=== PATIENT | female | born 1945 | race Caucasian/White ===

== ENCOUNTER 2016-06-11 08:52 | Emergency (ER) | payer OTHER ==
[~2016-06-11] VITALS: Ht 167.6 cm; Wt 79.8 kg
[~2016-06-11 08:52] MED LIST: ASPI-482 PO; ASPI81TA50 PO; ATEN25TA PO; CITA20TA5 PO; CLON0.5T3 PO; CLON2TAB16 PO; CLOP75TA PO; CLOP75TA27 PO; CYCL10TA2 PO; ESTR0.3T PO; EZET1TAB4 PO; FENO135C PO; FENO45CA PO; HYDR-2762 PO; HYDR12.53 PO; IMIP75CA PO; INSU100I17 SQ; INSU100I18 SQ; INSU100I27 SQ; LEVO112T4 PO; LEVO125T5 PO; LINA5TAB PO; LISI-338 PO; METF500T4 PO; MIRT30TA PO; MIRT30TA6 PO; MV,1TABL3 PO; OMEP20TA PO; POTA2.5T PO; POTA500T5 PO; TRAZ100T12 PO; UBID100C26 PO; UBID60CA2 PO; VITA400C36 PO; traz; trazadone
--- NOTE | 2016-06-11 09:13 | PHYS DOC ---
Past Medical History Past Medical History: Diabetes-Type II, Hypertension Past Surgical History: Cholecystectomy, Hysterectomy Additional Past Surgical Histo: NECK SURGERY Alcohol Use: None Drug Use: None Adult General Chief Complaint Chief Complaint: MECHANICAL FALL HPI HPI Patient is a 71 year old female who presents with complaint of head injury after suffering a fall at home. Patient currently lives in assisted living. Patient states that she awoke to use the restroom. Patient stated that she had significant urgency which resulted in incontinence. Patient states that she was trying to hurry to her bathroom rug to try to decrease the mass. Patient states that the rug slipped, causing her to fall backward. Patient states she hit the back of her head. Patient denied any loss of consciousness. Patient admits that the day before she also had a fall, hitting the left side of her face. The patient suffered bruising but denied any loss of consciousness. Patient denies any associated lightheadedness or chest pain with her falls. Patient states that she is supposed to ambulate with use of her roller walker, however she states that at the time of both falls she was not using her walker. Patient also Dr. Kelsey for primary care. Patient states that she feels safe in her current living situation and came to the emergency department to ensure no presence of significant injuries. Review of Systems Review of Systems Constitutional: Denies fever or chills [] Eyes: Denies change in visual acuity, redness, or eye pain [] HENT: Head injury, left eyebrow bruising [] Respiratory: Denies cough or shortness of breath [] Cardiovascular: Denies chest pain or edema [] GI: Denies abdominal pain, nausea, vomiting, bloody stools or diarrhea [] : Denies dysuria or hematuria [] Musculoskeletal: Chronic low back pain [] Integument: Denies rash or skin lesions [] Neurologic: Denies headache, focal weakness or sensory changes [] Endocrine: Denies polyuria or polydipsia [] Allergies Allergies Allergies Coded Allergies Type Severity Reaction Last Updated Verified Lakrdvi-Qsv-Nmn Reductase Inhibitor Allergy Intermediate 06/25/14 Yes Sulfa (Sulfonamide Antibiotics) Allergy Intermediate Rash 06/25/14 Yes erythromycin base Allergy Intermediate 06/25/14 Yes warfarin Allergy Intermediate Hives 06/25/14 Yes niacin Adverse Reaction Intermediate Hives 06/25/14 Yes Physical Exam Physical Exam Constitutional: Alert, afebrile, no acute distress. [] HENT: Normocephalic, minimal tenderness to palpation over right occipital scalp with minimal appreciable hematoma, bilateral external ears normal, oropharynx moist, no oral exudates, nose normal. [] Eyes: PERRLA, EOMI, left periorbital ecchymosis present, conjunctiva normal, no discharge. [] Neck: Normal range of motion, no tenderness, supple, no stridor. [] Cardiovascular:Heart rate regular rhythm, no murmur [] Lungs & Thorax: Bilateral breath sounds clear to auscultation [] Abdomen: Bowel sounds normal, soft, no tenderness, no masses, no pulsatile masses. [] Skin: Warm, dry, no erythema, no rash. [] Back: No tenderness, no CVA tenderness. [] Extremities: No tenderness, no cyanosis, no clubbing, ROM intact, trace pedal edema bilaterally. [] Neurologic: Alert and oriented X 3, normal motor function, normal sensory function, no focal deficits noted. [] Current Patient Data Vital Signs Vital Signs Date Time Temp Pulse Resp B/P Pulse Ox O2 Delivery O2 Flow Rate FiO2 06/11/16 09:00 98.1 66 18 128/60 97 Room Air 98.1 Lab Values Laboratory Tests Test 06/11/16 09:38 White Blood Count 5.6x10^3/uL (4.0-11.0) Red Blood Count 4.33x10^6/uL (3.50-5.40) Hemoglobin 12.0g/dL (12.0-15.5) Hematocrit 36.5% (36.0-47.0) Mean Corpuscular Volume 84fL (79-100) Mean Corpuscular Hemoglobin 28pg (25-35) Mean Corpuscular Hemoglobin Concent 33g/dL (31-37) Red Cell Distribution Width 14.9% (11.5-14.5) H Platelet Count 147x10^3/uL (140-400) Neutrophils (%) (Auto) 65% (31-73) Lymphocytes (%) (Auto) 25% (24-48) Monocytes (%) (Auto) 8% (0-9) Eosinophils (%) (Auto) 1% (0-3) Basophils (%) (Auto) 1% (0-3) Neutrophils # (Auto) 3.7x10^3uL (1.8-7.7) Lymphocytes # (Auto) 1.4x10^3/uL (1.0-4.8) Monocytes # (Auto) 0.5x10^3/uL (0.0-1.1) Eosinophils # (Auto) 0.1x10^3/uL (0.0-0.7) Basophils # (Auto) 0.0x10^3/uL (0.0-0.2) Sodium Level 140mmol/L (136-145) Potassium Level 3.7mmol/L (3.5-5.1) Chloride Level 101mmol/L (98-107) Carbon Dioxide Level 27mmol/L (21-32) Anion Gap 12 (6-14) Blood Urea Nitrogen 14mg/dL (7-20) Creatinine 1.0mg/dL (0.6-1.0) Estimated GFR (Cockcroft-Gault) 54.7 Glucose Level 320mg/dL (70-99) H Calcium Level 9.4mg/dL (8.5-10.1) Magnesium Level 1.3mg/dL (1.8-2.4) L Laboratory Tests 06/11/16 09:38 Laboratory Tests 06/11/16 09:38 EKG EKG Not performed Radiology/Procedures Radiology/Procedures [facility] [address] [place] [address] IMAGING REPORT Signed PATIENT: FRANCISCA CASTRO ACCOUNT: [id number] : 1945 LOCATION: ER AGE: 71 SEX: F EXAM STATUS: REG ER ORD. PHYSICIAN: ESTUARDO WATTS MD REASON: fall, head injury PROCEDURE: HEAD WO CONTRAST CT of the head without contrast, 06/11/2016: History: Fall, head injury Comparison is made to a study from 10/15/2014. The ventricles are within normal limits in size. There is no shift of the midline structures. There is no evidence of acute intracranial hemorrhage or mass effect. Minimal bilateral deep white matter lucencies are present compatible with chronic ischemic change. There is mild cerebral atrophy compatible with the patient's age. IMPRESSION: No acute intracranial abnormality is detected. PQRS Compliance Statement: One or more of the following individualized dose reduction techniques were utilized for this examination: 1. Automated exposure control 2. Adjustment of the mA and/or kV according to patient size 3. Use of iterative reconstruction technique DICTATED and SIGNED BY: KIRA MARX MD DATE: 06/11/16 1006 CC: JHOANA KELSEY; ESTUARDO WATTS MD ~ [] Course & Med Decision Making Course & Med Decision Making Pertinent Labs and Imaging studies reviewed. (See chart for details) Patient's head CT was negative for severe injury and patient is currently in no acute distress. I sat and spoke with the patient regarding safety at home. Patient states that she would like to go home and states that she will use her walker to assist with ambulation to prevent any continued falls. I did recommend that the patient follow-up in the next [address] Kelsey and return to emergency department for any worsening symptoms. Patient voiced understanding and in agreement with treatment plan. Dragon Disclaimer Dragon Disclaimer This electronic medical record was generated, in whole or in part, using a voice recognition dictation system. Departure Departure Impression: Primary Impression: Fall from standing Additional Impressions: Closed head injury Periorbital ecchymosis Disposition: HOME, SELF-CARE Condition: IMPROVED Referrals: JHOANA KELSEY (PCP) Patient Instructions: Fall Prevention and Home Safety, Head Injury, Adult Additional Instructions: Follow-up with your primary doctor in 5 days. Be sure to use your walker to assist with ambulation to prevent any further falls. Return to the emergency department for any worsening symptoms. Problem Qualifiers Primary Impression: Fall from standing Encounter type: initial encounter Qualified Code: W19.XXXA - Unspecified fall, initial encounter Additional Impressions: Closed head injury Encounter type: initial encounter Qualified Code: S09.90XA - Unspecified injury of head, initial encounter Periorbital ecchymosis Encounter type: initial encounter Laterality: left Qualified Code: S00.12XA - Contusion of left eyelid and periocular area, initial encounter ESTUARDO WATTS MD Jun 11, 2016 09:13
[2016-06-11 09:52] LABS: BASO % 1 % (0-3); EOS % 1 % (0-3); HEMATOCRIT 36.5 % (36.0-47.0); LYMPH # 1.4 x10^3/uL (1.0-4.8); LYMPH % 25 % (24-48); MEAN CORPUSCULAR HEMOGLOBIN 28 pg (25-35); MEAN CORPUSCULAR HGB CONC 33 g/dL (31-37); MEAN CORPUSCULAR VOLUME 84 fL (79-100); MONO % 8 % (0-9); NEUT % 65 % (31-73); PLATELET COUNT 147 x10^3/uL (140-400); RED BLOOD COUNT 4.33 x10^6/uL (3.50-5.40); RED CELL DISTRIBUTION WIDTH 14.9 % (11.5-14.5); WHITE BLOOD COUNT 5.6 x10^3/uL (4.0-11.0)
[2016-06-11 09:55] LABS: CALCIUM 9.4 mg/dL (8.5-10.1); GFR 54.7; MAGNESIUM 1.3 mg/dL (1.8-2.4); POTASSIUM 3.7 mmol/L (3.5-5.1)
--- NOTE | 2016-06-11 10:11 | RAD ---
CT of the head without contrast, 06/11/2016: History: Fall, head injury Comparison is made to a study from 10/15/2014. The ventricles are within normal limits in size. There is no shift of the midline structures. There is no evidence of acute intracranial hemorrhage or mass effect. Minimal bilateral deep white matter lucencies are present compatible with chronic ischemic change. There is mild cerebral atrophy compatible with the patient's age. IMPRESSION: No acute intracranial abnormality is detected. PQRS Compliance Statement: One or more of the following individualized dose reduction techniques were utilized for this examination: 1. Automated exposure control 2. Adjustment of the mA and/or kV according to patient size 3. Use of iterative reconstruction technique
[2016-06-11 11:00] VITALS: BP 125/58
== END 2016-06-11 13:12 | disposition home or self-care (01) ==
LOC: ER 08:52
DX: S00.12XA Contusion of left eyelid and periocular area, initial encounter (principal); S09.90XA Unspecified injury of head, initial encounter; E11.9 Type 2 diabetes mellitus without complications; I10 Essential (primary) hypertension; Z90.49 Acquired absence of other specified parts of digestive tract; Z90.710 Acquired absence of both cervix and uterus; Z88.2 Allergy status to sulfonamides; Z88.1 Allergy status to other antibiotic agents; Z88.8 Allergy status to other drugs, medicaments and biological substances; W01.0XXA Fall on same level from slipping, tripping and stumbling without subsequent striking against object, initial encounter; Y93.89 Activity, other specified; Y92.098 Other place in other non-institutional residence as the place of occurrence of the external cause; Y99.8 Other external cause status
CPT/HCPCS: 36415; 70450; 80048; 83735; 85027; 99285-25

== ENCOUNTER 2016-06-27 23:36 | Emergency (ER) | payer OTHER ==
[~2016-06-27] VITALS: Ht 152.4 cm; Wt 79.8 kg
[2016-06-27 23:45] VITALS: BP 135/63
--- NOTE | 2016-06-28 00:33 | RAD ---
PROCEDURE CT head without contrast HISTORY Hit posterior head TECHNIQUE Noncontrast axial cross sectional CT scanning of the head was performed. COMPARISON October 15, 2014 FINDINGS No acute intracranial hemorrhage or midline shift or mass-effect or hydrocephalus or extra-axial fluid collection is seen. No focal hypodense area is seen to indicate an acute infarct or edema radiographically. No skull fracture or pneumocephalus is seen. No opacification of the mastoid sinuses or the paranasal sinuses is seen. The maxillary sinuses are not completely seen in this study. IMPRESSION No acute intracranial abnormality is seen. PQRS Statement: One or more of the following individualized dose reduction techniques were utilized for this study: 1. Automated exposure control. 2. Adjustment of the mA and/or kV according to patient size. 3. Use of iterative reconstruction technique. Electronically signed by: Luis M Berry MD (Jun 28, 2016 00:32:32)
--- NOTE | 2016-06-28 00:47 | PHYS DOC ---
Past Medical History Past Medical History: Diabetes-Type II, Hypertension Past Surgical History: Cholecystectomy, Hysterectomy Additional Past Surgical Histo: NECK SURGERY Alcohol Use: Rarely Drug Use: None Adult General Chief Complaint Chief Complaint: MECHANICAL FALL HPI HPI This pleasant 71-year-old female who states she had a fall after trying to sit on the edge of the bed and fell backwards hitting the back of her head and has a 1 cm laceration. He is controlled. Patient is on blood thinners. Patient is alert and oriented at this time and can answer all my questions. She denies any neck pain. She denies any other injury. Review of Systems Review of Systems Constitutional: Denies fever or chills [] Eyes: Denies change in visual acuity, redness, or eye pain [] HENT: Denies nasal congestion or sore throat [] Respiratory: Denies cough or shortness of breath [] Cardiovascular: No additional information not addressed in HPI [] GI: Denies abdominal pain, nausea, vomiting, bloody stools or diarrhea [] : Denies dysuria or hematuria [] Musculoskeletal: Denies back pain or joint pain [] Integument: Denies rash or skin lesions [] Neurologic: Denies headache, focal weakness or sensory changes [] Endocrine: Denies polyuria or polydipsia [] Current Medications Current Medications Current Medications Medications (Trade) Dose Ordered Sig/Kike Start Time Stop Time Status Last Admin Dose Admin Acetaminophen/ Hydrocodone Bitart (Lortab 5/325) 1 tab 1X ONCE 06/28/16 02:00 06/28/16 02:01 DC 06/28/16 01:42 1 TAB Allergies Allergies Allergies Coded Allergies Type Severity Reaction Last Updated Verified Sxwoypv-Vhs-Rei Reductase Inhibitor Allergy Intermediate 06/25/14 Yes Sulfa (Sulfonamide Antibiotics) Allergy Intermediate Rash 06/25/14 Yes erythromycin base Allergy Intermediate 06/25/14 Yes warfarin Allergy Intermediate Hives 06/25/14 Yes bupropion Allergy Mild Rash 06/11/16 Yes nitroglycerin Allergy Mild 06/11/16 Yes tetracycline Allergy Mild Swelling 06/11/16 Yes niacin Adverse Reaction Intermediate Hives 06/25/14 Yes Physical Exam Physical Exam Constitutional: Well developed, well nourished, no acute distress, non-toxic appearance. [] HENT: Normocephalic, 1 cm vertical laceration to the occipital area, bilateral external ears normal, oropharynx moist, no oral exudates, nose normal. [] Eyes: PERRLA, EOMI, conjunctiva normal, no discharge. [] Neck: Normal range of motion, no tenderness, supple, no stridor. [] Cardiovascular:Heart rate regular rhythm, no murmur [] Lungs & Thorax: Bilateral breath sounds clear to auscultation [] Abdomen: Bowel sounds normal, soft, no tenderness, no masses, no pulsatile masses. [] Skin: Warm, dry, no erythema, no rash. [] Back: No tenderness, no CVA tenderness. [] Extremities: No tenderness, no cyanosis, no clubbing, ROM intact, no edema. [] Neurologic: Alert and oriented X 3, normal motor function, normal sensory function, no focal deficits noted. [] Psychologic: Affect normal, judgement normal, mood normal. [] Current Patient Data Vital Signs Vital Signs Date Time Temp Pulse Resp B/P Pulse Ox O2 Delivery O2 Flow Rate FiO2 06/27/16 23:45 98.3 64 16 135/63 98 Room Air 98.3 Current Patient Data Vital Signs Date Time Temp Pulse Resp B/P Pulse Ox O2 Delivery O2 Flow Rate FiO2 06/27/16 23:45 98.3 64 16 135/63 98 Room Air 98.3 Vital Signs Date Time Temp Pulse Resp B/P Pulse Ox O2 Delivery O2 Flow Rate FiO2 06/27/16 23:45 98.3 64 16 135/63 98 Room Air 98.3 EKG EKG EKG as interpreted by me shows sinus rhythm with rate of 58 bpm. There is no ectopy. There are no obvious ischemic findings. This EKG does not meet STEMI criteria. Radiology/Procedures Radiology/Procedures PROCEDURE CT head without contrast HISTORY Hit posterior head TECHNIQUE Noncontrast axial cross sectional CT scanning of the head was performed. COMPARISON October 15, 2014 FINDINGS No acute intracranial hemorrhage or midline shift or mass-effect or hydrocephalus or extra-axial fluid collection is seen. No focal hypodense area is seen to indicate an acute infarct or edema radiographically. No skull fracture or pneumocephalus is seen. No opacification of the mastoid sinuses or the paranasal sinuses is seen. The maxillary sinuses are not completely seen in this study. IMPRESSION No acute intracranial abnormality is seen. Course & Med Decision Making Course & Med Decision Making Pertinent Labs and Imaging studies reviewed. (See chart for details) This 71-year-old female had a posterior scalp laceration was repaired with [address] of her head was unremarkable. She is fully alert and oriented at her stated mental baseline. There is no indication perform any laboratory workup at this time. She was discharged and told to follow closely with her primary care doctor to have her sterling removed to return to the ER if she develops any worsening headache or if develops any changes in her mental status. Dragon Disclaimer Dragon Disclaimer This electronic medical record was generated, in whole or in part, using a voice recognition dictation system. Suture Removal Procedure 3 sterling were placed into the posterior scalp laceration without incident with excellent approximation. Patient tolerated the procedure well without need for anesthesia. Course & Medical Decisions Pertinent Labs and Imaging studies reviewed. (See chart for details) [] Final Impression [] Departure Departure Impression: Primary Impression: Closed head injury Additional Impression: Scalp laceration Disposition: 01 HOME, SELF-CARE Admitting Physician: Other Condition: STABLE Referrals: JHOANA KELSEY (PCP) Patient Instructions: Head Injury, Adult, [id number], Laceration Care, Adult , [id number], Staple Wound Closure, [id number] Additional Instructions: Please follow up with your primary doctor for your laceration and have your staple removed in in 7-10 days. Return to the ER if you develop any worsening of your symptoms such as worsening headache, nausea, or vomiting. Problem Qualifiers FRANCES BLOOD DO Jun 28, 2016 00:47
[2016-06-28] MEDS ORDERED: HYDROCODONE/APAP 5/325MG TABLET. PO ONE (02:00)
--- NOTE | 2016-06-28 07:11 | EKG ---
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
== END 2016-06-28 02:00 | disposition home or self-care (01) ==
LOC: ER 23:36
DX: S01.01XA Laceration without foreign body of scalp, initial encounter (principal); E11.9 Type 2 diabetes mellitus without complications; I10 Essential (primary) hypertension; Z88.1 Allergy status to other antibiotic agents; Z88.2 Allergy status to sulfonamides; Z88.8 Allergy status to other drugs, medicaments and biological substances; W06.XXXA Fall from bed, initial encounter; Y93.89 Activity, other specified; Y92.89 Other specified places as the place of occurrence of the external cause; Y99.8 Other external cause status
CPT/HCPCS: 12001; 70450; 93005; 99284-25

== ENCOUNTER 2016-10-17 04:08 | Inpatient (IN) | payer OTHER ==
[2016-10-17] VITALS (16 sets, daily range): BP systolic 100–160; BP diastolic 53–90
[~2016-10-17] VITALS: Ht 165.1 cm; Wt 78.9 kg
[~2016-10-17 04:08] MED LIST changes: -CLOP75TA27 PO; +CLOP75TA57 PO; +EZET1TAB30 PO; -EZET1TAB4 PO; -LINA5TAB PO; +LINA5TAB4 PO; -OMEP20TA PO; +OMEP20TA8 PO
[2016-10-17] MEDS ORDERED: LIDOCAINE 1% / SOD BICARB 8.4% 20 ML VIAL. IJ ONE (04:36)
--- NOTE | 2016-10-17 04:47 | RAD ---
RS Compliance Statement: One or more of the following individualized dose reduction techniques were utilized for this examination: 1. Automated exposure control 2. Adjustment of the mA and/or kV according to patient size 3. Use of iterative reconstruction technique CT HEAD WITHOUT CONTRAST History: code stroke; left sided facial drooping, slurred speech, numbness Comparison: None. Technique: Axial images are obtained of the head from the skull base through the vertex without IV contrast. Findings: No mass-effect, midline shift, extra-axial fluid collection, hemorrhage, or obvious acute infarction is identified. Basilar cisterns are patent. The ventricles and sulci are prominent, consistent with age-related cerebral atrophy. There is periventricular white matter hypoattenuation. This is a nonspecific finding but is commonly due to chronic small vessel ischemic disease. Bone windows demonstrate no acute calvarial abnormality. The visualized paranasal sinuses are clear. Mastoid air cells are well aerated. IMPRESSION: 1. No acute intracranial abnormality. 2. Age-related cerebral atrophy and periventricular white matter changes of chronic small vessel ischemic disease. FOR INTERNAL CODING PURPOSES Critical result: Findings discussed with Jose in the ED at 10/17/2016 4:41 AM. RESULT CODE: (C) Electronically signed by: Shahbaz Potter MD (10/17/2016 4:44 AM) [facility]
[2016-10-17 05:23] LABS: BASO # 0.1 x10^3/uL (0.0-0.2); BASO % 1 % (0-3); EOS % 1 % (0-3); HEMATOCRIT 37.1 % (36.0-47.0); LYMPH # 1.9 x10^3/uL (1.0-4.8); LYMPH % 29 % (24-48); MEAN CORPUSCULAR HEMOGLOBIN 29 pg (25-35); MEAN CORPUSCULAR HGB CONC 32 g/dL (31-37); MEAN CORPUSCULAR VOLUME 91 fL (79-100); MONO % 10 % (0-9); NEUT % 60 % (31-73); PLATELET COUNT 147 x10^3/uL (140-400); RED BLOOD COUNT 4.09 x10^6/uL (3.50-5.40); RED CELL DISTRIBUTION WIDTH 13.9 % (11.5-14.5); WHITE BLOOD COUNT 6.7 x10^3/uL (4.0-11.0)
[2016-10-17 05:33] LABS: BILIRUBIN,URINE NEGATIVE (NEG); GLUCOSE,URINE >=1000 mg/dL (NEG); NITRITE,URINE NEGATIVE (NEG); PH,URINE 5.5; PROTEIN,URINE NEGATIVE (NEG-TRACE); UROBILINOGEN,URINE 0.2 mg/dL (0.2 mg/dL)
[2016-10-17 05:35] LABS: CALCIUM 10.3 mg/dL (8.5-10.1); CREATININE 1.2 mg/dL (0.6-1.0); GFR 44.3
[2016-10-17 05:38] LABS: ALBUMIN 3.6 g/dL (3.4-5.0); ALBUMIN/GLOBULIN RATIO 0.8 (1.0-1.7); TOTAL BILIRUBIN 0.6 mg/dL (0.2-1.0); TOTAL PROTEIN 8.1 g/dL (6.4-8.2)
[2016-10-17 05:44] LABS: BACTERIA,URINE 0 /HPF (0-FEW); RBC,URINE 0 /HPF (0-2); SQUAMOUS EPITHELIAL CELL,UR OCC /LPF; WBC,URINE 0 /HPF (0-4)
[2016-10-17] MEDS ORDERED: IV NORMAL SALINE 1000ML BAG 1,000 ML IV ONE ×2 (05:45)
[2016-10-17 05:47] LABS: INR 1.1 (0.8-1.1); PROTHROMBIN TIME PATIENT 13.6 SEC (11.7-14.0)
[2016-10-17] MEDS ORDERED: ONDANSETRON PF 4 MG/2 ML VIAL. IV PRN (06:00)
[2016-10-17] MEDS ORDERED: INSULIN REGULAR 100 UNIT/ML 10ML VIAL. IV ONE (06:15)
--- NOTE | 2016-10-17 06:18 | PHYS DOC ---
Past Medical History Past Medical History: Diabetes-Type II, Hypertension, Hypothyroid Past Surgical History: Cholecystectomy, Hysterectomy Additional Past Surgical Histo: NECK SURGERY Alcohol Use: Rarely Drug Use: None Adult General Chief Complaint Chief Complaint: HYPERGLYCEMIA HPI HPI Patient is a 71 year old female who presents here today secondary to left- sided weakness and slurred speech. Patient's other history of diabetes and strokes in the past. Last as well as unclear however appears to be greater than 6 hours. Patient has a nausea vomiting or diarrhea. No fevers shakes chills. No cough cold runny nose. Constitutional: Denies fever or chills [] Eyes: Denies change in visual acuity, redness, or eye pain [] HENT: Denies nasal congestion or sore throat [] All other review systems are negative except as documented in the history of present illness portion. Constitutional: Well developed, well nourished, no acute distress, non-toxic appearance. [] HENT: Normocephalic, atraumatic, bilateral external ears normal, oropharynx moist, no oral exudates, nose normal. [] Eyes: no discharge. [] Neck: Normal range of motion, no tenderness, supple, no stridor. [] Cardiovascular:Heart rate regular rhythm, Lungs & Thorax: Bilateral breath sounds clear to auscultation [] Abdomen: Bowel sounds normal, soft, no tenderness, no masses, no pulsatile masses. [] Skin: Warm, dry, no erythema, no rash. [] Back: No tenderness, no CVA tenderness. [] Extremities: No tenderness, no cyanosis, no clubbing, ROM intact, no edema. [] Neurologic: Alert and oriented X 3 patient with left facial droop. Patient with weakness to her left upper extremity. This appears to be a chronic condition for the patient however does appear to be worse than usual. While in the ER patient had a tonic-clonic seizure of her lip of her despite the nurse. Psychologic: Affect normal, judgement normal, mood normal. [] Assessment and plan is a 71-year-old female who presents here today with strokelike symptoms. Patient is extremely hyperglycemic with a blood sugar of greater than 600. Patient was started on insulin and IV fluids in the ED. I have discussed the case with for assistance with managing tPA. Given that the patient extremely hyperglycemic is felt that her symptoms but improved with improvement of her hyperosmotic status. Doctor Johana our neurologist on-call has recommended holding off on initiating TPA and aggressive management of her electrolytes and blood sugar. Critical care time of 35 minutes reutilized and treatment and management of this patient's strokelike symptoms, hyperglycemia, hyperosmotic state. Patient will be admitted to the hospital for further evaluation and management by endocrinology and neurology. Laboratory Tests Test 10/17/16 04:23 10/17/16 04:47 White Blood Count 6.7 x10^3/uL Red Blood Count 4.09 x10^6/uL Hemoglobin 12.0 g/dL Hematocrit 37.1 % Mean Corpuscular Volume 91 fL Mean Corpuscular Hemoglobin 29 pg Mean Corpuscular Hemoglobin Concent 32 g/dL Red Cell Distribution Width 13.9 % Platelet Count 147 x10^3/uL Neutrophils (%) (Auto) 60 % Lymphocytes (%) (Auto) 29 % Monocytes (%) (Auto) 10 % Eosinophils (%) (Auto) 1 % Basophils (%) (Auto) 1 % Neutrophils # (Auto) 4.0 x10^3uL Lymphocytes # (Auto) 1.9 x10^3/uL Monocytes # (Auto) 0.6 x10^3/uL Eosinophils # (Auto) 0.1 x10^3/uL Basophils # (Auto) 0.1 x10^3/uL Prothrombin Time 13.6 SEC Prothromb Time International Ratio 1.1 Sodium Level 124 mmol/L Potassium Level 5.0 mmol/L Chloride Level 86 mmol/L Carbon Dioxide Level 29 mmol/L Anion Gap 9 Blood Urea Nitrogen 28 mg/dL Creatinine 1.2 mg/dL Estimated GFR (Cockcroft-Gault) 44.3 BUN/Creatinine Ratio 23 Glucose Level 802 mg/dL Calcium Level 10.3 mg/dL Total Bilirubin 0.6 mg/dL Aspartate Amino Transf (AST/SGOT) 47 U/L Alanine Aminotransferase (ALT/SGPT) 52 U/L Alkaline Phosphatase 138 U/L Troponin I Quantitative < 0.017 ng/mL Total Protein 8.1 g/dL Albumin 3.6 g/dL Albumin/Globulin Ratio 0.8 Urine Collection Type U cath Urine Color Yellow Urine Clarity Clear Urine pH 5.5 Urine Specific [place] 1.025 Urine Protein Negative mg/dL Urine Glucose (UA) >=1000 mg/dL Urine Ketones (Stick) Negative mg/dL Urine Blood Negative Urine Nitrite Negative Urine Bilirubin Negative Urine Urobilinogen Dipstick 0.2 mg/dL Urine Leukocyte Esterase Negative Urine RBC 0 /HPF Urine WBC 0 /HPF Urine Squamous Epithelial Cells Occ /LPF Urine Bacteria 0 /HPF Current Medications Medications (Trade) Dose Ordered Sig/Kike Route PRN Reason Start Time Stop Time Status Last Admin Dose Admin Lidocaine/Sodium Bicarbonate (Buffered Lidocaine 1%) 20 ml STK-MED ONCE IJ 10/17/16 04:36 10/17/16 04:37 Cancel Sodium Chloride 1,000 ml @ 1,000 mls/hr 1X ONCE IV 10/17/16 05:45 10/17/16 06:44 DC 10/17/16 05:45 1,000 MLS/HR Sodium Chloride 1,000 ml @ 1,000 mls/hr 1X ONCE IV 10/17/16 05:45 10/17/16 06:44 DC 10/17/16 05:45 1,000 MLS/HR Current Medications Current Medications Current Medications Medications (Trade) Dose Ordered Sig/Kike Start Time Stop Time Status Last Admin Dose Admin Lidocaine/Sodium Bicarbonate (Buffered Lidocaine 1%) 20 ml STK-MED ONCE 10/17/16 04:36 10/17/16 04:37 Cancel Sodium Chloride 1,000 ml @ 1,000 mls/hr 1X ONCE 10/17/16 05:45 10/17/16 06:44 DC 10/17/16 05:45 1,000 MLS/HR Allergies Allergies Allergies Coded Allergies Type Severity Reaction Last Updated Verified Etngnhp-Enb-Ltc Reductase Inhibitor Allergy Intermediate 06/25/14 Yes Sulfa (Sulfonamide Antibiotics) Allergy Intermediate Rash 06/25/14 Yes erythromycin base Allergy Intermediate 06/25/14 Yes warfarin Allergy Intermediate Hives 06/25/14 Yes bupropion Allergy Mild Rash 06/11/16 Yes nitroglycerin Allergy Mild 06/11/16 Yes tetracycline Allergy Mild Swelling 06/11/16 Yes niacin Adverse Reaction Intermediate Hives 06/25/14 Yes Current Patient Data Vital Signs Vital Signs Date Time Temp Pulse Resp B/P (MAP) Pulse Ox O2 Delivery O2 Flow Rate FiO2 10/17/16 05:53 79 119/67 (84) 95 Nasal Cannula 2.0 10/17/16 04:27 98.4 20 98.4 Lab Values Laboratory Tests Test 10/17/16 04:23 10/17/16 04:47 White Blood Count 6.7 x10^3/uL (4.0-11.0) Red Blood Count 4.09 x10^6/uL (3.50-5.40) Hemoglobin 12.0 g/dL (12.0-15.5) Hematocrit 37.1 % (36.0-47.0) Mean Corpuscular Volume 91 fL (79-100) Mean Corpuscular Hemoglobin 29 pg (25-35) Mean Corpuscular Hemoglobin Concent 32 g/dL (31-37) Red Cell Distribution Width 13.9 % (11.5-14.5) Platelet Count 147 x10^3/uL (140-400) Neutrophils (%) (Auto) 60 % (31-73) Lymphocytes (%) (Auto) 29 % (24-48) Monocytes (%) (Auto) 10 % (0-9) H Eosinophils (%) (Auto) 1 % (0-3) Basophils (%) (Auto) 1 % (0-3) Neutrophils # (Auto) 4.0 x10^3uL (1.8-7.7) Lymphocytes # (Auto) 1.9 x10^3/uL (1.0-4.8) Monocytes # (Auto) 0.6 x10^3/uL (0.0-1.1) Eosinophils # (Auto) 0.1 x10^3/uL (0.0-0.7) Basophils # (Auto) 0.1 x10^3/uL (0.0-0.2) Prothrombin Time 13.6 SEC (11.7-14.0) Prothrombin Time INR 1.1 (0.8-1.1) Sodium Level 124 mmol/L (136-145) L Potassium Level 5.0 mmol/L (3.5-5.1) Chloride Level 86 mmol/L (98-107) L Carbon Dioxide Level 29 mmol/L (21-32) Anion Gap 9 (6-14) Blood Urea Nitrogen 28 mg/dL (7-20) H Creatinine 1.2 mg/dL (0.6-1.0) H Estimated GFR (Cockcroft-Gault) 44.3 BUN/Creatinine Ratio 23 (6-20) H Glucose Level 802 mg/dL (70-99) *H Calcium Level 10.3 mg/dL (8.5-10.1) H Total Bilirubin 0.6 mg/dL (0.2-1.0) Aspartate Amino Transferase (AST) 47 U/L (15-37) H Alanine Aminotransferase (ALT) 52 U/L (14-59) Alkaline Phosphatase 138 U/L (46-116) H Troponin I Quantitative < 0.017 ng/mL (0.000-0.055) Total Protein 8.1 g/dL (6.4-8.2) Albumin 3.6 g/dL (3.4-5.0) Albumin/Globulin Ratio 0.8 (1.0-1.7) L Urine Collection Type U cath Urine Color Yellow Urine Clarity Clear Urine pH 5.5 Urine Specific [place] 1.025 Urine Protein Negative mg/dL (NEG-TRACE) Urine Glucose (UA) >=1000 mg/dL (NEG) Urine Ketones (Stick) Negative mg/dL (NEG) Urine Blood Negative (NEG) Urine Nitrite Negative (NEG) Urine Bilirubin Negative (NEG) Urine Urobilinogen Dipstick 0.2 mg/dL (0.2 mg/dL) Urine Leukocyte Esterase Negative (NEG) Urine RBC 0 /HPF (0-2) Urine WBC 0 /HPF (0-4) Urine Squamous Epithelial Cells Occ /LPF Urine Bacteria 0 /HPF (0-FEW) Laboratory Tests 10/17/16 04:23 Laboratory Tests 10/17/16 04:23 EKG EKG [] Radiology/Procedures Radiology/Procedures [] Course & Med Decision Making Course & Med Decision Making Pertinent Labs and Imaging studies reviewed. (See chart for details) [] Dragon Disclaimer Dragon Disclaimer This electronic medical record was generated, in whole or in part, using a voice recognition dictation system. Departure Departure Impression: Primary Impression: Stroke Additional Impressions: Hyperglycemia Seizure Disposition: ADMITTED INPATIENT Admitting Physician: Maggie Escobar Condition: GUARDED Referrals: JHOANA KELSEY (PCP) Scripts Insulin Aspart (NOVOLOG FLEXPEN) 100 Unit/1 Ml Insuln.pen 25 UNITS SQ TIDAC for 30 Days, EACH Prov: MAGGIE ESCOBAR MD 10/20/16 Problem Qualifiers RADHA VALDOVINSO MD Oct 17, 2016 06:18
[2016-10-17] MEDS ORDERED: INSULIN,REGULAR 150 UNIT DRIP 150 ML IV ONE (06:30)
[2016-10-17] MEDS ORDERED: ASPIRIN CHEWABLE 81 MG TABLET. PO ONE (07:00)
--- NOTE | 2016-10-17 07:39 | EKG ---
[facility] [address] [place] [address] Test Date: 2016-10-17 Test Time: 04:40:53 Pat Name: FRANCISCA CASTRO Department: Room: 109 Gender: F Route Process Administrator: : [id number] Requested By: RADHA VALDOVINOS Order Number: [id number] Reading MD: Luther Chadwick Measurements Intervals [place] Rate: 77 P: 54 ID: [id number] QRS: 54 QRSD: 90 T: 71 QT: 380 QTc: 432 Interpretive Statements SINUS RHYTHM Electronically Signed On 10-22-2016 14:36:03 CDT by Luther Chadwick
--- NOTE | 2016-10-17 08:02 | RAD ---
Indication left facial droop. Suspect CVA. A single view of the chest was obtained. No prior imaging of the head is available. The heart and pulmonary vessels appear normal. The lungs are clear. There is no pleural fluid or pneumothorax. Visualized bony structures appear grossly intact. IMPRESSION: No acute or focal process is seen in the chest
[2016-10-17] MEDS ORDERED: LEVO100T5 PO (08:10)
[2016-10-17] MEDS ORDERED: INSU100I17 SQ (08:10)
[2016-10-17] MEDS ORDERED: SAXA5TAB PO (08:10)
[2016-10-17] MEDS ORDERED: UBID200C PO (08:10)
[2016-10-17] MEDS ORDERED: TORS20TA2 PO (08:10)
[2016-10-17] MEDS ORDERED: GEMF600T3 PO (08:10)
[2016-10-17] MEDS ORDERED: ATEN25TA PO (08:10)
[2016-10-17] MEDS ORDERED: COLE625T12 PO (08:10)
[2016-10-17] MEDS ORDERED: FLUT16SP NS (08:10)
[2016-10-17] MEDS ORDERED: TRAZ150T49 PO (08:10)
[2016-10-17] MEDS ORDERED: BREX4TAB PO (08:10)
[2016-10-17] MEDS ORDERED: VORT20TA PO (08:10)
[2016-10-17] MEDS ORDERED: HYDR-2762 PO (08:10)
[2016-10-17] MEDS ORDERED: INSU100V13 SQ (08:10)
[2016-10-17 12:29] LABS: CALCIUM 8.6 mg/dL (8.5-10.1); CREATININE 0.8 mg/dL (0.6-1.0); GFR 70.7; POTASSIUM 4.1 mmol/L (3.5-5.1)
--- NOTE | 2016-10-17 12:36 | PDOC ---
Provider Note Provider Note Pt seen in ICU, H&P dictated #[id number] VLAD SHAHID MD Oct 17, 2016 12:36
[2016-10-17] MEDS: CYCLOBENZAPRINE 10 MG TABLET. PO SCH ×2 (12:47→20:11)
[2016-10-17] MEDS: EZETIMIBE 10 MG TABLET. PO SCH (12:47)
[2016-10-17] MEDS: CLOPIDOGREL BISULFATE 75 MG TABLET PO SCH (12:48)
[2016-10-17] MEDS: SIMVASTATIN 20 MG TABLET PO SCH (12:48)
[2016-10-17] MEDS: LISINOPRIL 5 MG TABLET. PO SCH (12:48)
[2016-10-17] MEDS: clonazePAM 0.5 MG TABLET PO SCH ×2 (12:48→20:11)
[2016-10-17] MEDS: LEVOTHYROXINE 100 MCG TABLET PO SCH (12:48)
[2016-10-17] MEDS: LINAGLIPTIN 5 MG TABLET PO SCH (12:48)
[2016-10-17] MEDS: COLESEVELAM HCL 625 MG TABLET PO SCH ×2 (12:49→20:11)
[2016-10-17] MEDS ORDERED: MAGNESIUM SULFATE 2GM 50 ML IV ONE (13:00)
[2016-10-17] MEDS ORDERED: DEXTROSE 50% 25 GM / 50ML DISP.SYRIN. IV PRN (13:45)
--- NOTE | 2016-10-17 15:07 | PDOC2 ---
NEUROLOGY CONSULT Date of Admission Date of Admission DATE: 10/17/16 TIME: 14:55 Reason for Consult Reason for Consult: IMPRESSION: Metabolic encephalopathy. New onset seizure. Hyperglycemia, glucose 802. Left facial weakness. DM, poorly controlled. HTN Hypothyroidism Obesity. RECOMMENDATIONS/PLAN: Seizure control. Control hyperglycemia. Brain MRI w/wo contrast plus seizure protocol. EEG ASA daily. Lab: see orders. HISTORY OF THE PRESENT ILLNESS: 71-y-old female patient with above medical diseases has mental status changes, decreased response and seizure to be brought to the ER of [facility]. She had left side facial twitching movements and left side extremities jerking like movements several times and her left side was reportedly weak. Her glucose was 802. PAST MEDICAL HISTORY: Please see above. PAST SURGERY HISTORY: Cholecystectomy Hysterectomy Neck surgery ALLERGY: Reviewed. MEDICATIONS: Refer to [facility] FAMILY HISTORY: Non contributory. SOCIAL HISTORY: Denies current smoking, drinking, and illicit drug use. REVIEW OF SYSTEMS: Constitutional: No malnutrition, weight loss, cachexia. Head: No traumatic brain or head injury. Skin: No edema, or rash. Ear: No infection. Eyes: No vision loss or color blindness. Nose: No bleeding or purulent discharges. Hearing: Hearing decrease. Neck: No injury. Breast: No history of cancer, masses,or discharges. Cardiac: HTN. Pulmonary: No COPD. GI: No GI ulcer, GI bleeding. Urinary/genital: UTI. Endocrinologic: Diabetes Mellitus, hypothyroidism, obesity. Skeletomuscular: No muscular atrophy, deformity . Neurological: see HP. Psychiatric: Denies drug use/abuse. Otherwise, not [id number] review of systems. PHYSICAL EXAMINATION: General appearance is in acute distress. HEENT: Normocephalic and nontraumatic. Eyes, nose, ears, and throat are unremarkable. Neck is supple. No lymphadenopathy. No bruits are heard over the carotid artery. No crepitus. Cardiovascular: S1, S2, regular rate and rhythm. Pulmonary: Clear to auscultation bilaterally. Abdomen: Bowel sounds are positive. Extremities: No rash, lesions, or edema. No restriction of range of motion NEUROLOGICAL EXAMINATION: Drowsiness. Not oriented to time, place but knows person. PERRL. EOMI. CN: no focal findings. Muscle tone: within normal. Muscle strength: 4 DTR: 2- Plantar reflex: Neutral response bilaterally Gait: not examined in bed. Sensory exam: no abnormal findings. No acute cerebellar signs elicited. F-T-N test fine. Current Medications Current Medications Current Medications Lidocaine/Sodium Bicarbonate (Buffered Lidocaine 1%) 20 ml STK-MED ONCE IJ ; Start 10/17/16 at 04:36; Stop 10/17/16 at 04:37; Status Cancel Sodium Chloride 1,000 ml @ 1,000 mls/hr 1X ONCE IV Last administered on 05:45; Start 10/17/16 at 05:45; Stop 10/17/16 at 06:44; Status DC Sodium Chloride 1,000 ml @ 1,000 mls/hr 1X ONCE IV Last administered on 05:45; Start 10/17/16 at 05:45; Stop 10/17/16 at 06:44; Status DC Insulin Human Regular (NovoLIN R VIAL) 10 unit 1X ONCE IV Last administered on 10/17/16 06:14; Start 10/17/16 at 06:15; Stop 10/17/16 at 06:16; Status DC Insulin Human Regular 150 ml @ 0 mls/hr 1X ONCE IV Last administered on 06:24; Start 10/17/16 at 06:30; Stop 10/17/16 at 06:31; Status DC Ondansetron HCl (Zofran) 4 mg PRN Q8HRS PRN IV NAUSEA/VOMITING; Start 10/17/16 at 06:00; Stop 10/18/16 at 05:59 Aspirin (Children'S Aspirin) 324 mg 1X ONCE PO Last administered on 10/17/16 06:31; Start 10/17/16 at 07:00; Stop 10/17/16 at 07:01; Status DC Aspirin (Ecotrin) 81 mg DAILY PO ; Start 10/18/16 at 09:00 Atenolol (Tenormin) 25 mg BID PO ; Start 10/17/16 at 21:00 Clonazepam (KlonoPIN) 0.5 mg TID PO Last administered on 10/17/16 12:48; Start 10/17/16 at 14:00 Clopidogrel Bisulfate (Plavix) 75 mg DAILY PO Last administered on 10/17/16 12 :48; Start 10/17/16 at 13:00 Colesevelam HCl (Welchol) 625 mg TID PO ; Start 10/17/16 at 14:00 Cyclobenzaprine HCl (Flexeril) 10 mg TID PO Last administered on 10/17/16 12: 47; Start 10/17/16 at 14:00 Fluticasone Propionate (Flonase) 1 spray DAILY NS ; Start 10/18/16 at 09:00 Gemfibrozil (Lopid) 600 mg BIDBFRMEAL PO ; Start 10/17/16 at 16:30 Acetaminophen/ Hydrocodone Bitart (Lortab 7.5/325) 1 tab PRN Q6HRS PRN PO PAIN ; Start 10/17/16 at 12:30 Levothyroxine Sodium (Synthroid) 100 mcg DAILY07 PO Last administered on 12:48; Start 10/17/16 at 13:00 Lisinopril (Prinivil) 5 mg DAILY PO Last administered on 10/17/16 12:48; Start 10/17/16 at 13:00 Torsemide (Demadex) 10 mg QODAY PO ; Start 10/19/16 at 09:00 Non-Formulary Medication 4 mg DAILY PO ; Start 10/18/16 at 09:00; Status UNV EZETIMIBE (Zetia) 10 mg DAILY PO Last administered on 10/17/16 12:47; Start at 13:00 Linagliptin (Tradjenta) 5 mg DAILY PO Last administered on 10/17/16 12:48; Start 10/17/16 at 13:00 Trazodone HCl (Desyrel) 150 mg HS PO ; Start 10/17/16 at 21:00 Non-Formulary Medication 200 mg DAILY PO ; Start 10/18/16 at 09:00; Status UNV Non-Formulary Medication 40 mg QODAY PO ; Start 10/19/16 at 09:00; Status UNV Potassium Chloride/Sodium Chloride 1,000 ml @ 100 mls/hr Q10H IV Last administered on 10/17/16 12:49; Start 10/17/16 at 12:22 Simvastatin (Zocor) 20 mg DAILY PO Last administered on 10/17/16 12:48; Start 10/17/16 at 13:00 Magnesium Sulfate/ Dextrose 50 ml @ 25 mls/hr 1X ONCE IV Last administered on 10/17/16t 12:56; Start 10/17/16 at 13:00; Stop 10/17/16 at 14:59 Insulin Aspart (NovoLOG) 0-7 UNITS TIDWMEALS SQ ; Start 10/17/16 at 17:00 Dextrose (Dextrose 50%-Water Syringe) 12.5 gm PRN Q15MIN PRN IV SEE COMMENTS; Start 10/17/16 at 13:45 Insulin Aspart (NovoLOG) 10 units TIDAC SQ ; Start 10/17/16 at 16:30 Insulin Detemir (Levemir) 50 units QHS SQ ; Start 10/17/16 at 21:00 Active Scripts Active Reported Novolog Flexpen (Insulin Aspart) 100 Unit/1 Ml Insuln.pen 8 Unit SQ TID Levemir (Insulin Detemir) 100 Unit/1 Ml Vial 51 Unit SQ HS Hydrocodone-Apap 7.5-325 (Hydrocodone Bit/Acetaminophen) 1 Each Tablet 1 Tab PO PRN Q6HRS PRN Trazodone Hcl 150 Mg Tablet 1 Tab PO QHS Welchol (Colesevelam Hcl) 625 Mg Tablet 625 Mg PO TID Gemfibrozil 600 Mg Tablet 1 Tab PO BID Atenolol 25 Mg Tablet 1 Tab PO BID Trintellix (Vortioxetine) 20 Mg Tablet 40 Mg PO QODAY Torsemide 20 Mg Tablet 10 Mg PO QODAY Rexulti (Brexpiprazole) 4 Mg Tablet 4 Mg PO DAILY Onglyza (Saxagliptin Hcl) 5 Mg Tablet 1 Tab PO DAILY Levothyroxine Sodium 100 Mcg Tablet 1 Tab PO DAILY Fluticasone Propionate Nasal Astor (Fluticasone Propionate) 16 Gm Astor.susp 1 Astor NS DAILY Coenzyme Q10 (Ubidecarenone) 200 Mg Capsule 200 Mg PO DAILY Clonazepam 0.5 Mg Tablet 1 Tab PO TID Lisinopril 5 Mg Tablet 5 Mg PO DAILY Cyclobenzaprine Hcl 10 Mg Tablet 10 Mg PO TID Plavix (Clopidogrel Bisulfate) 75 Mg Tablet 75 Mg PO DAILY Vytorin 10-20 Mg Tablet (Ezetimibe/Simvastatin) 1 Each Tablet 1 Each PO DAILY Clonazepam Odt (Clonazepam) 2 Mg Tab.rapdis 2 Mg PO PRN Aspir 81 (Aspirin) 81 Mg Tablet.dr 81 Mg PO DAILY Allergies Allergies: Coded Allergies: Mxmfdof-Aiy-Lgh Reductase Inhibitor (Verified Allergy, Intermediate, ) weakness Sulfa (Sulfonamide Antibiotics) (Verified Allergy, Intermediate, Rash, ) numbness erythromycin base (Verified Allergy, Intermediate, 06/25/14) numbness warfarin (Verified Allergy, Intermediate, Hives, 06/25/14) bupropion (Verified Allergy, Mild, Rash, 06/11/16) nitroglycerin (Verified Allergy, Mild, 06/11/16) HEADACHES tetracycline (Verified Allergy, Mild, Swelling, 06/11/16) niacin (Verified Adverse Reaction, Intermediate, Hives, 06/25/14) Vitals VITALS Vital Signs Date Time Temp Pulse Resp B/P (MAP) Pulse Ox O2 Delivery O2 Flow Rate FiO2 10/17/16 14:00 77 19 130/60 (83) 97 Room Air 10/17/16 11:39 98.1 98.1 10/17/16 07:31 2.0 Labs Labs Laboratory Tests Test 10/17/16 04:23 10/17/16 04:47 10/17/16 07:30 10/17/16 09:26 White Blood Count 6.7 x10^3/uL (4.0-11.0) Red Blood Count 4.09 x10^6/uL (3.50-5.40) Hemoglobin 12.0 g/dL (12.0-15.5) Hematocrit 37.1 % (36.0-47.0) Mean Corpuscular Volume 91 fL (79-100) Mean Corpuscular Hemoglobin 29 pg (25-35) Mean Corpuscular Hemoglobin Concent 32 g/dL (31-37) Red Cell Distribution Width 13.9 % (11.5-14.5) Platelet Count 147 x10^3/uL (140-400) Neutrophils (%) (Auto) 60 % (31-73) Lymphocytes (%) (Auto) 29 % (24-48) Monocytes (%) (Auto) 10 % (0-9) Eosinophils (%) (Auto) 1 % (0-3) Basophils (%) (Auto) 1 % (0-3) Neutrophils # (Auto) 4.0 x10^3uL (1.8-7.7) Lymphocytes # (Auto) 1.9 x10^3/uL (1.0-4.8) Monocytes # (Auto) 0.6 x10^3/uL (0.0-1.1) Eosinophils # (Auto) 0.1 x10^3/uL (0.0-0.7) Basophils # (Auto) 0.1 x10^3/uL (0.0-0.2) Prothrombin Time 13.6 SEC (11.7-14.0) Prothromb Time International Ratio 1.1 (0.8-1.1) Sodium Level 124 mmol/L (136-145) Potassium Level 5.0 mmol/L (3.5-5.1) Chloride Level 86 mmol/L (98-107) Carbon Dioxide Level 29 mmol/L (21-32) Anion Gap 9 (6-14) Blood Urea Nitrogen 28 mg/dL (7-20) Creatinine 1.2 mg/dL (0.6-1.0) Estimated GFR (Cockcroft-Gault) 44.3 BUN/Creatinine Ratio 23 (6-20) Glucose Level 802 mg/dL (70-99) 584 mg/dL (70-99) Calcium Level 10.3 mg/dL (8.5-10.1) Total Bilirubin 0.6 mg/dL (0.2-1.0) Aspartate Amino Transf (AST/SGOT) 47 U/L (15-37) Alanine Aminotransferase (ALT/SGPT) 52 U/L (14-59) Alkaline Phosphatase 138 U/L (46-116) Troponin I Quantitative < 0.017 ng/mL (0.000-0.055) Total Protein 8.1 g/dL (6.4-8.2) Albumin 3.6 g/dL (3.4-5.0) Albumin/Globulin Ratio 0.8 (1.0-1.7) Urine Collection Type U cath Urine Color Yellow Urine Clarity Clear Urine pH 5.5 Urine Specific [place] 1.025 Urine Protein Negative mg/dL (NEG-TRACE) Urine Glucose (UA) >=1000 mg/dL (NEG) Urine Ketones (Stick) Negative mg/dL (NEG) Urine Blood Negative (NEG) Urine Nitrite Negative (NEG) Urine Bilirubin Negative (NEG) Urine Urobilinogen Dipstick 0.2 mg/dL (0.2 mg/dL) Urine Leukocyte Esterase Negative (NEG) Urine RBC 0 /HPF (0-2) Urine WBC 0 /HPF (0-4) Urine Squamous Epithelial Cells Occ /LPF Urine Bacteria 0 /HPF (0-FEW) Glucose (Fingerstick) 419 mg/dL (70-99) Test 10/17/16 10:17 10/17/16 11:18 10/17/16 12:00 10/17/16 12:22 Glucose (Fingerstick) 418 mg/dL (70-99) 403 mg/dL (70-99) 338 mg/dL (70-99) Sodium Level 137 mmol/L (136-145) Potassium Level 4.1 mmol/L (3.5-5.1) Chloride Level 101 mmol/L (98-107) Carbon Dioxide Level 27 mmol/L (21-32) Anion Gap 9 (6-14) Blood Urea Nitrogen 24 mg/dL (7-20) Creatinine 0.8 mg/dL (0.6-1.0) Estimated GFR (Cockcroft-Gault) 70.7 Glucose Level 391 mg/dL (70-99) Calcium Level 8.6 mg/dL (8.5-10.1) Magnesium Level 1.6 mg/dL (1.8-2.4) Test 10/17/16 13:27 Glucose (Fingerstick) 380 mg/dL (70-99) Laboratory Tests Test 10/17/16 04:23 10/17/16 04:47 10/17/16 07:30 10/17/16 09:26 White Blood Count 6.7 x10^3/uL (4.0-11.0) Red Blood Count 4.09 x10^6/uL (3.50-5.40) Hemoglobin 12.0 g/dL (12.0-15.5) Hematocrit 37.1 % (36.0-47.0) Mean Corpuscular Volume 91 fL (79-100) Mean Corpuscular Hemoglobin 29 pg (25-35) Mean Corpuscular Hemoglobin Concent 32 g/dL (31-37) Red Cell Distribution Width 13.9 % (11.5-14.5) Platelet Count 147 x10^3/uL (140-400) Neutrophils (%) (Auto) 60 % (31-73) Lymphocytes (%) (Auto) 29 % (24-48) Monocytes (%) (Auto) 10 % (0-9) Eosinophils (%) (Auto) 1 % (0-3) Basophils (%) (Auto) 1 % (0-3) Neutrophils # (Auto) 4.0 x10^3uL (1.8-7.7) Lymphocytes # (Auto) 1.9 x10^3/uL (1.0-4.8) Monocytes # (Auto) 0.6 x10^3/uL (0.0-1.1) Eosinophils # (Auto) 0.1 x10^3/uL (0.0-0.7) Basophils # (Auto) 0.1 x10^3/uL (0.0-0.2) Prothrombin Time 13.6 SEC (11.7-14.0) Prothromb Time International Ratio 1.1 (0.8-1.1) Sodium Level 124 mmol/L (136-145) Potassium Level 5.0 mmol/L (3.5-5.1) Chloride Level 86 mmol/L (98-107) Carbon Dioxide Level 29 mmol/L (21-32) Anion Gap 9 (6-14) Blood Urea Nitrogen 28 mg/dL (7-20) Creatinine 1.2 mg/dL (0.6-1.0) Estimated GFR (Cockcroft-Gault) 44.3 BUN/Creatinine Ratio 23 (6-20) Glucose Level 802 mg/dL (70-99) 584 mg/dL (70-99) Calcium Level 10.3 mg/dL (8.5-10.1) Total Bilirubin 0.6 mg/dL (0.2-1.0) Aspartate Amino Transf (AST/SGOT) 47 U/L (15-37) Alanine Aminotransferase (ALT/SGPT) 52 U/L (14-59) Alkaline Phosphatase 138 U/L (46-116) Troponin I Quantitative < 0.017 ng/mL (0.000-0.055) Total Protein 8.1 g/dL (6.4-8.2) Albumin 3.6 g/dL (3.4-5.0) Albumin/Globulin Ratio 0.8 (1.0-1.7) Urine Collection Type U cath Urine Color Yellow Urine Clarity Clear Urine pH 5.5 Urine Specific [place] 1.025 Urine Protein Negative mg/dL (NEG-TRACE) Urine Glucose (UA) >=1000 mg/dL (NEG) Urine Ketones (Stick) Negative mg/dL (NEG) Urine Blood Negative (NEG) Urine Nitrite Negative (NEG) Urine Bilirubin Negative (NEG) Urine Urobilinogen Dipstick 0.2 mg/dL (0.2 mg/dL) Urine Leukocyte Esterase Negative (NEG) Urine RBC 0 /HPF (0-2) Urine WBC 0 /HPF (0-4) Urine Squamous Epithelial Cells Occ /LPF Urine Bacteria 0 /HPF (0-FEW) Glucose (Fingerstick) 419 mg/dL (70-99) Test 10/17/16 10:17 10/17/16 11:18 10/17/16 12:00 10/17/16 12:22 Glucose (Fingerstick) 418 mg/dL (70-99) 403 mg/dL (70-99) 338 mg/dL (70-99) Sodium Level 137 mmol/L (136-145) Potassium Level 4.1 mmol/L (3.5-5.1) Chloride Level 101 mmol/L (98-107) Carbon Dioxide Level 27 mmol/L (21-32) Anion Gap 9 (6-14) Blood Urea Nitrogen 24 mg/dL (7-20) Creatinine 0.8 mg/dL (0.6-1.0) Estimated GFR (Cockcroft-Gault) 70.7 Glucose Level 391 mg/dL (70-99) Calcium Level 8.6 mg/dL (8.5-10.1) Magnesium Level 1.6 mg/dL (1.8-2.4) Test 10/17/16 13:27 Glucose (Fingerstick) 380 mg/dL (70-99) DAVID BLOUNT MD Oct 17, 2016 15:07
[2016-10-17] MEDS: GEMFIBROZIL 600 MG TABLET. PO SCH (16:29)
[2016-10-17] MEDS: INSULIN ASPART 300 UNITS/3 ML INSULN.PEN SQ SCH ×2 (16:30)
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
--- NOTE | 2016-10-17 18:19 | RAD ---
Bilateral Duplex Carotid Ultrasound Indication: CVA. IMPRESSION: INCREASED VELOCITIES ECA'S B/L. Procedure: Two dimensional, duplex and color-flow images and spectral analysis are obtained of the carotid arteries bilaterally. Vertebral arteries are also imaged. Findings: Right Carotid: The 2 D images demonstrate mild plaquing with no evidence of significant narrowing. The color images are normal without turbulence or jet effect. On the right ICA peak systolic velocity is 65 cm/sec. I The ICA/CCA ratio is 0.7 . Left Carotid: The 2 D images demonstrate mild plaquing with no evidence of significant narrowing. The color images are normal without turbulence or jet effect. On the left ICA peak systolic velocity is 117 cm/sec. The ICA/CCA ratio is 1.1 . There is elevated velocities in the external carotid artery on the left with a peak systolic velocity of 250 cm/s. Vertebral Arteries: The right vertebral artery is normal with normal direction of flow. The left vertebral artery is normal with normal direction of flow. Impression: Evidence of atherosclerotic disease but no evidence of hemodynamically significant stenosis. PQRS Compliance Statement - Stenosis calculations for CT, MR and conventional angiography are based upon measurement of the distal ICA diameter in accordance with the NASCET methodology. Stenosis calculations for carotid ultrasound studies are derived from validated velocity criteria which are known to correlate with the NASCET methodology. Electronically signed by: Luis M Berry III, MD (10/17/2016 6:17 PM) [facility]
[2016-10-17] MEDS ORDERED: GADOBUTROL 10 MMOL/10 ML VIAL IV ONE (18:30)
[2016-10-17] MEDS: ATENOLOL 25 MG TABLET. PO SCH (20:10)
[2016-10-17] MEDS: traZODone 50 MG TABLET. PO SCH (20:11)
[2016-10-17] MEDS: INSULIN DETEMIR 300 UNITS/3 ML INSULN.PEN. SQ SCH (20:14)
[2016-10-18] VITALS (15 sets, daily range): BP systolic 117–175; BP diastolic 37–83
--- NOTE | 2016-10-18 03:22 | ACF ---
Admit Criteria Forms Admit Criteria Forms Admit Criteria Forms MENTAL STATUS CHANGE Clinical Indications for Inpatient Care (Place 'X' for any and all applicable criteria): Ongoing inpatient care may be needed for 1 or more of the following(1)(2)(3)(5)( 6): [ X]I. 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 Danger to self or others not manageable at lower level of care [ ]III. Grave disability (eg, inability to perform self care necessary at lower level of care) [ ]IV. Agitation or inappropriate behavior interfering with care for primary condition (eg, attempting to discontinue lines or drains prematurely, unable to cooperate with respiratory care) [ ]V. Delirium [A] [D][E] as described by 1 or more of the following(26): [ ]a) Delirium due to alcohol or sedative [F] withdrawal [ ]b) Delirium of uncertain etiology that has not responded to appropriate empiric treatment [ ]c) Delirium that prevents performance of a life-sustaining function (eg, feeding or hydrating oneself) [ ]. General contraindications and/or Inappropriate clinical situations for Observational Care in patients with Mental Status Change, when ANY ONE of the following is required: [ ]a) Prediction of prolongation of LOS based on ANY ONE of the following may be considered as a contraindication for observational care 2, 3, 4, 5, 6, 7, 8, 9, 10, 11 [ ]i) Age > 65 yrs. [ ]ii) Patient arriving by ambulance [ ]iii) Patient with high acuity [ ]iv) Patient requiring vital sign monitoring [ ]v) Patient on IV medication [ ]b) Systolic blood pressures greater than or equal to 180mmHg 3, 12 [ ]c) Patient with altered mental status including delirium and other alteration of consciousness, (3) [ ]d) Patient whose discharge disposition will be to a halfway home or rehabilitation home should not be managed in Emergency Department Observation Unit. CMS rule requires 3 days hospital stay before such placement.3,13 [ ]e) Patient with failure to thrive due to broad array of etiologies 3,16,17 [ ]f) Inability to ambulate 3,14 Extended stay beyond goal length of stay for the primary condition may be needed until ALL of the following are present(3)(5): [ ]a) Underlying medical etiology of mental status change is absent, or has been established and adequately treated [ ]b) Danger to self or others is absent or manageable at lower level of care. [ ]c) Behavior crisis management, including physical or chemical restraints, is not required or available at lower level of car [ ]d) Substance or alcohol withdrawal is absent or manageable at lower level of care. [ ]e) Behavioral symptoms (eg, agitation, somnolence, inappropriate behavior) are absent, or are manageable at lower level of care. The original [facility] [employer] content created by [employer] has been revised. The portions of the content which have been revised are identified through the use of italic text or in bold, and [employer] has neither reviewed nor approved the modified material. All other unmodified content is copyright [employer]. Please see references footnoted in the original [facility] [employer] edition 2016 STACIE PORRAS Oct 18, 2016 03:22
[2016-10-18 05:10] LABS: BASO % 1 % (0-3); EOS % 1 % (0-3); HEMATOCRIT 32.5 % (36.0-47.0); HEMOGLOBIN 11.1 g/dL (12.0-15.5); LYMPH % 31 % (24-48); MEAN CORPUSCULAR HEMOGLOBIN 30 pg (25-35); MEAN CORPUSCULAR HGB CONC 34 g/dL (31-37); MEAN CORPUSCULAR VOLUME 87 fL (79-100); MONO % 7 % (0-9); NEUT % 60 % (31-73); PLATELET COUNT 122 x10^3/uL (140-400); RED BLOOD COUNT 3.74 x10^6/uL (3.50-5.40); RED CELL DISTRIBUTION WIDTH 13.7 % (11.5-14.5); WHITE BLOOD COUNT 6.3 x10^3/uL (4.0-11.0)
[2016-10-18 05:34] LABS: CALCIUM 9.1 mg/dL (8.5-10.1); CREATININE 0.8 mg/dL (0.6-1.0); GFR 70.7; POTASSIUM 4.7 mmol/L (3.5-5.1)
[2016-10-18] MEDS: COLESEVELAM HCL 625 MG TABLET PO SCH ×3 (07:37→22:32)
[2016-10-18] MEDS: CYCLOBENZAPRINE 10 MG TABLET. PO SCH ×3 (07:37→20:27)
[2016-10-18] MEDS: CLOPIDOGREL BISULFATE 75 MG TABLET PO SCH (07:38)
[2016-10-18] MEDS: SIMVASTATIN 20 MG TABLET PO SCH (07:38)
[2016-10-18] MEDS: clonazePAM 0.5 MG TABLET PO SCH ×3 (07:38→20:28)
[2016-10-18] MEDS: ATENOLOL 25 MG TABLET. PO SCH ×2 (07:38→20:28)
[2016-10-18] MEDS: GEMFIBROZIL 600 MG TABLET. PO SCH ×2 (07:38→16:16)
[2016-10-18] MEDS: LISINOPRIL 5 MG TABLET. PO SCH (07:38)
[2016-10-18] MEDS: FLUTICASONE 50MCG/NASAL SPRAY 16GM BOTTLE. NS SCH (07:39)
[2016-10-18] MEDS: LEVOTHYROXINE 100 MCG TABLET PO SCH (07:39)
[2016-10-18] MEDS: LINAGLIPTIN 5 MG TABLET PO SCH (07:39)
[2016-10-18] MEDS: INSULIN ASPART 300 UNITS/3 ML INSULN.PEN SQ SCH ×6 (07:50→16:17)
--- NOTE | 2016-10-18 08:49 | RAD ---
EXAM: Brain MRI with and without contrast. HISTORY: Seizure. TECHNIQUE: Multiplanar, multisequence magnetic resonance imaging of the brain was performed prior to and following the administration of 8 cc Gadavist intravenous contrast. COMPARISON: Head CT dated 10/17/2016. FINDINGS: There is no restricted diffusion to suggest acute or subacute infarction. There is no susceptibility effect to suggest hemorrhage. There is no mass effect or midline shift. There is no hydrocephalus. There are multiple scattered focal areas of signal change within the cerebral white matter, a nonspecific finding likely due to chronic small vessel disease. There is mild age-appropriate cerebral volume loss. There are findings consistent with lens surgery. The paranasal sinuses are unremarkable. There is a tiny amount of fluid in the mastoid air cells. There are normal flow voids within the cerebral vessels. No suspicious enhancing lesion is seen. There is fluid within the right petrous apex. IMPRESSION: 1. No acute intracranial finding. 2. Scattered foci of signal change within the cerebral white matter, a nonspecific finding likely due to chronic small vessel disease. Electronically signed by: Mago Menjivar MD (10/18/2016 8:45 AM) [facility]
[2016-10-18] MEDS ORDERED: UBIDECARENONE 200 MG PO SCH (09:00)
[2016-10-18] MEDS: BREXPIPRAZOLE 4 MG PO SCH (09:00)
[2016-10-18] MEDS: EZETIMIBE 10 MG TABLET. PO SCH (09:00)
[2016-10-18] MEDS: ASPIRIN ENTERIC COATED 81 MG TABLET.DR. PO SCH (09:28)
--- NOTE | 2016-10-18 11:44 | PDOC ---
PROGRESS NOTES Subjective Subjective feels good, off insulin drip Objective Objective Vital Signs Date Time Temp Pulse Resp B/P (MAP) Pulse Ox O2 Delivery O2 Flow Rate FiO2 10/18/16 11:00 74 17 164/83 (110) 99 Room Air 10/18/16 08:00 98.2 98.2 10/17/16 07:31 2.0 Intake and Output 10/18/16 07:00 Intake Total 4496 ml Output Total 900 ml Balance 3596 ml Intake Oral 1340 ml IV Total 3156 ml Output Urine Total 900 ml # Voids 8 # Bowel Movements 1 Physical Exam Abdomen: Normal bowel sounds, Soft Heart: Regular rate, Normal S1, Normal S2 Extremities: No clubbing General: Alert HEENT: Atraumatic Lungs: Clear to auscultation MUSCULOSKELETAL: No deformity Neck: Supple Neuro: Normal speech Psych/Mental Status: Mental status NL Skin: No breakdown Diagnosis Problem List Problems Medical Problems: (1) Hyperglycemia Status: Acute (2) Seizure Status: Acute (3) Stroke Status: Acute Assessment Assessment Problems Medical Problems: (1) Hyperglycemia Status: Acute (2) Seizure Status: Acute (3) Stroke Status: Acute FINAL IMPRESSION: 1. Acute hyperglycemia, blood sugar 800. 2. Insulin-dependent diabetes. 3. Left-sided weakness, possible cerebrovascular accident. 4. Hypertension. 5. Hyperlipidemia. 6. History of depression. 7. Hyponatremia, probably secondary to pseudohyponatremia. PLAN: pt weaned off insulin drip. sugars in 300 range inc insulin to 20 u tid. add levemir to am dose carotid neg Mri brain neg move out of icu Na 138 corrected At this time, the patient was admitted to the hospital, was put on insulin drip, hydrated with IV fluids. Monitor sugars closely and also electrolytes very closely. The patient is already on Plavix and aspirin. Urology to consult. No TPA was given because of more than 6 hours from the timeline and we will monitor and see how she improves. Problems: Plan Plan of Care Problems Medical Problems: (1) Hyperglycemia Status: Acute (2) Seizure Status: Acute (3) Stroke Status: Acute Comment Review of Relevant I have reviewed the following items chano (where applicable) has been applied. Labs Laboratory Tests Test 10/17/16 12:00 10/17/16 12:22 10/17/16 13:27 10/17/16 16:27 Sodium Level 137 mmol/L (136-145) Potassium Level 4.1 mmol/L (3.5-5.1) Chloride Level 101 mmol/L (98-107) Carbon Dioxide Level 27 mmol/L (21-32) Anion Gap 9 (6-14) Blood Urea Nitrogen 24 mg/dL (7-20) Creatinine 0.8 mg/dL (0.6-1.0) Estimated GFR (Cockcroft-Gault) 70.7 Glucose Level 391 mg/dL (70-99) Calcium Level 8.6 mg/dL (8.5-10.1) Magnesium Level 1.6 mg/dL (1.8-2.4) Glucose (Fingerstick) 338 mg/dL (70-99) 380 mg/dL (70-99) 191 mg/dL (70-99) Test 10/17/16 20:13 10/18/16 04:00 10/18/16 05:42 10/18/16 07:47 Glucose (Fingerstick) 267 mg/dL (70-99) 300 mg/dL (70-99) 298 mg/dL (70-99) White Blood Count 6.3 x10^3/uL (4.0-11.0) Red Blood Count 3.74 x10^6/uL (3.50-5.40) Hemoglobin 11.1 g/dL (12.0-15.5) Hematocrit 32.5 % (36.0-47.0) Mean Corpuscular Volume 87 fL (79-100) Mean Corpuscular Hemoglobin 30 pg (25-35) Mean Corpuscular Hemoglobin Concent 34 g/dL (31-37) Red Cell Distribution Width 13.7 % (11.5-14.5) Platelet Count 122 x10^3/uL (140-400) Neutrophils (%) (Auto) 60 % (31-73) Lymphocytes (%) (Auto) 31 % (24-48) Monocytes (%) (Auto) 7 % (0-9) Eosinophils (%) (Auto) 1 % (0-3) Basophils (%) (Auto) 1 % (0-3) Neutrophils # (Auto) 3.8 x10^3uL (1.8-7.7) Lymphocytes # (Auto) 2.0 x10^3/uL (1.0-4.8) Monocytes # (Auto) 0.4 x10^3/uL (0.0-1.1) Eosinophils # (Auto) 0.1 x10^3/uL (0.0-0.7) Basophils # (Auto) 0.0 x10^3/uL (0.0-0.2) Sodium Level 138 mmol/L (136-145) Potassium Level 4.7 mmol/L (3.5-5.1) Chloride Level 103 mmol/L (98-107) Carbon Dioxide Level 29 mmol/L (21-32) Anion Gap 6 (6-14) Blood Urea Nitrogen 18 mg/dL (7-20) Creatinine 0.8 mg/dL (0.6-1.0) Estimated GFR (Cockcroft-Gault) 70.7 Glucose Level 360 mg/dL (70-99) Calcium Level 9.1 mg/dL (8.5-10.1) Triglycerides Level 225 mg/dL (0-150) Cholesterol Level 136 mg/dL (0-200) LDL Cholesterol, Calculated 64 mg/dL (0-100) VLDL Cholesterol, Calculated 45 mg/dL (0-40) Non-HDL Cholesterol Calculated 109 mg/dL (0-129) HDL Cholesterol 27 mg/dL (40-60) Cholesterol/HDL Ratio 5.0 Thyroid Stimulating Hormone (TSH) 1.584 uIU/mL (0.358-3.74) Test 10/18/16 11:05 Glucose (Fingerstick) 328 mg/dL (70-99) Medications Current Medications Acetaminophen/ Hydrocodone Bitart (Lortab 7.5/325) 1 tab PRN Q6HRS PRN PO PAIN ; Start 10/17/16 at 12:30 Aspirin (Ecotrin) 81 mg DAILY PO Last administered on 10/18/16 09:28; Start at 09:00 Atenolol (Tenormin) 25 mg BID PO Last administered on 10/18/16 07:38; Start at 21:00 Clonazepam (KlonoPIN) 0.5 mg TID PO Last administered on 10/18/16 07:38; Start 10/17/16 at 14:00 Clopidogrel Bisulfate (Plavix) 75 mg DAILY PO Last administered on 10/18/16 07 :38; Start 10/17/16 at 13:00 Colesevelam HCl (Welchol) 625 mg TID PO Last administered on 10/18/16 07:37; Start 10/17/16 at 14:00 Cyclobenzaprine HCl (Flexeril) 10 mg TID PO Last administered on 10/18/16 07: 37; Start 10/17/16 at 14:00 Dextrose (Dextrose 50%-Water Syringe) 12.5 gm PRN Q15MIN PRN IV SEE COMMENTS; Start 10/17/16 at 13:45 EZETIMIBE (Zetia) 10 mg DAILY PO Last administered on 10/18/16 09:00; Start at 13:00 Fluticasone Propionate (Flonase) 1 spray DAILY NS Last administered on 07:39; Start 10/18/16 at 09:00 Gadobutrol (Gadavist) 8 mmol 1X ONCE IV Last administered on 10/17/16 18:52; Start 10/17/16 at 18:30; Stop 10/17/16 at 18:51; Status DC Gemfibrozil (Lopid) 600 mg BIDBFRMEAL PO Last administered on 10/18/16 07:38; Start 10/17/16 at 16:30 Insulin Aspart (NovoLOG) 0-7 UNITS TIDWMEALS SQ Last administered on 10/18/16 11:07; Start 10/17/16 at 17:00 Insulin Aspart (NovoLOG) 10 units TIDAC SQ Last administered on 10/18/16 11:07 ; Start 10/17/16 at 16:30 Insulin Detemir (Levemir) 50 units QHS SQ Last administered on 10/17/16 20:14 ; Start 10/17/16 at 21:00 Levothyroxine Sodium (Synthroid) 100 mcg DAILY07 PO Last administered on 07:39; Start 10/17/16 at 13:00 Linagliptin (Tradjenta) 5 mg DAILY PO Last administered on 10/18/16 07:39; Start 10/17/16 at 13:00 Lisinopril (Prinivil) 5 mg DAILY PO Last administered on 10/18/16 07:38; Start 10/17/16 at 13:00 Magnesium Sulfate/ Dextrose 50 ml @ 25 mls/hr 1X ONCE IV Last administered on 10/17/16 12:56; Start 10/17/16 at 13:00; Stop 10/17/16 at 14:59; Status DC Non-Formulary Medication 4 mg DAILY PO ; Start 10/18/16 at 09:00; Status UNV Non-Formulary Medication 40 mg QODAY PO ; Start 10/19/16 at 09:00; Status UNV Non-Formulary Medication 200 mg DAILY PO ; Start 10/18/16 at 09:00; Stop at 09:00; Status DC Potassium Chloride/Sodium Chloride 1,000 ml @ 100 mls/hr Q10H IV Last administered on 10/18/16 01:13; Start 10/17/16 at 12:22 Simvastatin (Zocor) 20 mg DAILY PO Last administered on 10/18/16 07:38; Start 10/17/16 at 13:00 Torsemide (Demadex) 10 mg QODAY PO ; Start 10/19/16 at 09:00 Trazodone HCl (Desyrel) 150 mg HS PO Last administered on 10/17/16 20:11; Start 10/17/16 at 21:00 Vitals/I & O Vital Sign - Last 24 Hours 10/17/16 10/17/16 10/17/16 10/17/16 12:00 12:48 13:00 14:00 Pulse 75 75 77 Resp 18 19 B/P (MAP) 150/62 137/58 (84) 130/60 (83) Pulse Ox 99 97 O2 Delivery Room Air Room Air Room Air 10/17/16 10/17/16 10/17/16 10/17/16 15:00 16:00 16:00 17:00 Temp 98.2 98.2 Pulse 70 72 72 Resp 19 17 18 B/P (MAP) 125/65 (85) 125/62 (83) 138/59 (85) Pulse Ox 95 98 96 O2 Delivery Room Air Room Air Room Air Room Air 10/17/16 10/17/16 10/17/16 10/17/16 18:00 19:00 20:00 20:00 Temp 98.3 98.3 Pulse 74 72 74 Resp 16 24 23 B/P (MAP) 160/76 (104) 134/72 (92) 140/72 (94) Pulse Ox 96 96 97 O2 Delivery Room Air Room Air Room Air Room Air 10/17/16 10/17/16 10/17/16 10/17/16 20:10 21:00 22:00 23:00 Pulse 73 80 71 69 Resp 24 17 29 B/P (MAP) 140/72 157/81 (106) 100/53 (69) 138/90 (106) Pulse Ox 95 94 94 O2 Delivery Room Air Room Air Room Air 10/17/16 10/18/16 10/18/16 10/18/16 23:59 00:00 01:00 02:00 Temp 97.8 97.8 Pulse 70 76 72 Resp 22 16 26 B/P (MAP) 123/51 (75) 150/53 (85) 148/64 (92) Pulse Ox 95 96 97 O2 Delivery Room Air Room Air Room Air Room Air 10/18/16 10/18/16 10/18/16 10/18/16 03:00 04:00 04:00 05:00 Temp 98.3 98.3 Pulse 71 73 73 Resp 19 16 20 B/P (MAP) 117/52 (73) 141/52 (81) 175/83 (113) Pulse Ox 95 98 96 O2 Delivery Room Air Room Air Room Air Room Air 10/18/16 10/18/16 10/18/16 10/18/16 06:00 07:00 07:38 07:38 Pulse 71 71 75 75 Resp 18 19 B/P (MAP) 172/80 (110) 160/77 (104) 160/77 160/77 Pulse Ox 93 96 O2 Delivery Room Air Room Air 10/18/16 10/18/16 10/18/16 10/18/16 08:00 08:00 09:00 10:00 Temp 98.2 98.2 Pulse 71 71 67 Resp 18 17 16 B/P (MAP) 144/73 (96) 164/75 (104) 137/72 (93) Pulse Ox 93 95 96 O2 Delivery Room Air Room Air Room Air Room Air 10/18/16 11:00 Pulse 74 Resp 17 B/P (MAP) 164/83 (110) Pulse Ox 99 O2 Delivery Room Air Intake and Output 10/17/16 10/17/16 10/18/16 15:00 23:00 07:00 Intake Total 1682 ml 1220 ml 1594 ml Output Total 900 ml Balance 782 ml 1220 ml 1594 ml VLAD SHAHID MD Oct 18, 2016 11:44
[2016-10-18] MEDS: INSULIN DETEMIR 300 UNITS/3 ML INSULN.PEN. SQ SCH ×2 (12:00→20:36)
[2016-10-18] MEDS: HYDROcodone/APAP 7.5/325MG 1 TAB TABLET PO PRN ×2 (12:13→20:30)
--- NOTE | 2016-10-18 13:54 | PDOC ---
PROGRESS NOTES Assessment Assessment Metabolic encephalopathy. Seizure or seizure like episodes, hyperglycemia related most likely. Hyperglycemia, glucose 802. DM, poorly controlled. HTN Hypothyroidism Obesity. No evidence of acute CVA this time. RECOMMENDATIONS/PLAN: Control hyperglycemia. ASA daily. Treat medical diseases. OT/PT. EEG was canceled due to no availability on weekend. HISTORY OF THE PRESENT ILLNESS: 71-y-old female patient with above medical diseases has mental status changes, decreased response and seizure to be brought to the ER of [facility]. She had left side facial twitching movements and left side extremities jerking like movements several times and her left side was reportedly weak. Her glucose was 802. She fully gained consciousness and doing fine on 10/18/16. PAST MEDICAL HISTORY: Please see above. PAST SURGERY HISTORY: Cholecystectomy Hysterectomy Neck surgery ALLERGY: Reviewed. MEDICATIONS: Refer to [facility] FAMILY HISTORY: Non contributory. SOCIAL HISTORY: Denies current smoking, drinking, and illicit drug use. REVIEW OF SYSTEMS: Constitutional: No malnutrition, weight loss, cachexia. Head: No traumatic brain or head injury. Skin: No edema, or rash. Ear: No infection. Eyes: No vision loss or color blindness. Nose: No bleeding or purulent discharges. Hearing: Hearing decrease. Neck: No injury. Breast: No history of cancer, masses,or discharges. Cardiac: HTN. Pulmonary: No COPD. GI: No GI ulcer, GI bleeding. Urinary/genital: UTI. Endocrinologic: Diabetes Mellitus, hypothyroidism, obesity. Skeletomuscular: No muscular atrophy, deformity . Neurological: see HP. Psychiatric: Denies drug use/abuse. Otherwise, not -ljaak review of systems. PHYSICAL EXAMINATION: General appearance is in subacute distress. HEENT: Normocephalic and nontraumatic. Eyes, nose, ears, and throat are unremarkable. Neck is supple. No lymphadenopathy. No bruits are heard over the carotid artery. No crepitus. Cardiovascular: S1, S2, regular rate and rhythm. Pulmonary: Clear to auscultation bilaterally. Abdomen: Bowel sounds are positive. Extremities: No rash, lesions, or edema. No restriction of range of motion NEUROLOGICAL EXAMINATION: Awake. Not fully oriented to time, but knows place and person. PERRL. EOMI. CN: no focal findings. Muscle tone: within normal. Muscle strength: 4+ DTR: 2- Plantar reflex: Neutral response bilaterally Gait: not examined in chair. Sensory exam: no abnormal findings. No acute cerebellar signs elicited. F-T-N test fine. Objective Objective Vital Signs Date Time Temp Pulse Resp B/P (MAP) Pulse Ox O2 Delivery O2 Flow Rate FiO2 10/18/16 13:13 18 99 Room Air 10/18/16 11:00 74 164/83 (110) 10/18/16 08:00 98.2 98.2 10/17/16 07:31 2.0 Intake and Output 10/18/16 07:00 Intake Total 4496 ml Output Total 900 ml Balance 3596 ml Intake Oral 1340 ml IV Total 3156 ml Output Urine Total 900 ml # Voids 8 # Bowel Movements 1 Vitals Signs Vitals VS - Last 72 Hours, by Label Date Time Temp Pulse Resp B/P (MAP) Pulse Ox O2 Delivery O2 Flow Rate FiO2 10/18/16 13:13 18 99 Room Air 10/18/16 12:13 18 99 Room Air 10/18/16 11:00 74 17 164/83 (110) 99 Room Air 10/18/16 10:00 67 16 137/72 (93) 96 Room Air 10/18/16 09:00 71 17 164/75 (104) 95 Room Air 10/18/16 08:00 98.2 71 18 144/73 (96) 93 Room Air 98.2 10/18/16 08:00 Room Air 10/18/16 07:38 75 160/77 10/18/16 07:38 75 160/77 10/18/16 07:00 71 19 160/77 (104) 96 Room Air 10/18/16 06:00 71 18 172/80 (110) 93 Room Air 10/18/16 05:00 73 20 175/83 (113) 96 Room Air 10/18/16 04:00 Room Air 10/18/16 04:00 98.3 73 16 141/52 (81) 98 Room Air 98.3 10/18/16 03:00 71 19 117/52 (73) 95 Room Air 10/18/16 02:00 72 26 148/64 (92) 97 Room Air 10/18/16 01:00 76 16 150/53 (85) 96 Room Air 10/18/16 00:00 97.8 70 22 123/51 (75) 95 Room Air 97.8 10/17/16 23:59 Room Air 10/17/16 23:00 69 29 138/90 (106) 94 Room Air 10/17/16 22:00 71 17 100/53 (69) 94 Room Air 10/17/16 21:00 80 24 157/81 (106) 95 Room Air 10/17/16 20:10 73 140/72 10/17/16 20:00 98.3 74 23 140/72 (94) 97 Room Air 98.3 10/17/16 20:00 Room Air 10/17/16 19:00 72 24 134/72 (92) 96 Room Air 10/17/16 18:00 74 16 160/76 (104) 96 Room Air 10/17/16 17:00 72 18 138/59 (85) 96 Room Air 10/17/16 16:00 98.2 72 17 125/62 (83) 98 Room Air 98.2 10/17/16 16:00 Room Air 10/17/16 15:00 70 19 125/65 (85) 95 Room Air 10/17/16 14:00 77 19 130/60 (83) 97 Room Air 10/17/16 13:00 75 18 137/58 (84) 99 Room Air 10/17/16 12:48 75 150/62 10/17/16 12:00 Room Air 10/17/16 11:39 98.1 71 18 128/63 (84) 99 Room Air 98.1 10/17/16 11:00 78 17 129/64 (85) 99 Room Air 10/17/16 10:00 71 19 128/64 (85) 96 Room Air 10/17/16 09:00 74 19 123/63 (83) 95 Room Air 10/17/16 08:00 84 17 153/78 (103) 97 Room Air 10/17/16 08:00 98.2 84 18 149/79 (102) 97 Room Air 98.2 10/17/16 08:00 Room Air 10/17/16 07:31 78 138/78 (98) 97 Nasal Cannula 2.0 Laboratory Laboratory Laboratory Tests Test 10/17/16 16:27 10/17/16 20:13 10/18/16 04:00 10/18/16 05:42 Glucose (Fingerstick) 191 mg/dL (70-99) 267 mg/dL (70-99) 300 mg/dL (70-99) White Blood Count 6.3 x10^3/uL (4.0-11.0) Red Blood Count 3.74 x10^6/uL (3.50-5.40) Hemoglobin 11.1 g/dL (12.0-15.5) Hematocrit 32.5 % (36.0-47.0) Mean Corpuscular Volume 87 fL (79-100) Mean Corpuscular Hemoglobin 30 pg (25-35) Mean Corpuscular Hemoglobin Concent 34 g/dL (31-37) Red Cell Distribution Width 13.7 % (11.5-14.5) Platelet Count 122 x10^3/uL (140-400) Neutrophils (%) (Auto) 60 % (31-73) Lymphocytes (%) (Auto) 31 % (24-48) Monocytes (%) (Auto) 7 % (0-9) Eosinophils (%) (Auto) 1 % (0-3) Basophils (%) (Auto) 1 % (0-3) Neutrophils # (Auto) 3.8 x10^3uL (1.8-7.7) Lymphocytes # (Auto) 2.0 x10^3/uL (1.0-4.8) Monocytes # (Auto) 0.4 x10^3/uL (0.0-1.1) Eosinophils # (Auto) 0.1 x10^3/uL (0.0-0.7) Basophils # (Auto) 0.0 x10^3/uL (0.0-0.2) Sodium Level 138 mmol/L (136-145) Potassium Level 4.7 mmol/L (3.5-5.1) Chloride Level 103 mmol/L (98-107) Carbon Dioxide Level 29 mmol/L (21-32) Anion Gap 6 (6-14) Blood Urea Nitrogen 18 mg/dL (7-20) Creatinine 0.8 mg/dL (0.6-1.0) Estimated GFR (Cockcroft-Gault) 70.7 Glucose Level 360 mg/dL (70-99) Calcium Level 9.1 mg/dL (8.5-10.1) Triglycerides Level 225 mg/dL (0-150) Cholesterol Level 136 mg/dL (0-200) LDL Cholesterol, Calculated 64 mg/dL (0-100) VLDL Cholesterol, Calculated 45 mg/dL (0-40) Non-HDL Cholesterol Calculated 109 mg/dL (0-129) HDL Cholesterol 27 mg/dL (40-60) Cholesterol/HDL Ratio 5.0 Thyroid Stimulating Hormone (TSH) 1.584 uIU/mL (0.358-3.74) Test 10/18/16 07:47 10/18/16 11:05 Glucose (Fingerstick) 298 mg/dL (70-99) 328 mg/dL (70-99) Medication Medications Current Medications Aspirin (Ecotrin) 81 mg DAILY PO Last administered on 10/18/16 09:28; Start at 09:00 Atenolol (Tenormin) 25 mg BID PO Last administered on 10/18/16 07:38; Start at 21:00 Clonazepam (KlonoPIN) 0.5 mg TID PO Last administered on 10/18/16 12:13; Start 10/17/16 at 14:00 Colesevelam HCl (Welchol) 625 mg TID PO Last administered on 10/18/16 12:13; Start 10/17/16 at 14:00 Cyclobenzaprine HCl (Flexeril) 10 mg TID PO Last administered on 10/18/16 12: 13; Start 10/17/16 at 14:00 Fluticasone Propionate (Flonase) 1 spray DAILY NS Last administered on 07:39; Start 10/18/16 at 09:00 Gadobutrol (Gadavist) 8 mmol 1X ONCE IV Last administered on 10/17/16 18:52; Start 10/17/16 at 18:30; Stop 10/17/16 at 18:51; Status DC Gemfibrozil (Lopid) 600 mg BIDBFRMEAL PO Last administered on 10/18/16 07:38; Start 10/17/16 at 16:30 Insulin Aspart (NovoLOG) 0-7 UNITS TIDWMEALS SQ Last administered on 10/18/16 11:07; Start 10/17/16 at 17:00 Insulin Aspart (NovoLOG) 10 units TIDAC SQ Last administered on 10/18/16 11:07 ; Start 10/17/16 at 16:30; Stop 10/18/16 at 11:41; Status DC Insulin Aspart (NovoLOG) 20 units TIDAC SQ ; Start 10/18/16 at 16:30 Insulin Detemir (Levemir) 25 units DAILY SQ Last administered on 10/18/16 12: 00; Start 10/18/16 at 11:45 Insulin Detemir (Levemir) 50 units QHS SQ Last administered on 10/17/16 20:14 ; Start 10/17/16 at 21:00 Non-Formulary Medication 4 mg DAILY PO ; Start 10/18/16 at 09:00; Status UNV Non-Formulary Medication 40 mg QODAY PO ; Start 10/19/16 at 09:00; Status UNV Non-Formulary Medication 200 mg DAILY PO ; Start 10/18/16 at 09:00; Stop at 09:00; Status DC Torsemide (Demadex) 10 mg QODAY PO ; Start 10/19/16 at 09:00 Trazodone HCl (Desyrel) 150 mg HS PO Last administered on 10/17/16 20:11; Start 10/17/16 at 21:00 Comment Review of Relevant I have reviewed the following items chano (where applicable) has been applied. DAVID BLOUNT MD Oct 18, 2016 13:54
[2016-10-18] MEDS: traZODone 50 MG TABLET. PO SCH (20:27)
[2016-10-19] VITALS (7 sets, daily range): BP systolic 113–152; BP diastolic 51–64
[2016-10-19] MEDS: LEVOTHYROXINE 100 MCG TABLET PO SCH (06:16)
[2016-10-19] MEDS: GEMFIBROZIL 600 MG TABLET. PO SCH ×2 (08:13→14:34)
[2016-10-19] MEDS: INSULIN ASPART 300 UNITS/3 ML INSULN.PEN SQ SCH ×6 (08:17→17:23)
[2016-10-19] MEDS: SIMVASTATIN 20 MG TABLET PO SCH (09:00)
[2016-10-19] MEDS ORDERED: TORSEMIDE 20 MG TABLET. PO SCH (09:00)
[2016-10-19] MEDS: clonazePAM 0.5 MG TABLET PO SCH ×3 (09:00→21:21)
[2016-10-19] MEDS: COLESEVELAM HCL 625 MG TABLET PO SCH ×3 (09:00→21:20)
[2016-10-19] MEDS: BREXPIPRAZOLE 4 MG PO SCH (09:00)
[2016-10-19] MEDS ORDERED: VORTIOXETINE HYDROBROMIDE 40 MG PO SCH (09:00)
[2016-10-19] MEDS: FLUTICASONE 50MCG/NASAL SPRAY 16GM BOTTLE. NS SCH (10:02)
[2016-10-19] MEDS: CLOPIDOGREL BISULFATE 75 MG TABLET PO SCH (10:02)
[2016-10-19] MEDS: LISINOPRIL 5 MG TABLET. PO SCH (10:03)
[2016-10-19] MEDS: ASPIRIN ENTERIC COATED 81 MG TABLET.DR. PO SCH (10:03)
[2016-10-19] MEDS: ATENOLOL 25 MG TABLET. PO SCH ×2 (10:06→21:21)
[2016-10-19] MEDS: LINAGLIPTIN 5 MG TABLET PO SCH (10:07)
[2016-10-19] MEDS: CYCLOBENZAPRINE 10 MG TABLET. PO SCH ×3 (10:07→21:21)
[2016-10-19] MEDS: EZETIMIBE 10 MG TABLET. PO SCH (10:08)
[2016-10-19] MEDS: INSULIN DETEMIR 300 UNITS/3 ML INSULN.PEN. SQ SCH ×2 (10:15→21:27)
--- NOTE | 2016-10-19 10:32 | PDOC ---
PROGRESS NOTES Subjective Subjective anxious to go back to her apartment Objective Objective Vital Signs Date Time Temp Pulse Resp B/P (MAP) Pulse Ox O2 Delivery O2 Flow Rate FiO2 10/19/16 10:06 65 115/57 10/19/16 07:35 98.3 20 94 Room Air 98.3 Intake and Output 10/19/16 07:00 Intake Total 1250 ml Output Total 1000 ml Balance 250 ml Intake Oral 1250 ml Output Urine Total 1000 ml # Voids 3 Physical Exam Abdomen: Normal bowel sounds, Soft Heart: Regular rate, Normal S1, Normal S2 Extremities: No clubbing General: Alert HEENT: Atraumatic Lungs: Clear to auscultation MUSCULOSKELETAL: No deformity Neck: Supple Neuro: Normal speech Psych/Mental Status: Mental status NL Skin: No breakdown Diagnosis Problem List Problems Medical Problems: (1) Hyperglycemia Status: Acute (2) Seizure Status: Acute (3) Stroke Status: Acute Assessment Assessment Problems Medical Problems: (1) Hyperglycemia Status: Acute (2) Seizure Status: Acute (3) Stroke Status: Acute FINAL IMPRESSION: 1. Acute hyperglycemia, blood sugar 800. 2. Insulin-dependent diabetes. 3. Left-sided weakness, possible cerebrovascular accident. 4. Hypertension. 5. Hyperlipidemia. 6. History of depression. 7. Hyponatremia, probably secondary to pseudohyponatremia. PLAN: pt weaned off insulin drip.A1C 11 high sugars in 300 range today inc novolog insulin to 25 u tid. add levemir 40 u am to am dose+50 u at hs carotid neg Mri brain neg move out of icu Na 138 corrected diabetic education and teaching . home tomorrow Problems: Plan Plan of Care Problems Medical Problems: (1) Hyperglycemia Status: Acute (2) Seizure Status: Acute (3) Stroke Status: Acute Comment Review of Relevant I have reviewed the following items chano (where applicable) has been applied. Labs Laboratory Tests Test 10/18/16 11:05 10/18/16 16:15 10/18/16 20:23 10/19/16 07:01 Glucose (Fingerstick) 328 mg/dL (70-99) 423 mg/dL (70-99) 371 mg/dL (70-99) 330 mg/dL (70-99) Medications Current Medications Insulin Aspart (NovoLOG) 20 units TIDAC SQ Last administered on 10/19/16t 08:17 ; Start 10/18/16 at 16:30 Insulin Detemir (Levemir) 25 units DAILY SQ Last administered on 10/19/16 10: 15; Start 10/18/16 at 11:45 Non-Formulary Medication 40 mg QODAY PO ; Start 10/19/16 at 09:00; Status UNV Torsemide (Demadex) 10 mg QODAY PO Last administered on 10/19/16 10:04; Start 10/19/16 at 09:00 Vitals/I & O Vital Sign - Last 24 Hours 10/18/16 10/18/16 10/18/16 10/18/16 11:00 12:13 13:13 16:00 Temp 98.3 98.3 Pulse 74 70 Resp 17 18 18 17 B/P (MAP) 164/83 (110) 117/52 (73) Pulse Ox 99 99 99 99 O2 Delivery Room Air Room Air Room Air 10/18/16 10/18/16 10/18/16 10/18/16 19:00 20:00 20:28 20:30 Temp 98.2 98.2 Pulse 77 77 Resp 20 B/P (MAP) 145/63 (90) 145/63 Pulse Ox 96 O2 Delivery Room Air Room Air Room Air 10/18/16 10/18/16 10/19/16 10/19/16 21:30 23:00 00:39 03:00 Temp 98.2 97.4 98.2 97.4 Pulse 68 69 67 Resp 18 18 B/P (MAP) 117/37 (63) 138/56 (83) 122/63 (82) Pulse Ox 96 95 O2 Delivery Room Air Room Air Room Air Room Air 10/19/16 10/19/16 10/19/16 07:35 10:03 10:06 Temp 98.3 98.3 Pulse 65 65 65 Resp 20 B/P (MAP) 115/57 (76) 115/57 115/57 Pulse Ox 94 O2 Delivery Room Air Intake and Output 10/18/16 10/18/16 10/19/16 15:00 23:00 07:00 Intake Total 950 ml 300 ml Output Total 450 ml 550 ml Balance 500 ml -250 ml VLAD SHAHID MD Oct 19, 2016 10:32
--- NOTE | 2016-10-19 10:58 | PDOC ---
PROGRESS NOTES Assessment Problems Medical Problems: (1) Hyperglycemia Status: Acute (2) Seizure Status: Acute (3) Stroke Status: Acute Metabolic encephalopathy. Seizure related to hyperglycemia. DM, Hyperglycemia, glucose 802. No evidence of acute CVA Plan Control hyperglycemia. ASA daily. Treat medical diseases. OT/PT. Subjective No complaints Objective Vital Signs Date Time Temp Pulse Resp B/P (MAP) Pulse Ox O2 Delivery O2 Flow Rate FiO2 10/19/16 10:06 65 115/57 10/19/16 08:00 Room Air 10/19/16 07:35 98.3 20 94 98.3 Intake and Output 10/19/16 07:00 Intake Total 1250 ml Output Total 1000 ml Balance 250 ml Intake Oral 1250 ml Output Urine Total 1000 ml # Voids 3 PHYSICAL EXAM Alert. Oriented to time, place and person. PERRL. EOMI. CN: no focal findings. Muscle tone: normal. Muscle strength: 5-/5 DTR: 1+ Plantar reflex: flexor Gait: not examined in bed. Sensory exam: no abnormal findings. No cerebellar signs elicited. Review of Relevant I have reviewed the following items chano (where applicable) has been applied. Labs Laboratory Tests Test 10/17/16 11:18 10/17/16 12:00 10/17/16 12:22 10/17/16 13:27 Glucose (Fingerstick) 403 mg/dL (70-99) 338 mg/dL (70-99) 380 mg/dL (70-99) Sodium Level 137 mmol/L (136-145) Potassium Level 4.1 mmol/L (3.5-5.1) Chloride Level 101 mmol/L (98-107) Carbon Dioxide Level 27 mmol/L (21-32) Anion Gap 9 (6-14) Blood Urea Nitrogen 24 mg/dL (7-20) Creatinine 0.8 mg/dL (0.6-1.0) Estimated GFR (Cockcroft-Gault) 70.7 Glucose Level 391 mg/dL (70-99) Calcium Level 8.6 mg/dL (8.5-10.1) Magnesium Level 1.6 mg/dL (1.8-2.4) Test 10/17/16 16:27 10/17/16 20:13 10/18/16 04:00 10/18/16 05:42 Glucose (Fingerstick) 191 mg/dL (70-99) 267 mg/dL (70-99) 300 mg/dL (70-99) White Blood Count 6.3 x10^3/uL (4.0-11.0) Red Blood Count 3.74 x10^6/uL (3.50-5.40) Hemoglobin 11.1 g/dL (12.0-15.5) Hematocrit 32.5 % (36.0-47.0) Mean Corpuscular Volume 87 fL (79-100) Mean Corpuscular Hemoglobin 30 pg (25-35) Mean Corpuscular Hemoglobin Concent 34 g/dL (31-37) Red Cell Distribution Width 13.7 % (11.5-14.5) Platelet Count 122 x10^3/uL (140-400) Neutrophils (%) (Auto) 60 % (31-73) Lymphocytes (%) (Auto) 31 % (24-48) Monocytes (%) (Auto) 7 % (0-9) Eosinophils (%) (Auto) 1 % (0-3) Basophils (%) (Auto) 1 % (0-3) Neutrophils # (Auto) 3.8 x10^3uL (1.8-7.7) Lymphocytes # (Auto) 2.0 x10^3/uL (1.0-4.8) Monocytes # (Auto) 0.4 x10^3/uL (0.0-1.1) Eosinophils # (Auto) 0.1 x10^3/uL (0.0-0.7) Basophils # (Auto) 0.0 x10^3/uL (0.0-0.2) Sodium Level 138 mmol/L (136-145) Potassium Level 4.7 mmol/L (3.5-5.1) Chloride Level 103 mmol/L (98-107) Carbon Dioxide Level 29 mmol/L (21-32) Anion Gap 6 (6-14) Blood Urea Nitrogen 18 mg/dL (7-20) Creatinine 0.8 mg/dL (0.6-1.0) Estimated GFR (Cockcroft-Gault) 70.7 Glucose Level 360 mg/dL (70-99) Hemoglobin A1c 11.9 % (4.8-5.6) Calcium Level 9.1 mg/dL (8.5-10.1) Triglycerides Level 225 mg/dL (0-150) Cholesterol Level 136 mg/dL (0-200) LDL Cholesterol, Calculated 64 mg/dL (0-100) VLDL Cholesterol, Calculated 45 mg/dL (0-40) Non-HDL Cholesterol Calculated 109 mg/dL (0-129) HDL Cholesterol 27 mg/dL (40-60) Cholesterol/HDL Ratio 5.0 Thyroid Stimulating Hormone (TSH) 1.584 uIU/mL (0.358-3.74) Test 10/18/16 07:47 10/18/16 11:05 10/18/16 16:15 10/18/16 20:23 Glucose (Fingerstick) 298 mg/dL (70-99) 328 mg/dL (70-99) 423 mg/dL (70-99) 371 mg/dL (70-99) Test 10/19/16 07:01 Glucose (Fingerstick) 330 mg/dL (70-99) Laboratory Tests Test 10/18/16 11:05 10/18/16 16:15 10/18/16 20:23 10/19/16 07:01 Glucose (Fingerstick) 328 mg/dL (70-99) 423 mg/dL (70-99) 371 mg/dL (70-99) 330 mg/dL (70-99) Medications Current Medications Lidocaine/Sodium Bicarbonate (Buffered Lidocaine 1%) 20 ml STK-MED ONCE IJ ; Start 10/17/16 at 04:36; Stop 10/17/16 at 04:37; Status Cancel Sodium Chloride 1,000 ml @ 1,000 mls/hr 1X ONCE IV Last administered on 05:45; Start 10/17/16 at 05:45; Stop 10/17/16 at 06:44; Status DC Sodium Chloride 1,000 ml @ 1,000 mls/hr 1X ONCE IV Last administered on 05:45; Start 10/17/16 at 05:45; Stop 10/17/16 at 06:44; Status DC Insulin Human Regular (NovoLIN R VIAL) 10 unit 1X ONCE IV Last administered on 10/17/16 06:14; Start 10/17/16 at 06:15; Stop 10/17/16 at 06:16; Status DC Insulin Human Regular 150 ml @ 0 mls/hr 1X ONCE IV Last administered on 06:24; Start 10/17/16 at 06:30; Stop 10/17/16 at 06:31; Status DC Ondansetron HCl (Zofran) 4 mg PRN Q8HRS PRN IV NAUSEA/VOMITING; Start 10/17/16 at 06:00; Stop 10/18/16 at 05:59; Status DC Aspirin (Children'S Aspirin) 324 mg 1X ONCE PO Last administered on 10/17/16 06:31; Start 10/17/16 at 07:00; Stop 10/17/16 at 07:01; Status DC Aspirin (Ecotrin) 81 mg DAILY PO Last administered on 10/19/16 10:03; Start at 09:00 Atenolol (Tenormin) 25 mg BID PO Last administered on 10/19/16 10:06; Start at 21:00 Clonazepam (KlonoPIN) 0.5 mg TID PO Last administered on 10/18/16 20:28; Start 10/17/16 at 14:00 Clopidogrel Bisulfate (Plavix) 75 mg DAILY PO Last administered on 10/19/16 10 :02; Start 10/17/16 at 13:00 Colesevelam HCl (Welchol) 625 mg TID PO Last administered on 10/18/16 22:32; Start 10/17/16 at 14:00 Cyclobenzaprine HCl (Flexeril) 10 mg TID PO Last administered on 10/19/16 10: 07; Start 10/17/16 at 14:00 Fluticasone Propionate (Flonase) 1 spray DAILY NS Last administered on 10:02; Start 10/18/16 at 09:00 Gemfibrozil (Lopid) 600 mg BIDBFRMEAL PO Last administered on 10/19/16 08:13; Start 10/17/16 at 16:30 Acetaminophen/ Hydrocodone Bitart (Lortab 7.5/325) 1 tab PRN Q6HRS PRN PO PAIN Last administered on 10/18/16 20:30; Start 10/17/16 at 12:30 Levothyroxine Sodium (Synthroid) 100 mcg DAILY07 PO Last administered on 06:16; Start 10/17/16 at 13:00 Lisinopril (Prinivil) 5 mg DAILY PO Last administered on 10/19/16 10:03; Start 10/17/16 at 13:00 Torsemide (Demadex) 10 mg QODAY PO Last administered on 10/19/16 10:04; Start 10/19/16 at 09:00 Non-Formulary Medication 4 mg DAILY PO ; Start 10/18/16 at 09:00; Status UNV EZETIMIBE (Zetia) 10 mg DAILY PO Last administered on 10/19/16 10:08; Start at 13:00 Linagliptin (Tradjenta) 5 mg DAILY PO Last administered on 10/19/16 10:07; Start 10/17/16 at 13:00 Trazodone HCl (Desyrel) 150 mg HS PO Last administered on 10/18/16 20:27; Start 10/17/16 at 21:00 Non-Formulary Medication 200 mg DAILY PO ; Start 10/18/16 at 09:00; Stop at 09:00; Status DC Non-Formulary Medication 40 mg QODAY PO ; Start 10/19/16 at 09:00; Status UNV Potassium Chloride/Sodium Chloride 1,000 ml @ 100 mls/hr Q10H IV Last administered on 10/18/16 01:13; Start 10/17/16 at 12:22; Stop 10/18/16 at 11:41 ; Status DC Simvastatin (Zocor) 20 mg DAILY PO Last administered on 10/18/16 07:38; Start 10/17/16 at 13:00 Magnesium Sulfate/ Dextrose 50 ml @ 25 mls/hr 1X ONCE IV Last administered on 10/17/16 12:56; Start 10/17/16 at 13:00; Stop 10/17/16 at 14:59; Status DC Insulin Aspart (NovoLOG) 0-7 UNITS TIDWMEALS SQ Last administered on 10/19/16 08:18; Start 10/17/16 at 17:00 Dextrose (Dextrose 50%-Water Syringe) 12.5 gm PRN Q15MIN PRN IV SEE COMMENTS; Start 10/17/16 at 13:45 Insulin Aspart (NovoLOG) 10 units TIDAC SQ Last administered on 10/18/16 11:07 ; Start 10/17/16 at 16:30; Stop 10/18/16 at 11:41; Status DC Insulin Detemir (Levemir) 50 units QHS SQ Last administered on 10/18/16 20:36 ; Start 10/17/16 at 21:00 Gadobutrol (Gadavist) 8 mmol 1X ONCE IV Last administered on 10/17/16 18:52; Start 10/17/16 at 18:30; Stop 10/17/16 at 18:51; Status DC Insulin Aspart (NovoLOG) 20 units TIDAC SQ Last administered on 10/19/16 08:17 ; Start 10/18/16 at 16:30; Stop 10/19/16 at 10:32; Status DC Insulin Detemir (Levemir) 25 units DAILY SQ Last administered on 10/19/16 10: 15; Start 10/18/16 at 11:45; Stop 10/19/16 at 10:32; Status DC Insulin Aspart (NovoLOG) 25 units TIDAC SQ ; Start 10/19/16 at 11:30 Insulin Detemir (Levemir) 40 units DAILY SQ ; Start 10/20/16 at 09:00 Active Scripts Active Reported Novolog Flexpen (Insulin Aspart) 100 Unit/1 Ml Insuln.pen 8 Unit SQ TID Levemir (Insulin Detemir) 100 Unit/1 Ml Vial 51 Unit SQ HS Hydrocodone-Apap 7.5-325 (Hydrocodone Bit/Acetaminophen) 1 Each Tablet 1 Tab PO PRN Q6HRS PRN Trazodone Hcl 150 Mg Tablet 1 Tab PO QHS Welchol (Colesevelam Hcl) 625 Mg Tablet 625 Mg PO TID Gemfibrozil 600 Mg Tablet 1 Tab PO BID Atenolol 25 Mg Tablet 1 Tab PO BID Trintellix (Vortioxetine) 20 Mg Tablet 40 Mg PO QODAY Torsemide 20 Mg Tablet 10 Mg PO QODAY Rexulti (Brexpiprazole) 4 Mg Tablet 4 Mg PO DAILY Onglyza (Saxagliptin Hcl) 5 Mg Tablet 1 Tab PO DAILY Levothyroxine Sodium 100 Mcg Tablet 1 Tab PO DAILY Fluticasone Propionate Nasal [place] (Fluticasone Propionate) 16 Gm [place].susp 1 [place] NS DAILY Coenzyme Q10 (Ubidecarenone) 200 Mg Capsule 200 Mg PO DAILY Clonazepam 0.5 Mg Tablet 1 Tab PO TID Lisinopril 5 Mg Tablet 5 Mg PO DAILY Cyclobenzaprine Hcl 10 Mg Tablet 10 Mg PO TID Plavix (Clopidogrel Bisulfate) 75 Mg Tablet 75 Mg PO DAILY Vytorin 10-20 Mg Tablet (Ezetimibe/Simvastatin) 1 Each Tablet 1 Each PO DAILY Clonazepam Odt (Clonazepam) 2 Mg Tab.rapdis 2 Mg PO PRN Aspir 81 (Aspirin) 81 Mg Tablet.dr 81 Mg PO DAILY Vitals/I & O Vital Sign - Last 24 Hours 10/18/16 10/18/16 10/18/16 10/18/16 11:00 12:13 13:13 16:00 Temp 98.3 98.3 Pulse 74 70 Resp 17 B/P (MAP) 164/83 (110) 117/52 (73) Pulse Ox 99 99 99 99 O2 Delivery Room Air Room Air Room Air 10/18/16 10/18/16 10/18/16 10/18/16 19:00 20:00 20:28 20:30 Temp 98.2 98.2 Pulse 77 77 Resp 20 B/P (MAP) 145/63 (90) 145/63 Pulse Ox 96 O2 Delivery Room Air Room Air Room Air 10/18/16 10/18/16 10/19/16 10/19/16 21:30 23:00 00:39 03:00 Temp 98.2 97.4 98.2 97.4 Pulse 68 69 67 Resp 18 B/P (MAP) 117/37 (63) 138/56 (83) 122/63 (82) Pulse Ox 96 95 O2 Delivery Room Air Room Air Room Air Room Air 10/19/16 10/19/16 10/19/16 10/19/16 07:35 08:00 10:03 10:06 Temp 98.3 98.3 Pulse 65 65 65 Resp 20 B/P (MAP) 115/57 (76) 115/57 115/57 Pulse Ox 94 O2 Delivery Room Air Room Air Intake and Output 10/18/16 10/18/16 10/19/16 15:00 23:00 07:00 Intake Total 950 ml 300 ml Output Total 450 ml 550 ml Balance 500 ml -250 ml SUSAN NICHOLAS MD Oct 19, 2016 10:58
--- NOTE | 2016-10-19 18:41 | CARD ---
APPROVED REPORT EXAM: Two-dimensional and M-mode echocardiogram with Doppler and color Doppler. Other Information Quality : Good INDICATION CVA/TIA 2D DIMENSIONS RVDd2.4 (2.9-3.5cm)Left Atrium(2D)3.7 (1.6-4.0cm) IVSd1.0 (0.7-1.1cm)Aortic Root(2D)2.2 (2.0-3.7cm) LVDd4.3 (3.9-5.9cm)LVOT Diameter2.0 (1.8-2.4cm) PWd1.0 (0.7-1.1cm)LVDs1.9 (2.5-4.0cm) FS (%) 30.0 %SV73.1 ml LVEF(%)60.0 (>50%) Aortic Valve AoV Peak Jesse.127.3cm/sAoV VTI25.0cm AO Peak GR.6.5mmHgLVOT VTI 24.24cm AO Mean GR.3mmHgAVA (VTI)3.10cm2 Mitral Valve MV E Efycxwms361.0cm/sMV DECEL CIHI235le MV A Iqwlgpuk655.8cm/sE/A Ratio0.9 TDI Lateral E' P. V7.21cm/sMedial E' P. V6.56cm/s E/Lateral E'15.5E/Medial E'17.1 Tricuspid Valve TR P. Jlqeuipc274er/sRAP APLIZYNX9tsVq TR Peak Gr.87gqQgMHTP47dtWc Pulmonary Vein S1 Xohvfpbz74.6cm/sS2 Mtcuanzz99.12cm/s D2 Erpuuseg67.1cm/s LEFT VENTRICLE The left ventricle is normal size. There is normal left ventricular wall thickness. The left ventricu lar systolic function is normal and the ejection fraction is within normal range. The Ejection Fracti on is 60%. There is normal LV segmental wall motion. Transmitral Doppler flow pattern is Grade I-abno rmal relaxation pattern. RIGHT VENTRICLE The right ventricle is normal size. The right ventricular systolic function is normal. ATRIA The left atrium size is normal. The right atrium size is normal. The interatrial septum is intact wit h no evidence for an atrial septal defect or patent foramen ovale as noted on 2-D or Doppler imaging. AORTIC VALVE The aortic valve is calcified but opens well. Doppler and Color Flow revealed no significant aortic r egurgitation. There is no significant aortic valvular stenosis. MITRAL VALVE The mitral valve is calcified but opens well. There is no evidence of mitral valve prolapse. There is no mitral valve stenosis. Doppler and Color-flow revealed trace to mild mitral regurgitation. TRICUSPID VALVE The tricuspid valve is normal in structure Doppler and Color Flow revealed physiological tricuspid re gurgitation. The PA pressure was estimated at 25 mmHg. There is no tricuspid valve stenosis. PULMONIC VALVE The pulmonary valve is normal in structure and function. Doppler and Color Flow revealed no pulmonic valvular regurgitation. There is no pulmonic valvular stenosis. GREAT VESSELS The aortic root is normal in size. The ascending aorta is not well seen. The IVC is normal in size an d collapses >50% with inspiration. PERICARDIAL EFFUSION There is a trace of pericardial effusion. Critical Notification Critical Value: No <Conclusion> The left ventricular systolic function is normal and the ejection fraction is within normal range. The Ejection Fraction is 60%. Transmitral Doppler flow pattern is Grade I-abnormal relaxation pattern. The left atrium size is normal. The right atrium size is normal. The aortic valve is calcified but opens well. Doppler and Color-flow revealed trace to mild mitral regurgitation. Doppler and Color Flow revealed physiological tricuspid regurgitation. The PA pressure was estimated at 25 mmHg. The pulmonary valve is normal in structure and function. There is a trace of pericardial effusion.
[2016-10-19] MEDS: traZODone 50 MG TABLET. PO SCH (21:20)
[2016-10-19] MEDS: HYDROcodone/APAP 7.5/325MG 1 TAB TABLET PO PRN (21:29)
[2016-10-20 03:05] VITALS: BP 123/51
[2016-10-20] MEDS: LEVOTHYROXINE 100 MCG TABLET PO SCH (06:13)
[2016-10-20] MEDS: CYCLOBENZAPRINE 10 MG TABLET. PO SCH (07:40)
[2016-10-20] MEDS: SIMVASTATIN 20 MG TABLET PO SCH (07:41)
[2016-10-20] MEDS: clonazePAM 0.5 MG TABLET PO SCH (07:41)
[2016-10-20 08:00] VITALS: BP 109/59
[2016-10-20] MEDS: GEMFIBROZIL 600 MG TABLET. PO SCH (08:15)
[2016-10-20] MEDS: COLESEVELAM HCL 625 MG TABLET PO SCH (08:15)
[2016-10-20] MEDS: LINAGLIPTIN 5 MG TABLET PO SCH (08:16)
[2016-10-20] MEDS: EZETIMIBE 10 MG TABLET. PO SCH (08:16)
[2016-10-20] MEDS: LISINOPRIL 5 MG TABLET. PO SCH (08:16)
[2016-10-20] MEDS: ATENOLOL 25 MG TABLET. PO SCH (08:16)
[2016-10-20] MEDS: CLOPIDOGREL BISULFATE 75 MG TABLET PO SCH (08:17)
[2016-10-20] MEDS: ASPIRIN ENTERIC COATED 81 MG TABLET.DR. PO SCH (08:17)
[2016-10-20] MEDS: INSULIN ASPART 300 UNITS/3 ML INSULN.PEN SQ SCH ×4 (08:22→12:26)
[2016-10-20] MEDS: FLUTICASONE 50MCG/NASAL SPRAY 16GM BOTTLE. NS SCH (08:25)
--- NOTE | 2016-10-20 08:47 | PDOC ---
PROGRESS NOTES Subjective Subjective feels better today Objective Objective Vital Signs Date Time Temp Pulse Resp B/P (MAP) Pulse Ox O2 Delivery O2 Flow Rate FiO2 10/20/16 08:16 66 123/51 10/20/16 08:00 98.3 18 96 Room Air 98.3 Intake and Output 10/20/16 07:00 Intake Total 750 ml Output Total 800 ml Balance -50 ml Intake Oral 750 ml Output Urine Total 800 ml # Voids 3 # Bowel Movements 3 Physical Exam Abdomen: Normal bowel sounds, Soft Heart: Regular rate, Normal S1, Normal S2 Extremities: No clubbing General: Alert HEENT: Atraumatic Lungs: Clear to auscultation MUSCULOSKELETAL: No deformity Neck: Supple Neuro: Normal speech Psych/Mental Status: Mental status NL Skin: No breakdown Diagnosis Problem List Problems Medical Problems: (1) Hyperglycemia Status: Acute (2) Seizure Status: Acute (3) Stroke Status: Acute Assessment Assessment Problems Medical Problems: (1) Hyperglycemia Status: Acute (2) Seizure Status: Acute (3) Stroke Status: Acute FINAL IMPRESSION: 1. Acute hyperglycemia, blood sugar 800. 2. Insulin-dependent diabetes. 3. No cerebrovascular accident. 4. Hypertension. 5. Hyperlipidemia. 6. History of depression. 7. Hyponatremia, probably secondary to pseudohyponatremia. PLAN: d/c home today with home health. no cva.sugars in 250 range pt weaned off insulin drip.A1C 11 high sugars in 300 range today inc novolog insulin to 25 u tid. add levemir 40 u am to am dose+50 u at hs carotid neg Mri brain neg diabetic education and teaching . Problems: Plan Plan of Care Problems Medical Problems: (1) Hyperglycemia Status: Acute (2) Seizure Status: Acute (3) Stroke Status: Acute Comment Review of Relevant I have reviewed the following items chano (where applicable) has been applied. Labs Laboratory Tests Test 10/19/16 11:49 10/19/16 16:52 10/19/16 21:10 10/20/16 07:32 Glucose (Fingerstick) 295 mg/dL (70-99) 264 mg/dL (70-99) 235 mg/dL (70-99) 290 mg/dL (70-99) Medications Current Medications Insulin Aspart (NovoLOG) 25 units TIDAC SQ Last administered on 10/20/16t 08:22 ; Start 10/19/16 at 11:30 Insulin Detemir (Levemir) 40 units DAILY SQ Last administered on 10/20/16 08: 22; Start 10/20/16 at 09:00 Non-Formulary Medication 40 mg QODAY PO ; Start 10/19/16 at 09:00; Stop at 13:33; Status DC Torsemide (Demadex) 10 mg QODAY PO Last administered on 10/19/16 10:04; Start 10/19/16 at 09:00 Vitals/I & O Vital Sign - Last 24 Hours 10/19/16 10/19/16 10/19/16 10/19/16 10:03 10:06 11:09 15:19 Temp 97.8 98.3 97.8 98.3 Pulse 65 65 60 82 Resp 18 18 B/P (MAP) 115/57 115/57 138/52 (80) 152/51 (84) Pulse Ox 94 95 O2 Delivery Room Air Room Air 10/19/16 10/19/16 10/19/16 10/19/16 19:05 20:00 21:21 21:29 Temp 98.4 98.4 Pulse 78 78 Resp 18 B/P (MAP) 149/64 (92) 149/64 Pulse Ox 97 O2 Delivery Room Air Room Air Room Air 10/19/16 10/19/16 10/20/16 10/20/16 22:29 23:05 03:05 08:00 Temp 98.4 98.3 98.3 98.4 98.3 98.3 Pulse 70 66 67 Resp 18 18 18 B/P (MAP) 113/51 (71) 123/51 (75) 109/59 (76) Pulse Ox 93 95 96 O2 Delivery Room Air Room Air Room Air Room Air 10/20/16 10/20/16 08:16 08:16 Pulse 66 66 B/P (MAP) 123/51 123/51 Intake and Output 10/19/16 10/19/16 10/20/16 15:00 23:00 07:00 Intake Total 300 ml 450 ml Output Total 800 ml Balance 300 ml -350 ml VLAD SHAHID MD Oct 20, 2016 08:47
[2016-10-20] MEDS ORDERED: INSU100I17 SQ (08:52)
[2016-10-20] MEDS ORDERED: INSULIN DETEMIR 300 UNITS/3 ML INSULN.PEN. SQ SCH (09:00)
[2016-10-20 11:16] VITALS: BP 125/65
--- NOTE | 2016-10-20 11:36 | PDOC ---
PROGRESS NOTES Assessment Problems Medical Problems: (1) Hyperglycemia Status: Acute (2) Seizure Status: Acute (3) Stroke Status: Acute Metabolic encephalopathy. Seizure related to hyperglycemia. DM, Hyperglycemia, glucose 802. No evidence of acute CVA Plan Control hyperglycemia. ASA daily. Treat medical diseases. OT/PT. Subjective No complaints Objective Vital Signs Date Time Temp Pulse Resp B/P (MAP) Pulse Ox O2 Delivery O2 Flow Rate FiO2 10/20/16 11:16 98.2 69 18 125/65 (85) 96 Room Air 98.2 Intake and Output 10/20/16 07:00 Intake Total 750 ml Output Total 800 ml Balance -50 ml Intake Oral 750 ml Output Urine Total 800 ml # Voids 3 # Bowel Movements 3 PHYSICAL EXAM Alert. Oriented to time, place and person. PERRL. EOMI. CN: no focal findings. Muscle tone: normal. Muscle strength: 5-/5 DTR: 1+ Plantar reflex: flexor Gait: not examined in bed. Sensory exam: no abnormal findings. No cerebellar signs elicited. Review of Relevant I have reviewed the following items chano (where applicable) has been applied. Labs Laboratory Tests Test 10/18/16 16:15 10/18/16 20:23 10/19/16 07:01 10/19/16 11:49 Glucose (Fingerstick) 423 mg/dL (70-99) 371 mg/dL (70-99) 330 mg/dL (70-99) 295 mg/dL (70-99) Test 10/19/16 16:52 10/19/16 21:10 10/20/16 07:32 10/20/16 11:30 Glucose (Fingerstick) 264 mg/dL (70-99) 235 mg/dL (70-99) 290 mg/dL (70-99) 332 mg/dL (70-99) Laboratory Tests Test 10/19/16 11:49 10/19/16 16:52 10/19/16 21:10 10/20/16 07:32 Glucose (Fingerstick) 295 mg/dL (70-99) 264 mg/dL (70-99) 235 mg/dL (70-99) 290 mg/dL (70-99) Test 10/20/16 11:30 Glucose (Fingerstick) 332 mg/dL (70-99) Medications Current Medications Lidocaine/Sodium Bicarbonate (Buffered Lidocaine 1%) 20 ml STK-MED ONCE IJ ; Start 10/17/16 at 04:36; Stop 10/17/16 at 04:37; Status Cancel Sodium Chloride 1,000 ml @ 1,000 mls/hr 1X ONCE IV Last administered on 05:45; Start 10/17/16 at 05:45; Stop 10/17/16 at 06:44; Status DC Sodium Chloride 1,000 ml @ 1,000 mls/hr 1X ONCE IV Last administered on 05:45; Start 10/17/16 at 05:45; Stop 10/17/16 at 06:44; Status DC Insulin Human Regular (NovoLIN R VIAL) 10 unit 1X ONCE IV Last administered on 10/17/16 06:14; Start 10/17/16 at 06:15; Stop 10/17/16 at 06:16; Status DC Insulin Human Regular 150 ml @ 0 mls/hr 1X ONCE IV Last administered on 06:24; Start 10/17/16 at 06:30; Stop 10/17/16 at 06:31; Status DC Ondansetron HCl (Zofran) 4 mg PRN Q8HRS PRN IV NAUSEA/VOMITING; Start 10/17/16 at 06:00; Stop 10/18/16 at 05:59; Status DC Aspirin (Children'S Aspirin) 324 mg 1X ONCE PO Last administered on 10/17/16 06:31; Start 10/17/16 at 07:00; Stop 10/17/16 at 07:01; Status DC Aspirin (Ecotrin) 81 mg DAILY PO Last administered on 10/20/16 08:17; Start at 09:00 Atenolol (Tenormin) 25 mg BID PO Last administered on 10/20/16 08:16; Start at 21:00 Clonazepam (KlonoPIN) 0.5 mg TID PO Last administered on 10/19/16 21:21; Start 10/17/16 at 14:00 Clopidogrel Bisulfate (Plavix) 75 mg DAILY PO Last administered on 10/20/16 08 :17; Start 10/17/16 at 13:00 Colesevelam HCl (Welchol) 625 mg TID PO Last administered on 10/20/16 08:15; Start 10/17/16 at 14:00 Cyclobenzaprine HCl (Flexeril) 10 mg TID PO Last administered on 10/19/16 21: 21; Start 10/17/16 at 14:00 Fluticasone Propionate (Flonase) 1 spray DAILY NS Last administered on 08:25; Start 10/18/16 at 09:00 Gemfibrozil (Lopid) 600 mg BIDBFRMEAL PO Last administered on 10/20/16 08:15; Start 10/17/16 at 16:30 Acetaminophen/ Hydrocodone Bitart (Lortab 7.5/325) 1 tab PRN Q6HRS PRN PO PAIN Last administered on 10/19/16 21:29; Start 10/17/16 at 12:30 Levothyroxine Sodium (Synthroid) 100 mcg DAILY07 PO Last administered on 06:13; Start 10/17/16 at 13:00 Lisinopril (Prinivil) 5 mg DAILY PO Last administered on 10/20/16 08:16; Start 10/17/16 at 13:00 Torsemide (Demadex) 10 mg QODAY PO Last administered on 10/19/16 10:04; Start 10/19/16 at 09:00 Non-Formulary Medication 4 mg DAILY PO ; Start 10/18/16 at 09:00; Stop 10/19/16 at 13:33; Status DC EZETIMIBE (Zetia) 10 mg DAILY PO Last administered on 10/20/16 08:16; Start at 13:00 Linagliptin (Tradjenta) 5 mg DAILY PO Last administered on 10/20/16 08:16; Start 10/17/16 at 13:00 Trazodone HCl (Desyrel) 150 mg HS PO Last administered on 10/19/16 21:20; Start 10/17/16 at 21:00 Non-Formulary Medication 200 mg DAILY PO ; Start 10/18/16 at 09:00; Stop at 09:00; Status DC Non-Formulary Medication 40 mg QODAY PO ; Start 10/19/16 at 09:00; Stop at 13:33; Status DC Potassium Chloride/Sodium Chloride 1,000 ml @ 100 mls/hr Q10H IV Last administered on 10/18/16 01:13; Start 10/17/16 at 12:22; Stop 10/18/16 at 11:41 ; Status DC Simvastatin (Zocor) 20 mg DAILY PO Last administered on 10/18/16 07:38; Start 10/17/16 at 13:00 Magnesium Sulfate/ Dextrose 50 ml @ 25 mls/hr 1X ONCE IV Last administered on 10/17/16 12:56; Start 10/17/16 at 13:00; Stop 10/17/16 at 14:59; Status DC Insulin Aspart (NovoLOG) 0-7 UNITS TIDWMEALS SQ Last administered on 10/20/16 08:23; Start 10/17/16 at 17:00 Dextrose (Dextrose 50%-Water Syringe) 12.5 gm PRN Q15MIN PRN IV SEE COMMENTS; Start 10/17/16 at 13:45 Insulin Aspart (NovoLOG) 10 units TIDAC SQ Last administered on 10/18/16 11:07 ; Start 10/17/16 at 16:30; Stop 10/18/16 at 11:41; Status DC Insulin Detemir (Levemir) 50 units QHS SQ Last administered on 10/19/16 21:27 ; Start 10/17/16 at 21:00 Gadobutrol (Gadavist) 8 mmol 1X ONCE IV Last administered on 10/17/16 18:52; Start 10/17/16 at 18:30; Stop 10/17/16 at 18:51; Status DC Insulin Aspart (NovoLOG) 20 units TIDAC SQ Last administered on 10/19/16 08:17 ; Start 10/18/16 at 16:30; Stop 10/19/16 at 10:32; Status DC Insulin Detemir (Levemir) 25 units DAILY SQ Last administered on 10/19/16 10: 15; Start 10/18/16 at 11:45; Stop 10/19/16 at 10:32; Status DC Insulin Aspart (NovoLOG) 25 units TIDAC SQ Last administered on 10/20/16 08:22 ; Start 10/19/16 at 11:30 Insulin Detemir (Levemir) 40 units DAILY SQ Last administered on 10/20/16t 08: 22; Start 10/20/16 at 09:00 Active Scripts Active Reported Novolog Flexpen (Insulin Aspart) 100 Unit/1 Ml Insuln.pen 8 Unit SQ TID Levemir (Insulin Detemir) 100 Unit/1 Ml Vial 51 Unit SQ HS Hydrocodone-Apap 7.5-325 (Hydrocodone Bit/Acetaminophen) 1 Each Tablet 1 Tab PO PRN Q6HRS PRN Trazodone Hcl 150 Mg Tablet 1 Tab PO QHS Welchol (Colesevelam Hcl) 625 Mg Tablet 625 Mg PO TID Gemfibrozil 600 Mg Tablet 1 Tab PO BID Atenolol 25 Mg Tablet 1 Tab PO BID Trintellix (Vortioxetine) 20 Mg Tablet 40 Mg PO QODAY Torsemide 20 Mg Tablet 10 Mg PO QODAY Rexulti (Brexpiprazole) 4 Mg Tablet 4 Mg PO DAILY Onglyza (Saxagliptin Hcl) 5 Mg Tablet 1 Tab PO DAILY Levothyroxine Sodium 100 Mcg Tablet 1 Tab PO DAILY Fluticasone Propionate Nasal [place] (Fluticasone Propionate) 16 Gm [place].susp 1 [place] NS DAILY Coenzyme Q10 (Ubidecarenone) 200 Mg Capsule 200 Mg PO DAILY Clonazepam 0.5 Mg Tablet 1 Tab PO TID Lisinopril 5 Mg Tablet 5 Mg PO DAILY Cyclobenzaprine Hcl 10 Mg Tablet 10 Mg PO TID Plavix (Clopidogrel Bisulfate) 75 Mg Tablet 75 Mg PO DAILY Vytorin 10-20 Mg Tablet (Ezetimibe/Simvastatin) 1 Each Tablet 1 Each PO DAILY Clonazepam Odt (Clonazepam) 2 Mg Tab.rapdis 2 Mg PO PRN Aspir 81 (Aspirin) 81 Mg Tablet.dr 81 Mg PO DAILY Vitals/I & O Vital Sign - Last 24 Hours 10/19/16 10/19/16 10/19/16 10/19/16 15:19 19:05 20:00 21:21 Temp 98.3 98.4 98.3 98.4 Pulse 82 78 78 Resp 18 18 B/P (MAP) 152/51 (84) 149/64 (92) 149/64 Pulse Ox 95 97 O2 Delivery Room Air Room Air Room Air 10/19/16 10/19/16 10/19/16 10/20/16 21:29 22:29 23:05 03:05 Temp 98.4 98.3 98.4 98.3 Pulse 70 66 Resp 18 18 B/P (MAP) 113/51 (71) 123/51 (75) Pulse Ox 93 95 O2 Delivery Room Air Room Air Room Air Room Air 10/20/16 10/20/16 10/20/16 10/20/16 08:00 08:00 08:16 08:16 Temp 98.3 98.3 Pulse 67 66 66 Resp 18 B/P (MAP) 109/59 (76) 123/51 123/51 Pulse Ox 96 O2 Delivery Room Air Room Air 10/20/16 11:16 Temp 98.2 98.2 Pulse 69 Resp 18 B/P (MAP) 125/65 (85) Pulse Ox 96 O2 Delivery Room Air Intake and Output 10/19/16 10/19/16 10/20/16 15:00 23:00 07:00 Intake Total 300 ml 450 ml Output Total 800 ml Balance 300 ml -350 ml SUSAN NICHOLAS MD Oct 20, 2016 11:36
--- NOTE | 2016-10-23 14:01 | PDOC ---
Provider Note Provider Note Discharge summary dictated. #[id number] VLAD SHAHID MD Oct 23, 2016 14:01
--- NOTE | 2016-10-23 20:41 | DS ---
DATE OF DISCHARGE: 10/20/2016 REASON FOR ADMISSION TO THE HOSPITAL: Uncontrolled blood sugars 800 with change in mental status. CONSULTATION: Dr. Fontana of Neurology. PROCEDURES DONE: CT head, MRI of the brain, carotid Doppler and echocardiogram. COMPLICATIONS NOTED: None. HOSPITAL COURSE: The patient is a 71-year-old female with history of diabetes, insulin-dependent, lives in assisted facility. She came with change in mental status and possible left sided weakness and sugar was at 800. She is not in DKA and the patient was admitted to the hospital, was given insulin drip, IV fluids. Her condition improved. Blood sugars came down. A1c was 12. The patient had CT and it was negative. MRI of the brain was negative for CVA. Carotid Doppler was negative. Echo, good left ventricular function and the patient was seen by support worker and runs around 200-250 at the time of discharge. FINAL DIAGNOSES: 1. Mental status changes secondary to hyperglycemia. 2. No evidence of acute cerebrovascular accident. 3. Uncontrolled blood sugars of 800. 4. Hyponatremia secondary to hyperglycemia. 5. Insulin-dependent diabetes. 6. Hypertension. 7. Hyperlipidemia. DISPOSITION: Back to assisted facility with home health. Monitor sugars and see MRAD for discharge medications. VLAD SHAHID MD DR: KIRIT/zenaida JOB#: [id number] / [id number] PHYLLIS
[2016-10-25] MEDS ORDERED: INSU100V13 SQ ×2 (21:52→21:53)
== END 2016-10-20 14:15 | disposition home health service (06) | DRG 100 ==
LOC: ER 04:08 → 1 WEST ICU 05:56 → 6 SOUTH 10-18 17:00
PROVIDERS: ADMIT Internal Medicine; ATTEND Internal Medicine
DX: R56.9 Unspecified convulsions (principal); G93.41 Metabolic encephalopathy; E87.1 Hypo-osmolality and hyponatremia; E11.65 Type 2 diabetes mellitus with hyperglycemia; E03.9 Hypothyroidism, unspecified; E66.9 Obesity, unspecified; E78.5 Hyperlipidemia, unspecified; I10 Essential (primary) hypertension; F32.9 Major depressive disorder, single episode, unspecified; F41.9 Anxiety disorder, unspecified; R29.810 Facial weakness; Z79.4 Long term (current) use of insulin; Z83.3 Family history of diabetes mellitus; Z90.49 Acquired absence of other specified parts of digestive tract; Z90.710 Acquired absence of both cervix and uterus; Z88.6 Allergy status to analgesic agent; Z88.2 Allergy status to sulfonamides; Z88.1 Allergy status to other antibiotic agents; Z88.8 Allergy status to other drugs, medicaments and biological substances; Z68.29 Body mass index [BMI] 29.0-29.9, adult; Z93.0 Tracheostomy status; Z79.899 Other long term (current) drug therapy
CPT/HCPCS: 36415; 70450; 70553; 71010; 80048; 80053; 80061; 81001; 82947; 82962; 83036; 83735; 84443; 84484; 85027; 85610; 87641; 93005; 93306; 93880; 96361; 96374; A9585; J1815; J7030; J7060; 92526; 92610; 97116; 97530; 99285-25

== ENCOUNTER 2016-10-22 11:59 | Emergency (ER) | payer OTHER ==
[~2016-10-22] VITALS: Ht 168.9 cm; Wt 80.3 kg
[~2016-10-22 11:59] MED LIST changes: +BREX4TAB PO; +COLE625T12 PO; +FLUT16SP NS; +GEMF600T3 PO; +INSU100V13 SQ; +LEVO100T5 PO; +SAXA5TAB PO; +TORS20TA2 PO; +TRAZ150T49 PO; +UBID200C PO; +VORT20TA PO
[2016-10-22 13:12] LABS: BASO # 0.1 x10^3/uL (0.0-0.2); BASO % 1 % (0-3); EOS % 1 % (0-3); HEMATOCRIT 35.7 % (36.0-47.0); HEMOGLOBIN 11.9 g/dL (12.0-15.5); LYMPH # 1.9 x10^3/uL (1.0-4.8); LYMPH % 27 % (24-48); MEAN CORPUSCULAR HEMOGLOBIN 30 pg (25-35); MEAN CORPUSCULAR HGB CONC 33 g/dL (31-37); MEAN CORPUSCULAR VOLUME 89 fL (79-100); MONO % 7 % (0-9); NEUT % 65 % (31-73); PLATELET COUNT 144 x10^3/uL (140-400); RED CELL DISTRIBUTION WIDTH 13.6 % (11.5-14.5); WHITE BLOOD COUNT 7.3 x10^3/uL (4.0-11.0)
[2016-10-22 13:26] LABS: ALBUMIN 3.5 g/dL (3.4-5.0); ALBUMIN/GLOBULIN RATIO 0.8 (1.0-1.7); CALCIUM 9.3 mg/dL (8.5-10.1); CREATININE 1.1 mg/dL (0.6-1.0); POTASSIUM 4.6 mmol/L (3.5-5.1); TOTAL BILIRUBIN 0.3 mg/dL (0.2-1.0); TOTAL PROTEIN 7.9 g/dL (6.4-8.2)
[2016-10-22] MEDS ORDERED: IV NORMAL SALINE 1000ML BAG 1,000 ML IV ONE (14:00)
[2016-10-22] MEDS ORDERED: INSULIN REGULAR 100 UNIT/ML 10ML VIAL. IV ONE (14:30)
[2016-10-22] MEDS ORDERED: MORPHINE SULFATE 4 MG/ML DISP.SYRIN. IV ONE (15:00)
[2016-10-22] MEDS ORDERED: MORPHINE SULFATE 4 MG/ML DISP.SYRIN. IM ONE (15:00)
--- NOTE | 2016-10-22 15:19 | EKG ---
[facility] [address] [place] [address] Test Date: 2016-10-22 Test Time: 12:06:30 Pat Name: FRANCISCA CASTRO Department: Room: Gender: F Radiographic Technologist: : 1945 Requested By: Nadine LEE Order Number: [id number] Reading MD: Patel Ogden Measurements Intervals [place] Rate: 85 P: 38 AR: 162 QRS: 42 QRSD: 86 T: 60 QT: 362 QTc: 431 Interpretive Statements SINUS RHYTHM Electronically Signed On 10-25-2016 14:58:09 CDT by Patel Ogden
[2016-10-22] MEDS ORDERED: LABETALOL 20 MG/4 ML DISP.SYRIN. IVP ONE (16:00)
[2016-10-22 16:47] VITALS: BP 136/64
--- NOTE | 2016-10-22 17:05 | PHYS DOC ---
Past Medical History Past Medical History: Diabetes-Type II, Hypertension, Hypothyroid Past Surgical History: Cholecystectomy, Hysterectomy Additional Past Surgical Histo: NECK SURGERY Alcohol Use: Occasionally Drug Use: None Adult General Chief Complaint Chief Complaint: SEIZURE HPI HPI Patient is a 71 year old female who presents with complaints of possible seizures. Patient states that she was aware she was shaking and having seizures she was a little time. The there was no incontinence no tongue biting. Patient says she's had similar episodes in the past. Review of Systems Review of Systems Constitutional: Denies fever or chills [] Eyes: Denies change in visual acuity, redness, or eye pain [] HENT: Denies nasal congestion or sore throat [] Respiratory: Denies cough or shortness of breath [] Cardiovascular: No chest pain no back pain no abdominal pain no neck pain GI: Denies abdominal pain, nausea, vomiting, bloody stools or diarrhea [] : Denies dysuria or hematuria [] Musculoskeletal: Denies back pain or joint pain [] Integument: Denies rash or skin lesions [] Neurologic: Denies headache, focal weakness or sensory changes [] Endocrine: Denies polyuria or polydipsia [] Current Medications Current Medications Current Medications Medications (Trade) Dose Ordered Sig/Kike Start Time Stop Time Status Last Admin Dose Admin Insulin Human Regular (NovoLIN R VIAL) 8 unit 1X ONCE 10/22/16 14:30 10/22/16 14:31 DC 10/22/16 14:22 8 UNIT Labetalol HCl (Normodyne) 20 mg 1X ONCE 10/22/16 16:00 10/22/16 16:01 DC 10/22/16 16:19 20 MG Morphine Sulfate 4 mg 1X ONCE 10/22/16 15:00 10/22/16 15:01 DC 10/22/16 14:55 4 MG Sodium Chloride 1,000 ml @ 1,000 mls/hr 1X ONCE 10/22/16 14:00 10/22/16 14:59 DC 10/22/16 13:30 1,000 MLS/HR Allergies Allergies Allergies Coded Allergies Type Severity Reaction Last Updated Verified Unggiqk-Zdw-Ltp Reductase Inhibitor Allergy Intermediate 10/22/16 Yes Sulfa (Sulfonamide Antibiotics) Allergy Intermediate Rash 10/22/16 Yes erythromycin base Allergy Intermediate 10/22/16 Yes warfarin Allergy Intermediate Hives 10/22/16 Yes bupropion Allergy Mild Rash 10/22/16 Yes nitroglycerin Allergy Mild 10/22/16 Yes tetracycline Allergy Mild Swelling 10/22/16 Yes niacin Adverse Reaction Intermediate Hives 10/22/16 Yes Physical Exam Physical Exam Constitutional: Well developed, well nourished, no acute distress, non-toxic appearance. No postictal state HENT: Normocephalic, atraumatic, dry mucous membranes, no lesions, no oral exudates, nose normal. No tongue trauma [] Eyes: EOMI, conjunctiva normal, no discharge. [] Neck: Normal range of motion, no tenderness, supple, no stridor. No meningeal signs no LAD Cardiovascular:Heart rate regular rhythm, no murmur. Normal perfusion, no vascular deficits Lungs & Thorax: Bilateral breath sounds clear to auscultation. No tachypnea Abdomen: Bowel sounds normal, soft, no tenderness, no masses, no pulsatile masses. [] Skin: Warm, dry, no erythema, no rash. [] Back: No tenderness, no CVA tenderness. [] Extremities: No tenderness, no cyanosis, no clubbing, ROM intact, no edema. [] Neurologic: Alert and oriented X 3, normal motor function,no focal deficits noted. [] Psychologic: Affect normal, judgement normal, mood normal. [] No evidence of incontinence Current Patient Data Vital Signs Vital Signs Date Time Temp Pulse Resp B/P (MAP) Pulse Ox O2 Delivery O2 Flow Rate FiO2 10/22/16 16:19 85 192/88 10/22/16 15:31 20 95 Room Air 10/22/16 12:00 98.3 98.3 Lab Values Laboratory Tests Test 10/22/16 12:03 10/22/16 12:07 10/22/16 15:19 Glucose (Fingerstick) 598 mg/dL (70-99) *H 311 mg/dL (70-99) H White Blood Count 7.3 x10^3/uL (4.0-11.0) Red Blood Count 4.00 x10^6/uL (3.50-5.40) Hemoglobin 11.9 g/dL (12.0-15.5) L Hematocrit 35.7 % (36.0-47.0) L Mean Corpuscular Volume 89 fL (79-100) Mean Corpuscular Hemoglobin 30 pg (25-35) Mean Corpuscular Hemoglobin Concent 33 g/dL (31-37) Red Cell Distribution Width 13.6 % (11.5-14.5) Platelet Count 144 x10^3/uL (140-400) Neutrophils (%) (Auto) 65 % (31-73) Lymphocytes (%) (Auto) 27 % (24-48) Monocytes (%) (Auto) 7 % (0-9) Eosinophils (%) (Auto) 1 % (0-3) Basophils (%) (Auto) 1 % (0-3) Neutrophils # (Auto) 4.7 x10^3uL (1.8-7.7) Lymphocytes # (Auto) 1.9 x10^3/uL (1.0-4.8) Monocytes # (Auto) 0.5 x10^3/uL (0.0-1.1) Eosinophils # (Auto) 0.0 x10^3/uL (0.0-0.7) Basophils # (Auto) 0.1 x10^3/uL (0.0-0.2) Sodium Level 133 mmol/L (136-145) L Potassium Level 4.6 mmol/L (3.5-5.1) Chloride Level 96 mmol/L (98-107) L Carbon Dioxide Level 30 mmol/L (21-32) Anion Gap 7 (6-14) Blood Urea Nitrogen 20 mg/dL (7-20) Creatinine 1.1 mg/dL (0.6-1.0) H Estimated GFR (Cockcroft-Gault) 49.0 BUN/Creatinine Ratio 18 (6-20) Glucose Level 540 mg/dL (70-99) *H Calcium Level 9.3 mg/dL (8.5-10.1) Total Bilirubin 0.3 mg/dL (0.2-1.0) Aspartate Amino Transferase (AST) 55 U/L (15-37) H Alanine Aminotransferase (ALT) 55 U/L (14-59) Alkaline Phosphatase 115 U/L (46-116) Troponin I Quantitative < 0.017 ng/mL (0.000-0.055) Total Protein 7.9 g/dL (6.4-8.2) Albumin 3.5 g/dL (3.4-5.0) Albumin/Globulin Ratio 0.8 (1.0-1.7) L Laboratory Tests 10/22/16 12:07 Laboratory Tests 10/22/16 12:07 EKG EKG Sinus rhythm, 85, no STEMI, EP interpretation at 1211 [] Radiology/Procedures Radiology/Procedures [] Course & Med Decision Making Course & Med Decision Making Pertinent Labs and Imaging studies reviewed. (See chart for details) [] Patient was OBSERVED in the ED for an extended period of time, no evidence of seizures. However the patient was found to be dehydrated and in a hyperglycemic state as well as having some hypertension. Patient was monitored and given medications as well as IV fluid hydration. Patient is markedly improved and has no complaints at the time of discharge. I have an extensive discussion with the patient regarding the need for follow-up and close monitoring of blood sugars and blood pressure. Patient understands and agrees to follow up as directed. I have very low suspicion that the patient was in fact having any seizures in the further she stated that she was very aware that were happening to her at the time. Dragon Disclaimer Dragon Disclaimer This electronic medical record was generated, in whole or in part, using a voice recognition dictation system. Departure Departure Impression: Primary Impression: Hypertension Additional Impressions: Hyperglycemia Dehydration Condition: IMPROVED Referrals: JHOANA KELSEY (PCP) please follow up with your doctor in one day for recheck and re-evaluation and possible adjustment to your medication regimen. Patient Instructions: Dehydration, Elderly, Hyperglycemia, [id number], Hypertension, [id number] Problem Qualifiers Nadine LEE MD Oct 22, 2016 17:05
[2016-10-25] MEDS ORDERED: INSU100V13 SQ ×2 (21:52→21:53)
== END 2016-10-22 17:21 | disposition home or self-care (01) ==
LOC: ER 11:59
DX: E86.0 Dehydration (principal); E11.65 Type 2 diabetes mellitus with hyperglycemia; I10 Essential (primary) hypertension; Z88.2 Allergy status to sulfonamides; E03.9 Hypothyroidism, unspecified; Z90.49 Acquired absence of other specified parts of digestive tract; Z90.710 Acquired absence of both cervix and uterus; Z88.1 Allergy status to other antibiotic agents; Z91.09 Other allergy status, other than to drugs and biological substances
CPT/HCPCS: 36415; 80053; 82962; 84484; 85027; 93005; 96361; 96374; 96375; 99285; J1815; J2270; J3490; J7030

== ENCOUNTER 2017-09-19 10:57 | Emergency (ER) | payer OTHER ==
[2017-09-19 12:35] LABS: ADD MAN DIFF? NO
[2017-09-19 12:48] LABS: BASO # 0.1 x10^3/uL (0.0-0.2); BASO % 1 % (0-3); EOS # 0.1 x10^3/uL (0.0-0.7); EOS % 1 % (0-3); HEMATOCRIT 37.2 % (36.0-47.0); HEMOGLOBIN 12.2 g/dL (12.0-15.5); LYMPH % 23 % (24-48); MEAN CORPUSCULAR HEMOGLOBIN 30 pg (25-35); MEAN CORPUSCULAR HGB CONC 33 g/dL (31-37); MEAN CORPUSCULAR VOLUME 92 fL (79-100); MONO # 0.5 x10^3/uL (0.0-1.1); MONO % 6 % (0-9); NEUT % 70 % (31-73); PLATELET COUNT 135 x10^3/uL (140-400); RED BLOOD COUNT 4.07 x10^6/uL (3.50-5.40); RED CELL DISTRIBUTION WIDTH 14.2 % (11.5-14.5); WHITE BLOOD COUNT 8.6 x10^3/uL (4.0-11.0)
[2017-09-19 12:49] LABS: ANION GAP 11 (6-14); BLOOD UREA NITROGEN 25 mg/dL (7-20); BUN/CREATININE RATIO 28 (6-20); CALCIUM 9.5 mg/dL (8.5-10.1); CARBON DIOXIDE 24 mmol/L (21-32); CHLORIDE 98 mmol/L (98-107); CREATININE 0.9 mg/dL (0.6-1.0); GFR 61.5; GLUCOSE 407 mg/dL (70-99); POTASSIUM 4.9 mmol/L (3.5-5.1); SODIUM 133 mmol/L (136-145)
[2017-09-19] MEDS ORDERED: MECLIZINE HCL 12.5 MG TABLET. (12:51)
[2017-09-19 12:55] LABS: ALBUMIN 3.3 g/dL (3.4-5.0); ALBUMIN/GLOBULIN RATIO 0.8 (1.0-1.7); ALK PHOS 165 U/L (46-116); ALT (SGPT) 52 U/L (14-59); AST (SGOT) 59 U/L (15-37); TOTAL BILIRUBIN 0.6 mg/dL (0.2-1.0); TOTAL PROTEIN 7.6 g/dL (6.4-8.2)
[2017-09-19] MEDS: LORazepam 1 MG TABLET PO (12:55)
[2017-09-19] MEDS: MECLIZINE HCL 12.5 MG TABLET. PO (12:55)
[2017-09-19 12:58] LABS: TROPONINI < 0.017 ng/mL (0.000-0.055)
[2017-09-19 13:02] LABS: BILIRUBIN,URINE NEGATIVE (NEG); CLARITY,URINE CLEAR; COLOR,URINE YELLOW; GLUCOSE,URINE 500 mg/dL (NEG); NITRITE,URINE NEGATIVE (NEG); PH,URINE 5.5; PROTEIN,URINE NEGATIVE (NEG-TRACE); UROBILINOGEN,URINE 0.2 mg/dL (0.2 mg/dL)
[2017-09-19 13:25] LABS: BACTERIA,URINE FEW /HPF (0-FEW); HYALINE CASTS, URINE OCCASIONAL /HPF; RBC,URINE RARE /HPF (0-2); WBC,URINE RARE /HPF (0-4)
[2017-09-19] MEDS ORDERED: INSULIN REGULAR 100 UNIT/ML 3ML VIAL. IV (14:15)
[2017-09-19] MEDS: INSULIN REGULAR 100 UNIT/ML 3ML VIAL. SQ (14:45)
== END 2017-09-19 14:50 | disposition home or self-care (01) ==
LOC: ER 10:57
DX: E11.65 Type 2 diabetes mellitus with hyperglycemia (principal); R42 Dizziness and giddiness; E03.9 Hypothyroidism, unspecified; I11.9 Hypertensive heart disease without heart failure; G89.29 Other chronic pain; Z90.710 Acquired absence of both cervix and uterus; Z90.49 Acquired absence of other specified parts of digestive tract; Z88.2 Allergy status to sulfonamides; Z88.8 Allergy status to other drugs, medicaments and biological substances; Z88.1 Allergy status to other antibiotic agents; Z91.041 Radiographic dye allergy status
CPT/HCPCS: 36415; 70450; 71045; 72125; 72141; 80053; 81001; 84484; 85025; 93005; 96372; 99285-25; J1815; J8597

== ENCOUNTER → 2018-02-16 | Outpatient (CLI) | payer OTHER ==
[2017-09-19 10:57] VITALS: BP 145/65
[~2018-02-16] MED LIST changes: -CITA20TA5 PO; +CITA20TA6 PO; +CLON0.5T11 PO; -CLON0.5T3 PO; -GEMF600T3 PO; +GEMF600T4 PO; +METF500T16 PO; -METF500T4 PO; +TRAZ-86 PO; -TRAZ100T12 PO
--- NOTE | 2018-02-16 15:37 | RAD ---
Left breast ultrasound, 02/16/2018: History: Remote history of left breast nodule The patient relates a vague history of a previous left breast nodule. The entire left breast was carefully scanned. The fibroglandular tissues are quite heterogeneous, particularly in the retroareolar region. No discrete left breast mass or abnormal fluid collection is seen. IMPRESSION: No sonographic evidence of a discrete breast mass. Considering the heterogeneously dense mammographic findings and a probable right breast malignancy, MR scanning may be useful for further evaluation.
== END | disposition home or self-care (01) ==
LOC: US 14:15
PROVIDERS: ATTEND Specialist
DX: R92.8 Other abnormal and inconclusive findings on diagnostic imaging of breast (principal)
CPT/HCPCS: 76641

== ENCOUNTER 2018-03-08 08:39 | Day surgery (SDC) | payer OTHER ==
[~2018-03-08] VITALS: Ht 167.6 cm; Wt 72.6 kg
[~2018-03-08 08:39] MED LIST changes: -GEMF600T4 PO; +GEMF600T8 PO; -HYDR-2762 PO; +HYDR-2765 PO; -HYDR12.53 PO; +HYDR12.575 PO; +HYDROmorphone 2 MG/ML VIAL IV PRN; +INSU100V31 SQ; +IV RINGERS,LACTATED 1000ML 1,000 ML IV SCH; +LIDOCAINE 1% PF 2 ML VIAL. ID PRN; +LINA5TAB PO; -LINA5TAB4 PO; +MELA3TAB2 PO; +METHYLENE BLUE 1% 10 ML VIAL. IJ ONE; +MORPHINE SULFATE 2 MG/ML VIAL. IV PRN; +ONDANSETRON PF 4 MG/2 ML VIAL. IV PRN; +PROCHLORPERAZINE 10 MG/2 ML VIAL. IV PRN; +SITA50TA PO; +fentaNYL PF VIAL 100 MCG/2 ML VIAL IV PRN
[2018-03-08] MEDS ORDERED: IV RINGERS,LACTATED 1000ML 1,000 ML IV SCH (09:45)
[2018-03-08 10:08] LABS: BASO # 0.1 x10^3/uL (0.0-0.2); BASO % 1 % (0-3); EOS # 0.1 x10^3/uL (0.0-0.7); EOS % 1 % (0-3); HEMOGLOBIN 13.3 g/dL (12.0-15.5); LYMPH # 2.6 x10^3/uL (1.0-4.8); LYMPH % 22 % (24-48); MEAN CORPUSCULAR HEMOGLOBIN 31 pg (25-35); MEAN CORPUSCULAR HGB CONC 34 g/dL (31-37); MEAN CORPUSCULAR VOLUME 90 fL (79-100); MONO # 0.6 x10^3/uL (0.0-1.1); MONO % 5 % (0-9); NEUT # 8.3 x10^3uL (1.8-7.7); NEUT % 71 % (31-73); PLATELET COUNT 211 x10^3/uL (140-400); RED BLOOD COUNT 4.34 x10^6/uL (3.50-5.40); RED CELL DISTRIBUTION WIDTH 13.9 % (11.5-14.5); WHITE BLOOD COUNT 11.7 x10^3/uL (4.0-11.0)
[2018-03-08 10:15] LABS: ALBUMIN 3.6 g/dL (3.4-5.0); ALBUMIN/GLOBULIN RATIO 0.7 (1.0-1.7); CALCIUM 9.8 mg/dL (8.5-10.1); CREATININE 0.9 mg/dL (0.6-1.0); GFR 61.5; POTASSIUM 4.5 mmol/L (3.5-5.1); TOTAL BILIRUBIN 0.5 mg/dL (0.2-1.0); TOTAL PROTEIN 8.7 g/dL (6.4-8.2)
[2018-03-08 10:19] LABS: PROTHROMBIN TIME PATIENT 13.6 SEC (11.7-14.0)
[2018-03-08] MEDS ORDERED: SEVOFLURANE 16 TO 30 MINUTES. IH ONE (12:23)
[2018-03-08] MEDS ORDERED: SEVOFLURANE > 120 MINUTES. IH ONE (12:23)
[2018-03-08] MEDS ORDERED: SEVOFLURANE 31 TO 60 MINUTES. IH ONE ×2 (12:23)
[2018-03-08] MEDS ORDERED: fentaNYL PF VIAL 100 MCG/2 ML VIAL ONE (12:24)
[2018-03-08] MEDS ORDERED: MIDAZOLAM HCL/PF 2 MG/2 ML VIAL. ONE (12:24)
[2018-03-08] MEDS ORDERED: DEXAMETHASONE SOD PHOS 20 MG/5 ML VIAL. ONE (12:24)
[2018-03-08] MEDS ORDERED: PROPOFOL 20 ML IV ONE (12:24)
[2018-03-08] MEDS ORDERED: ONDANSETRON PF 4 MG/2 ML VIAL. ONE (12:24)
[2018-03-08] MEDS ORDERED: LIDOCAINE 2% PF Vial for OR 5 ML VIAL. ONE (12:24)
[2018-03-08] MEDS ORDERED: METHYLENE BLUE 1% 10 ML VIAL. ONE (12:41)
[2018-03-08] MEDS ORDERED: INSULIN LISPRO 100 UNIT/ML 3ML VIAL. SQ ONE (12:45)
--- NOTE | 2018-03-08 13:02 | PDOC ---
SURGICAL PROGRESS NOTE Subjective No change in dictated H&P. Vital Signs Vital Signs Date Time Temp Pulse Resp B/P (MAP) Pulse Ox O2 Delivery O2 Flow Rate FiO2 03/08/18 09:34 97.5 69 18 172/70 93 Room Air 97.5 Labs Laboratory Tests Test 03/08/18 09:20 03/08/18 12:00 White Blood Count 11.7 x10^3/uL (4.0-11.0) Red Blood Count 4.34 x10^6/uL (3.50-5.40) Hemoglobin 13.3 g/dL (12.0-15.5) Hematocrit 39.0 % (36.0-47.0) Mean Corpuscular Volume 90 fL (79-100) Mean Corpuscular Hemoglobin 31 pg (25-35) Mean Corpuscular Hemoglobin Concent 34 g/dL (31-37) Red Cell Distribution Width 13.9 % (11.5-14.5) Platelet Count 211 x10^3/uL (140-400) Neutrophils (%) (Auto) 71 % (31-73) Lymphocytes (%) (Auto) 22 % (24-48) Monocytes (%) (Auto) 5 % (0-9) Eosinophils (%) (Auto) 1 % (0-3) Basophils (%) (Auto) 1 % (0-3) Neutrophils # (Auto) 8.3 x10^3uL (1.8-7.7) Lymphocytes # (Auto) 2.6 x10^3/uL (1.0-4.8) Monocytes # (Auto) 0.6 x10^3/uL (0.0-1.1) Eosinophils # (Auto) 0.1 x10^3/uL (0.0-0.7) Basophils # (Auto) 0.1 x10^3/uL (0.0-0.2) Prothrombin Time 13.6 SEC (11.7-14.0) Prothromb Time International Ratio 1.1 (0.8-1.1) Activated Partial Thromboplast Time 35 SEC (24-38) Sodium Level 135 mmol/L (136-145) Potassium Level 4.5 mmol/L (3.5-5.1) Chloride Level 98 mmol/L (98-107) Carbon Dioxide Level 27 mmol/L (21-32) Anion Gap 10 (6-14) Blood Urea Nitrogen 15 mg/dL (7-20) Creatinine 0.9 mg/dL (0.6-1.0) Estimated GFR (Cockcroft-Gault) 61.5 BUN/Creatinine Ratio 17 (6-20) Glucose Level 312 mg/dL (70-99) Calcium Level 9.8 mg/dL (8.5-10.1) Total Bilirubin 0.5 mg/dL (0.2-1.0) Aspartate Amino Transf (AST/SGOT) 51 U/L (15-37) Alanine Aminotransferase (ALT/SGPT) 45 U/L (14-59) Alkaline Phosphatase 171 U/L (46-116) Total Protein 8.7 g/dL (6.4-8.2) Albumin 3.6 g/dL (3.4-5.0) Albumin/Globulin Ratio 0.7 (1.0-1.7) Glucose (Fingerstick) 273 mg/dL (70-99) Laboratory Tests Test 03/08/18 09:20 03/08/18 12:00 White Blood Count 11.7 x10^3/uL (4.0-11.0) Red Blood Count 4.34 x10^6/uL (3.50-5.40) Hemoglobin 13.3 g/dL (12.0-15.5) Hematocrit 39.0 % (36.0-47.0) Mean Corpuscular Volume 90 fL (79-100) Mean Corpuscular Hemoglobin 31 pg (25-35) Mean Corpuscular Hemoglobin Concent 34 g/dL (31-37) Red Cell Distribution Width 13.9 % (11.5-14.5) Platelet Count 211 x10^3/uL (140-400) Neutrophils (%) (Auto) 71 % (31-73) Lymphocytes (%) (Auto) 22 % (24-48) Monocytes (%) (Auto) 5 % (0-9) Eosinophils (%) (Auto) 1 % (0-3) Basophils (%) (Auto) 1 % (0-3) Neutrophils # (Auto) 8.3 x10^3uL (1.8-7.7) Lymphocytes # (Auto) 2.6 x10^3/uL (1.0-4.8) Monocytes # (Auto) 0.6 x10^3/uL (0.0-1.1) Eosinophils # (Auto) 0.1 x10^3/uL (0.0-0.7) Basophils # (Auto) 0.1 x10^3/uL (0.0-0.2) Prothrombin Time 13.6 SEC (11.7-14.0) Prothromb Time International Ratio 1.1 (0.8-1.1) Activated Partial Thromboplast Time 35 SEC (24-38) Sodium Level 135 mmol/L (136-145) Potassium Level 4.5 mmol/L (3.5-5.1) Chloride Level 98 mmol/L (98-107) Carbon Dioxide Level 27 mmol/L (21-32) Anion Gap 10 (6-14) Blood Urea Nitrogen 15 mg/dL (7-20) Creatinine 0.9 mg/dL (0.6-1.0) Estimated GFR (Cockcroft-Gault) 61.5 BUN/Creatinine Ratio 17 (6-20) Glucose Level 312 mg/dL (70-99) Calcium Level 9.8 mg/dL (8.5-10.1) Total Bilirubin 0.5 mg/dL (0.2-1.0) Aspartate Amino Transf (AST/SGOT) 51 U/L (15-37) Alanine Aminotransferase (ALT/SGPT) 45 U/L (14-59) Alkaline Phosphatase 171 U/L (46-116) Total Protein 8.7 g/dL (6.4-8.2) Albumin 3.6 g/dL (3.4-5.0) Albumin/Globulin Ratio 0.7 (1.0-1.7) Glucose (Fingerstick) 273 mg/dL (70-99) GUILLERMO BARNHART MD Mar 08, 2018 13:02
--- NOTE | 2018-03-08 13:05 | PDOC ---
SURGICAL PROGRESS NOTE Subjective Op Note: Surgeon....................................Barnhart Pre op diag...............................right breast mass Post op diag.............................mass right breast Anesthesia...............................general Procedure................................excision mass right breast via needle localization Blood loss...............................3cc Fluids......................................see anesthesia sheet Drains.....................................none Condition.................................satisfactory Vital Signs Vital Signs Date Time Temp Pulse Resp B/P (MAP) Pulse Ox O2 Delivery O2 Flow Rate FiO2 03/08/18 09:34 97.5 69 18 172/70 93 Room Air 97.5 Labs Laboratory Tests Test 03/08/18 09:20 03/08/18 12:00 White Blood Count 11.7 x10^3/uL (4.0-11.0) Red Blood Count 4.34 x10^6/uL (3.50-5.40) Hemoglobin 13.3 g/dL (12.0-15.5) Hematocrit 39.0 % (36.0-47.0) Mean Corpuscular Volume 90 fL (79-100) Mean Corpuscular Hemoglobin 31 pg (25-35) Mean Corpuscular Hemoglobin Concent 34 g/dL (31-37) Red Cell Distribution Width 13.9 % (11.5-14.5) Platelet Count 211 x10^3/uL (140-400) Neutrophils (%) (Auto) 71 % (31-73) Lymphocytes (%) (Auto) 22 % (24-48) Monocytes (%) (Auto) 5 % (0-9) Eosinophils (%) (Auto) 1 % (0-3) Basophils (%) (Auto) 1 % (0-3) Neutrophils # (Auto) 8.3 x10^3uL (1.8-7.7) Lymphocytes # (Auto) 2.6 x10^3/uL (1.0-4.8) Monocytes # (Auto) 0.6 x10^3/uL (0.0-1.1) Eosinophils # (Auto) 0.1 x10^3/uL (0.0-0.7) Basophils # (Auto) 0.1 x10^3/uL (0.0-0.2) Prothrombin Time 13.6 SEC (11.7-14.0) Prothromb Time International Ratio 1.1 (0.8-1.1) Activated Partial Thromboplast Time 35 SEC (24-38) Sodium Level 135 mmol/L (136-145) Potassium Level 4.5 mmol/L (3.5-5.1) Chloride Level 98 mmol/L (98-107) Carbon Dioxide Level 27 mmol/L (21-32) Anion Gap 10 (6-14) Blood Urea Nitrogen 15 mg/dL (7-20) Creatinine 0.9 mg/dL (0.6-1.0) Estimated GFR (Cockcroft-Gault) 61.5 BUN/Creatinine Ratio 17 (6-20) Glucose Level 312 mg/dL (70-99) Calcium Level 9.8 mg/dL (8.5-10.1) Total Bilirubin 0.5 mg/dL (0.2-1.0) Aspartate Amino Transf (AST/SGOT) 51 U/L (15-37) Alanine Aminotransferase (ALT/SGPT) 45 U/L (14-59) Alkaline Phosphatase 171 U/L (46-116) Total Protein 8.7 g/dL (6.4-8.2) Albumin 3.6 g/dL (3.4-5.0) Albumin/Globulin Ratio 0.7 (1.0-1.7) Glucose (Fingerstick) 273 mg/dL (70-99) Laboratory Tests Test 03/08/18 09:20 03/08/18 12:00 White Blood Count 11.7 x10^3/uL (4.0-11.0) Red Blood Count 4.34 x10^6/uL (3.50-5.40) Hemoglobin 13.3 g/dL (12.0-15.5) Hematocrit 39.0 % (36.0-47.0) Mean Corpuscular Volume 90 fL (79-100) Mean Corpuscular Hemoglobin 31 pg (25-35) Mean Corpuscular Hemoglobin Concent 34 g/dL (31-37) Red Cell Distribution Width 13.9 % (11.5-14.5) Platelet Count 211 x10^3/uL (140-400) Neutrophils (%) (Auto) 71 % (31-73) Lymphocytes (%) (Auto) 22 % (24-48) Monocytes (%) (Auto) 5 % (0-9) Eosinophils (%) (Auto) 1 % (0-3) Basophils (%) (Auto) 1 % (0-3) Neutrophils # (Auto) 8.3 x10^3uL (1.8-7.7) Lymphocytes # (Auto) 2.6 x10^3/uL (1.0-4.8) Monocytes # (Auto) 0.6 x10^3/uL (0.0-1.1) Eosinophils # (Auto) 0.1 x10^3/uL (0.0-0.7) Basophils # (Auto) 0.1 x10^3/uL (0.0-0.2) Prothrombin Time 13.6 SEC (11.7-14.0) Prothromb Time International Ratio 1.1 (0.8-1.1) Activated Partial Thromboplast Time 35 SEC (24-38) Sodium Level 135 mmol/L (136-145) Potassium Level 4.5 mmol/L (3.5-5.1) Chloride Level 98 mmol/L (98-107) Carbon Dioxide Level 27 mmol/L (21-32) Anion Gap 10 (6-14) Blood Urea Nitrogen 15 mg/dL (7-20) Creatinine 0.9 mg/dL (0.6-1.0) Estimated GFR (Cockcroft-Gault) 61.5 BUN/Creatinine Ratio 17 (6-20) Glucose Level 312 mg/dL (70-99) Calcium Level 9.8 mg/dL (8.5-10.1) Total Bilirubin 0.5 mg/dL (0.2-1.0) Aspartate Amino Transf (AST/SGOT) 51 U/L (15-37) Alanine Aminotransferase (ALT/SGPT) 45 U/L (14-59) Alkaline Phosphatase 171 U/L (46-116) Total Protein 8.7 g/dL (6.4-8.2) Albumin 3.6 g/dL (3.4-5.0) Albumin/Globulin Ratio 0.7 (1.0-1.7) Glucose (Fingerstick) 273 mg/dL (70-99) GUILLERMO BARNHART MD Mar 08, 2018 13:05
[2018-03-08] MEDS ORDERED: ePHEDrine PF IN SALINE 50 MG/5 ML DISP.SYRIN IV ONE (13:08)
[2018-03-08] MEDS ORDERED: PHENYLEPHRINE in 0.9% NACL PF 1 MG/10 ML SYRINGE. IV ONE (13:14)
--- NOTE | 2018-03-08 14:00 | RAD ---
SPECIMEN RADIOGRAPH OF THE RIGHT BREAST Clinical indications: Lumpectomy. Spiculated lesion of the right breast. IMPRESSION: Specimen radiograph demonstrates a spiculated lesion within the specimen at the D-E/5 location. This report was given to Dr. Marvel Wisdom in the operating room at 1:55 PM on March 08, 2018.
[2018-03-08] MEDS ORDERED: HYDROcodone/APAP 7.5/325MG 1 TAB TABLET ONE (14:42)
[2018-03-08] MEDS ORDERED: HYDROcodone/APAP 7.5/325MG 1 TAB TABLET PO ONE (14:45)
[2018-03-08 15:00] VITALS: BP 133/56
--- NOTE | 2018-03-08 18:17 | OP ---
DATE OF SURGERY: SURGEON: Marvel Barnhart MD PREOPERATIVE DIAGNOSIS: Mass of the right breast, upper outer quadrant. POSTOPERATIVE DIAGNOSIS: Mass of the right breast, upper outer quadrant. ANESTHESIA: General. PROCEDURE: Excision of mass, left upper outer quadrant right breast with needle localization. TECHNIQUE: Under general anesthesia, the patient was properly prepped and draped in routine fashion. An incision following the skin lines in the upper outer quadrant about 4 cm from the nipple was made following the skin lines a little bit inferior to the guidewire that had previously been placed. We went through the skin with a 15-blade and then under the skin, identified the wire, pulled it through into the wound. We then used thin retractors and then Saravia's as we got deeper as we used cautery to go around the guidewire down to the mass. The tissue around the guidewire had been grasped and we used cautery to separate it from the surrounding tissue. We got down to the mass, which could be palpated and we went completely around and grossly. With cautery 1-2 small bleeders were cauterized and there was no further bleeding at the time of the closure of the wound. The specimen was sent to x-ray and the radiologist did confirm that the lesion in question had been removed from the patient and was no longer in the breast. The resultant defect was inspected and 3-0 and 4-0 Vicryl was used to approximate the subcutaneous and deep breast tissue. The skin was closed using subcuticular 5-0 Vicryl. A sterile dressing was applied and the procedure was terminated. ESTIMATED BLOOD LOSS: Probably 10-15 mL. Fluids given can be obtained from the anesthesia sheet. No drains were used. CONDITION OF THE PATIENT: Satisfactory as she has returned to the recovery room. MARVEL BARNHART MD DR: AMIE/zenaida JOB#: [id number] / [id number]
--- NOTE | 2018-03-09 13:03 | HP ---
ADMIT DATE: 03/08/2018 HISTORY OF PRESENT ILLNESS: The patient is sent to me because of a mass of the right breast. She states she did have a mass of the left breast, which she has been told was benign. I cannot palpate there and I do not have a history to that effect. However, she does have a mass in the right breast, which is seen on mammography and is suspicious for malignancy. She has never had a breast malignancy before or breast tumor. PAST MEDICAL HISTORY: Shows normal childhood diseases. She has hypertension. She states she is diabetic and takes insulin and pills. She states to take heart pill to regulate her heart. I do not know what it is nor what the arrhythmia might be. PAST SURGICAL HISTORY: The patient has had surgery before. She has had a hysterectomy and also had a cholecystectomy and apparently had a mass of the back that was infected that was removed. ALLERGIES: SHE STATES TO BE ALLERGIC TO ALMOST EVERYTHING, BUT PENICILLIN. WHEN SHE TAKES SULFA DRUGS AND OTHER MEDICINES, SHE HAS HAD RASHES. I AM NOT CERTAIN WHAT THESE ARE OTHER THAN SULFA DRUGS. SOCIAL HISTORY: Shows she used to smoke, but has not smoked for about 15 years now. Drinks only socially, not enough to get inebriated and does not use illicit drugs. FAMILY HISTORY: Noncontributory. I do not know if family members have had breast problems or not. REVIEW OF SYSTEMS: Basically negative except she has some trouble getting around walking and does use a walker. The patient otherwise has no problems with the breasts, eating or digestive tract. Not mentioned before, she did have kidney stones which have been treated more than once. PHYSICAL EXAMINATION: GENERAL: Shows an alert female, in no acute distress. HEAD, EYES, EARS, NOSE AND THROAT: Grossly normal. CHEST: Clear bilaterally to auscultation. HEART: Had a rate estimated to be about 70 beats per minute and it was regular. She did have what I thought was a small, probably 2/6 systolic murmur heard mostly at the aortic area. It was mid systolic. ABDOMEN: Negative. There was no organomegaly. PELVIC: Not done. EXTREMITIES: Grossly normal. IMPRESSION: 1. Diabetes. 2. Hypertension. 3. Heart disease. 4. Mass of the right breast. 5. Kidney stones. GUILLERMO BARNHART MD DR: AMIE/zenaida JOB#: [id number] / [id number]
--- NOTE | 2018-03-10 08:29 | RAD ---
ULTRASOUND-GUIDED NEEDLE LOCALIZATION OF THE RIGHT BREAST Indications: Spiculated hypoechoic solid lesion of the upper-outer quadrant of the right breast. Preoperative needle localization. Procedure: Sonography of the right breast was performed which demonstrates a 1.8 cm solid irregular lesion of the 11:00 position of the right breast 12 cm from the nipple. An appropriate skin chano was made. The procedure and possible complications including bleeding and infection were explained. The patient provided both verbal and written consent. A timeout was performed which confirmed the name of the patient and date of and the type of procedure and the side of the procedure. Allergies to medications were reviewed. The patient's questions were answered. The right breast was prepped and draped in the usual sterile fashion. A total of 3 cc of 1% lidocaine was utilized for local anesthesia. Using sterile technique and ultrasound guidance, a 20-gauge 5 cm Kopans needle cannula was directed completely through the nodule. Sonographic spot images were obtained. Following this, 0.1 cc of methylene blue was injected through the needle cannula. Following this, a wire hook was placed through the needle cannula deep to the nodule and the needle cannula was removed and the wire hook was left in place. Manual pressure was applied for 5 minutes and hemostasis was deemed adequate. The wire hook was covered with a sterile bandage. The patient tolerated the procedure well without complication. DIAGNOSTIC RIGHT-SIDED MAMMOGRAPHY: 2 view digital mammographic views of the right breast were performed. This demonstrated the wire hook extending through the spiculated lesion of the upper outer quadrant of the right breast. IMPRESSION: Ultrasound-guided needle localization of the nodule of the right breast was performed without complication. The patient was taken to the operating room waiting area. DICTATED and SIGNED BY: JANAY HERNÁNDEZ MD DATE: 03/08/18 1141 MTDMauri
--- NOTE | 2018-03-11 14:10 | PATHOLOGY ---
[facility] Accession Number: [id number] . 01 Material submitted: . RIGHT BREAST MASS . 01 Clinical history: . Right breast mass . 02 Diagnosis: Breast tissue, wire localized right breast mass excision: - INVASIVE DUCTAL AND CRIBRIFORM CARCINOMA, GRADE 1. SEE COMMENT. - LOW-GRADE DUCTAL CARCINOMA IN SITU, CRIBRIFORM TYPE. (JPM/at/jessy;03/11/2018) QTA/03/11/2018 . 02 Comment: Sections of the wire localized right breast mass excision reveal an invasive mammary carcinoma. The tumor forms tubular structures and cribriform structures which irregularly infiltrate a reactive desmoplastic stroma. The tumor shows mild to moderate nuclear pleomorphism. The tumor shows only mild mitotic activity. The invasive carcinoma measures approximately 1.6 cm in greatest dimension on the glass slide. There appears to be focal low-grade cribriform type ductal carcinoma in situ within the tumor and focally within the surrounding breast tissue. There is no lymphovascular tumor invasion. There appear to be a few microcalcifications associated with the invasive carcinoma. There are also calcifications associated with benign breast tissue, and there is medial arterial calcification. There is focal microscopic tumor involvement of an inked margin. . Immunoperoxidase stains for myoepithelial markers are obtained on blocks A4 and A5 and yield the following results: . P63 (A4): Absence of myoepithelial cells within invasive ductal and cribriform carcinoma; presence of myoepithelial cells within foci of low-grade ductal carcinoma in situ. Smooth muscle myosin heavy chain (A4): Absence of myoepithelial cells within invasive ductal and cribriform carcinoma; presence of myoepithelial cells within foci of low-grade ductal carcinoma in situ. P63 (A5): Absence of myoepithelial cells within invasive ductal and cribriform carcinoma; presence of myoepithelial cells within foci of low-grade ductal carcinoma in situ. Smooth muscle myosin heavy chain (A5): Absence of myoepithelial cells within invasive ductal and cribriform carcinoma; presence of myoepithelial cells within foci of low-grade ductal carcinoma in situ. . . The morphologic and immunophenotypic findings are supportive of the diagnosis of an invasive mixed ductal and cribriform carcinoma, grade 1, and low-grade ductal carcinoma in situ of cribriform type. . The case is also examined by Dr. Brink, who concurs with the diagnosis. Breast prognostic studies will be obtained, the results of which will be reported separately. . (JPM/at/mml/jessy;03/11/2018) . Special stains performed: Immunoperoxidase stains for p63 on A4 and A5, and for smooth myosin heavy chain on A4 and A5. . 02 Electronically signed: . Marv Starr MD, Pathologist NPI- [id number] . 01 Gross description: . The specimen is received in formalin, labeled "Kayla Molina, right breast mass". Received is a 14 g unoriented lumpectomy specimen, with a localization wire present, measuring 6.3 x 3.4 x 1.3 cm in greatest dimensions. The surgical margin is inked. Sectioning reveals a well-circumscribed white-serrano mass measuring 1.8 x 1.3 x 0.8 cm in greatest dimensions, which grossly abuts the inked margin. 2.5 cm from this mass, there is a focus of fibrous tissue measuring 1.7 x 1.0 x 0.5 cm, which grossly abuts the inked margin. The entire mass is submitted in cassettes A1 through A7. The focus of fibrous tissue is submitted in cassettes A9 through A10. The cold ischemic time is 31 minutes. The total formalin fixation time is 31 hours and 40 minutes. (CAA; 03/09/2018) QAC/QAC . 02 Pathologist provided ICD-10: C50.911, D05.11 . 02 CPT . 970361, [id number], [id number] Specimen Comment: A courtesy copy of this report has been sent to Specimen Comment: [phone], . Specimen Comment: Report sent to / DR KELSEY Specimen Comment: A duplicate report has been generated due to demographic updates. Performed at: 01 [facility] [place] [id number] [facility] [address], [place], [place] [id number] MD Kory Kevin MD Phone: [phone] Performed at: 02 [facility] [address], [place] [id number] MD Marv Starr MD Phone: [phone]
== END 2018-03-08 15:50 | disposition home or self-care (01) ==
LOC: MAMMO 08:39
PROVIDERS: ATTEND Specialist
DX: C50.411 Malignant neoplasm of upper-outer quadrant of right female breast (principal); I10 Essential (primary) hypertension; E11.9 Type 2 diabetes mellitus without complications; N20.0 Calculus of kidney; Z79.4 Long term (current) use of insulin; Z90.710 Acquired absence of both cervix and uterus; Z90.49 Acquired absence of other specified parts of digestive tract; Z88.2 Allergy status to sulfonamides; Z88.1 Allergy status to other antibiotic agents; Z88.8 Allergy status to other drugs, medicaments and biological substances
CPT/HCPCS: 19083; 36415; 77065; 80053; 82962; 85025; 85610; 85730; 88307; 88341; 88342; 88361; J1100; J1815; J2001; J2250; J2370; J2405; J2704; J3010; 76098; 76942; J7120; Q9968

== ENCOUNTER 2018-03-28 15:24 | Emergency (ER) | payer OTHER ==
[~2018-03-28] VITALS: Ht 167.6 cm; Wt 78.5 kg
[~2018-03-28 15:24] MED LIST changes: -HYDROmorphone 2 MG/ML VIAL IV PRN; -IV RINGERS,LACTATED 1000ML 1,000 ML IV SCH; -LIDOCAINE 1% PF 2 ML VIAL. ID PRN; -METHYLENE BLUE 1% 10 ML VIAL. IJ ONE; -MORPHINE SULFATE 2 MG/ML VIAL. IV PRN; -ONDANSETRON PF 4 MG/2 ML VIAL. IV PRN; -PROCHLORPERAZINE 10 MG/2 ML VIAL. IV PRN; -fentaNYL PF VIAL 100 MCG/2 ML VIAL IV PRN
--- NOTE | 2018-03-28 16:33 | PHYS DOC ---
Past Medical History Past Medical History: Anxiety, Depression, Diabetes-Type II, Hypertension, Hypothyroid Additional Past Medical Histor: HEART DISEASE, CHRONIC PAIN, pseudoseizure, possible breast cancer Past Surgical History: Cholecystectomy, Hysterectomy Additional Past Surgical Histo: NECK SURGERY Smoking: Quit Greater Than 1 Year (20+ yr ago) Alcohol Use: Occasionally Drug Use: None Adult General Chief Complaint Chief Complaint: MECHANICAL FALL HPI HPI Patient is a 73 year old female who presents with mechanical fall. Pt tripped and fell on her couch a few days ago. Her right hip landed on the armrest and caused some shooting pain down her ankles. The pain is exacerbated by putting pressure on her hip by sitting and standing. She took some Tylenol tabs which did not relieve her symptom. She denies any syncope preceding the fall. She rates her pain as 10/10 (with 10 being the worst pain). Pt also reports about recently being diagnosed with malignant neoplasm of her right breast which she is following up with her doc. Denies F/C, N/V. Review of Systems Review of Systems Constitutional: Denies fever or chills [] Eyes: Denies change in visual acuity, redness, or eye pain [] HENT: Denies nasal congestion or sore throat [] Respiratory: Denies cough or shortness of breath [] Cardiovascular:Denies Chest pain or palpitation GI: Denies abdominal pain, nausea, vomiting, bloody stools or diarrhea [] : Denies dysuria or hematuria [] Musculoskeletal: Denies back pain or joint pain [] Integument: Denies rash or skin lesions [] Neurologic: Denies headache, focal weakness or sensory changes [] Complete systems were reviewed and found to be within normal limits, except as documented in this note. Allergies Allergies Allergies Coded Allergies Type Severity Reaction Last Updated Verified Qucsbvj-Rdl-Efo Reductase Inhibitor Allergy Intermediate 03/08/18 Yes Sulfa (Sulfonamide Antibiotics) Allergy Intermediate Rash 03/08/18 Yes bupropion Allergy Intermediate Rash 03/08/18 Yes erythromycin base Allergy Intermediate 03/08/18 Yes tetracycline Allergy Intermediate Swelling 03/08/18 Yes warfarin Allergy Intermediate Hives 03/08/18 Yes niacin Adverse Reaction Intermediate Hives 03/08/18 Yes nitroglycerin Adverse Reaction Intermediate 03/08/18 Yes Physical Exam Physical Exam Constitutional: Well developed, well nourished, no acute distress, non-toxic appearance. [] HENT: Normocephalic, atraumatic, bilateral external ears normal, oropharynx moist, no oral exudates, nose normal. [] Eyes: PERRL, EOMI, conjunctiva normal, no discharge. [] Neck: Normal range of motion, no tenderness, supple, no stridor. [] Cardiovascular:Heart rate regular rhythm, no murmur [] Lungs & Thorax: Bilateral breath sounds clear to auscultation [] Abdomen: Bowel sounds normal, soft, no tenderness[] Skin: Warm, dry, no erythema, no rash. [] Back: tenderness at T1-T4 and lower lumber . no CVA tenderness. [] Extremities: tenderness at right gluteal region, no cyanosis, no clubbing, ROM intact, no edema. positive straight leg tests b/l at 60 degree [] Neurologic: Alert and oriented X 3, normal motor function, normal sensory function, no focal deficits noted. [] Psychologic: Affect normal, judgement normal, mood normal. [] Current Patient Data Vital Signs Vital Signs Date Time Temp Pulse Resp B/P (MAP) Pulse Ox O2 Delivery O2 Flow Rate FiO2 03/28/18 18:00 66 18 97 03/28/18 15:44 98.3 169/70 (103) Room Air 98.3 EKG EKG [] Radiology/Procedures Radiology/Procedures [] Course & Med Decision Making Course & Med Decision Making Pertinent Labs and Imaging studies reviewed. (See chart for details) [] Dragon Disclaimer Dragon Disclaimer This electronic medical record was generated, in whole or in part, using a voice recognition dictation system. Departure Departure Impression: Primary Impression: Back pain Additional Impression: Hip pain Disposition: 01 HOME, SELF-CARE Condition: STABLE Referrals: JHOANA KELSEY (PCP) ALEXANDRA SHERMAN MD Patient Instructions: Back Pain, Adult, Fvjn-rd-Bqqz, Fall Prevention and Home Safety, Jtig-nk-Iuhj, Hip Pain, Sciatica, Ykuc-gf-Hrqv Scripts Orphenadrine Citrate (ORPHENADRINE CITRATE) 100 Mg Tablet.er 1 TAB PO BID PRN for MUSCLE PAIN, #20 TAB 0 Refills Prov: SARA DESAI DO 03/28/18 Naproxen (NAPROXEN) 375 Mg Tablet.dr 375 MG PO TID PRN for PAIN, #20 TAB.SR Prov: SARA DESAI DO 03/28/18 Problem Qualifiers Primary Impression: Back pain Back pain location: low back pain Chronicity: acute Back pain laterality: right Sciatica presence: with sciatica Sciatica laterality: bilateral sciatica Qualified Codes: M54.42 - Lumbago with sciatica, left side; M54.41 - Lumbago with sciatica, right side Additional Impression: Hip pain Laterality: right Qualified Codes: M25.551 - Pain in right hip SARA DESAI DO Mar 28, 2018 16:33
--- NOTE | 2018-03-28 16:46 | RAD ---
EXAM: AP pelvis, AP and frog-leg lateral views of the right hip DATE: 03/28/2018 4:03 PM INDICATION: RIGHT HIP PAIN AFTER FALL X3 DAYS AGO COMPARISON: No Prior FINDINGS: No evidence for acute fracture or dislocation. Decreased bone mineral density. Lower lumbar spine degenerative changes are seen. Vascular calcifications are seen. Focal rounded ossification at the right anterior superior pubic ramus possibly from old avulsion injury. IMPRESSION: 1. No evidence of acute fracture or dislocation. 2. Atherosclerotic vascular calcifications are seen. Electronically signed by: Iker Huang MD (03/28/2018 4:41 PM) [facility]
--- NOTE | 2018-03-28 16:47 | RAD ---
EXAM: Thoracic spine, 2 views; lumbar spine, 3 views. HISTORY: Pain. Fall. COMPARISON: None. FINDINGS: Thoracic spine: Frontal and lateral views of the thoracic spine are obtained. There is no listhesis. The vertebral lyons are normal in height and the disc spaces are preserved. There is mild endplate remodeling at multiple levels. There is cervical spinal fusion instrumentation at the superior margin of the [id number]. There are incidental hypoplastic T12 ribs. Lumbar spine: Frontal, lateral and coned sacral views of the lumbar spine are obtained. There is minimal grade 1 anterolisthesis of L3 on L4, measuring 2 mm. There is degenerative endplate remodeling with disc space narrowing and osteophytosis primarily at L4-L5, and to a lesser extent, L5-S1 and L2-L3. There is facet arthropathy at multiple levels. There is aortic and aortic branch vessel atherosclerosis. IMPRESSION: 1. No acute osseous finding. 2. Multilevel degenerative change, primarily at L4-L5, L5-S1 and L2-L3. Electronically signed by: Mago Menjivar MD (03/28/2018 4:43 PM) [place] [id number]
--- NOTE | 2018-03-28 16:47 | RAD ---
EXAM: Thoracic spine, 2 views; lumbar spine, 3 views. HISTORY: Pain. Fall. COMPARISON: None. FINDINGS: Thoracic spine: Frontal and lateral views of the thoracic spine are obtained. There is no listhesis. The vertebral lyons are normal in height and the disc spaces are preserved. There is mild endplate remodeling at multiple levels. There is cervical spinal fusion instrumentation at the superior margin of the [id number]. There are incidental hypoplastic T12 ribs. Lumbar spine: Frontal, lateral and coned sacral views of the lumbar spine are obtained. There is minimal grade 1 anterolisthesis of L3 on L4, measuring 2 mm. There is degenerative endplate remodeling with disc space narrowing and osteophytosis primarily at L4-L5, and to a lesser extent, L5-S1 and L2-L3. There is facet arthropathy at multiple levels. There is aortic and aortic branch vessel atherosclerosis. IMPRESSION: 1. No acute osseous finding. 2. Multilevel degenerative change, primarily at L4-L5, L5-S1 and L2-L3. Electronically signed by: Mago Menjivar MD (03/28/2018 4:43 PM) [place] [id number]
[2018-03-28] MEDS ORDERED: ORPH100T PO (19:34)
[2018-03-28] MEDS ORDERED: NAPR375T5 PO (19:34)
[2018-03-28] MEDS ORDERED: KETOROLAC 30 MG/ML VIAL. IM ONE (19:45)
[2018-03-28] MEDS ORDERED: HYDROcodone/APAP 5/325MG 1 TAB TABLET PO ONE (19:45)
[2018-03-28 20:13] VITALS: BP 173/72
== END 2018-03-28 20:30 | disposition home or self-care (01) ==
LOC: ER 15:24
DX: M25.551 Pain in right hip (principal); M54.5 Low back pain; F41.9 Anxiety disorder, unspecified; F32.9 Major depressive disorder, single episode, unspecified; E11.9 Type 2 diabetes mellitus without complications; I10 Essential (primary) hypertension; E03.9 Hypothyroidism, unspecified; Z90.710 Acquired absence of both cervix and uterus; Z90.49 Acquired absence of other specified parts of digestive tract
CPT/HCPCS: 72072; 72100; 73502; 99283; J1885

== ENCOUNTER → 2018-04-07 | Outpatient (CLI) | payer OTHER ==
[2018-03-28 20:13] VITALS: BP 173/72
[~2018-04-07] MED LIST changes: +ACET500T68 PO; +CONTRAST GIVEN. MC PRN; +IOHEXOL 240 MG/ML 50ML VIAL. PO ONE; +IOHEXOL 300 MG/ML 100ML VIAL. IV ONE; +MAGN400O7 PO; -MIRT30TA6 PO; +MIRT30TA93 PO; +NAPR375T5 PO; +NICO-479 BC; +ORPH100T PO
--- NOTE | 2018-04-07 13:38 | RAD ---
Examination: Whole body bone scan HISTORY: History of breast cancer staging for metastasis COMPARISON: Same day exam Technique: 25 mCi of technetium 99m MDP were injected IV and whole body bone scan was performed. FINDINGS: Faint radiotracer uptake identified in the bilateral knees and bilateral first toe region likely secondary to degeneration. Faint horizontal focus of radiotracer uptake identified in the T10, T11 and L4/L5 vertebral levels could be metastasis or degenerative changes. No corresponding lesions identified on the CT scan. IMPRESSION: Faint horizontal focus of radiotracer uptake identified in the T10, T11 and L4/L5 vertebral levels could be metastasis or degenerative changes. No corresponding lesions identified on the CT scan. Recommend MRI for further evaluation. Electronically signed by: Kee Moon MD (04/07/2018 1:34 PM) [id number]
--- NOTE | 2018-04-07 13:41 | RAD ---
CT CHEST ABD PELVIS W/CONTRAST Indication: Breast cancer Technique: Postcontrast CT imaging was performed of the chest, abdomen, pelvis, multiplanar reconstruction images submitted. Oral contrast was also given. One or more of the following individualized dose reduction techniques were utilized for this examination: 1. Automated exposure control 2. Adjustment of the mA and/or kV according to patient size 3. Use of iterative reconstruction technique. Comparison: None CHEST: Findings: There is focus of noncalcified nodular density of the right upper lobe closer to the apex axial image 15 about 2 cm transverse by 1.1 cm AP by 1 cm cc. There is small right lower lobe nodule axial image 25 about 0.4 cm, adjacent possible small nodule more medially about 0.4 cm. Cervical fusion hardware is not fully evaluated. There is no discernible thyroid gland. Not associated with significant plaque, there is a small protuberance from the aortic arch projecting laterally on the left axial image 17 with the neck about 1.1 cm, projecting about 0.6 cm beyond the expected wall. More medially, there is peripheral likely plaque and also of very faint focus of density in the lumen although no defined dissection flap otherwise. There is other scattered plaque of the descending thoracic aorta. There is coronary calcification and stent. No significantly enlarged hilar or mediastinal nodes are identified, some small mediastinal nodes with the largest about 0.6 cm short axis dimension. There is right pericardiophrenic node about 1 cm short axis dimension, separate right pericardiophrenic node about 0.8 cm short axis dimension. There are several small axillary nodes bilaterally. There is no pericardial pleural fluid, infiltrate, pneumothorax. There is multilevel thoracic degenerative disc disease and spondylosis as. No defined osseous lesion is identified by CT. IMPRESSION: 1. There is a larger focus of noncalcified nodular density of the right upper lobe of the lung. There are some other small pulmonary nodules as stated. Either short-term follow-up in 3 months or PET/CT evaluation is recommended. There are a couple of right pericardiophrenic nodes considered borderline enlarged. 2. There is coronary calcification and stent. 3. There is a small protuberance of the left aspect of the aortic arch compatible with penetrating ulcer. There is also faint linear density in the lumen of the aortic arch more medially suggestive of component of irregular plaque and intravascular web. Abdomen pelvis: FINDINGS: There is mild diffuse surface irregularity of the liver. The is subtle hypodense lesion of the left lobe of liver about 0.4 cm axial image 15, also probable subtle focus of the caudate lobe about 0.4 cm axial image 16, and a couple of other questionable tiny foci of hypodensity of the right lobe of the liver all too small to characterize. There are splenic granulomas. There is small 0.9 cm right adrenal nodule. There is no left adrenal nodularity. There has been cholecystectomy. Both kidneys enhance. There is right renal pelviectasis. There are several small retroperitoneal nodes, largest about 0.7 cm short axis dimension. There is portal caval node about 1.1 cm short axis dimension. There is also ayla hepatis node about 1.2 cm short axis dimension axial image 28, some other smaller nodes present. There is no bowel dilatation, free air, free fluid. There is nonspecific density of the anterior subcutaneous fat of the pelvis possibly due to sites of medication injection if there is corresponding history. There is distention of the urinary bladder. There is retained stool variably in the colon. There is atherosclerotic calcification celiac artery branches, minimally of the superior mesenteric artery, also scattered plaque of the abdominal aorta and iliac arteries. There is multilevel lumbar degenerative disc disease and facet degenerative change. There is probable moderate spinal stenosis L4-5 and probable severe spinal stenosis L3-4, lesser degree of spinal stenosis at L2-3. IMPRESSION: 1. There are nonspecific slightly enlarged nodes of the portocaval region and ayla hepatis. There is small nonspecific right adrenal nodule. 2. There are some small hypodense foci of liver too small to accurately characterize. There is surface irregularity of the liver suggestive of cirrhosis. Electronically signed by: Bruno Nagel MD (04/07/2018 1:36 PM) [facility]
== END | disposition home or self-care (01) ==
LOC: NM 09:29
PROVIDERS: ATTEND Internal Medicine Hematology & Oncology
DX: E27.9 Disorder of adrenal gland, unspecified (principal); M51.36 Other intervertebral disc degeneration, lumbar region
CPT/HCPCS: 71260; 74177; 78306; 96374; A9503; Q9966; Q9967

== ENCOUNTER 2018-04-19 09:29 | Observation (INO) | payer OTHER ==
[~2018-04-19] VITALS: Ht 167.6 cm; Wt 81.6 kg
[~2018-04-19 09:29] MED LIST changes: -CONTRAST GIVEN. MC PRN; +HYDROmorphone 2 MG/ML VIAL IV PRN; -IOHEXOL 240 MG/ML 50ML VIAL. PO ONE; -IOHEXOL 300 MG/ML 100ML VIAL. IV ONE; +LIDOCAINE 1% PF 2 ML VIAL. ID PRN; +LIDOCAINE WITH 8.4% SOD BICARB 3 ML DISP.SYRIN. INJ ONE; +MORPHINE SULFATE 4 MG/ML VIAL. IV PRN; +ONDANSETRON PF 4 MG/2 ML VIAL. IV PRN; +PROCHLORPERAZINE 10 MG/2 ML VIAL. IV PRN; +fentaNYL PF VIAL 100 MCG/2 ML VIAL IV PRN
--- NOTE | 2018-04-19 09:45 | HP ---
ADMIT DATE: 04/19/2018 HISTORY OF PRESENT ILLNESS: The patient had biopsy proven carcinoma of the right breast, and it was done by open biopsy with excision of the mass. She has seen an oncologist, and I have talked to her and so is he about lumpectomy and radiation and sentinel node biopsy, but she wants a mastectomy. She is adamant and did not want anything but that. I visited at her home, and she still wants that, and we will proceed. We think this gives her a good chance of getting cured from this and is what she wants. She understands the risk, the possibility of lymphedema and the possibility of the need for chemotherapy, but she wants this. PAST MEDICAL HISTORY: Shows she has had no abnormal childhood diseases as she has had all the normal diseases. She does have hypertension, and she is a diabetic and takes insulin and pills for that. She takes a heart pill to regulate her heart as I do not know that she has had arrhythmia in the past. PAST SURGICAL HISTORY: She has had a hysterectomy done some years ago and a cholecystectomy. Apparently, she had an infected mass in the back that was drained also. ALLERGIES: SHE STATES TO BE ALLERGIC TO MANY DRUGS INCLUDING SULFA, BUT I AM NOT SURE WHAT THOSE ARE, NEITHER SHE. She is not allergic to penicillin. SOCIAL HISTORY: Shows that she does not smoke, but did for about 15 years, has not for about 15 years now. Drinks only socially and does not use illicit drugs and does not get inebriated. FAMILY HISTORY: Noncontributory and she does not know of anyone with breast problems in her family. REVIEW OF SYSTEMS: Shows that she has trouble walking and getting around just due to orthopedic problems. Otherwise, she has no problem with her breast and no pain, and she has no eating disorders. She did have a kidney stone, for which she was treated more than once. PHYSICAL EXAMINATION: GENERAL: Shows an alert female in no acute distress. HEAD, EYES, EARS, NOSE AND THROAT: Grossly normal. CHEST: Clear to auscultation on both sides with no rales or other abnormalities. HEART: Had a rate of about 72 beats per minute and was regular and had a 2/6 systolic murmur heard mostly in the aortic area. There did not appear to be any irregularities in the heart rate at this point. The murmur was mid systolic. ABDOMEN: Negative with no organomegaly or masses. PELVIS: Not done. EXTREMITIES: Grossly normal. BREASTS: Examination of the breast showed the left breast to be unremarkable. The right did have the mass where the surgery had been done. There is no evidence of infection, inflammation or other problems at this point, but there is a mass and that is where she had the surgery. The tumor has been removed, this is just residual of the breast biopsy. IMPRESSION: Biopsy proven carcinoma of the right breast, diabetes, hypertension and a history of cardiac arrhythmia. GUILLERMO BARNHART MD DR: AMIE/zenaida JOB#: [id number] / [id number] PHYLLIS
[2018-04-19] MEDS: IV RINGERS,LACTATED 1000ML 1,000 ML IV SCH ×2 (10:18→15:49)
--- NOTE | 2018-04-19 10:31 | NUR ---
DR DIAZ INFORMED OF PTS 223 GLUCOSE. NO ORDERS RECEIVED AT THIS TIME
[2018-04-19 11:02] LABS: BASO # 0.1 x10^3/uL (0.0-0.2); BASO % 1 % (0-3); EOS # 0.2 x10^3/uL (0.0-0.7); EOS % 2 % (0-3); HEMATOCRIT 33.5 % (36.0-47.0); HEMOGLOBIN 11.4 g/dL (12.0-15.5); LYMPH # 2.5 x10^3/uL (1.0-4.8); LYMPH % 27 % (24-48); MEAN CORPUSCULAR HEMOGLOBIN 31 pg (25-35); MEAN CORPUSCULAR HGB CONC 34 g/dL (31-37); MEAN CORPUSCULAR VOLUME 91 fL (79-100); MONO # 0.6 x10^3/uL (0.0-1.1); MONO % 7 % (0-9); NEUT # 6.1 x10^3uL (1.8-7.7); NEUT % 64 % (31-73); PLATELET COUNT 186 x10^3/uL (140-400); RED BLOOD COUNT 3.67 x10^6/uL (3.50-5.40); RED CELL DISTRIBUTION WIDTH 14.7 % (11.5-14.5); WHITE BLOOD COUNT 9.5 x10^3/uL (4.0-11.0)
[2018-04-19 11:08] LABS: CALCIUM 9.2 mg/dL (8.5-10.1); CREATININE 0.9 mg/dL (0.6-1.0); GFR 61.4; POTASSIUM 4.2 mmol/L (3.5-5.1)
[2018-04-19 11:09] LABS: PROTHROMBIN TIME PATIENT 13.9 SEC (11.7-14.0)
[2018-04-19 11:20] LABS: ALBUMIN 3.5 g/dL (3.4-5.0); ALBUMIN/GLOBULIN RATIO 0.8 (1.0-1.7); TOTAL BILIRUBIN 0.5 mg/dL (0.2-1.0); TOTAL PROTEIN 7.8 g/dL (6.4-8.2)
--- NOTE | 2018-04-19 11:21 | PDOC4 ---
Operative Note Operative Note Op Note: Surgeon......................Dr. Marvel Barnhart Preop diagnosis...........Cancer of R breast Postop diagnosis.........Cancer of R breast Anesthesia..................General Procedure....................mastectomy right with sentinel node dissection superficial axillary node dissection Blood loss....................100cc Fluids...........................see anesthesia Drain............................large Louie Drains x2 Condition......................Satisfactory MARVEL BARNHART MD Apr 19, 2018 11:21
[2018-04-19] MEDS ORDERED: ISOSULFAN BLUE 50 MG/5 ML VIAL. SQ ONE (11:25)
[2018-04-19] MEDS ORDERED: fentaNYL PF VIAL 100 MCG/2 ML VIAL ONE (11:50)
[2018-04-19] MEDS ORDERED: PROPOFOL 20 ML IV ONE (11:50)
[2018-04-19] MEDS ORDERED: FAMOTIDINE 20 MG/2 ML VIAL ONE (11:50)
[2018-04-19] MEDS ORDERED: LIDOCAINE 2% PF 5 ML VIAL. ONE (11:50)
[2018-04-19] MEDS ORDERED: ROCURONIUM 50 MG/5 ML VIAL. ONE (11:50)
[2018-04-19] MEDS ORDERED: DEXAMETHASONE SOD PHOS 20 MG/5 ML VIAL. ONE (11:50)
[2018-04-19] MEDS ORDERED: ONDANSETRON PF 4 MG/2 ML VIAL. ONE (11:50)
[2018-04-19] MEDS ORDERED: SUCCINYLCHOLINE 200 MG/10 ML VIAL. ONE (11:50)
--- NOTE | 2018-04-19 12:23 | PDOC ---
SURGICAL PROGRESS NOTE Subjective No change in dictated H&P. Vital Signs Vital Signs Date Time Temp Pulse Resp B/P (MAP) Pulse Ox O2 Delivery O2 Flow Rate FiO2 04/19/18 10:06 97.9 66 118/60 96 97.9 04/19/18 10:02 20 Labs Laboratory Tests Test 04/19/18 10:06 04/19/18 10:07 White Blood Count 9.5 x10^3/uL (4.0-11.0) Red Blood Count 3.67 x10^6/uL (3.50-5.40) Hemoglobin 11.4 g/dL (12.0-15.5) Hematocrit 33.5 % (36.0-47.0) Mean Corpuscular Volume 91 fL (79-100) Mean Corpuscular Hemoglobin 31 pg (25-35) Mean Corpuscular Hemoglobin Concent 34 g/dL (31-37) Red Cell Distribution Width 14.7 % (11.5-14.5) Platelet Count 186 x10^3/uL (140-400) Neutrophils (%) (Auto) 64 % (31-73) Lymphocytes (%) (Auto) 27 % (24-48) Monocytes (%) (Auto) 7 % (0-9) Eosinophils (%) (Auto) 2 % (0-3) Basophils (%) (Auto) 1 % (0-3) Neutrophils # (Auto) 6.1 x10^3uL (1.8-7.7) Lymphocytes # (Auto) 2.5 x10^3/uL (1.0-4.8) Monocytes # (Auto) 0.6 x10^3/uL (0.0-1.1) Eosinophils # (Auto) 0.2 x10^3/uL (0.0-0.7) Basophils # (Auto) 0.1 x10^3/uL (0.0-0.2) Prothrombin Time 13.9 SEC (11.7-14.0) Prothromb Time International Ratio 1.1 (0.8-1.1) Activated Partial Thromboplast Time 35 SEC (24-38) Sodium Level 138 mmol/L (136-145) Potassium Level 4.2 mmol/L (3.5-5.1) Chloride Level 101 mmol/L (98-107) Carbon Dioxide Level 25 mmol/L (21-32) Anion Gap 12 (6-14) Blood Urea Nitrogen 19 mg/dL (7-20) Creatinine 0.9 mg/dL (0.6-1.0) Estimated GFR (Cockcroft-Gault) 61.4 BUN/Creatinine Ratio 21 (6-20) Glucose Level 213 mg/dL (70-99) Calcium Level 9.2 mg/dL (8.5-10.1) Total Bilirubin 0.5 mg/dL (0.2-1.0) Aspartate Amino Transf (AST/SGOT) 75 U/L (15-37) Alanine Aminotransferase (ALT/SGPT) 58 U/L (14-59) Alkaline Phosphatase 166 U/L (46-116) Total Protein 7.8 g/dL (6.4-8.2) Albumin 3.5 g/dL (3.4-5.0) Albumin/Globulin Ratio 0.8 (1.0-1.7) Glucose (Fingerstick) 223 mg/dL (70-99) Laboratory Tests Test 04/19/18 10:06 04/19/18 10:07 White Blood Count 9.5 x10^3/uL (4.0-11.0) Red Blood Count 3.67 x10^6/uL (3.50-5.40) Hemoglobin 11.4 g/dL (12.0-15.5) Hematocrit 33.5 % (36.0-47.0) Mean Corpuscular Volume 91 fL (79-100) Mean Corpuscular Hemoglobin 31 pg (25-35) Mean Corpuscular Hemoglobin Concent 34 g/dL (31-37) Red Cell Distribution Width 14.7 % (11.5-14.5) Platelet Count 186 x10^3/uL (140-400) Neutrophils (%) (Auto) 64 % (31-73) Lymphocytes (%) (Auto) 27 % (24-48) Monocytes (%) (Auto) 7 % (0-9) Eosinophils (%) (Auto) 2 % (0-3) Basophils (%) (Auto) 1 % (0-3) Neutrophils # (Auto) 6.1 x10^3uL (1.8-7.7) Lymphocytes # (Auto) 2.5 x10^3/uL (1.0-4.8) Monocytes # (Auto) 0.6 x10^3/uL (0.0-1.1) Eosinophils # (Auto) 0.2 x10^3/uL (0.0-0.7) Basophils # (Auto) 0.1 x10^3/uL (0.0-0.2) Prothrombin Time 13.9 SEC (11.7-14.0) Prothromb Time International Ratio 1.1 (0.8-1.1) Activated Partial Thromboplast Time 35 SEC (24-38) Sodium Level 138 mmol/L (136-145) Potassium Level 4.2 mmol/L (3.5-5.1) Chloride Level 101 mmol/L (98-107) Carbon Dioxide Level 25 mmol/L (21-32) Anion Gap 12 (6-14) Blood Urea Nitrogen 19 mg/dL (7-20) Creatinine 0.9 mg/dL (0.6-1.0) Estimated GFR (Cockcroft-Gault) 61.4 BUN/Creatinine Ratio 21 (6-20) Glucose Level 213 mg/dL (70-99) Calcium Level 9.2 mg/dL (8.5-10.1) Total Bilirubin 0.5 mg/dL (0.2-1.0) Aspartate Amino Transf (AST/SGOT) 75 U/L (15-37) Alanine Aminotransferase (ALT/SGPT) 58 U/L (14-59) Alkaline Phosphatase 166 U/L (46-116) Total Protein 7.8 g/dL (6.4-8.2) Albumin 3.5 g/dL (3.4-5.0) Albumin/Globulin Ratio 0.8 (1.0-1.7) Glucose (Fingerstick) 223 mg/dL (70-99) GUILLERMO BARNHART MD Apr 19, 2018 12:23
[2018-04-19] MEDS ORDERED: ePHEDrine PF IN SALINE 50 MG/5 ML DISP.SYRIN IV ONE (12:55)
[2018-04-19] MEDS ORDERED: PHENYLEPHRINE in 0.9% NACL PF 1 MG/10 ML SYRINGE. IV ONE (13:37)
[2018-04-19] MEDS ORDERED: GLYCOPYRROLATE 1 MG/5 ML VIAL. ONE (13:40)
--- NOTE | 2018-04-19 13:54 | RAD ---
[place] node lymphoscintigraphy 04/19/2018 11:08 AM INDICATION: Breast cancer COMPARISON: None available TECHNIQUE: Risks and benefits were discussed with the patient. Informed consent was obtained. 1.0 mCi technetium 99m sulfur colloid was injected in the periareolar subdermal right breast at 12:00, 3:00, 6:00 and 9:00 positions. Patient tolerated procedure well. No complications were identified. IMPRESSION: Successful lymphoscintigraphy for sentinel node detection. Electronically signed by: Gay Castrejon MD (04/19/2018 1:49 PM) [facility]
[2018-04-19] MEDS ORDERED: NEOSTIGMINE 10 MG/10 ML VIAL. ONE (14:21)
[2018-04-19] MEDS ORDERED: SEVOFLURANE > 120 MINUTES. IH ONE (14:22)
[2018-04-19] MEDS ORDERED: 0.9 % SODIUM CHLORIDE 10 ML DISP.SYRIN. IV PRN (15:30)
[2018-04-19] MEDS ORDERED: ONDANSETRON PF 4 MG/2 ML VIAL. IV PRN (15:30)
[2018-04-19] MEDS ORDERED: MAGNESIUM HYDROXIDE 2,400 MG/30 ML ORAL.SUSP. PO PRN ×2 (15:30→17:45)
[2018-04-19] MEDS ORDERED: INSULIN LISPRO 100 UNIT/ML 3ML VIAL for OP,RR ONLY. SQ ONE (16:45)
--- NOTE | 2018-04-19 16:50 | NUR ---
Pt arrives to unit A&O x4 complaining pain 10/10 R breast. R breast dressing CDI with 2 ELISEO drains intact with dark red blood. Discussed pain medication options with pt. Admission requirements in progress. Pt laying in bed with call light in reach.
[2018-04-19 17:15] VITALS: BP 139/52
[2018-04-19 17:30] VITALS: BP 143/55
[2018-04-19 17:45] VITALS: BP 142/52
[2018-04-19] MEDS: oxyCODONE/APAP 5/325 1 TAB TABLET PO PRN (17:45)
[2018-04-19] MEDS ORDERED: NON FORMULARY ITEM (Orphenadrine Citrate 1 TAB) PO PRN (17:45)
[2018-04-19 18:00] VITALS: BP 140/56
[2018-04-19] MEDS ORDERED: DEXTROSE 50% 25 GM / 50ML DISP.SYRIN. IV PRN (18:00)
[2018-04-19] MEDS ORDERED: NAPROXEN 250 MG TABLET PO PRN (18:15)
[2018-04-19 18:30] VITALS: BP 153/52
[2018-04-19] MEDS: INSULIN LISPRO 300 UNITS/3 ML INSULN.PEN. SQ SCH (18:49)
[2018-04-19] MEDS ORDERED: MORPHINE SULFATE/PF 30 ML IV PRN (19:45)
[2018-04-19] MEDS ORDERED: FAMOTIDINE 20 MG/2 ML VIAL IVP SCH (21:00)
[2018-04-19] MEDS ORDERED: NON FORMULARY ITEM (Melatonin 10 MG) PO SCH (21:00)
[2018-04-19] MEDS: GEMFIBROZIL 600 MG TABLET. PO SCH (21:55)
[2018-04-19] MEDS: POTASSIUM CL 20MEQ-0.45% NACL 1,000 ML IV SCH (21:55)
[2018-04-19] MEDS: clonazePAM 0.5 MG TABLET PO SCH (21:55)
[2018-04-19 23:00] VITALS: BP 145/54
[2018-04-20] VITALS (7 sets, daily range): BP systolic 87–153; BP diastolic 49–70
[2018-04-20 05:36] LABS: BASO % 0 % (0-3); EOS % 0 % (0-3); HEMATOCRIT 28.2 % (36.0-47.0); HEMOGLOBIN 9.9 g/dL (12.0-15.5); LYMPH # 1.7 x10^3/uL (1.0-4.8); LYMPH % 14 % (24-48); MEAN CORPUSCULAR HEMOGLOBIN 32 pg (25-35); MEAN CORPUSCULAR HGB CONC 35 g/dL (31-37); MEAN CORPUSCULAR VOLUME 90 fL (79-100); MONO # 0.7 x10^3/uL (0.0-1.1); MONO % 6 % (0-9); NEUT # 9.7 x10^3uL (1.8-7.7); NEUT % 80 % (31-73); PLATELET COUNT 163 x10^3/uL (140-400); RED BLOOD COUNT 3.13 x10^6/uL (3.50-5.40); RED CELL DISTRIBUTION WIDTH 14.4 % (11.5-14.5)
[2018-04-20 05:57] LABS: GFR 54.3; POTASSIUM 4.5 mmol/L (3.5-5.1)
[2018-04-20] MEDS: LEVOTHYROXINE 100 MCG TABLET PO SCH (06:19)
[2018-04-20] MEDS: BREXPIPRAZOLE 4 MG PO SCH (09:00)
[2018-04-20] MEDS: POTASSIUM CL 20MEQ-0.45% NACL 1,000 ML IV SCH ×2 (09:35→15:50)
[2018-04-20] MEDS: GEMFIBROZIL 600 MG TABLET. PO SCH ×2 (09:36→19:58)
[2018-04-20] MEDS: FAMOTIDINE 20 MG TABLET. PO SCH ×2 (09:36→19:58)
[2018-04-20] MEDS: FLUTICASONE 50MCG/NASAL SPRAY 16GM BOTTLE. NS SCH (09:36)
[2018-04-20] MEDS: clonazePAM 0.5 MG TABLET PO SCH ×2 (09:36→19:57)
[2018-04-20] MEDS: LISINOPRIL 5 MG TABLET. PO SCH (09:37)
[2018-04-20] MEDS: INSULIN LISPRO 300 UNITS/3 ML INSULN.PEN. SQ SCH ×5 (09:42→17:47)
--- NOTE | 2018-04-20 10:22 | PDOC ---
SURGICAL PROGRESS NOTE Subjective POD$1 Doing well and has little pain. 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 Will not start anticoagulant yet as not certain of the bleeding and drainage. Will have social service see her and make arrangements for discharge as she will need accurate monitoring of the drain output. Likely home 04/21/2018. Generally doing well and will ambulate. Lab OK thus far. Vital Signs Vital Signs Date Time Temp Pulse Resp B/P (MAP) Pulse Ox O2 Delivery O2 Flow Rate FiO2 04/20/18 09:37 77 127/49 04/20/18 07:00 97.8 18 97 Room Air 97.8 04/19/18 22:35 10.0 I&O Intake and Output 04/20/18 07:01 Intake Total 1050 ml Output Total 920 ml Balance 130 ml Intake IV Total 1050 ml Output Urine Total 650 ml Drainage Total 70 ml Estimated Blood Loss 200 ml # Voids 2 Labs Laboratory Tests Test 04/19/18 10:06 04/19/18 10:07 04/19/18 16:31 04/19/18 17:39 White Blood Count 9.5 x10^3/uL (4.0-11.0) Red Blood Count 3.67 x10^6/uL (3.50-5.40) Hemoglobin 11.4 g/dL (12.0-15.5) Hematocrit 33.5 % (36.0-47.0) Mean Corpuscular Volume 91 fL (79-100) Mean Corpuscular Hemoglobin 31 pg (25-35) Mean Corpuscular Hemoglobin Concent 34 g/dL (31-37) Red Cell Distribution Width 14.7 % (11.5-14.5) Platelet Count 186 x10^3/uL (140-400) Neutrophils (%) (Auto) 64 % (31-73) Lymphocytes (%) (Auto) 27 % (24-48) Monocytes (%) (Auto) 7 % (0-9) Eosinophils (%) (Auto) 2 % (0-3) Basophils (%) (Auto) 1 % (0-3) Neutrophils # (Auto) 6.1 x10^3uL (1.8-7.7) Lymphocytes # (Auto) 2.5 x10^3/uL (1.0-4.8) Monocytes # (Auto) 0.6 x10^3/uL (0.0-1.1) Eosinophils # (Auto) 0.2 x10^3/uL (0.0-0.7) Basophils # (Auto) 0.1 x10^3/uL (0.0-0.2) Prothrombin Time 13.9 SEC (11.7-14.0) Prothromb Time International Ratio 1.1 (0.8-1.1) Activated Partial Thromboplast Time 35 SEC (24-38) Sodium Level 138 mmol/L (136-145) Potassium Level 4.2 mmol/L (3.5-5.1) Chloride Level 101 mmol/L (98-107) Carbon Dioxide Level 25 mmol/L (21-32) Anion Gap 12 (6-14) Blood Urea Nitrogen 19 mg/dL (7-20) Creatinine 0.9 mg/dL (0.6-1.0) Estimated GFR (Cockcroft-Gault) 61.4 BUN/Creatinine Ratio 21 (6-20) Glucose Level 213 mg/dL (70-99) Calcium Level 9.2 mg/dL (8.5-10.1) Total Bilirubin 0.5 mg/dL (0.2-1.0) Aspartate Amino Transf (AST/SGOT) 75 U/L (15-37) Alanine Aminotransferase (ALT/SGPT) 58 U/L (14-59) Alkaline Phosphatase 166 U/L (46-116) Total Protein 7.8 g/dL (6.4-8.2) Albumin 3.5 g/dL (3.4-5.0) Albumin/Globulin Ratio 0.8 (1.0-1.7) Glucose (Fingerstick) 223 mg/dL (70-99) 216 mg/dL (70-99) 230 mg/dL (70-99) Test 04/19/18 19:44 04/20/18 04:30 04/20/18 05:00 Glucose (Fingerstick) 327 mg/dL (70-99) Sodium Level 136 mmol/L (136-145) Potassium Level 4.5 mmol/L (3.5-5.1) Chloride Level 103 mmol/L (98-107) Carbon Dioxide Level 25 mmol/L (21-32) Anion Gap 8 (6-14) Blood Urea Nitrogen 19 mg/dL (7-20) Creatinine 1.0 mg/dL (0.6-1.0) Estimated GFR (Cockcroft-Gault) 54.3 Glucose Level 287 mg/dL (70-99) Calcium Level 9.0 mg/dL (8.5-10.1) White Blood Count 12.0 x10^3/uL (4.0-11.0) Red Blood Count 3.13 x10^6/uL (3.50-5.40) Hemoglobin 9.9 g/dL (12.0-15.5) Hematocrit 28.2 % (36.0-47.0) Mean Corpuscular Volume 90 fL (79-100) Mean Corpuscular Hemoglobin 32 pg (25-35) Mean Corpuscular Hemoglobin Concent 35 g/dL (31-37) Red Cell Distribution Width 14.4 % (11.5-14.5) Platelet Count 163 x10^3/uL (140-400) Neutrophils (%) (Auto) 80 % (31-73) Lymphocytes (%) (Auto) 14 % (24-48) Monocytes (%) (Auto) 6 % (0-9) Eosinophils (%) (Auto) 0 % (0-3) Basophils (%) (Auto) 0 % (0-3) Neutrophils # (Auto) 9.7 x10^3uL (1.8-7.7) Lymphocytes # (Auto) 1.7 x10^3/uL (1.0-4.8) Monocytes # (Auto) 0.7 x10^3/uL (0.0-1.1) Eosinophils # (Auto) 0.0 x10^3/uL (0.0-0.7) Basophils # (Auto) 0.0 x10^3/uL (0.0-0.2) Laboratory Tests Test 04/19/18 16:31 04/19/18 17:39 04/19/18 19:44 04/20/18 04:30 Glucose (Fingerstick) 216 mg/dL (70-99) 230 mg/dL (70-99) 327 mg/dL (70-99) Sodium Level 136 mmol/L (136-145) Potassium Level 4.5 mmol/L (3.5-5.1) Chloride Level 103 mmol/L (98-107) Carbon Dioxide Level 25 mmol/L (21-32) Anion Gap 8 (6-14) Blood Urea Nitrogen 19 mg/dL (7-20) Creatinine 1.0 mg/dL (0.6-1.0) Estimated GFR (Cockcroft-Gault) 54.3 Glucose Level 287 mg/dL (70-99) Calcium Level 9.0 mg/dL (8.5-10.1) Test 04/20/18 05:00 White Blood Count 12.0 x10^3/uL (4.0-11.0) Red Blood Count 3.13 x10^6/uL (3.50-5.40) Hemoglobin 9.9 g/dL (12.0-15.5) Hematocrit 28.2 % (36.0-47.0) Mean Corpuscular Volume 90 fL (79-100) Mean Corpuscular Hemoglobin 32 pg (25-35) Mean Corpuscular Hemoglobin Concent 35 g/dL (31-37) Red Cell Distribution Width 14.4 % (11.5-14.5) Platelet Count 163 x10^3/uL (140-400) Neutrophils (%) (Auto) 80 % (31-73) Lymphocytes (%) (Auto) 14 % (24-48) Monocytes (%) (Auto) 6 % (0-9) Eosinophils (%) (Auto) 0 % (0-3) Basophils (%) (Auto) 0 % (0-3) Neutrophils # (Auto) 9.7 x10^3uL (1.8-7.7) Lymphocytes # (Auto) 1.7 x10^3/uL (1.0-4.8) Monocytes # (Auto) 0.7 x10^3/uL (0.0-1.1) Eosinophils # (Auto) 0.0 x10^3/uL (0.0-0.7) Basophils # (Auto) 0.0 x10^3/uL (0.0-0.2) GUILLERMO BARNHART MD Apr 20, 2018 10:22
--- NOTE | 2018-04-20 11:22 | PDOC ---
Provider Note Provider Note Patient seen. History and Physical dictated. See dictation#[id number] FABIAN BOYLE MD Apr 20, 2018 11:22
--- NOTE | 2018-04-20 11:35 | NUR ---
This patient verified this patient if it is ok to give patient information to Reggie, patient agreed, and verification code given. Discussed potential discharge tomorrow, this nurse will continue to monitor.
--- NOTE | 2018-04-20 11:49 | CONS ---
DATE OF CONSULTATION: 04/19/2018 ADMITTING PHYSICIAN: Dr. Barnhart. CONSULTING PHYSICIAN: Dr. Fabian Arrington. HISTORY OF PRESENT ILLNESS: This 73-year-old female who is a resident of [facility], was admitted by Dr. Barnhart for right-sided breast cancer. She underwent a modified right breast radical mastectomy. Medical consultation has been requested for medical management of her medical problems including diabetes and hypertension. SYSTEMS REVIEW: At present time, the patient does admit to some pain in the right side of the chest where she had the surgery. She denies any cold, cough, congestion, fever or chills. She does not have any leg pain, nausea, vomiting, abdominal pain. Other systems reviewed and are negative. She does admit to some tingling in her lower extremities. PAST MEDICAL HISTORY: The patient has had multiple admissions here in the past including several for uncontrolled diabetes mellitus type 2, insulin-dependent. She has a history of hypomagnesemia, possibly seizure disorder, possible CVA, depression, anxiety, hypertension, hypothyroidism, coronary artery disease. FAMILY HISTORY: Positive for diabetes and hypertension. PAST SURGICAL HISTORY: Includes hysterectomy, gallbladder surgery, neck surgery and now right modified radical mastectomy. MEDICATIONS: Reviewed and reconciled. ALLERGIES: THE PATIENT IS ALLERGIC TO IODINE, STATINS, SULFA, BUPROPION, ERYTHROMYCIN, NIACIN, NITROGLYCERIN, TETRACYCLINE, WARFARIN. SOCIAL HISTORY: No history of smoking, alcoholism or drug abuse. She lives in assisted living facility. FAMILY HISTORY: Positive for diabetes and hypertension. PHYSICAL EXAMINATION: VITAL SIGNS: Temperature 97.8 yesterday. Maximum temperature was 99.9. Pulse 77 per minute, respirations 18 per minute, blood pressure 127/49 mmHg. GENERAL: The patient is alert, oriented, not in acute distress. HEENT: Eyes, pupils reacting to light. Conjunctivae pink. Sclerae white. HEENT unremarkable. NECK: Supple. JVP normal. No thyromegaly. Trachea midline. LUNGS: Decreased breath sounds at bases, clear. CARDIOVASCULAR: S1, S2 regular. The patient has a large dressing on the right breast surgical area with two ELISEO drains with bloody drainage. ABDOMEN: Soft, nontender, no guarding, no rigidity. Bowel sounds present. EXTREMITIES: No edema. CENTRAL NERVOUS SYSTEM: Alert and oriented. LABORATORY FINDINGS: Sodium 138, potassium 4.2, glucose 213, BUN 19, creatinine 0.9. WBC count was 9.5 yesterday and 12 today. Hemoglobin 11.4 yesterday, 9.9 today. Platelet count is 163,000. INR is 1.1. IMPRESSION: 1. Diabetes mellitus type 2, not controlled. 2. Hypertension. 3. Hyperlipidemia. 4. Hypothyroidism. 5. Coronary artery disease. 6. Depression. 7. Anxiety. 8. History of seizure disorder versus cerebrovascular accident. 9. Right breast cancer, status post modified right breast mastectomy. PLAN: I will resume her Levemir dose, Levemir that was 80 units twice a day, but to change it to 40 units twice daily. I will decrease the Humalog scheduled insulin before meals to 10 units 3 times a day from 25 units 3 times a day. For other details, please refer to the orders. We will hold Plavix, but I will resume atenolol. For details, please refer to the orders. Once Dr. Barnhart agrees, we will resume Plavix. For details, please refer to the orders. FABIAN ARRINGTON MD DR: LASHANDA/zenaida JOB#: [id number] / [id number] DR ZEHRA Infante, DR BARNHART,
[2018-04-20] MEDS: oxyCODONE/APAP 5/325 1 TAB TABLET PO PRN ×2 (12:11→19:58)
[2018-04-20] MEDS: ATENOLOL 25 MG TABLET. PO SCH (12:11)
[2018-04-20] MEDS: INSULIN GLARGINE 300 UNITS/3 ML INSULN.PEN. SQ SCH (12:20)
--- NOTE | 2018-04-20 12:25 | NUR ---
SW following for discharge planning. Discussed with RN. Dr. Wisdom advised discharge tomorrow to a skilled facility. Pt cannot go to a skilled as pt has Medicaid. SW advised RN of acute rehab only. PT/OT ordered. SW await PT/OT notes for discharge planning. SW will continue to follow.
[2018-04-20] MEDS ORDERED: clonazePAM 1 MG TABLET PO PRN (12:30)
--- NOTE | 2018-04-20 12:34 | OP ---
DATE OF SURGERY: SURGEON: Marvel Barnhart MD PREOPERATIVE DIAGNOSIS: Biopsy proven carcinoma of the right breast. POSTOPERATIVE DIAGNOSIS: Biopsy proven carcinoma of the right breast. ANESTHESIA: General. PROCEDURE: Total right mastectomy with sentinel node dissection. DESCRIPTION OF PROCEDURE: Within under general anesthesia, the patient was properly prepped and draped in a routine fashion. She had been given an injection by the radiologist for the sentinel node examination. With the patient supine, we then properly prepped and draped her in a routine fashion. The lesion was in the upper outer quadrant of the right breast, and we wanted to make certain that we encompass this totally, and as such, we made a transverse incision in a fusiform fashion, taking the entire breast tissue. We did this with a 10 blade and carried it down through the skin. We then used cautery to go into the subcutaneous. We placed Faith clamps on the superior flap to be developed, pulled straight up and then using cautery divided this from the subcutaneous tissues. We went down to the pectoralis major fascia almost up to the clavicle and took it medially. Inferiorly, we did the same thing developing a plane in the subcutaneous encompassing all of the breast. We then began to reflect the breast laterally as we took it off the anterior chest wall using cautery. We did take the fascia of the muscle off also and one or two small bleeders had to be suture ligated with 3-0 Vicryl. We then had the breast just about removed and then proceeded to use the handheld device to locate the sentinel nodes. We did get a strong signal and as such spread down to this mass and then grabbed the tissue around it and used cautery and also a Harmonic scalpel to divide this from surrounding tissues. This mass appeared to be a small lymph node, and we put the counter on it. It did show that this did have the radioactive dye in it and then this was sent to the lab. We did this for the time that we had other hot spots and sent those to the lab in a similar fashion. We then completely amputated the breast and from the chest wall and sent it to pathology. We then inspected the area, small bleeders were cauterized. We then irrigated the dissected area with saline. We then placed two large Louie drains, both to the anterior flap, one laterally and one medially, carried one up toward the axilla and put the one medially up over the pectoralis major muscle. We then approximated the deep dermis and subcutaneous with interrupted 2-0 Vicryl and closed the skin using a skin stapler. There was not a lot of tension at the closure and all appeared to be well. Sterile dressing was applied, and the procedure was terminated. The blood loss was approximately 150-200 mL for the estimate. She had been taking Coumadin and said that she has been off it, but we did have some problems making certain that she was off the anticoagulants. At any rate, there was no bleeding at the time of surgery. The dressing was applied and the procedure was terminated. The drains were the 2 large Louie drains as described. Blood loss as noted. Fluids given can be obtained from the anesthesia sheet. CONDITION OF THE PATIENT: Satisfactory as she is returned to the recovery room. MARVEL BARNHART MD DR: AMIE/zenaida JOB#: [id number] / [id number] PHYLLIS
[2018-04-20] MEDS: COLESEVELAM HCL 625 MG TABLET PO SCH ×2 (14:00→19:58)
[2018-04-20] MEDS ORDERED: INSULIN GLARGINE 300 UNITS/3 ML INSULN.PEN. SQ SCH (21:00)
[2018-04-20] MEDS: HYDROcodone/APAP 7.5/325MG 1 TAB TABLET PO PRN (21:25)
[2018-04-21 03:00] VITALS: BP 131/62
[2018-04-21 04:31] LABS: BASO # 0.1 x10^3/uL (0.0-0.2); BASO % 1 % (0-3); EOS # 0.2 x10^3/uL (0.0-0.7); EOS % 2 % (0-3); HEMATOCRIT 28.9 % (36.0-47.0); HEMOGLOBIN 9.6 g/dL (12.0-15.5); LYMPH # 2.9 x10^3/uL (1.0-4.8); LYMPH % 30 % (24-48); MEAN CORPUSCULAR HEMOGLOBIN 31 pg (25-35); MEAN CORPUSCULAR HGB CONC 33 g/dL (31-37); MEAN CORPUSCULAR VOLUME 92 fL (79-100); MONO # 0.6 x10^3/uL (0.0-1.1); MONO % 6 % (0-9); NEUT # 5.9 x10^3uL (1.8-7.7); NEUT % 61 % (31-73); PLATELET COUNT 146 x10^3/uL (140-400); RED BLOOD COUNT 3.13 x10^6/uL (3.50-5.40); RED CELL DISTRIBUTION WIDTH 14.7 % (11.5-14.5); WHITE BLOOD COUNT 9.6 x10^3/uL (4.0-11.0)
[2018-04-21 05:02] LABS: CALCIUM 8.8 mg/dL (8.5-10.1); CREATININE 0.8 mg/dL (0.6-1.0); GFR 70.3; POTASSIUM 4.4 mmol/L (3.5-5.1)
[2018-04-21] MEDS: HYDROcodone/APAP 7.5/325MG 1 TAB TABLET PO PRN (05:09)
[2018-04-21] MEDS: LEVOTHYROXINE 100 MCG TABLET PO SCH (06:35)
[2018-04-21 07:15] VITALS: BP 118/61
[2018-04-21] MEDS: INSULIN LISPRO 300 UNITS/3 ML INSULN.PEN. SQ SCH ×3 (08:00→12:00)
--- NOTE | 2018-04-21 08:16 | NUR ---
SW following. Referral sent to [facility]. SW will continue to follow.
[2018-04-21] MEDS: BREXPIPRAZOLE 4 MG PO SCH (09:00)
[2018-04-21] MEDS: COLESEVELAM HCL 625 MG TABLET PO SCH ×2 (09:19→15:59)
[2018-04-21] MEDS: FLUTICASONE 50MCG/NASAL SPRAY 16GM BOTTLE. NS SCH (09:19)
[2018-04-21] MEDS: clonazePAM 0.5 MG TABLET PO SCH (09:20)
[2018-04-21] MEDS: ATENOLOL 25 MG TABLET. PO SCH (09:20)
[2018-04-21] MEDS: LISINOPRIL 5 MG TABLET. PO SCH (09:20)
[2018-04-21] MEDS: FAMOTIDINE 20 MG TABLET. PO SCH (09:20)
[2018-04-21] MEDS: GEMFIBROZIL 600 MG TABLET. PO SCH (09:20)
[2018-04-21] MEDS: oxyCODONE/APAP 5/325 1 TAB TABLET PO PRN ×2 (09:21→15:59)
[2018-04-21] MEDS: INSULIN GLARGINE 300 UNITS/3 ML INSULN.PEN. SQ SCH (09:31)
--- NOTE | 2018-04-21 10:06 | PDOC ---
SURGICAL PROGRESS NOTE Subjective POD 2 Patient is doing well. Pain is being controlled with PO Percocet 5/325. Reports some soreness after movement of R arm. Continue to hold anticoagulant Social work is working on getting approval to discharge to rehab facility. Ambulating well. Eating well. Labs were reviewed and are ok for now. No new complaints I personally instructed her on the the care of drains and let her open and empty it and place the cap back o it while squeezing it. Home when arrangements are made. Will se in the morning if not discharged today. Vital Signs Vital Signs Date Time Temp Pulse Resp B/P (MAP) Pulse Ox O2 Delivery O2 Flow Rate FiO2 04/21/18 09:21 97 Room Air 04/21/18 09:20 63 118/61 04/21/18 07:15 98.1 18 98.1 04/21/18 06:09 10.0 I&O Intake and Output 04/21/18 07:01 Intake Total 7 ml Output Total 240 ml Balance -233 ml Intake IV Total 7 ml Drainage Total 240 ml # Voids 4 Labs Laboratory Tests Test 04/19/18 10:06 04/19/18 10:07 04/19/18 16:31 04/19/18 17:39 White Blood Count 9.5 x10^3/uL (4.0-11.0) Red Blood Count 3.67 x10^6/uL (3.50-5.40) Hemoglobin 11.4 g/dL (12.0-15.5) Hematocrit 33.5 % (36.0-47.0) Mean Corpuscular Volume 91 fL (79-100) Mean Corpuscular Hemoglobin 31 pg (25-35) Mean Corpuscular Hemoglobin Concent 34 g/dL (31-37) Red Cell Distribution Width 14.7 % (11.5-14.5) Platelet Count 186 x10^3/uL (140-400) Neutrophils (%) (Auto) 64 % (31-73) Lymphocytes (%) (Auto) 27 % (24-48) Monocytes (%) (Auto) 7 % (0-9) Eosinophils (%) (Auto) 2 % (0-3) Basophils (%) (Auto) 1 % (0-3) Neutrophils # (Auto) 6.1 x10^3uL (1.8-7.7) Lymphocytes # (Auto) 2.5 x10^3/uL (1.0-4.8) Monocytes # (Auto) 0.6 x10^3/uL (0.0-1.1) Eosinophils # (Auto) 0.2 x10^3/uL (0.0-0.7) Basophils # (Auto) 0.1 x10^3/uL (0.0-0.2) Prothrombin Time 13.9 SEC (11.7-14.0) Prothromb Time International Ratio 1.1 (0.8-1.1) Activated Partial Thromboplast Time 35 SEC (24-38) Sodium Level 138 mmol/L (136-145) Potassium Level 4.2 mmol/L (3.5-5.1) Chloride Level 101 mmol/L (98-107) Carbon Dioxide Level 25 mmol/L (21-32) Anion Gap 12 (6-14) Blood Urea Nitrogen 19 mg/dL (7-20) Creatinine 0.9 mg/dL (0.6-1.0) Estimated GFR (Cockcroft-Gault) 61.4 BUN/Creatinine Ratio 21 (6-20) Glucose Level 213 mg/dL (70-99) Calcium Level 9.2 mg/dL (8.5-10.1) Total Bilirubin 0.5 mg/dL (0.2-1.0) Aspartate Amino Transf (AST/SGOT) 75 U/L (15-37) Alanine Aminotransferase (ALT/SGPT) 58 U/L (14-59) Alkaline Phosphatase 166 U/L (46-116) Total Protein 7.8 g/dL (6.4-8.2) Albumin 3.5 g/dL (3.4-5.0) Albumin/Globulin Ratio 0.8 (1.0-1.7) Glucose (Fingerstick) 223 mg/dL (70-99) 216 mg/dL (70-99) 230 mg/dL (70-99) Test 04/19/18 19:44 04/20/18 04:30 04/20/18 05:00 04/20/18 11:09 Glucose (Fingerstick) 327 mg/dL (70-99) 262 mg/dL (70-99) Sodium Level 136 mmol/L (136-145) Potassium Level 4.5 mmol/L (3.5-5.1) Chloride Level 103 mmol/L (98-107) Carbon Dioxide Level 25 mmol/L (21-32) Anion Gap 8 (6-14) Blood Urea Nitrogen 19 mg/dL (7-20) Creatinine 1.0 mg/dL (0.6-1.0) Estimated GFR (Cockcroft-Gault) 54.3 Glucose Level 287 mg/dL (70-99) Calcium Level 9.0 mg/dL (8.5-10.1) White Blood Count 12.0 x10^3/uL (4.0-11.0) Red Blood Count 3.13 x10^6/uL (3.50-5.40) Hemoglobin 9.9 g/dL (12.0-15.5) Hematocrit 28.2 % (36.0-47.0) Mean Corpuscular Volume 90 fL (79-100) Mean Corpuscular Hemoglobin 32 pg (25-35) Mean Corpuscular Hemoglobin Concent 35 g/dL (31-37) Red Cell Distribution Width 14.4 % (11.5-14.5) Platelet Count 163 x10^3/uL (140-400) Neutrophils (%) (Auto) 80 % (31-73) Lymphocytes (%) (Auto) 14 % (24-48) Monocytes (%) (Auto) 6 % (0-9) Eosinophils (%) (Auto) 0 % (0-3) Basophils (%) (Auto) 0 % (0-3) Neutrophils # (Auto) 9.7 x10^3uL (1.8-7.7) Lymphocytes # (Auto) 1.7 x10^3/uL (1.0-4.8) Monocytes # (Auto) 0.7 x10^3/uL (0.0-1.1) Eosinophils # (Auto) 0.0 x10^3/uL (0.0-0.7) Basophils # (Auto) 0.0 x10^3/uL (0.0-0.2) Test 04/20/18 16:43 04/20/18 19:29 04/21/18 03:10 04/21/18 07:27 Glucose (Fingerstick) 235 mg/dL (70-99) 221 mg/dL (70-99) 184 mg/dL (70-99) White Blood Count 9.6 x10^3/uL (4.0-11.0) Red Blood Count 3.13 x10^6/uL (3.50-5.40) Hemoglobin 9.6 g/dL (12.0-15.5) Hematocrit 28.9 % (36.0-47.0) Mean Corpuscular Volume 92 fL (79-100) Mean Corpuscular Hemoglobin 31 pg (25-35) Mean Corpuscular Hemoglobin Concent 33 g/dL (31-37) Red Cell Distribution Width 14.7 % (11.5-14.5) Platelet Count 146 x10^3/uL (140-400) Neutrophils (%) (Auto) 61 % (31-73) Lymphocytes (%) (Auto) 30 % (24-48) Monocytes (%) (Auto) 6 % (0-9) Eosinophils (%) (Auto) 2 % (0-3) Basophils (%) (Auto) 1 % (0-3) Neutrophils # (Auto) 5.9 x10^3uL (1.8-7.7) Lymphocytes # (Auto) 2.9 x10^3/uL (1.0-4.8) Monocytes # (Auto) 0.6 x10^3/uL (0.0-1.1) Eosinophils # (Auto) 0.2 x10^3/uL (0.0-0.7) Basophils # (Auto) 0.1 x10^3/uL (0.0-0.2) Sodium Level 139 mmol/L (136-145) Potassium Level 4.4 mmol/L (3.5-5.1) Chloride Level 104 mmol/L (98-107) Carbon Dioxide Level 26 mmol/L (21-32) Anion Gap 9 (6-14) Blood Urea Nitrogen 23 mg/dL (7-20) Creatinine 0.8 mg/dL (0.6-1.0) Estimated GFR (Cockcroft-Gault) 70.3 Glucose Level 205 mg/dL (70-99) Calcium Level 8.8 mg/dL (8.5-10.1) Laboratory Tests Test 04/20/18 11:09 04/20/18 16:43 04/20/18 19:29 04/21/18 03:10 Glucose (Fingerstick) 262 mg/dL (70-99) 235 mg/dL (70-99) 221 mg/dL (70-99) White Blood Count 9.6 x10^3/uL (4.0-11.0) Red Blood Count 3.13 x10^6/uL (3.50-5.40) Hemoglobin 9.6 g/dL (12.0-15.5) Hematocrit 28.9 % (36.0-47.0) Mean Corpuscular Volume 92 fL (79-100) Mean Corpuscular Hemoglobin 31 pg (25-35) Mean Corpuscular Hemoglobin Concent 33 g/dL (31-37) Red Cell Distribution Width 14.7 % (11.5-14.5) Platelet Count 146 x10^3/uL (140-400) Neutrophils (%) (Auto) 61 % (31-73) Lymphocytes (%) (Auto) 30 % (24-48) Monocytes (%) (Auto) 6 % (0-9) Eosinophils (%) (Auto) 2 % (0-3) Basophils (%) (Auto) 1 % (0-3) Neutrophils # (Auto) 5.9 x10^3uL (1.8-7.7) Lymphocytes # (Auto) 2.9 x10^3/uL (1.0-4.8) Monocytes # (Auto) 0.6 x10^3/uL (0.0-1.1) Eosinophils # (Auto) 0.2 x10^3/uL (0.0-0.7) Basophils # (Auto) 0.1 x10^3/uL (0.0-0.2) Sodium Level 139 mmol/L (136-145) Potassium Level 4.4 mmol/L (3.5-5.1) Chloride Level 104 mmol/L (98-107) Carbon Dioxide Level 26 mmol/L (21-32) Anion Gap 9 (6-14) Blood Urea Nitrogen 23 mg/dL (7-20) Creatinine 0.8 mg/dL (0.6-1.0) Estimated GFR (Cockcroft-Gault) 70.3 Glucose Level 205 mg/dL (70-99) Calcium Level 8.8 mg/dL (8.5-10.1) Test 1/24/19 07:27 Glucose (Fingerstick) 184 mg/dL (70-99) GUILLERMO BARNHART MD Apr 21, 2018 10:06
--- NOTE | 2018-04-21 10:38 | PDOC ---
IM PROGRESS NOTES- Subjective Subjective Complaints of dyspnea, cold or cough. Pain is under better control. Objective Vitals Vital Signs Date Time Temp Pulse Resp B/P (MAP) Pulse Ox O2 Delivery O2 Flow Rate FiO2 04/21/18 09:21 97 Room Air 04/21/18 09:20 63 118/61 04/21/18 07:15 98.1 18 98.1 04/21/18 06:09 10.0 Input & Output Intake and Output 04/21/18 07:01 Intake Total 7 ml Output Total 240 ml Balance -233 ml IV Total 7 ml Drainage Total 240 ml # Voids 4 Physical Exam Physical Exam General appearance - alert,well appearing, and in no distress and oriented to person, place, and time Mental Status - alert, oriented to person, place, and time, affect appropriate to mood Head - normal Chest - clear to auscultation, no wheezes, rales or rhonchi, symmetric air entry Heart - S1 and S2 normal Abdomen - soft, nontender, nondistended, no masses or organomegaly Neurological - alert and oriented Musculoskeletal - no muscular tenderness noted Extremities - no pedal edema Skin -dressing is in place in the right chest. Labs Laboratory Tests Test 04/19/18 16:31 04/19/18 17:39 04/19/18 19:44 04/20/18 04:30 Glucose (Fingerstick) 216 mg/dL (70-99) 230 mg/dL (70-99) 327 mg/dL (70-99) Sodium Level 136 mmol/L (136-145) Potassium Level 4.5 mmol/L (3.5-5.1) Chloride Level 103 mmol/L (98-107) Carbon Dioxide Level 25 mmol/L (21-32) Anion Gap 8 (6-14) Blood Urea Nitrogen 19 mg/dL (7-20) Creatinine 1.0 mg/dL (0.6-1.0) Estimated GFR (Cockcroft-Gault) 54.3 Glucose Level 287 mg/dL (70-99) Calcium Level 9.0 mg/dL (8.5-10.1) Test 04/20/18 05:00 04/20/18 11:09 04/20/18 16:43 04/20/18 19:29 White Blood Count 12.0 x10^3/uL (4.0-11.0) Red Blood Count 3.13 x10^6/uL (3.50-5.40) Hemoglobin 9.9 g/dL (12.0-15.5) Hematocrit 28.2 % (36.0-47.0) Mean Corpuscular Volume 90 fL (79-100) Mean Corpuscular Hemoglobin 32 pg (25-35) Mean Corpuscular Hemoglobin Concent 35 g/dL (31-37) Red Cell Distribution Width 14.4 % (11.5-14.5) Platelet Count 163 x10^3/uL (140-400) Neutrophils (%) (Auto) 80 % (31-73) Lymphocytes (%) (Auto) 14 % (24-48) Monocytes (%) (Auto) 6 % (0-9) Eosinophils (%) (Auto) 0 % (0-3) Basophils (%) (Auto) 0 % (0-3) Neutrophils # (Auto) 9.7 x10^3uL (1.8-7.7) Lymphocytes # (Auto) 1.7 x10^3/uL (1.0-4.8) Monocytes # (Auto) 0.7 x10^3/uL (0.0-1.1) Eosinophils # (Auto) 0.0 x10^3/uL (0.0-0.7) Basophils # (Auto) 0.0 x10^3/uL (0.0-0.2) Glucose (Fingerstick) 262 mg/dL (70-99) 235 mg/dL (70-99) 221 mg/dL (70-99) Test 04/21/18 03:10 04/21/18 07:27 White Blood Count 9.6 x10^3/uL (4.0-11.0) Red Blood Count 3.13 x10^6/uL (3.50-5.40) Hemoglobin 9.6 g/dL (12.0-15.5) Hematocrit 28.9 % (36.0-47.0) Mean Corpuscular Volume 92 fL (79-100) Mean Corpuscular Hemoglobin 31 pg (25-35) Mean Corpuscular Hemoglobin Concent 33 g/dL (31-37) Red Cell Distribution Width 14.7 % (11.5-14.5) Platelet Count 146 x10^3/uL (140-400) Neutrophils (%) (Auto) 61 % (31-73) Lymphocytes (%) (Auto) 30 % (24-48) Monocytes (%) (Auto) 6 % (0-9) Eosinophils (%) (Auto) 2 % (0-3) Basophils (%) (Auto) 1 % (0-3) Neutrophils # (Auto) 5.9 x10^3uL (1.8-7.7) Lymphocytes # (Auto) 2.9 x10^3/uL (1.0-4.8) Monocytes # (Auto) 0.6 x10^3/uL (0.0-1.1) Eosinophils # (Auto) 0.2 x10^3/uL (0.0-0.7) Basophils # (Auto) 0.1 x10^3/uL (0.0-0.2) Sodium Level 139 mmol/L (136-145) Potassium Level 4.4 mmol/L (3.5-5.1) Chloride Level 104 mmol/L (98-107) Carbon Dioxide Level 26 mmol/L (21-32) Anion Gap 9 (6-14) Blood Urea Nitrogen 23 mg/dL (7-20) Creatinine 0.8 mg/dL (0.6-1.0) Estimated GFR (Cockcroft-Gault) 70.3 Glucose Level 205 mg/dL (70-99) Calcium Level 8.8 mg/dL (8.5-10.1) Glucose (Fingerstick) 184 mg/dL (70-99) Laboratory Tests Test 04/20/18 11:09 04/20/18 16:43 04/20/18 19:29 04/21/18 03:10 Glucose (Fingerstick) 262 mg/dL (70-99) 235 mg/dL (70-99) 221 mg/dL (70-99) White Blood Count 9.6 x10^3/uL (4.0-11.0) Red Blood Count 3.13 x10^6/uL (3.50-5.40) Hemoglobin 9.6 g/dL (12.0-15.5) Hematocrit 28.9 % (36.0-47.0) Mean Corpuscular Volume 92 fL (79-100) Mean Corpuscular Hemoglobin 31 pg (25-35) Mean Corpuscular Hemoglobin Concent 33 g/dL (31-37) Red Cell Distribution Width 14.7 % (11.5-14.5) Platelet Count 146 x10^3/uL (140-400) Neutrophils (%) (Auto) 61 % (31-73) Lymphocytes (%) (Auto) 30 % (24-48) Monocytes (%) (Auto) 6 % (0-9) Eosinophils (%) (Auto) 2 % (0-3) Basophils (%) (Auto) 1 % (0-3) Neutrophils # (Auto) 5.9 x10^3uL (1.8-7.7) Lymphocytes # (Auto) 2.9 x10^3/uL (1.0-4.8) Monocytes # (Auto) 0.6 x10^3/uL (0.0-1.1) Eosinophils # (Auto) 0.2 x10^3/uL (0.0-0.7) Basophils # (Auto) 0.1 x10^3/uL (0.0-0.2) Sodium Level 139 mmol/L (136-145) Potassium Level 4.4 mmol/L (3.5-5.1) Chloride Level 104 mmol/L (98-107) Carbon Dioxide Level 26 mmol/L (21-32) Anion Gap 9 (6-14) Blood Urea Nitrogen 23 mg/dL (7-20) Creatinine 0.8 mg/dL (0.6-1.0) Estimated GFR (Cockcroft-Gault) 70.3 Glucose Level 205 mg/dL (70-99) Calcium Level 8.8 mg/dL (8.5-10.1) Test 04/21/18 07:27 Glucose (Fingerstick) 184 mg/dL (70-99) Meds Current Medications Acetaminophen/ Hydrocodone Bitart (Lortab 7.5/325) 1 tab PRN Q6HRS PRN PO MODERATE PAIN Last administered on 04/21/18at 05:09; Start 04/20/18 at 11:15 Atenolol (Tenormin) 25 mg DAILY PO Last administered on 04/21/18at 09:20; Start 04/20/18 at 12:00 Clonazepam (KlonoPIN) 2 mg PRN QHS PRN PO ANXIETY / AGITATION; Start 04/20/18 at 12:30 Colesevelam HCl (Welchol) 1,875 mg TID PO Last administered on 04/21/18at 09:19 ; Start 04/20/18 at 14:00 Insulin Glargine (Lantus) 40 units DAILY08 SQ Last administered on 04/21/18at 09 :31; Start 04/20/18 at 12:00 Insulin Glargine (Lantus) 40 units QHS SQ Last administered on 04/20/18at 20:44 ; Start 04/20/18 at 21:00 Insulin Human Lispro (HumaLOG) 10 units TIDWMEALS SQ Last administered on at 09:32; Start 04/20/18 at 12:00 Assessment Assessment IMPRESSION: 1. Diabetes mellitus type 2, not controlled. 2. Hypertension. 3. Hyperlipidemia. 4. Hypothyroidism. 5. Coronary artery disease. 6. Depression. 7. Anxiety. 8. History of seizure disorder versus cerebrovascular accident. 9. Right breast cancer, status post modified right breast mastectomy. PLAN: Diabetes is not controlled trial increase Lantus to 50 units subcutaneous twice daily and increase NovoLog to 12 units subcutaneous 3 times a day. Resume Plavix when it is okay with Dr. Wisdom. Clinically improving. Plan Plan For more details regarding further plans, please refer to the orders. FABIAN BOYLE MD Apr 21, 2018 10:38
[2018-04-21 11:09] VITALS: BP 149/59
[2018-04-21] MEDS: POTASSIUM CL 20MEQ-0.45% NACL 1,000 ML IV SCH (11:50)
[2018-04-21] MEDS ORDERED: INSULIN LISPRO 300 UNITS/3 ML INSULN.PEN. SQ SCH (12:00)
--- NOTE | 2018-04-21 13:57 | NUR ---
JUAN A following. Estee from [facility] advised pt does not qualify for acute rehab based on therapy needs. Pt can return to [facility] with [facility] the [facility]. JUAN A waiting discharge order before faxing paperwork to [employer] Transportation set up for 1600. RN notified. JUAN A will continue to follow.
[2018-04-21 15:17] VITALS: BP 130/53
--- NOTE | 2018-04-21 17:11 | NUR ---
This nurse called report to Jessica at [facility], discussed pain management, Dr. Wisdom, did not want patient to discharge with pain medication, informed Jessica to contact if pain script is needed. Discussed holding Plavix until next Wednesday after Dr. Wisdom comes to see the patient at the facility. This nurse answered any questions at this time.
[2018-04-21] MEDS ORDERED: INSULIN GLARGINE 300 UNITS/3 ML INSULN.PEN. SQ SCH (21:00)
[2018-04-22] MEDS ORDERED: INSULIN GLARGINE 300 UNITS/3 ML INSULN.PEN. SQ SCH (08:00)
--- NOTE | 2018-04-25 08:08 | PATHOLOGY ---
[facility] Accession Number: [id number] . 01 Material submitted: . PART A: AXILLARY LYMPH NODE #1 PART B: AXILLARY LYMPH NODE #2 PART C: AXILLARY LYMPH NODE #3 PART D: AXILLARY LYMPH NODE #4 PART E: AXILLARY LYMPH NODE #5 PART F: RIGHT BREAST TISSUE . 01 Clinical history: . None provided . 02 Diagnosis: A. Lymph nodes and fibroadipose tissue, axillary lymph node #1: - Two lymph nodes negative for tumor (0/2). . B. Lymph node and fibroadipose tissue, axillary lymph node #2: - Negative for tumor (0/1). . C. Lymph node and fibroadipose tissue, axillary lymph node #3: - Negative for tumor (0/1). . D. Lymph node and fibroadipose tissue, axillary lymph node #4: - Negative for tumor (0/1). . E. Minute lymph node and fibroadipose tissue, axillary lymph node #5: - Negative for tumor (0/1). . F. Breast, right total mastectomy: - No residual invasive ductal carcinoma or ductal carcinoma in situ identified. - Deep margin of resection negative for tumor. - Previous biopsy site showing biopsy cavity with focal coagulative changes, hemorrhage, fat necrosis, acute and chronic inflammation, and foreign body giant cell and suture granulomatous reaction within wall of biopsy cavity. - Fibrocystic changes, focal. - Florid ductal epithelial hyperplasia, focal. - Ancient fibroadenoma. (JPM:manager architecture:db; 04/22/2018) MBR/04/25/2018 . 02 Comment: The axillary lymph nodes are treated as sentinel lymph nodes and are examined at multiple levels. Immunoperoxidase stains for AE1/AE3 are obtained on each of the lymph nodes and yield the following results: . AE1/AE3 (A1): Two lymph nodes negative for tumor AE1/AE3 (B1): Single lymph node negative for tumor AE1/AE3 (C1): Single lymph node negative for tumor AE1/AE3 (D1): Single lymph node negative for tumor AE1/AE3 (E1): Single minute lymph node negative for tumor AE1/AE3 (E2): No lymph node identified - negative for tumor . Thus, there are a total of six axillary lymph nodes which are all negative for tumor. . Sections of the right mastectomy show previous biopsy site changes. There is no residual invasive ductal carcinoma or ductal carcinoma in situ. (JPM/db; 04/22/2018) . Special stains performed: Immunoperoxidase stains for AE1/AE3 on A1, B1, C1, D1, E1 and E2 . 02 Electronically signed: . Marv Starr MD, Pathologist NPI- [id number] . 01 Gross description: . A. The specimen is received in formalin, labeled "Kayla Tracy, axillary lymph node #1". Received is a segment of yellow-serrano lobulated tissue measuring 1.8 x 1.2 x 1.0 cm in greatest dimensions. Dissection and palpation of the specimen reveals two possible lymph nodes measuring 0.3 and 0.6 cm in maximum dimensions. The possible lymph nodes are submitted intact in cassette A1. Immunohistochemical stains are ordered. . B. The specimen is received in formalin, labeled "Kayla Tracy, axillary lymph node #2". Received is a segment of yellow-serrano lobulated tissue measuring 2.6 x 1.7 x 0.5 cm in greatest dimensions. Dissection and palpation of the specimen reveals a single lymph node measuring 0.8 cm in maximum dimensions. The lymph node is bisected and entirely submitted in cassette B1. Immunohistochemical stains are ordered. . C. The specimen is received in formalin, labeled "Kayla Tracy, axillary lymph node #3". Received is a segment of yellow-serrano to light brown lobulated tissue measuring 1.9 x 1.6 x 1.0 cm in greatest dimensions. Dissection and palpation of the specimen reveals a possible positive lymph node measuring 1.2 cm in maximum dimensions. The lymph node is bisected and entirely submitted in cassette C1. Immunohistochemical stains are ordered. . D. The specimen is received in formalin, labeled "Kayla Tracy, axillary lymph node #4". Received are two segments of yellow-serrano lobulated tissue measuring 4.3 x 3.2 x 1.7 cm in aggregate dimensions. Dissection and palpation of the specimen reveals a single lymph node measuring 1.3 cm in maximum dimensions. The lymph node is bisected and entirely submitted in cassette D1. Immunohistochemical stains are ordered. . E. The specimen is received in formalin, labeled "Kayla Molina, axillary lymph node #5". Received is a segment of yellow-serrano lobulated tissue measuring 4.1 x 2.7 x 0.5 cm in aggregate dimensions. Extensive dissection and palpation of the specimen reveals no readily identifiable lymph node. The specimen is submitted entirely in cassettes E1 and E2. (CAA; 04/20/2018) . F. The specimen is received in formalin, labeled "Kayla Molina, right breast tissue". Received is a 969 g unoriented mastectomy specimen measuring 23.3 x 19.8 x 4.9 cm in greatest dimensions. The anterior aspect displays an attached ellipse of skin measuring 22.7 x 19.3 cm with a centrally located, everted nipple and areola complex measuring 1.7 x 1.3 and 6.4 x 4.3 cm, respectively. There is a linear incision present measuring 3.5 cm in length by 0.1 cm in diameter which is located 4.2 cm from the areola complex. The tissue underlying the incision is indurated. The specimen is inked as follows: Anterior-blue, posterior-black. Sectioning reveals a previous biopsy cavity measuring 4.5 x 1.2 x 1.1 cm in greatest dimensions, which is 1.9 cm from the closest margin (posterior). The location of this cavity will be designated as quadrant 1, with the remaining quadrant designated in a clockwise fashion. 0.9 cm anterior to this biopsy cavity, there is a second previous biopsy cavity fat necrosis measuring 2.4 x 1.1 x 0.8 cm, which is 1.0 cm immediately posterior to the aforementioned linear incision on the epidermal surface and 0.5 cm from the posterior margin. This biopsy site is also located in the quadrant designated as quadrant 1. The remainder of the specimen is comprised of fibrofatty breast tissue, with the fibrous tissue encompassing approximately 15% of the specimen. No additional nodules or lesions are noted grossly. The specimen is submitted representatively as follows: . F1 perpendicular section through nipple F2-F6 eligibility services representative sections of primary previous biopsy cavity F7 eligibility services representative section of specimen to show relationship between primary and secondary previous biopsy sites F8 eligibility services representative section of secondary previous biopsy site to show relationship with posterior margin F9-F11 eligibility services representative sections of secondary previous biopsy site F12 quadrant 1 F13 quadrant 2 F14 quadrant 3 F15 quadrant 4. (CAA; 04/21/2018) QAC/QAC . 02 Pathologist provided ICD-10: D24.1, N60.11, N64.1, N62 . 02 CPT . 945968, 779802, 174620, 561004, 468549, 601021, G18330, G40557 Specimen Comment: A courtesy copy of this report has been sent to Specimen Comment: [phone]. Specimen Comment: Report sent to Performed at: 01 [facility] [address] [facility] [address], [place] [id number] MD Kory Kevin MD Phone: [phone] Performed at: 02 [facility] [address] [place], [place] [id number] MD Marv Starr MD Phone: [phone]
== END 2018-04-21 16:10 ==
LOC: SURG 09:29 → 4 NORTH 16:20
PROVIDERS: ADMIT Specialist; ATTEND Specialist
DX: C50.911 Malignant neoplasm of unspecified site of right female breast (principal); E11.9 Type 2 diabetes mellitus without complications; I10 Essential (primary) hypertension; E78.5 Hyperlipidemia, unspecified; E03.9 Hypothyroidism, unspecified; I25.10 Atherosclerotic heart disease of native coronary artery without angina pectoris; F41.9 Anxiety disorder, unspecified; F32.9 Major depressive disorder, single episode, unspecified; Z90.710 Acquired absence of both cervix and uterus; Z79.4 Long term (current) use of insulin; Z83.3 Family history of diabetes mellitus; Z82.49 Family history of ischemic heart disease and other diseases of the circulatory system
CPT/HCPCS: 19303; 36415; 38525; 38792; 80048; 80053; 82962; 85025; 85610; 85730; 88305; 88307; 88341; 88342; 96365; 96372; 96375; 97162; 97166; A9541; G0378; G0379; G8978; G8979; J0690; J1100; J1815; J2001; J2270; J2370; J2405; J2704; J2710; J3010; J3490; J7120; Q9968; 96374; J0330

== ENCOUNTER 2019-05-07 15:52 | Emergency (ER) | payer MEDICAID, OTHER ==
[~2019-05-07] VITALS: Ht 165.1 cm; Wt 75.0 kg
[~2019-05-07 15:52] MED LIST changes: +CLON-77 PO; -CLON0.5T11 PO; -HYDROmorphone 2 MG/ML VIAL IV PRN; -LIDOCAINE 1% PF 2 ML VIAL. ID PRN; -LIDOCAINE WITH 8.4% SOD BICARB 3 ML DISP.SYRIN. INJ ONE; -MELA3TAB2 PO; +MELA3TAB56 PO; -MORPHINE SULFATE 4 MG/ML VIAL. IV PRN; -ONDANSETRON PF 4 MG/2 ML VIAL. IV PRN; -PROCHLORPERAZINE 10 MG/2 ML VIAL. IV PRN; +TRAZ-123 PO; -TRAZ-86 PO; -UBID200C PO; +UBID200C30 PO; +VITA-8 PO; -VITA400C36 PO; -fentaNYL PF VIAL 100 MCG/2 ML VIAL IV PRN
--- NOTE | 2019-05-07 16:52 | PHYS DOC ---
Past Medical History Past Medical History: Anxiety, Depression, Diabetes-Type II, Hypertension, Hypothyroid Additional Past Medical Histor: HEART DISEASE, CHRONIC PAIN, pseudoseizure, possible breast cancer Past Surgical History: Cholecystectomy, Hysterectomy Additional Past Surgical Histo: NECK SURGERY Smoking Status: Former Smoker Alcohol Use: Occasionally Drug Use: None Adult General Chief Complaint Chief Complaint: KNEE INJURY [facility] HPI Patient is a 74 year old female, brought to the emergency department via EMS with complaints of right knee pain after a fall from standing today. Nursing reported the patient has had 7 different falls in last month. Patient states that she got up from watching TV on a chair when she slipped on the carpet and fell. Patient states she was not using her walker at that time. She denies hitting her head, loss of conciousness, neck, back, or ankle pain. She complains of right anterior knee pain, and right hip pain with palpation. The patient denies any numbness, tingling, weakness, nausea, vomiting, diarrhea, abdominal pain, chest pain, dizziness, or vision changes. She currently rates her pain a 1 out of 10 on the pain scale, she denies any alleviating factors, the pain is worse if you touch the right knee or her lateral right hip. Review of Systems Review of Systems All other ROS is negative unless otherwise noted in HPI. Allergies Allergies Allergies Coded Allergies Type Severity Reaction Last Updated Verified Iodine and Iodide Containing Produc Allergy Intermediate 04/19/18 Yes Khvqoio-Icn-Pha Reductase Inhibitor Allergy Intermediate 04/19/18 Yes Sulfa (Sulfonamide Antibiotics) Allergy Intermediate Rash 04/19/18 Yes bupropion Allergy Intermediate Rash 04/19/18 Yes erythromycin base Allergy Intermediate 04/19/18 Yes tetracycline Allergy Intermediate Swelling 04/19/18 Yes warfarin Allergy Intermediate Hives 04/19/18 Yes niacin Adverse Reaction Intermediate Hives 04/19/18 Yes nitroglycerin Adverse Reaction Intermediate 04/19/18 Yes Physical Exam Physical Exam See Above Constitutional: Well developed, well nourished, no acute distress, non-toxic appearance. [] HENT: Normocephalic, atraumatic, bilateral external ears normal, nose normal. [] Eyes: PERRLA, EOMI, conjunctiva normal, no discharge. [] Neck: Normal range of motion, no tenderness, supple, no stridor. [] Cardiovascular:Heart rate regular rhythm, no murmur [] Lungs & Thorax: Bilateral breath sounds clear to auscultation [] Abdomen: soft, no tenderness Skin: Warm, dry, no erythema, no rash; small abrasion to anterior R knee without bleeding. [] Back: No bony tenderness Extremities: R anterior knee and R lateral hip TTP, no crepitus, no obvious de formity, no shortening or external rotation of RLE, no cyanosis, no clubbing, ROM intact, no edema. [] Neurologic: Alert and oriented X 3, no focal deficits noted. [] Psychologic: Affect normal, judgement normal, mood normal. [] Current Patient Data Vital Signs Vital Signs Date Time Temp Pulse Resp B/P (MAP) Pulse Ox O2 Delivery O2 Flow Rate FiO2 05/07/19 19:22 80 165/70 (101) 95 Room Air 05/07/19 15:55 98.0 16 98.0 Lab Values Laboratory Tests Test 05/07/19 16:45 05/07/19 16:52 White Blood Count 8.7 x10^3/uL (4.0-11.0) Red Blood Count 4.42 x10^6/uL (3.50-5.40) Hemoglobin 13.4 g/dL (12.0-15.5) Hematocrit 39.7 % (36.0-47.0) Mean Corpuscular Volume 90 fL (79-100) Mean Corpuscular Hemoglobin 30 pg (25-35) Mean Corpuscular Hemoglobin Concent 34 g/dL (31-37) Red Cell Distribution Width 14.3 % (11.5-14.5) Platelet Count 167 x10^3/uL (140-400) Neutrophils (%) (Auto) 72 % (31-73) Lymphocytes (%) (Auto) 20 % (24-48) L Monocytes (%) (Auto) 6 % (0-9) Eosinophils (%) (Auto) 1 % (0-3) Basophils (%) (Auto) 1 % (0-3) Neutrophils # (Auto) 6.3 x10^3/uL (1.8-7.7) Lymphocytes # (Auto) 1.7 x10^3/uL (1.0-4.8) Monocytes # (Auto) 0.5 x10^3/uL (0.0-1.1) Eosinophils # (Auto) 0.1 x10^3/uL (0.0-0.7) Basophils # (Auto) 0.1 x10^3/uL (0.0-0.2) Sodium Level 138 mmol/L (136-145) Potassium Level 4.7 mmol/L (3.5-5.1) Chloride Level 102 mmol/L (98-107) Carbon Dioxide Level 24 mmol/L (21-32) Anion Gap 12 (6-14) Blood Urea Nitrogen 42 mg/dL (7-20) H Creatinine 1.1 mg/dL (0.6-1.0) H Estimated GFR (Cockcroft-Gault) 48.6 BUN/Creatinine Ratio 38 (6-20) H Glucose Level 261 mg/dL (70-99) H Calcium Level 9.9 mg/dL (8.5-10.1) Total Bilirubin 0.3 mg/dL (0.2-1.0) Aspartate Amino Transferase (AST) 53 U/L (15-37) H Alanine Aminotransferase (ALT) 42 U/L (14-59) Alkaline Phosphatase 236 U/L (46-116) H Total Protein 8.3 g/dL (6.4-8.2) H Albumin 3.5 g/dL (3.4-5.0) Albumin/Globulin Ratio 0.7 (1.0-1.7) L Urine Collection Type U cath Urine Color Yellow Urine Clarity Clear Urine pH 6.0 Urine Specific [place] 1.025 Urine Protein Negative mg/dL (NEG-TRACE) Urine Glucose (UA) >=1000 mg/dL (NEG) Urine Ketones (Stick) Negative mg/dL (NEG) Urine Blood Negative (NEG) Urine Nitrite Negative (NEG) Urine Bilirubin Negative (NEG) Urine Urobilinogen Dipstick 0.2 mg/dL (0.2 mg/dL) Urine Leukocyte Esterase Negative (NEG) Urine RBC Rare /HPF (0-2) Urine WBC 0 /HPF (0-4) Urine Squamous Epithelial Cells Few /LPF Urine Transitional Epithelial Cells Few /LPF Urine Bacteria 0 /HPF (0-FEW) Laboratory Tests 05/07/19 16:45 Laboratory Tests 05/07/19 16:45 EKG EKG [] Radiology/Procedures Radiology/Procedures PROCEDURE: KNEE RIGHT 3V Study: KNEE RIGHT 3V Indication: Right knee and hip pain after a fall. Comparison: None. Findings: Degraded lateral view due to flexion across the knee. No acute fracture or malalignment. No large knee joint effusion. Chondrocalcinosis and overall mild arthropathy at the knee. Vascular calcifications and osteopenia. Impression: No acute osseous abnormality. PROCEDURE: HIP RIGHT 2V WITH PELVIS Study: HIP RIGHT 2V WITH PELVIS Indication: Right knee and hip pain after a fall from standing. Comparison: 03/28/2018 Findings: No acute fracture seen at the right hip or elsewhere throughout the pelvis noting the presence of osteopenia. Portions of the sacrum are obscured by bowel gas. Advanced degenerative changes of the lower lumbar spine. Mild hip arthrosis and mild sacroiliac joint arthrosis. Vascular calcifications. Impression: No acute fracture or traumatic malalignment. [] Course & Med Decision Making Course & Med Decision Making Pertinent Labs and Imaging studies reviewed. (See chart for details) [] Dragon Disclaimer Dragon Disclaimer This electronic medical record was generated, in whole or in part, using a voice recognition dictation system. Departure Departure Impression: Primary Impression: Fall from standing Additional Impressions: Abrasion, right knee, initial encounter Right anterior knee pain Acute right hip pain Disposition: HOME, SELF-CARE Condition: STABLE Referrals: JHOANA KELSEY (PCP) Patient Instructions: Fall Prevention and Home Safety, Cddt-cu-[id number], Hip Pain, Knee Pain, Adbj-dc-[place]uai Additional Instructions: Tylenol or ibuprofen as needed for pain. X-rays of your right knee and right hip were negative for any acute findings or fracture. Use your walker with ambulation at all times. Increase fluids, your BUN was 42 and Creatinine was 1.1 follow up with your primary care doctor next week. Return to the ER if symptoms worsen. Problem Qualifiers Primary Impression: Fall from standing Encounter type: initial encounter Qualified Codes: W19.XXXA - Unspecified fall, initial encounter LELO ALONSO APRN May 07, 2019 16:52
[2019-05-07 17:10] LABS: BILIRUBIN,URINE NEGATIVE (NEG); CLARITY,URINE CLEAR; COLOR,URINE YELLOW; NITRITE,URINE NEGATIVE (NEG); PROTEIN,URINE NEGATIVE (NEG-TRACE); UROBILINOGEN,URINE 0.2 mg/dL (0.2 mg/dL)
[2019-05-07 17:11] LABS: BASO # 0.1 x10^3/uL (0.0-0.2); BASO % 1 % (0-3); EOS # 0.1 x10^3/uL (0.0-0.7); EOS % 1 % (0-3); HEMATOCRIT 39.7 % (36.0-47.0); HEMOGLOBIN 13.4 g/dL (12.0-15.5); LYMPH # 1.7 x10^3/uL (1.0-4.8); LYMPH % 20 % (24-48); MEAN CORPUSCULAR HEMOGLOBIN 30 pg (25-35); MEAN CORPUSCULAR HGB CONC 34 g/dL (31-37); MEAN CORPUSCULAR VOLUME 90 fL (79-100); MONO # 0.5 x10^3/uL (0.0-1.1); MONO % 6 % (0-9); NEUT # 6.3 x10^3/uL (1.8-7.7); NEUT % 72 % (31-73); PLATELET COUNT 167 x10^3/uL (140-400); RED BLOOD COUNT 4.42 x10^6/uL (3.50-5.40); RED CELL DISTRIBUTION WIDTH 14.3 % (11.5-14.5); WHITE BLOOD COUNT 8.7 x10^3/uL (4.0-11.0)
[2019-05-07 17:17] LABS: BACTERIA,URINE 0 /HPF (0-FEW); RBC,URINE RARE /HPF (0-2); SQUAMOUS EPITHELIAL CELL,UR FEW /LPF; WBC,URINE 0 /HPF (0-4)
[2019-05-07 17:18] LABS: CALCIUM 9.9 mg/dL (8.5-10.1); CREATININE 1.1 mg/dL (0.6-1.0); GFR 48.6; POTASSIUM 4.7 mmol/L (3.5-5.1)
[2019-05-07 17:22] LABS: ALBUMIN 3.5 g/dL (3.4-5.0); ALBUMIN/GLOBULIN RATIO 0.7 (1.0-1.7); TOTAL BILIRUBIN 0.3 mg/dL (0.2-1.0); TOTAL PROTEIN 8.3 g/dL (6.4-8.2)
--- NOTE | 2019-05-07 18:17 | RAD ---
Study: HIP RIGHT 2V WITH PELVIS Indication: Right knee and hip pain after a fall from standing. Comparison: 03/28/2018 Findings: No acute fracture seen at the right hip or elsewhere throughout the pelvis noting the presence of osteopenia. Portions of the sacrum are obscured by bowel gas. Advanced degenerative changes of the lower lumbar spine. Mild hip arthrosis and mild sacroiliac joint arthrosis. Vascular calcifications. Impression: No acute fracture or traumatic malalignment. Electronically signed by: CIERRA VAUGHN MD (05/07/2019 6:15 PM) [id number]
--- NOTE | 2019-05-07 18:50 | RAD ---
Study: KNEE RIGHT 3V Indication: Right knee and hip pain after a fall. Comparison: None. Findings: Degraded lateral view due to flexion across the knee. No acute fracture or malalignment. No large knee joint effusion. Chondrocalcinosis and overall mild arthropathy at the knee. Vascular calcifications and osteopenia. Impression: No acute osseous abnormality. Electronically signed by: CIERRA VAUGHN MD (05/07/2019 6:47 PM) [id number]
[2019-05-07 19:22] VITALS: BP 165/70
== END 2019-05-07 20:49 | disposition home or self-care (01) ==
LOC: ER 15:52
DX: S80.211A Abrasion, right knee, initial encounter (principal); M25.551 Pain in right hip; I11.9 Hypertensive heart disease without heart failure; E11.9 Type 2 diabetes mellitus without complications; E03.9 Hypothyroidism, unspecified; G89.29 Other chronic pain; Z87.891 Personal history of nicotine dependence; Z90.49 Acquired absence of other specified parts of digestive tract; Z90.710 Acquired absence of both cervix and uterus; Z88.1 Allergy status to other antibiotic agents; Z88.2 Allergy status to sulfonamides; Z91.041 Radiographic dye allergy status; Z88.8 Allergy status to other drugs, medicaments and biological substances; W18.39XA Other fall on same level, initial encounter; Y93.89 Activity, other specified; Y92.89 Other specified places as the place of occurrence of the external cause; Y99.8 Other external cause status
CPT/HCPCS: 36415; 73502; 73562; 80053; 81001; 85025; 99285-25

== ENCOUNTER 2019-06-03 11:31 | Emergency (ER) | payer MEDICAID ==
[~2019-06-03] VITALS: Ht 167.6 cm; Wt 77.2 kg
[~2019-06-03 11:31] MED LIST changes: +MELA3TAB4 PO; -MELA3TAB56 PO
--- NOTE | 2019-06-03 12:10 | PHYS DOC ---
Past Medical History Past Medical History: Anxiety, Depression, Diabetes-Type II, Hypertension, Hypothyroid Additional Past Medical Histor: HEART DISEASE, CHRONIC PAIN, pseudoseizure, possible breast cancer Past Surgical History: Cholecystectomy, Hysterectomy Additional Past Surgical Histo: NECK SURGERY Smoking Status: Former Smoker Alcohol Use: Occasionally Drug Use: None Adult General Chief Complaint Chief Complaint: MECHANICAL FALL HPI HPI Patient is a 74 [facility] with history of h ypertension, hypothyroidism, diabetes mellitus, anxiety and depression, right breast cancer, pseudoseizure, chronic neck pain on oxycodone who presents via EMS with complaining of fall and neck pain. Patient bending over to take something from her mini refrigerator and lost her balance and had a fall from a short distance less than 3 feet without loss of consciousness and complaining of increasing chronic back pain and rated her pain 5/10. Patient denies new focal neuro deficit, headache, nausea and vomiting, chest pain or shortness of breath. Review of Systems Review of Systems Constitutional: Denies fever or chills [] Eyes: Denies change in visual acuity, redness, or eye pain [] HENT: Denies nasal congestion or sore throat [] Respiratory: Denies cough or shortness of breath [] Cardiovascular: No additional information not addressed in HPI [] GI: Denies abdominal pain, nausea, vomiting, bloody stools or diarrhea [] : Denies dysuria or hematuria [] Musculoskeletal: Denies back pain or joint pain, reports neck pain [] Integument: Denies rash or skin lesions [] Neurologic: Denies headache, focal weakness or sensory changes [] Endocrine: Denies polyuria or polydipsia [] All other systems were reviewed and found to be within normal limits, except as documented in this note. Allergies Allergies Allergies Coded Allergies Type Severity Reaction Last Updated Verified Iodine and Iodide Containing Produc Allergy Intermediate 04/19/18 Yes Lzptlxl-Cli-Jkh Reductase Inhibitor Allergy Intermediate 04/19/18 Yes Sulfa (Sulfonamide Antibiotics) Allergy Intermediate Rash 04/19/18 Yes bupropion Allergy Intermediate Rash 04/19/18 Yes erythromycin base Allergy Intermediate 04/19/18 Yes tetracycline Allergy Intermediate Swelling 04/19/18 Yes warfarin Allergy Intermediate Hives 04/19/18 Yes niacin Adverse Reaction Intermediate Hives 04/19/18 Yes nitroglycerin Adverse Reaction Intermediate 04/19/18 Yes Physical Exam Physical Exam Constitutional: Well nourished, mild distress, non-toxic appearance. [] HENT: Normocephalic, atraumatic. Eyes: PERRLA, EOMI, conjunctiva normal, no discharge. [] Neck: Immobilized with c-collar prior to arrival to ER Cardiovascular:Heart rate regular rhythm, no murmur [] Lungs & Thorax: Bilateral breath sounds clear to auscultation [] Abdomen: Bowel sounds normal, soft, no tenderness, no masses, no pulsatile masses. [] Skin: Warm, dry, no erythema, no rash. [] Back: No tenderness, no CVA tenderness. [] Extremities: No tenderness, no cyanosis, no clubbing, ROM intact, no edema. [] Neurologic: Alert and oriented X 3, somnolent, no focal deficits noted. [] Psychologic: Affect normal, mood normal. [] Current Patient Data Vital Signs Vital Signs Date Time Temp Pulse Resp B/P (MAP) Pulse Ox O2 Delivery O2 Flow Rate FiO2 06/03/19 11:46 99.4 75 18 153/67 (95) 91 Room Air 99.4 EKG EKG [] Radiology/Procedures Radiology/Procedures [facility] [address] [place] [address] IMAGING REPORT Signed PATIENT: FRANCISCA CASTRO ACCOUNT: [id number] : 1945 LOCATION: ER AGE: 74 SEX: F EXAM STATUS: PRE ER ORD. PHYSICIAN: MARILEE MILES MD REASON: fall PROCEDURE: CT HEAD AND CERVICAL SPINE WO Exam performed: CT scan of the head and cervical spine without contrast. Date of Service: 06/03/2019 Comparison: CT head and C-spine from September 19, 2017 Clinical History: Fall Technique: Helical acquisitions are obtained from the foramen magnum to the vertex without intravenous administration of contrast. In addition helical acquisitions are obtained through the cervical spine. Sagittal and coronal reformatted images are obtained and reviewed. CT scan head findings: Prominence of cortical sulci is seen consistent with mild age related atrophy. Normal gautam-white differentiation is maintained. There is no extra axial fluid collection, intraparenchymal hemorrhage or mass lesion. The visualized orbits, paranasal sinuses and the mastoid air cells are clear. The calvarium is intact. Impression: 1. No acute intracranial process detected. End Impression. CT cervical spine findings: Postoperative changes of anterior cervical fusion seen at C6/7 level with intervertebral disc spacer in place with intact hardware. Sagittal alignment appears preserved. The vertebral body heights and intravertebral disc spaces are maintained. Mild diffuse arthritic spurring is seen. There is no edna or retrolisthesis. No prevertebral soft tissue swelling is identified. There are no fractures. No definite lymphadenopathy or masses are seen within the neck. The visualized thyroid and salivary glands appears preserved. Impression: 1. No acute abnormality seen in the CT scan cervical spine. 2. Spondylotic changes, unchanged since previous exam PQRS Compliance Statement: One or more of the following individualized dose reduction techniques were utilized for this examination: 1. Automated exposure control 2. Adjustment of the mA and/or kV according to patient size 3. Use of iterative reconstruction technique Electronically signed by: Maci Reyes MD (06/03/2019 12:53 PM) [id number] DICTATED and SIGNED BY: MACI REYES MD DATE: 06/03/19 1253 Course & Med Decision Making Course & Med Decision Making Pertinent Labs and Imaging studies reviewed. (See chart for details) Discharge: I've spoken with the patient and/or caregivers. I've explained the patient's condition, diagnosis and treatment plan based on information available to me at this time. I've answered the patient's and/or caregivers questions and addressed any concerns. The patient and/or caregivers have a good understanding the patient's diagnosis, condition and treatment plan as can be expected at this point. Vital signs have been stabilized. The patient's condition is stable for discharge from the emergency department. The patient will pursue further outpatient evaluation with her primary care provider or other designated consulting physician as outlined in the discharge instructions. Patient and/or caregivers are agreeable to this plan of care and follow-up instructions have been explained in detail. The patient and/or caregivers have received these instructions in written format and expressed understanding of these discharge instructions. The patient and her caregivers are aware that if any significant change in condition or worsening of symptoms should prompt him to immediately return to this of the closest emergency department. If an emergent department is not readily available I would encourage him to call 911. Candice Disclaimer Candice Disclaimer This electronic medical record was generated, in whole or in part, using a voice recognition dictation system. Departure Departure Impression: Primary Impression: Fall at [facility] Additional Impression: Chronic neck pain Disposition: HOME, SELF-CARE ([facility]) Condition: IMPROVED Referrals: JHOANA KELSEY (PCP) Patient Instructions: Chronic Pain, Fall Prevention and Home Safety Additional Instructions: Apply ice on your neck Continue current medication Follow-up with your primary care physician in 3-5 days Return to ER if not getting better Problem Qualifiers Primary Impression: Fall at [facility] Encounter type: subsequent encounter Qualified Codes: W19.XXXD - Unspeci fied fall, subsequent encounter; Y92.129 - Unspecified place in [facility] as the place of occurrence of the external cause MARILEE MILES MD Jun 03, 2019 12:10
--- NOTE | 2019-06-03 12:56 | RAD ---
Exam performed: CT scan of the head and cervical spine without contrast. Date of Service: 06/03/2019 Comparison: CT head and C-spine from September 19, 2017 Clinical History: Fall Technique: Helical acquisitions are obtained from the foramen magnum to the vertex without intravenous administration of contrast. In addition helical acquisitions are obtained through the cervical spine. Sagittal and coronal reformatted images are obtained and reviewed. CT scan head findings: Prominence of cortical sulci is seen consistent with mild age related atrophy. Normal gautam-white differentiation is maintained. There is no extra axial fluid collection, intraparenchymal hemorrhage or mass lesion. The visualized orbits, paranasal sinuses and the mastoid air cells are clear. The calvarium is intact. Impression: 1. No acute intracranial process detected. End Impression. CT cervical spine findings: Postoperative changes of anterior cervical fusion seen at C6/7 level with intervertebral disc spacer in place with intact hardware. Sagittal alignment appears preserved. The vertebral body heights and intravertebral disc spaces are maintained. Mild diffuse arthritic spurring is seen. There is no edna or retrolisthesis. No prevertebral soft tissue swelling is identified. There are no fractures. No definite lymphadenopathy or masses are seen within the neck. The visualized thyroid and salivary glands appears preserved. Impression: 1. No acute abnormality seen in the CT scan cervical spine. 2. Spondylotic changes, unchanged since previous exam PQRS Compliance Statement: One or more of the following individualized dose reduction techniques were utilized for this examination: 1. Automated exposure control 2. Adjustment of the mA and/or kV according to patient size 3. Use of iterative reconstruction technique Electronically signed by: Maci Reyes MD (06/03/2019 12:53 PM) [id number]
[2019-06-03 13:06] VITALS: BP 149/64
== END 2019-06-03 14:00 | disposition home or self-care (01) ==
LOC: ER 11:31
DX: G89.29 Other chronic pain (principal); M54.2 Cervicalgia; M54.9 Dorsalgia, unspecified; G89.11 Acute pain due to trauma; E11.9 Type 2 diabetes mellitus without complications; E03.9 Hypothyroidism, unspecified; I11.9 Hypertensive heart disease without heart failure; Z87.891 Personal history of nicotine dependence; Z90.710 Acquired absence of both cervix and uterus; Z90.49 Acquired absence of other specified parts of digestive tract; Z88.1 Allergy status to other antibiotic agents; Z91.041 Radiographic dye allergy status; Z88.2 Allergy status to sulfonamides; Z88.8 Allergy status to other drugs, medicaments and biological substances; W18.39XA Other fall on same level, initial encounter; Y93.89 Activity, other specified; Y92.89 Other specified places as the place of occurrence of the external cause; Y99.8 Other external cause status
CPT/HCPCS: 70450; 72125; 99284-25; 99285-25

== ENCOUNTER 2019-09-01 21:14 | Emergency (ER) | payer MEDICAID ==
[~2019-09-01] VITALS: Ht 167.6 cm; Wt 77.2 kg
[~2019-09-01 21:14] MED LIST changes: -LEVO112T4 PO; +LEVO112T49 PO
[2019-09-01 21:50] LABS: BASO # 0.1 x10^3/uL (0.0-0.2); BASO % 1 % (0-3); EOS # 0.1 x10^3/uL (0.0-0.7); EOS % 1 % (0-3); HEMATOCRIT 36.3 % (36.0-47.0); HEMOGLOBIN 12.5 g/dL (12.0-15.5); LYMPH # 1.9 x10^3/uL (1.0-4.8); LYMPH % 28 % (24-48); MEAN CORPUSCULAR HEMOGLOBIN 31 pg (25-35); MEAN CORPUSCULAR HGB CONC 35 g/dL (31-37); MEAN CORPUSCULAR VOLUME 89 fL (79-100); MONO # 0.5 x10^3/uL (0.0-1.1); MONO % 7 % (0-9); NEUT # 4.3 x10^3/uL (1.8-7.7); NEUT % 62 % (31-73); PLATELET COUNT 127 x10^3/uL (140-400); RED BLOOD COUNT 4.08 x10^6/uL (3.50-5.40); RED CELL DISTRIBUTION WIDTH 14.5 % (11.5-14.5); WHITE BLOOD COUNT 6.9 x10^3/uL (4.0-11.0)
[2019-09-01 21:56] LABS: CALCIUM 9.1 mg/dL (8.5-10.1); CREATININE 1.1 mg/dL (0.6-1.0); GFR 48.6; POTASSIUM 4.1 mmol/L (3.5-5.1)
[2019-09-01 22:02] LABS: ALBUMIN 3.3 g/dL (3.4-5.0); ALBUMIN/GLOBULIN RATIO 0.7 (1.0-1.7); TOTAL BILIRUBIN 0.3 mg/dL (0.2-1.0); TOTAL PROTEIN 7.8 g/dL (6.4-8.2)
[2019-09-01 22:16] LABS: PROTHROMBIN TIME PATIENT 12.9 SEC (11.7-14.0)
--- NOTE | 2019-09-01 22:31 | RAD ---
CT Head W/O Contrast: History: Reason: trauma / Spl. Instructions: / History: Comparison: June 03, 2019 Axial images were obtained without contrast. There is moderate diffuse atrophy. There is no mass effect, extraaxial fluid collections or hydrocephalus. There is no gross bleed. Mild, patchy periventricular and subcortical white matter hypoattenuation is seen. There is no focal loss of gautam-white matter distinction to suggest acute ischemia, i.e. stroke. Impression: No acute findings. End impression CT C-Spine without contrast: Clinical History: Reason: trauma / Spl. Instructions: / History: Technique: Axial helical images of the cervical spine were obtained without contrast, axial coronal and sagittal reconstruction was performed. Findings: There is beam Kelley artifact from hardware due to prior anterior fusion of C6-C7. There is no loss of vertebral body stature. There is no prevertebral soft tissue swelling. The vertebral bodies are well aligned. There is straightening of the normal cervical lordosis which can be positional or could be chronic. The C1-C2 relationship is normal. The visualized osseous structures appear normal. Evaluation of the central canal is limited without contrast. There is multiple posterior disc bulges resulting in flattening of the thecal sac. At C3 3 through C4 there is complete effacement of CSF around the cord and is likely mild impression on the anterior surface the cervical cord and there is marked narrowing of the neuroforamen bilaterally. This makes the patient susceptible to possible cord contusion. At C5-C6 is complete effacement of CSF around the cord. Impression: Marked degenerative changes of the cervical spine and prior surgery. No acute findings. Clinical correlation suggested. End impression PQRS Compliance Statement: One or more of the following individualized dose reduction techniques were utilized for this examination: 1. Automated exposure control 2. Adjustment of the mA and/or kV according to patient size 3. Use of iterative reconstruction technique Electronically signed by: Luis M Berry III, MD (09/01/2019 10:28 PM) [id number]
--- NOTE | 2019-09-01 22:36 | PHYS DOC ---
Past Medical History Past Medical History: Anxiety, Depression, Diabetes-Type II, Hypertension, Hypothyroid Additional Past Medical Histor: HEART DISEASE, CHRONIC PAIN, pseudoseizure, possible breast cancer Past Surgical History: Cholecystectomy, Hysterectomy Additional Past Surgical Histo: NECK SURGERY; right Mastectomy Smoking Status: Former Smoker Alcohol Use: Occasionally Drug Use: None General Adult EDM: Chief Complaint: MECHANICAL FALL HPI: HPI: Patient is a 74 year old female presenting from a [facility] with a chief complaint of a mechanical fall. Patient states that she was try to change DVD and a DVD player and she fell and hit her head. Patient denies loss of consciousness. Patient denies any other injury. Patient does state that she takes Plavix. Patient also has hyperglycemia but states that she took her usual dose of insulin before coming into the ER. Review of Systems: Review of Systems: Constitutional: Denies fever or chills. [] Eyes: Denies change in visual acuity. [] HENT: Denies nasal congestion or sore throat. Complains of head injury [] Respiratory: Denies cough or shortness of breath. [] Cardiovascular: Denies chest pain or edema. [] GI: Denies abdominal pain, nausea, vomiting, bloody stools or diarrhea. [] : Denies dysuria. [] Neurologic: Denies headache, focal weakness or sensory changes. [] Heart Score: Risk Factors: Risk Factors: DM, Current or recent (<one month) smoker, HTN, HLP, family history of CAD, obesity. Risk Scores: Score 0 - 3: 2.5% MACE over next 6 weeks - Discharge Home Score 4 - 6: 20.3% MACE over next 6 weeks - Admit for Clinical Observation Score 7 - 10: 72.7% MACE over next 6 weeks - Early Invasive Strategies Allergies: Allergies: Allergies Coded Allergies Type Severity Reaction Last Updated Verified Iodine and Iodide Containing Produc Allergy Intermediate 09/01/19 Yes Gkynvob-Hui-Nba Reductase Inhibitor Allergy Intermediate 09/01/19 Yes Sulfa (Sulfonamide Antibiotics) Allergy Intermediate Rash 09/01/19 Yes bupropion Allergy Intermediate Rash 09/01/19 Yes erythromycin base Allergy Intermediate 09/01/19 Yes tetracycline Allergy Intermediate Swelling 09/01/19 Yes warfarin Allergy Intermediate Hives 09/01/19 Yes niacin Adverse Reaction Intermediate Hives 09/01/19 Yes nitroglycerin Adverse Reaction Intermediate 09/01/19 Yes Physical Exam: PE: Constitutional: Well developed, well nourished, no acute distress, non-toxic appearance. [] HENT: Normocephalic, atraumatic Eyes: EOMI Neck: Normal range of motion, Supple Cardiovascular:Heart rate regular rhythm Lungs & Thorax: Bilateral breath sounds clear to auscultation [] Abdomen: Bowel sounds normal, soft, no tenderness Extremities: No tenderness, ROM intact Neurologic: Alert and oriented X 3 Current Patient Data: Labs: Laboratory Tests Test 09/01/19 21:18 09/01/19 21:50 White Blood Count 6.9 x10^3/uL (4.0-11.0) Red Blood Count 4.08 x10^6/uL (3.50-5.40) Hemoglobin 12.5 g/dL (12.0-15.5) Hematocrit 36.3 % (36.0-47.0) Mean Corpuscular Volume 89 fL (79-100) Mean Corpuscular Hemoglobin 31 pg (25-35) Mean Corpuscular Hemoglobin Concent 35 g/dL (31-37) Red Cell Distribution Width 14.5 % (11.5-14.5) Platelet Count 127 x10^3/uL (140-400) L Neutrophils (%) (Auto) 62 % (31-73) Lymphocytes (%) (Auto) 28 % (24-48) Monocytes (%) (Auto) 7 % (0-9) Eosinophils (%) (Auto) 1 % (0-3) Basophils (%) (Auto) 1 % (0-3) Neutrophils # (Auto) 4.3 x10^3/uL (1.8-7.7) Lymphocytes # (Auto) 1.9 x10^3/uL (1.0-4.8) Monocytes # (Auto) 0.5 x10^3/uL (0.0-1.1) Eosinophils # (Auto) 0.1 x10^3/uL (0.0-0.7) Basophils # (Auto) 0.1 x10^3/uL (0.0-0.2) Sodium Level 135 mmol/L (136-145) L Potassium Level 4.1 mmol/L (3.5-5.1) Chloride Level 99 mmol/L (98-107) Carbon Dioxide Level 30 mmol/L (21-32) Anion Gap 6 (6-14) Blood Urea Nitrogen 23 mg/dL (7-20) H Creatinine 1.1 mg/dL (0.6-1.0) H Estimated GFR (Cockcroft-Gault) 48.6 BUN/Creatinine Ratio 21 (6-20) H Glucose Level 331 mg/dL (70-99) H Calcium Level 9.1 mg/dL (8.5-10.1) Total Bilirubin 0.3 mg/dL (0.2-1.0) Aspartate Amino Transferase (AST) 31 U/L (15-37) Alanine Aminotransferase (ALT) 28 U/L (14-59) Alkaline Phosphatase 167 U/L (46-116) H Total Protein 7.8 g/dL (6.4-8.2) Albumin 3.3 g/dL (3.4-5.0) L Albumin/Globulin Ratio 0.7 (1.0-1.7) L Prothrombin Time 12.9 SEC (11.7-14.0) Prothrombin Time INR 1.0 (0.8-1.1) Laboratory Tests 09/01/19 21:18 Laboratory Tests 09/01/19 21:18 Vital Signs: Vital Signs Date Time Temp Pulse Resp B/P (MAP) Pulse Ox O2 Delivery O2 Flow Rate FiO2 09/01/19 22:15 67 19 98 09/01/19 21:24 98.8 140/82 (101) Room Air 98.8 EKG: EKG: [] Radiology/Procedures: Radiology/Procedures: [] Impression: CT head, CT C-spine impression No intracranial process and no acute fractures Course & Med Decision Making: Course & Med Decision Making Pertinent Labs and Imaging studies reviewed. (See chart for details) Ordered labs, CT head, CT C-spine. CT head and CT C-spine did not show any acute intracranial process or acute fractures. Blood glucose is 331. On recheck in 1 hour blood glucose now was 224. Patient states that her blood glucose usually runs in the 200s. Patient is comfortable to be discharged home. Discussed results and plan of care with patient. Patient is instructed to follow up with PCP in one to 2 days. Appropriate discharge instructions given to patient to return to the ED or to seek immediate medical evaluation. Patient is instructed to return to the ED if symptoms worsen or if any concerns. Candice Disclaimer: Candice Disclaimer: This electronic medical record was generated, in whole or in part, using a voice recognition dictation system. Departure Departure Impression: Primary Impression: Closed head injury Additional Impression: Hyperglycemia Disposition: 01 HOME, SELF-CARE Condition: STABLE Referrals: JHOANA KELSEY (PCP) Patient Instructions: Head Injury, Adult, Hyperglycemia Additional Instructions: Please return to the ED if symptoms worsen or if any concerns. Please follow-up with PCP in 1 to 2 days. Justicifation of Admission Dx: Justifications for Admission: Justification of Admission Dx: ISAURO Ross DO Sep 01, 2019 22:36
[2019-09-01 23:58] VITALS: BP 141/79
== END 2019-09-01 23:50 | disposition home or self-care (01) ==
LOC: ER 21:14
DX: S09.8XXA Other specified injuries of head, initial encounter (principal); F41.9 Anxiety disorder, unspecified; F32.9 Major depressive disorder, single episode, unspecified; E11.65 Type 2 diabetes mellitus with hyperglycemia; E03.9 Hypothyroidism, unspecified; G89.29 Other chronic pain; Z90.710 Acquired absence of both cervix and uterus; Z90.49 Acquired absence of other specified parts of digestive tract; Z90.89 Acquired absence of other organs; Z98.890 Other specified postprocedural states; Z87.891 Personal history of nicotine dependence; Z88.1 Allergy status to other antibiotic agents; Z88.2 Allergy status to sulfonamides; Z88.8 Allergy status to other drugs, medicaments and biological substances; Z88.6 Allergy status to analgesic agent; W18.09XA Striking against other object with subsequent fall, initial encounter; Y93.89 Activity, other specified; Y92.89 Other specified places as the place of occurrence of the external cause; Y99.8 Other external cause status
CPT/HCPCS: 36415; 70450; 72125; 80053; 82962; 85025; 85610; 99285

== ENCOUNTER 2020-01-14 18:36 | Emergency (ER) | payer MEDICAID ==
[~2020-01-14] VITALS: Ht 167.6 cm; Wt 76.0 kg
[~2020-01-14 18:36] MED LIST changes: +ALBU2.5V8 INH; +ASPI-886 PO; +DOXE10CA PO; +EZET10TA48 PO; +FLUT9.9S NS; +GLIP5TAB10 PO; +HYDR-2761 PO; +INSU100V8 SQ; +LISI-130 PO; +MELA10CA PO; +NAPR220C62 PO; +TORS10TA3 PO; -UBID60CA2 PO; +UBID60CA4 PO
--- NOTE | 2020-01-14 19:15 | RAD ---
Exam: CT head and cervical spine without contrast INDICATION: Fall from standing TECHNIQUE: Sequential axial images through the head and cervical spine were obtained without the administration of IV contrast. Comparisons: None FINDINGS: Head: No focal parenchymal lesion or hemorrhage is identified. There is no midline shift or sulcal effacement. No acute vascular territory infarction is identified. Lunsford-white distinction is preserved. The ventricular system is within normal limits without compression hydrocephalus. The basal cisterns are well maintained. Mild extra cranial soft tissue scalp contusion overlying the left occipital region. The visualized portions of the paranasal sinuses and mastoid air cells are well-pneumatized. No acute fractures. Cervical spine: Vertebral body heights are well-maintained. There is grade 1 anterolisthesis of C2 on C3 and C4 on C5. Anterior cervical fusion hardware at C5-C6.. Fracture to the cervical spine is not identified. Mild multilevel spondylotic change in cervical spine with degenerative disc disease greatest at C5-C6. Visualized bilateral facet arthropathy also noted. Visualized soft tissues are unremarkable. IMPRESSION: 1. Mild extra cranial soft tissue scalp contusion overlying the left occipital region without underlying osseous or intracranial abnormality. 2. Negative CT C-spine for acute traumatic injury. Exposure: One or more of the following in the visualized dose reduction techniques were utilized for this examination: 1. Automated exposure control 2. Adjustment of the MA and/or KV according to patient size Use of iterative of reconstructive technique Electronically signed by: Guillermina Melo MD (01/14/2020 7:12 PM) [facility]
--- NOTE | 2020-01-14 19:19 | ED.ADGEN ---
Past Medical History Past Medical History: Anxiety, Depression, Diabetes-Type II, Hypertension, Hypothyroid Additional Past Medical Histor: HEART DISEASE, CHRONIC PAIN, pseudoseizure, possible breast cancer Past Surgical History: Cholecystectomy, Hysterectomy Additional Past Surgical Histo: NECK SURGERY; right Mastectomy Smoking Status: Former Smoker Alcohol Use: Occasionally Drug Use: None General Adult EDM: Chief Complaint: MECHANICAL FALL HPI: HPI: Patient is a 74 year old male who presents to the emergency department via EMS with complaints of pain to left side of her posterior scalp after a chair she was holding onto while standing up slid out and caused her to fall this evening. Patient denies any loss of consciousness, she denies any neck or back pain. She complains of discomfort in her posterior head and her right shoulder. She denies any vision changes, nausea, vomiting, numbness, tingling, or weakness. She denies any shortness of breath, chest pain, palpitations, diarrhea, abdominal pain, or fever. Review of Systems: Review of Systems: Complete ROS is negative unless otherwise noted in HPI. Allergies: Allergies: Allergies Coded Allergies Type Severity Reaction Last Updated Verified Iodine and Iodide Containing Produc Allergy Intermediate 09/01/19 Yes Sulfa (Sulfonamide Antibiotics) Allergy Intermediate Rash 09/01/19 Yes bupropion Allergy Intermediate Rash 09/01/19 Yes tetracycline Allergy Intermediate Swelling 09/01/19 Yes warfarin Allergy Intermediate Hives 09/01/19 Yes Oovubzu-Hun-Zbu Reductase Inhibitor Adverse Reaction Intermediate 09/06/19 Yes erythromycin base Adverse Reaction Intermediate 09/06/19 Yes niacin Adverse Reaction Intermediate Hives 09/01/19 Yes nitroglycerin Adverse Reaction Intermediate 09/01/19 Yes Physical Exam: PE: See Above Constitutional: Well developed, well nourished, no acute distress, non-toxic appearance. [] HENT: Normocephalic, bilateral external ears normal, nose normal; swelling noted to left posterior scalp, 2 cm diameter, no bleeding or abrasion Eyes: PERRLA, EOMI, conjunctiva normal, no discharge. [] Neck: Normal range of motion, no tenderness, supple, no stridor. [] Cardiovascular:Heart rate regular rhythm Lungs & Thorax: Respirations even and unlabored Abdomen: soft, no tenderness Skin: Warm, dry, no erythema, no rash. [] Extremities: Right shoulder: Diffuse tenderness to palpation, no crepitus, no obvious deformity, PMS intact no cyanosis Neurologic: Alert and oriented X 3, no focal deficits noted. [] Psychologic: Affect normal, judgement normal, mood normal. [] EKG: EKG: [] Heart Score: Risk Factors: Risk Factors: DM, Current or recent (<one month) smoker, HTN, HLP, family history of CAD, obesity. Risk Scores: Score 0 - 3: 2.5% MACE over next 6 weeks - Discharge Home Score 4 - 6: 20.3% MACE over next 6 weeks - Admit for Clinical Observation Score 7 - 10: 72.7% MACE over next 6 weeks - Early Invasive Strategies Radiology/Procedures: Radiology/Procedures: PROCEDURE: CT HEAD AND CERVICAL SPINE WO Exam: CT head and cervical spine without contrast INDICATION: Fall from standing TECHNIQUE: Sequential axial images through the head and cervical spine were obtained without the administration of IV contrast. Comparisons: None FINDINGS: Head: No focal parenchymal lesion or hemorrhage is identified. There is no midline shift or sulcal effacement. No acute vascular territory infarction is identified. Lunsford-white distinction is preserved. The ventricular system is within normal limits without compression hydrocephalus. The basal cisterns are well maintained. Mild extra cranial soft tissue scalp contusion overlying the left occipital region. The visualized portions of the paranasal sinuses and mastoid air cells are well-pneumatized. No acute fractures. Cervical spine: Vertebral body heights are well-maintained. There is grade 1 anterolisthesis of C2 on C3 and C4 on C5. Anterior cervical fusion hardware at C5-C6.. Fracture to the cervical spine is not identified. Mild multilevel spondylotic change in cervical spine with degenerative disc disease greatest at C5-C6. Visualized bilateral facet arthropathy also noted. Visualized soft tissues are unremarkable. IMPRESSION: 1. Mild extra cranial soft tissue scalp contusion overlying the left occipital region without underlying osseous or intracranial abnormality. 2. Negative CT C-spine for acute traumatic injury. Exposure: One or more of the following in the visualized dose reduction techniques were utilized for this examination: 1. Automated exposure control 2. Adjustment of the MA and/or KV according to patient size Use of iterative of reconstructive technique[] PROCEDURE: HUMERUS RIGHT HUMERUS RIGHT, SHOULDER 2+V RIGHT 01/14/2020 7:29 PM INDICATION: Increased pain after fall COMPARISON: None available. TECHNIQUE: 3 views of the right shoulder and 2 views the right humerus are provided. FINDINGS/ IMPRESSION: There is no acute fracture or dislocation. Joint spaces are maintained. Bone mineralization is within normal limits. Regional soft tissues are within normal limits. There is no soft tissue gas or osseous erosion. No radiopaque foreign body. Surgical clips are identified in the right axilla. Course & Med Decision Making: Course & Med Decision Making Pertinent Labs and Imaging studies reviewed. (See chart for details) [] Dragon Disclaimer: Dragon Disclaimer: This electronic medical record was generated, in whole or in part, using a voice recognition dictation system. Departure Departure Impression: Primary Impression: Contusion of occipital region of scalp Additional Impressions: Chronic right shoulder pain Fall from standing Disposition: 01 DC HOME SELF CARE/HOMELESS Condition: STABLE Referrals: JHOANA KELSEY (PCP) Patient Instructions: Contusion, [id number], Fall Prevention and Home Safety, [id number], Shoulder Pain, [id number] Additional Instructions: Apply ice to sore areas as needed for comfort. You can take Tylenol as needed for pain. Follow-up with your primary care doctor in 1 to 2 days for reevaluat ion, return to the ER if your symptoms worsen. Problem Qualifiers Primary Impression: Contusion of occipital region of scalp Encounter type: initial encounter Qualified Codes: S00.03XA - Contusion of scalp, initial encounter Additional Impressions: Fall from standing Encounter type: initial encounter Qualified Codes: W19.XXXA - Unspecified fall, initial encounter LELO ALONSO APRN Jan 14, 2020 19:19
--- NOTE | 2020-01-14 20:09 | RAD ---
HUMERUS RIGHT, SHOULDER 2+V RIGHT 01/14/2020 7:29 PM INDICATION: Increased pain after fall COMPARISON: None available. TECHNIQUE: 3 views of the right shoulder and 2 views the right humerus are provided. FINDINGS/ IMPRESSION: There is no acute fracture or dislocation. Joint spaces are maintained. Bone mineralization is within normal limits. Regional soft tissues are within normal limits. There is no soft tissue gas or osseous erosion. No radiopaque foreign body. Surgical clips are identified in the right axilla. Electronically signed by: Gay Castrejon MD (01/14/2020 8:06 PM) [facility]
[2020-01-14] MEDS ORDERED: ACETAMINOPHEN 325 MG TABLET. PO ONE (21:00)
[2020-01-14 22:30] VITALS: BP 190/81
== END 2020-01-14 22:31 | disposition home or self-care (01) ==
LOC: ER 18:36
DX: S00.03XA Contusion of scalp, initial encounter (principal); G89.29 Other chronic pain; M25.511 Pain in right shoulder; R60.0 Localized edema; F41.9 Anxiety disorder, unspecified; F32.9 Major depressive disorder, single episode, unspecified; E11.9 Type 2 diabetes mellitus without complications; I10 Essential (primary) hypertension; E03.9 Hypothyroidism, unspecified; Z90.710 Acquired absence of both cervix and uterus; Z90.49 Acquired absence of other specified parts of digestive tract; Z98.890 Other specified postprocedural states; Z87.891 Personal history of nicotine dependence; W18.39XA Other fall on same level, initial encounter; Y93.89 Activity, other specified; Y92.89 Other specified places as the place of occurrence of the external cause; Y99.8 Other external cause status
CPT/HCPCS: 70450; 72125; 73030; 73060; 99285

== ENCOUNTER 2020-04-18 09:04 | Emergency (ER) | payer MEDICAID ==
[~2020-04-18] VITALS: Ht 167.6 cm; Wt 86.0 kg
[~2020-04-18 09:04] MED LIST changes: +GEMF600T20 PO; -GEMF600T8 PO; -LISI-338 PO; +LISI-517 PO; +MIRT-34 PO; -MIRT30TA PO
--- NOTE | 2020-04-18 09:43 | RAD ---
XR CHEST 1V History: Reason: COVID-19 INFECTION, COUGH / Spl. Instructions: / History: Comparison: September 03, 2019 Findings: Ill-defined left mid and right basilar opacities. No pleural effusion. No pneumothorax. Postop change s cervical spine. Unchanged heart size. Impression: 1. Ill-defined mid and basilar opacities, may represent atelectasis or infiltrates including viral p neumonia. Electronically signed by: Radu Long DO (04/18/2020 9:41 AM) [id number]
[2020-04-18 10:16] LABS: CALCIUM 9.3 mg/dL (8.5-10.1); CREATININE 0.9 mg/dL (0.6-1.0); POTASSIUM 4.2 mmol/L (3.5-5.1)
[2020-04-18 10:18] LABS: BASO % 1 % (0-3); EOS # 0.1 x10^3/uL (0.0-0.7); EOS % 2 % (0-3); HEMATOCRIT 37.1 % (36.0-47.0); HEMOGLOBIN 12.4 g/dL (12.0-15.5); LYMPH # 1.2 x10^3/uL (1.0-4.8); LYMPH % 33 % (24-48); MEAN CORPUSCULAR HEMOGLOBIN 30 pg (25-35); MEAN CORPUSCULAR HGB CONC 33 g/dL (31-37); MEAN CORPUSCULAR VOLUME 91 fL (79-100); MONO # 0.5 x10^3/uL (0.0-1.1); MONO % 13 % (0-9); NEUT # 1.9 x10^3/uL (1.8-7.7); NEUT % 51 % (31-73); PLATELET COUNT 106 x10^3/uL (140-400); RED BLOOD COUNT 4.07 x10^6/uL (3.50-5.40); RED CELL DISTRIBUTION WIDTH 14.7 % (11.5-14.5); WHITE BLOOD COUNT 3.6 x10^3/uL (4.0-11.0)
[2020-04-18 10:20] LABS: BILIRUBIN,URINE NEGATIVE (NEG); CLARITY,URINE CLEAR; COLOR,URINE YELLOW; NITRITE,URINE NEGATIVE (NEG); PH,URINE 5.5 (<5.0-8.0); PROTEIN,URINE NEGATIVE (NEG-TRACE); UROBILINOGEN,URINE 0.2 mg/dL (0.2 mg/dL)
[2020-04-18 10:23] LABS: ALBUMIN 3.3 g/dL (3.4-5.0); ALBUMIN/GLOBULIN RATIO 0.8 (1.0-1.7); MAGNESIUM 1.7 mg/dL (1.8-2.4); TOTAL BILIRUBIN 0.6 mg/dL (0.2-1.0); TOTAL PROTEIN 7.6 g/dL (6.4-8.2)
[2020-04-18 10:39] LABS: HYALINE CASTS, URINE FEW /HPF
[2020-04-18 10:40] LABS: BACTERIA,URINE 0 /HPF (0-FEW)
[2020-04-18] MEDS ORDERED: IV NORMAL SALINE 1000ML BAG 1,000 ML IV ONE (11:00)
--- NOTE | 2020-04-18 12:25 | PHYS DOC ---
Past Medical History Past Medical History: Anxiety, Depression, Diabetes-Type II, Hypertension, Hypothyroid Additional Past Medical Histor: HEART DISEASE, CHRONIC PAIN, pseudoseizure, possible breast cancer Past Surgical History: Cholecystectomy, Hysterectomy Additional Past Surgical Histo: NECK SURGERY; right Mastectomy Smoking Status: Former Smoker Alcohol Use: Occasionally Drug Use: None General Adult EDM: Chief Complaint: weakness HPI: HPI: Patient is a 75 year old female who was brought here from assisted due to generalized weakness. Patient was tested positive for COVID-19 infection 4 days ago. This morning she was at the kitchen trying to make her a sandwich, she felt weak, her legs gave out and she fell down on her buttock area. Patient so weak she could not stand up so she did lay down on the floor. half-way staff found the floor, decided to send her here for evaluation. Patient complained of low back pain, patient says she only had low back pain. She denies any neck pain, she did not think that she hit her head but she feels dizzy. Patient denies any chest pain, no abdominal pain, no nausea vomiting. Review of Systems: Review of Systems: Constitutional: Denies fever or chills. [] Eyes: Denies change in visual acuity. [] HENT: Denies nasal congestion or sore throat. [] Respiratory: Denies cough or shortness of breath. [] Cardiovascular: Denies chest pain or edema. [] GI: Denies abdominal pain, nausea, vomiting, bloody stools or diarrhea. [] : Denies dysuria. [] Musculoskeletal: Positive for low back pain. Integument: Denies rash. [] Neurologic: Denies headache, focal weakness or sensory changes. Positive for generalized weakness. Endocrine: Denies polyuria or polydipsia. [] Lymphatic: Denies swollen glands. [] Psychiatric: Denies depression or anxiety. [] Heart Score: Risk Factors: Risk Factors: DM, Current or recent (<one month) smoker, HTN, HLP, family history of CAD, obesity. Risk Scores: Score 0 - 3: 2.5% MACE over next 6 weeks - Discharge Home Score 4 - 6: 20.3% MACE over next 6 weeks - Admit for Clinical Observation Score 7 - 10: 72.7% MACE over next 6 weeks - Early Invasive Strategies Current Medications: Current Medications Medications (Trade) Dose Ordered Sig/Kike Start Time Stop Time Status Last Admin Dose Admin Sodium Chloride 1,000 ml @ 1,000 mls/hr 1X ONCE 04/18/20 11:00 04/18/20 11:59 DC 04/18/20 11:22 1,000 MLS/HR Allergies: Allergies: Allergies Coded Allergies Type Severity Reaction Last Updated Verified Iodine and Iodide Containing Produc Allergy Intermediate 09/01/19 Yes Sulfa (Sulfonamide Antibiotics) Allergy Intermediate Rash 09/01/19 Yes bupropion Allergy Intermediate Rash 09/01/19 Yes tetracycline Allergy Intermediate Swelling 09/01/19 Yes warfarin Allergy Intermediate Hives 09/01/19 Yes Dhqthsk-Gxt-Qnu Reductase Inhibitor Adverse Reaction Intermediate 09/06/19 Yes erythromycin base Adverse Reaction Intermediate 09/06/19 Yes niacin Adverse Reaction Intermediate Hives 09/01/19 Yes nitroglycerin Adverse Reaction Intermediate 09/01/19 Yes Physical Exam: PE: Constitutional: Well developed, well nourished, no acute distress, non-toxic appearance. [] HENT: Normocephalic, atraumatic, bilateral external ears normal, oropharynx moist, no oral exudates, nose normal. [] Eyes: PERRLA, EOMI, conjunctiva normal, no discharge. [] Neck: Normal range of motion, no tenderness, supple, no stridor. [] Cardiovascular:Heart rate regular rhythm, no murmur [] Lungs & Thorax: Bilateral breath sounds clear to auscultation [] Abdomen: Bowel sounds normal, soft, no tenderness, no masses, no pulsatile masses. [] Skin: Warm, dry, no erythema, no rash. [] Back: No tenderness, no CVA tenderness. [] Extremities: No tenderness, no cyanosis, no clubbing, ROM intact, no edema. [] Neurologic: Alert and oriented X 3, normal motor function, normal sensory function, no focal deficits noted. [] Psychologic: Affect normal, judgement normal, mood normal. [] Current Patient Data: Labs: Laboratory Tests Test 04/18/20 09:57 White Blood Count 3.6 x10^3/uL (4.0-11.0) L Red Blood Count 4.07 x10^6/uL (3.50-5.40) Hemoglobin 12.4 g/dL (12.0-15.5) Hematocrit 37.1 % (36.0-47.0) Mean Corpuscular Volume 91 fL (79-100) Mean Corpuscular Hemoglobin 30 pg (25-35) Mean Corpuscular Hemoglobin Concent 33 g/dL (31-37) Red Cell Distribution Width 14.7 % (11.5-14.5) H Platelet Count 106 x10^3/uL (140-400) L Neutrophils (%) (Auto) 51 % (31-73) Lymphocytes (%) (Auto) 33 % (24-48) Monocytes (%) (Auto) 13 % (0-9) H Eosinophils (%) (Auto) 2 % (0-3) Basophils (%) (Auto) 1 % (0-3) Neutrophils # (Auto) 1.9 x10^3/uL (1.8-7.7) Lymphocytes # (Auto) 1.2 x10^3/uL (1.0-4.8) Monocytes # (Auto) 0.5 x10^3/uL (0.0-1.1) Eosinophils # (Auto) 0.1 x10^3/uL (0.0-0.7) Basophils # (Auto) 0.0 x10^3/uL (0.0-0.2) Urine Collection Type Unknown Urine Color Yellow Urine Clarity Clear Urine pH 5.5 (<5.0-8.0) Urine Specific [place] 1.010 (1.000-1.030) Urine Protein Negative mg/dL (NEG-TRACE) Urine Glucose (UA) Negative mg/dL (NEG) Urine Ketones (Stick) Negative mg/dL (NEG) Urine Blood Negative (NEG) Urine Nitrite Negative (NEG) Urine Bilirubin Negative (NEG) Urine Urobilinogen Dipstick 0.2 mg/dL (0.2 mg/dL) Urine Leukocyte Esterase Negative (NEG) Urine RBC 1-2 /HPF (0-2) Urine WBC 1-4 /HPF (0-4) Urine Squamous Epithelial Cells Few /LPF Urine Bacteria 0 /HPF (0-FEW) Urine Hyaline Casts Few /HPF Sodium Level 139 mmol/L (136-145) Potassium Level 4.2 mmol/L (3.5-5.1) Chloride Level 103 mmol/L (98-107) Carbon Dioxide Level 26 mmol/L (21-32) Anion Gap 10 (6-14) Blood Urea Nitrogen 26 mg/dL (7-20) H Creatinine 0.9 mg/dL (0.6-1.0) Estimated GFR (Cockcroft-Gault) 61.0 BUN/Creatinine Ratio 29 (6-20) H Glucose Level 136 mg/dL (70-99) H Calcium Level 9.3 mg/dL (8.5-10.1) Magnesium Level 1.7 mg/dL (1.8-2.4) L Total Bilirubin 0.6 mg/dL (0.2-1.0) Aspartate Amino Transferase (AST) 50 U/L (15-37) H Alanine Aminotransferase (ALT) 44 U/L (14-59) Alkaline Phosphatase 170 U/L (46-116) H Creatine Kinase 58 U/L (26-192) Total Protein 7.6 g/dL (6.4-8.2) Albumin 3.3 g/dL (3.4-5.0) L Albumin/Globulin Ratio 0.8 (1.0-1.7) L Laboratory Tests 04/18/20 09:57 Laboratory Tests 04/18/20 09:57 Vital Signs: Vital Signs Date Time Temp Pulse Resp B/P (MAP) Pulse Ox O2 Delivery O2 Flow Rate FiO2 04/18/20 09:08 97.8 67 18 195/81 (119) 98 Room Air 97.8 EKG: EKG: [] Radiology/Procedures: Radiology/Procedures: [][facility] [address] [place] [address] IMAGING REPORT Signed PATIENT: FRANCISCA CASTRO ACCOUNT: [id number] : 1945 LOCATION: ER AGE: 75 SEX: F EXAM STATUS: REG ER ORD. PHYSICIAN: LENNY SARABIA DO REASON: fell on the floor this AM, AMS, PROCEDURE: CT HEAD AND CERVICAL SPINE WO CT scan of the head without contrast 04/18/2020 Clinical History: Fall with head injury. Technique: Unenhanced, contiguous, 5 mm axial sections were obtained through the head. One or more of the following individualized dose reduction techniques were utilized for this study: 1. Automated exposure control. 2. Adjustment of the mA and/or kV according to patient size. 3. Use of iterative reconstruction technique. Findings: Comparison study is dated 01/14/2020. There is generalized parenchymal atrophy. Areas of decreased attenuation are seen within the periventricular and subcortical white matter of both cerebral h emispheres consistent with areas of small vessel ischemic disease. No acute parenchymal abnormality is seen. No extra-axial fluid collection is noted. No skull fracture is seen. Impression: No acute intracranial abnormality is seen. CT scan of the cervical spine without contrast 04/18/2020 Clinical history: Fall with neck injury. Technique: Unenhanced, contiguous, 0.625 mm axial sections were obtained through the cervical spine. Axial, coronal and sagittal reconstructed images were obtai sylvester. One or more of the following individualized dose reduction techniques were utilized for this study: 1. Automated exposure control. 2. Adjustment of the mA and/or kV according to patient size. 3. Use of iterative reconstruction technique. Findings: Sagittal and coronal reconstructed images demonstrate mild lateral curvature of the cervical spine, convex to the right. There is straightening of the normal cervical lordosis. The patient is post anterior discectomy and fusion using an anterior plate, bone screws and bone graft material at C6-7. No fracture or subluxation cervical vertebrae is seen. Degenerative changes are seen involving the uncovertebral and facet joints throughout the cervical disc spaces. Atherosclerotic calcification is seen in the region of the carotid bifurcations. Impression: No fracture or subluxation of the cervical vertebra is seen. Electronically signed by: Carlos Tanner MD (04/18/2020 1:13 PM) [id number] DICTATED and SIGNED BY: CARLOS TANNER MD DATE: 04/18/20 [id number] [facility] [address] [place] [address] IMAGING REPORT Signed PATIENT: FRANCISCA CASTRO ACCOUNT: [id number] : 1945 LOCATION: ER AGE: 75 SEX: F EXAM STATUS: REG ER ORD. PHYSICIAN: LENNY SARABIA DO REASON: COVID-19 INFECTION, COUGH PROCEDURE: CHEST AP ONLY XR CHEST 1V History: Reason: COVID-19 INFECTION, COUGH / Spl. Instructions: / History: Comparison: September 03, 2019 Findings: Ill-defined left mid and right basilar opacities. No pleural effusion. No pneumothorax. Postop changes cervical spine. Unchanged heart size. Impression: 1. Ill-defined mid and basilar opacities, may represent atelectasis or infiltrates including viral pneumonia. Electronically signed by: Radu Long DO (04/18/2020 9:41 AM) [id number] DICTATED and SIGNED BY: RADU LONG DO DATE: 04/18/20 [id number] [facility] [address] [place] [address] IMAGING REPORT Signed PATIENT: FRANCISCA CASTRO ACCOUNT: [id number] : 1945 LOCATION: ER AGE: 75 SEX: F EXAM STATUS: REG ER ORD. PHYSICIAN: LENNY SARABIA DO REASON: fell, lower back pain, covid + PROCEDURE: LUMBAR SPINE 2-3V XR LUMBAR SPINE 2-3V History: Reason: fell, lower back pain, covid + / Spl. Instructions: / History: Technique: 3 views lumbar spine. Comparison: None. Findings: Normal vertebral body height and alignment. No fracture. Moderate degenerative disc changes most prominent L4-5 and L5-S1. Advanced lower lumbar facet arthropathy. Surgical clips right upper quadrant. Vascular calcifications. Impression: 1. No acute osseous abnormalities. 2. Moderate to advanced multilevel lumbar spondylosis. Electronically signed by: Radu Long DO (04/18/2020 12:38 PM) [id number] DICTATED and SIGNED BY: RADU LONG DO DATE: 04/18/20 [id number] Course & Med Decision Making: Course & Med Decision Making Pertinent Labs and Imaging studies reviewed. (See chart for details) Patient is a 75-year-old female who currently infected with COVID-19 was brought here by EMS from the assisted due to generalized weakness. Vital signs stable, x-ray of her pelvic and her low back did not show any acute problem. CT scan of the head C-spine did not show any acute problem. Patient will be discharged back to the assisted. Dragon Disclaimer: Dragon Disclaimer: This electronic medical record was generated, in whole or in part, using a voice recognition dictation system. Departure Departure Impression: Primary Impression: Generalized weakness Additional Impression: COVID-19 virus infection Disposition: 02 DC/TRF OTHER SHORT TERM HOS (d/c to assisted) Condition: IMPROVED Referrals: VLAD SHAHID MD (PCP) follow up with your doctor Patient Instructions: Viral Syndrome, Weakness Additional Instructions: You have been tested for or diagnosed with COVID-19. It is an infection caused by a new type of coronavirus. COVID-19 will cause cold-like or mild flu symptoms in most. It can cause more severe symptoms like problems breathing in some. There is no treatment for COVID-19. The body will clear the infection over time. Self-care will help to ease discomfort. Steps to Take: Self-Care Rest as needed. Healthy habits may help you feel better. Steps include: Choose healthy foods including fruits and vegetables. Drink water throughout the day. Get plenty of sleep each night. If you smoke, try to quit. It may ease breathing. Avoid alcohol. Keep Others Healthy The virus can spread to others. Droplets are released every time you sneeze or cough. The droplets can get into the mouth, nose, or eyes of people near you and lead to infection. To lower the chances of spreading COVID-19 to others: Stay at home until your doctor has said it is safe to leave. If you tested positive this will mean staying isolated until both of the following are true: At least 7 days have passed since the start of illness. You are free of fever for at least 72 hours without the use of medicine. During this time: - Avoid public areas, events, or transportation. Do not return to work or school until your doctor has said it is safe to do so. - Call ahead if you need to go to a medical center. Let them know you may have COVID-19. It will help them guide you where to go. They may also ask you to wear a facemask when you come to the office. - If you call for emergency medical services, let them know you may have COVID- 19. While at home: - Try to avoid close contact with others. Stay about 6 feet away. - If possible, spend most of your time in a separate room from others. - Use a face mask if you will be in close contact with others such as sharing a room or vehicle. - Have someone wipe down common surfaces in the home. Use household airplane dispatch clerk every day on areas like doorknobs, counters, or sinks. - Cough or sneeze into a tissue. Throw the tissue away right after use. If a tissue is not available, cough or sneeze into your elbow. - Wash your hands often. Wash them after sneezing or coughing. Use soap and water and wash for at least 20 seconds. Alcohol based hand bus cleaner can be used if soap and water is not available. - Do not prepare food for others. Avoid sharing personal items like forks, spoons, or toothbrushes. - Avoid close contact with pets while you are sick. There is no evidence of the virus passing to pets. This is a safety step until more is known about this virus. Isolation can be frustrating. Social interaction can help. Keep in touch with friends and family through phone and tech options. You can still interact with others in your home, just keep a safe distance of about 6 feet. Follow-up: Your doctors office will check in with you to see if there are any changes in your health. You may be asked to keep track of symptoms to share with them. They will also let you know when you are clear to be in public again. Problems to Look Out For: Contact your doctor if your recovery is not going as you expect. Get emergency care if you have problems such as: - Trouble breathing - Nonstop chest pain or pressure - Changes in awareness, confusion, or problems waking - Lips or face have bluish color - Worsening of symptoms If you think you have an emergency, call for emergency medical services right away. As taken from [facility] LENNY Ko DO Apr 18, 2020 12:25
--- NOTE | 2020-04-18 12:41 | RAD ---
XR LUMBAR SPINE 2-3V History: Reason: fell, lower back pain, covid + / Spl. Instructions: / History: Technique: 3 views lumbar spine. Comparison: None. Findings: Normal vertebral body height and alignment. No fracture. Moderate degenerative disc changes most prom inent L4-5 and L5-S1. Advanced lower lumbar facet arthropathy. Surgical clips right upper quadrant. V ascular calcifications. Impression: 1. No acute osseous abnormalities. 2. Moderate to advanced multilevel lumbar spondylosis. Electronically signed by: Radu Long DO (04/18/2020 12:38 PM) [email or web address]
--- NOTE | 2020-04-18 12:43 | RAD ---
XR PELVIS 1-2V History: Reason: fell on buttock,covid + / Spl. Instructions: / History: Pain Technique: AP view the pelvis. Comparison: None. Findings: Normal alignment of the hips. No fracture. Lower lumbar spondylosis. Vascular calcifications. Impression: 1. No acute osseous abnormalities. 2. Lower lumbar spondylosis. Electronically signed by: Radu Long DO (04/18/2020 12:40 PM) [email or web address]
--- NOTE | 2020-04-18 13:15 | RAD ---
CT scan of the head without contrast 04/18/2020 Clinical History: Fall with head injury. Technique: Unenhanced, contiguous, 5 mm axial sections were obtained through the head. One or more of the following individualized dose reduction techniques were utilized for this study: 1. Automated exposure control. 2. Adjustment of the mA and/or kV according to patient size. 3. Use of iterative reconstruction technique. Findings: Comparison study is dated 01/14/2020. There is generalized parenchymal atrophy. Areas of decreased attenuation are seen within the perivent ricular and subcortical white matter of both cerebral hemispheres consistent with areas of small vess el ischemic disease. No acute parenchymal abnormality is seen. No extra-axial fluid collection is not ed. No skull fracture is seen. Impression: No acute intracranial abnormality is seen. CT scan of the cervical spine without contrast 04/18/2020 Clinical history: Fall with neck injury. Technique: Unenhanced, contiguous, 0.625 mm axial sections were obtained through the cervical spine. Axial, coronal and sagittal reconstructed images were obtained. One or more of the following individualized dose reduction techniques were utilized for this study: 1. Automated exposure control. 2. Adjustment of the mA and/or kV according to patient size. 3. Use of iterative reconstruction technique. Findings: Sagittal and coronal reconstructed images demonstrate mild lateral curvature of the cervica l spine, convex to the right. There is straightening of the normal cervical lordosis. The patient is post anterior discectomy and fusion using an anterior plate, bone screws and bone graft material at C 6-7. No fracture or subluxation cervical vertebrae is seen. Degenerative changes are seen involving the un covertebral and facet joints throughout the cervical disc spaces. Atherosclerotic calcification is se en in the region of the carotid bifurcations. Impression: No fracture or subluxation of the cervical vertebra is seen. Electronically signed by: Carlos Tanner MD (04/18/2020 1:13 PM) [id number]
[2020-04-18 14:28] VITALS: BP 162/69
== END 2020-04-18 14:44 | disposition home or self-care (01) ==
LOC: ER 09:04
DX: U07.1 COVID-19 (principal); R53.1 Weakness; M54.5 Low back pain; R42 Dizziness and giddiness; F41.9 Anxiety disorder, unspecified; F32.9 Major depressive disorder, single episode, unspecified; E11.9 Type 2 diabetes mellitus without complications; E03.9 Hypothyroidism, unspecified; G89.29 Other chronic pain; I11.9 Hypertensive heart disease without heart failure; Z90.49 Acquired absence of other specified parts of digestive tract; Z90.710 Acquired absence of both cervix and uterus; Z87.891 Personal history of nicotine dependence; Z88.2 Allergy status to sulfonamides; Z88.1 Allergy status to other antibiotic agents; Z91.041 Radiographic dye allergy status; Z88.8 Allergy status to other drugs, medicaments and biological substances
CPT/HCPCS: 36415; 70450; 71045; 72100; 72125; 72170; 80053; 81001; 82550; 83735; 85025; 96360; 96361; 99285; J7030

== ENCOUNTER 2020-05-15 06:32 | Emergency (ER) | payer MEDICAID ==
[~2020-05-15] VITALS: Ht 167.6 cm; Wt 81.8 kg
--- NOTE | 2020-05-15 06:37 | PHYS DOC ---
Past Medical History Past Medical History: Anxiety, Depression, Diabetes-Type II, Hypertension, Hypothyroid Additional Past Medical Histor: HEART DISEASE, CHRONIC PAIN, pseudoseizure, possible breast cancer Past Surgical History: Cholecystectomy, Hysterectomy Additional Past Surgical Histo: NECK SURGERY; right Mastectomy Smoking Status: Former Smoker Alcohol Use: Occasionally Drug Use: None General Adult EDM: Chief Complaint: MECHANICAL FALL HPI: HPI: Patient is a 75 year old female who was brought here by EMS from alf for evaluation of head injury. Per report patient was getting out of her recliner, when she tripped over her feet and fell forward, hit her forehead on the ground, no loss of consciousness. Patient is on Plavix. Patient did complain of headache. Patient denies any neck pain, no upper extremity pain, no back pain, no upper extremity or lower extremity weakness or numbness. Patient denies any nausea or vomiting. Patient denies any chest pain, no cough, no fever. Review of Systems: Review of Systems: Constitutional: Denies fever or chills. [] Eyes: Denies change in visual acuity. [] HENT: Denies nasal congestion or sore throat. [] Respiratory: Denies cough or shortness of breath. [] Cardiovascular: Denies chest pain or edema. [] GI: Denies abdominal pain, nausea, vomiting, bloody stools or diarrhea. [] : Denies dysuria. [] Musculoskeletal: Denies back pain or joint pain. [] Integument: Denies rash. [] Neurologic: Positive for headache,NO focal weakness or sensory changes. [] Endocrine: Denies polyuria or polydipsia. [] Lymphatic: Denies swollen glands. [] Psychiatric: Denies depression or anxiety. [] Heart Score: Risk Factors: Risk Factors: DM, Current or recent (<one month) smoker, HTN, HLP, family history of CAD, obesity. Risk Scores: Score 0 - 3: 2.5% MACE over next 6 weeks - Discharge Home Score 4 - 6: 20.3% MACE over next 6 weeks - Admit for Clinical Observation Score 7 - 10: 72.7% MACE over next 6 weeks - Early Invasive Strategies Allergies: Allergies: Allergies Coded Allergies Type Severity Reaction Last Updated Verified Iodine and Iodide Containing Produc Allergy Intermediate 09/01/19 Yes Sulfa (Sulfonamide Antibiotics) Allergy Intermediate Rash 09/01/19 Yes bupropion Allergy Intermediate Rash 09/01/19 Yes tetracycline Allergy Intermediate Swelling 09/01/19 Yes warfarin Allergy Intermediate Hives 09/01/19 Yes Wnpvoql-Bep-Xdd Reductase Inhibitor Adverse Reaction Intermediate 09/06/19 Yes erythromycin base Adverse Reaction Intermediate 09/06/19 Yes niacin Adverse Reaction Intermediate Hives 09/01/19 Yes nitroglycerin Adverse Reaction Intermediate 09/01/19 Yes Physical Exam: PE: Constitutional: Well developed, well nourished, no acute distress, non-toxic appearance. [] HENT: Normocephalic, LEFT SIDE FOREHEAD SUPERFICIAL SKIN CONTUSION, bilateral external ears normal, oropharynx moist, no oral exudates, nose normal. [] Eyes: PERRLA, EOMI, conjunctiva normal, no discharge. [] Neck: Normal range of motion, no tenderness, supple, no stridor. [] Cardiovascular:Heart rate regular rhythm, no murmur [] Lungs & Thorax: Bilateral breath sounds clear to auscultation [] Abdomen: Bowel sounds normal, soft, no tenderness, no masses, no pulsatile masses. [] Skin: Warm, dry, no erythema, no rash. [] Back: No tenderness, no CVA tenderness. [] Extremities: No tenderness, no cyanosis, no clubbing, ROM intact, no edema. [] Neurologic: Alert and oriented X 3, normal motor function, normal sensory function, no focal deficits noted. [] Psychologic: Affect normal, judgement normal, mood normal. [] EKG: EKG: [] Radiology/Procedures: Radiology/Procedures: [][facility] [address] [place] [address] IMAGING REPORT Signed PATIENT: FRANCISCA CASTRO ACCOUNT: [id number] : 1945 LOCATION: ER AGE: 75 SEX: F EXAM STATUS: PRE ER ORD. PHYSICIAN: LENNY SARABIA DO REASON: fell, head injury, neck pain PROCEDURE: CT HEAD AND CERVICAL SPINE WO CT HEAD AND C-SPINE WO Date: 05/15/2020 7:06 AM Clinical Indication: Reason: fell, head injury, neck pain / Spl. Instructions: / History: Comparison: None. Technique: 5 mm axial tomographic images were obtained of the head without contrast. These were viewed on brain and bone windows. Noncontrast CT of the cervical spine was performed. Sagittal and coronal reformats were performed and evaluated. One or more of the following dose reduction techniques were utilized: Automated exposure control (AEC), Adjustment of mA and/or kV according to patient size, Use of iterative reconstruction technique such as ASiR, CT scan done according to ALARA and image gently/image wisely HEAD FINDINGS: Mild generalized cerebral and cerebellar volume loss. Mild nonspecific periventricular hypoattenuation, most commonly seen with chronic small vessel ischemic disease. No intra- or extra-axial mass or fluid collection. No acute hemorrhage. The ventricles are normal in size, shape, and morphology. The gautam-white matter junction is normal. The basilar cisterns are patent. The visualized paranasal sinuses are normal. The visualized portions of the orbits and globes are normal. The mastoid air cells are clear. No aggressive osseous lesion or fracture. CERVICAL SPINE FINDINGS: Postsurgical changes of ACDF at C6-7. No acute fracture. No aggressive lytic or blastic osseous lesions. Moderate multilevel degenerative disc space height loss. Multilevel mild spinal canal stenosis secondary to disc protrusions and marginal osteophytes. Multilevel mild and moderate neuroforaminal narrowing secondary to uncovertebral arthrosis. Multilevel moderate to severe facet arthrosis. The thyroid gland is normal. No cervical lymphadenopathy. Bilateral carotid atherosclerosis. The visualized aerodigestive tract is normal. The visualized portions of the lungs are clear. IMPRESSION: 1. No acute intracranial process. 2. No acute cervical spine fracture. Electronically signed by: Ulysses Hobbs MD (05/15/2020 7:20 AM) [id number] DICTATED and SIGNED BY: ULYSSES HOBBS MD DATE: 05/15/20 [id number] 0 Course & Med Decision Making: Course & Med Decision Making Pertinent Labs and Imaging studies reviewed. (See chart for details) Patient is a 75-year-old female who was evaluated in the ER due to closed head injury, CT head and C-spine did not show any acute problem. Patient was awake, alert, oriented to place time and person. Patient was discharged home in a stable condition. Dragon Disclaimer: Dragon Disclaimer: This electronic medical record was generated, in whole or in part, using a voice recognition dictation system. Departure Departure Impression: Primary Impression: Closed head injury Disposition: 01 DC HOME SELF CARE/HOMELESS Condition: STABLE Referrals: VLAD SHAHID MD (PCP) Please follow up with your doctor as needed next week Patient Instructions: Head Injury, Adult Additional Instructions: Thank you for visiting our Emergency Department. We appreciate you trusting us with your care. If any additional problems come up don't hesitate to return to visit us. Please follow up with your primary care provider so they can plan additional care if needed and know about the problem that you had. If symptoms worsen come back to the Emergency Department. Any concerning symptoms that start such as chest pain, shortness of air, weakness or numbness on one side of the b elmer, running high fevers or any other concerning symptoms return to the ER. LENNY SARABIA DO May 15, 2020 06:37
--- NOTE | 2020-05-15 07:22 | RAD ---
CT HEAD AND C-SPINE WO Date: 05/15/2020 7:06 AM Clinical Indication: Reason: fell, head injury, neck pain / Spl. Instructions: / History: Comparison: None. Technique: 5 mm axial tomographic images were obtained of the head without contrast. These were view ed on brain and bone windows. Noncontrast CT of the cervical spine was performed. Sagittal and gannon l reformats were performed and evaluated. One or more of the following dose reduction techniques were utilized: Automated exposure control (AEC), Adjustment of mA and/or kV according to patient size, Us e of iterative reconstruction technique such as ASiR, CT scan done according to ALARA and image gentl y/image wisely HEAD FINDINGS: Mild generalized cerebral and cerebellar volume loss. Mild nonspecific periventricular hypoattenuatio n, most commonly seen with chronic small vessel ischemic disease. No intra- or extra-axial mass or fluid collection. No acute hemorrhage. The ventricles are normal in size, shape, and morphology. The gautam-white matter junction is normal. The basilar cisterns are paten t. The visualized paranasal sinuses are normal. The visualized portions of the orbits and globes are no rmal. The mastoid air cells are clear. No aggressive osseous lesion or fracture. CERVICAL SPINE FINDINGS: Postsurgical changes of ACDF at C6-7. No acute fracture. No aggressive lytic or blastic osseous lesio ns. Moderate multilevel degenerative disc space height loss. Multilevel mild spinal canal stenosis second theodora to disc protrusions and marginal osteophytes. Multilevel mild and moderate neuroforaminal narrowi ng secondary to uncovertebral arthrosis. Multilevel moderate to severe facet arthrosis. The thyroid gland is normal. No cervical lymphadenopathy. Bilateral carotid atherosclerosis. The visu alized aerodigestive tract is normal. The visualized portions of the lungs are clear. IMPRESSION: 1. No acute intracranial process. 2. No acute cervical spine fracture. Electronically signed by: Bruno Hobbs MD (05/15/2020 7:20 AM) [id number]
[2020-05-15 08:50] VITALS: BP 127/60
== END 2020-05-15 09:35 | disposition home or self-care (01) ==
LOC: ER 06:32
DX: S09.8XXA Other specified injuries of head, initial encounter (principal); F41.9 Anxiety disorder, unspecified; F32.9 Major depressive disorder, single episode, unspecified; E11.9 Type 2 diabetes mellitus without complications; I10 Essential (primary) hypertension; E03.9 Hypothyroidism, unspecified; G89.29 Other chronic pain; Z90.49 Acquired absence of other specified parts of digestive tract; Z90.710 Acquired absence of both cervix and uterus; Z87.891 Personal history of nicotine dependence; Z90.89 Acquired absence of other organs; Z88.2 Allergy status to sulfonamides; Z88.1 Allergy status to other antibiotic agents; Z88.8 Allergy status to other drugs, medicaments and biological substances; Z88.6 Allergy status to analgesic agent
CPT/HCPCS: 70450; 72125; 99285

== ENCOUNTER 2021-03-17 05:53 | Emergency (ER) | payer MEDICAID ==
[~2021-03-17] VITALS: Ht 167.6 cm; Wt 80.9 kg
[~2021-03-17 05:53] MED LIST changes: +CYCL10TA19 PO; -CYCL10TA2 PO; -LISI-517 PO; +LISI5TAB15 PO
--- NOTE | 2021-03-17 06:01 | PHYS DOC ---
Past Medical History Past Medical History: Anxiety, Depression, Diabetes-Type II, Hypertension, Hypothyroid Additional Past Medical Histor: HEART DISEASE, CHRONIC PAIN, pseudoseizure, possible breast cancer Past Surgical History: Cholecystectomy, Hysterectomy Additional Past Surgical Histo: NECK SURGERY; right Mastectomy Smoking Status: Former Smoker Alcohol Use: Occasionally Drug Use: None General Adult EDM: Chief Complaint: LACERATION/AVULSION HPI: HPI: Patient is a 75 year old female who presents via EMS from her assisted living facility for evaluation after a fall. She reports this morning she was getting up to walk across the room to make some food, and she reports that she was not using her walker, as she is supposed to. She tripped over a shoe that she left in the floor and fell forward. She has a superficial abrasion of her left knee. She is a superficial laceration of the of her right eyebrow. She denies loss of consciousness. She denies premonitory symptoms. She denies chest pain, palpitations, dizziness, numbness or tingling or focal motor weakness. She does report chronic but unchanged dyspnea, no dyspnea on exertion or acute changes right now. Denies fevers chills. Denies abdominal pain. Denies nausea, vomiting. She reports having a mild headache, as well as mild lower neck pain. She reports right shoulder pain, but she also admits that she has had this previously. She reports very mild left knee pain. She denies hip or pelvis pain. She denies mid or low back pain. She denies urinary symptoms. She does have a history of multiple frequent falls. She frequently falls when she does not use her walker. Review of Systems: Review of Systems: Constitutional: Denies fever or chills. [] Eyes: Denies change in visual acuity. [] HENT: Denies nasal congestion or sore throat. [] Respiratory: Denies cough. Reports chronic but unchanged dyspnea. No RUVALCABA or acute dyspnea reported today or at present. Cardiovascular: Denies chest pain or edema. [] GI: Denies abdominal pain, nausea, vomiting : Denies urinary symptoms Musculoskeletal: Right shoulder pain, present previously. Mild left knee pain and abrasion. Integument: Superficial abrasion of the left knee, superficial laceration of the right eyebrow Neurologic: Denies headache, focal weakness or sensory changes. [] Psychiatric: Denies depression or anxiety. [] Heart Score: C/O Chest Pain: No Risk Factors: Risk Factors: DM, Current or recent (<one month) smoker, HTN, HLP, family history of CAD, obesity. Risk Scores: Score 0 - 3: 2.5% MACE over next 6 weeks - Discharge Home Score 4 - 6: 20.3% MACE over next 6 weeks - Admit for Clinical Observation Score 7 - 10: 72.7% MACE over next 6 weeks - Early Invasive Strategies Allergies: Allergies: Allergies Coded Allergies Type Severity Reaction Last Updated Verified Iodine and Iodide Containing Produc Allergy Intermediate 09/01/19 Yes Sulfa (Sulfonamide Antibiotics) Allergy Intermediate Rash 09/01/19 Yes bupropion Allergy Intermediate Rash 09/01/19 Yes tetracycline Allergy Intermediate Swelling 09/01/19 Yes warfarin Allergy Intermediate Hives 09/01/19 Yes Tdkvska-Wuz-Rdg Reductase Inhibitor Adverse Reaction Intermediate 09/06/19 Yes erythromycin base Adverse Reaction Intermediate 09/06/19 Yes niacin Adverse Reaction Intermediate Hives 09/01/19 Yes nitroglycerin Adverse Reaction Intermediate 09/01/19 Yes Physical Exam: PE: Constitutional: Well developed, well nourished, no acute distress, non-toxic appearance. [] HENT: Normocephalic. No significant trauma noted. There is a superficial laceration lateral to her right eyebrow. There is no soft tissue swelling or ecchymosis associated with this. There is no tenderness. The wound is h emostatic, with superficial scab overlying, no gaping of the wound. No cephalhematoma, no palpable step-offs or crepitus of her scalp or face. Oropharynx is patent and clear, mucous membranes are moist. No obvious dental trauma. TMs are clear bilaterally. Nares are patent. No rhinorrhea. No epistaxis. No hemotympanum. Eyes: PERRL, EOMI, conjunctiva normal, no discharge. No nystagmus. No periorbital edema, erythema, contusions. No pain with extraocular movements. Neck: Normal range of motion, no tenderness, supple, no stridor. Trachea is midline. No midline tenderness or step-offs. Paraspinal soft tissue tenderness of her lower cervical spine. Cardiovascular:Heart rate regular rhythm, +2 radial and +2 dorsalis pedis pulses bilaterally Lungs & Thorax: Bilateral breath sounds clear to auscultation, no rales rhonchi or wheezes Abdomen: [place] soft, obese, nondistended, nontender. Skin: Superficial, circular abrasion of her left anterior knee. Superficial laceration of her right eyebrow, as detailed above. No large open wounds, no active bleeding. No areas of significant soft tissue swelling, bruising noted. Back: No tenderness, no CVA tenderness. [] Extremities: No tenderness, no cyanosis, no clubbing, ROM intact, no edema. All this is stable. Bilateral hips are nontender with full painless range of motion. Superficial abrasion of her left anterior knee. Mild soft tissue swelling of the left anterior knee. No ligamentous laxity. She is able to fully flex and extend both knees without difficulty, passively and actively. No palpable crepitus or step-offs. No calf tenderness. Bilateral ankles and feet are nontender. She is able to passively and actively move both shoulders without difficulty, painless active and passive range of motion of bilateral elbows, forearms, wrists and hands. No objective evidence of tenderness of the right shoulder. Neurologic: She is awake, alert, oriented x3. Cranial nerves II through XII grossly intact. 5 out of 5 motor strength all 4 extremities. Sensation is grossly intact. Speech is clear and fluent. Psychologic: Affect is flat, she is cooperative. EKG: EKG: EKG is interpreted at 0600 Rhythm is sinus Rate is 77 bpm [place] is normal No STEMI Radiology/Procedures: Radiology/Procedures: IMAGING REPORT Signed PATIENT: FRANCISCA CASTRO ACCOUNT: [id number] : 1945 LOCATION: ER AGE: 75 SEX: F EXAM STATUS: REG ER ORD. PHYSICIAN: BRIDGET VALENTINE DO REASON: fall PROCEDURE: CT HEAD AND CERVICAL SPINE WO CT HEAD AND C-SPINE WO Date: 03/17/2021 7:19 AM Clinical Indication: Pain, fall Comparison: None. Technique: 5 mm axial tomographic images were obtained of the head without contrast. These were viewed on brain and bone windows. Noncontrast CT of the cervical spine was performed. Sagittal and coronal reformats were performed and evaluated. One or more of the following dose reduction techniques were utilized: Automated exposure control (AEC), Adjustment of mA and/or kV according to pat ient size, Use of iterative reconstruction technique such as ASiR, CT scan done according to ALARA and image gently/image wisely HEAD FINDINGS: Mild generalized cerebral and cerebellar volume loss. Mild nonspecific periventricular hypoattenuation, most commonly seen with chronic small vessel ischemic disease. No intra- or extra-axial mass or fluid collection. No acute hemorrhage. The ventricles are normal in size, shape, and morphology. The gautam-white matter junction is normal. The basilar cisterns are patent. The visualized paranasal sinuses are normal. The visualized portions of the orbits and globes are normal. The mastoid air cells are clear. No aggressive osseous lesion or fracture. CERVICAL SPINE FINDINGS: Postsurgical changes of ACDF at C6-7. No acute fracture. No aggressive lytic or blastic osseous lesions. Moderate multilevel degenerative disc space height loss. Multilevel moderate spinal canal stenosis secondary to disc protrusions and marginal osteophytes. Multilevel mild and moderate neuroforaminal narrowing secondary to uncovertebral arthrosis. Multilevel moderate to severe facet arthrosis. The thyroid gland is normal. No cervical lymphadenopathy. Bilateral carotid atherosclerosis. The visualized aerodigestive tract is normal. The visualized portions of the lungs are clear. IMPRESSION: 1. No acute intracranial process. 2. No acute cervical spine fracture. Electronically signed by: Ulysses Hobbs MD (03/17/2021 7:49 AM) [id number] DICTATED and SIGNED BY: ULYSSES HOBBS MD DATE: 03/17/21 [id number] 0 IMAGING REPORT Signed PATIENT: FRANCISCA CASTRO ACCOUNT: [id number] : 1945 LOCATION: ER AGE: 75 SEX: F EXAM STATUS: REG ER ORD. PHYSICIAN: BRIDGET VALENTINE DO REASON: fall PROCEDURE: SHOULDER 2+V RIGHT XR SHOULDER_RIGHT 2+ VIEWS DATE: 03/17/2021 6:35 AM INDICATION: fall COMPARISON: None. FINDINGS: Bones: There is no evidence of acute fracture or dislocation. Joints: The joint spaces are normal. The acromiohumeral distance is not narrowed. Miscellaneous: No abnormal soft tissue calcifications in the shoulder. IMPRESSION: No evidence of acute fracture. Electronically signed by: Ulysses Hobbs MD (03/17/2021 7:50 AM) [id number] DICTATED and SIGNED BY: ULYSSES HOBBS MD DATE: 03/17/21 [id number] 0 IMAGING REPORT Signed PATIENT: FRANCISCA CASTRO ACCOUNT: [id number] : 1945 LOCATION: ER AGE: 75 SEX: F EXAM STATUS: REG ER ORD. PHYSICIAN: BRIDGET VALENTINE DO REASON: fall PROCEDURE: KNEE LEFT 3V XR KNEE _3 VIEWS_LT DATE: 03/17/2021 6:35 AM INDICATION: fall, pain COMPARISON: None. FINDINGS: Bones: There is no evidence of acute fracture or dislocation. Joints: Mild tricompartmental degenerative changes. Chondrocalcinosis of the menisci, nonspecific but can be seen with CPPD arthropathy. There is no joint effusion. Miscellaneous: Atherosclerotic vascular calcifications IMPRESSION: No evidence of acute fracture. Electronically signed by: Ulysses Hobbs MD (03/17/2021 7:51 AM) [id number] DICTATED and SIGNED BY: ULYSSES HOBBS MD DATE: 03/17/21 [id number] 0 Course & Med Decision Making: Course & Med Decision Making Pertinent Labs and Imaging studies reviewed. (See chart for details) Patient requested Tylenol for pain, this was ordered. I discussed the findings, differential diagnosis and plan of care with the patient. There is no indication for formal laceration. For the wound on her right eyebrow, it remains hemostatic, small and superficial. She feels comfortable with the plan for discharge home. I recommend she use her walker at all times to help prevent falls. I discussed home care instructions, wound care instructions. Strict return precautions are given. No medication further imaging, invasive exams or admission at this time, based on current clinical presentation. Dragon Disclaimer: Candice Disclaimer: This electronic medical record was generated, in whole or in part, using a voice recognition dictation system. Departure Departure Impression: Primary Impression: Fall at home Additional Impressions: Laceration of right eyebrow Abrasion of left knee Disposition: HOME / SELF CARE / HOMELESS Condition: STABLE Referrals: VLAD SHAHID MD (PCP) Patient Instructions: Abrasions, Fall Prevention and Home Safety, Laceration Care, Adult Additional Instructions: Your CAT scans and x-rays are normal here today. No evidence of internal injury or broken bones. Your right eyebrow laceration is very superficial, you do not need stitches for this. You may place a Band-Aid over the area. Keep it clean and dry, clean with soap and water only. Your abrasion/scratch on your left knee is superficial as well. Keep it clean and dry. Return to the ER for new injury or trauma, if you sustain any large open wounds with active bleeding, gaping, if you develop chest pain, shortness of breath, severe headache, vomiting, focal weakness or any other concerns. Make sure you always use your walker when you try to get up and walk, even if it has only a few feet away, so as to prevent falls. Follow-up with your primary care physician. BRIDGET VALENTINE DO Mar 17, 2021 06:01
[2021-03-17] MEDS ORDERED: ACETAMINOPHEN 500 MG TABLET PO ONE (07:00)
[2021-03-17] MEDS ORDERED: TETANUS AND DIPHTHERIA TOX/PF 0.5 ML DISP.SYRIN. VAX IM ONE (07:00)
--- NOTE | 2021-03-17 07:51 | RAD ---
CT HEAD AND C-SPINE WO Date: 03/17/2021 7:19 AM Clinical Indication: Pain, fall Comparison: None. Technique: 5 mm axial tomographic images were obtained of the head without contrast. These were view ed on brain and bone windows. Noncontrast CT of the cervical spine was performed. Sagittal and gannon l reformats were performed and evaluated. One or more of the following dose reduction techniques were utilized: Automated exposure control (AEC), Adjustment of mA and/or kV according to patient size, Us e of iterative reconstruction technique such as ASiR, CT scan done according to ALARA and image gentl y/image wisely HEAD FINDINGS: Mild generalized cerebral and cerebellar volume loss. Mild nonspecific periventricular hypoattenuatio n, most commonly seen with chronic small vessel ischemic disease. No intra- or extra-axial mass or fluid collection. No acute hemorrhage. The ventricles are normal in size, shape, and morphology. The gautam-white matter junction is normal. The basilar cisterns are paten t. The visualized paranasal sinuses are normal. The visualized portions of the orbits and globes are no rmal. The mastoid air cells are clear. No aggressive osseous lesion or fracture. CERVICAL SPINE FINDINGS: Postsurgical changes of ACDF at C6-7. No acute fracture. No aggressive lytic or blastic osseous lesio ns. Moderate multilevel degenerative disc space height loss. Multilevel moderate spinal canal stenosis se condary to disc protrusions and marginal osteophytes. Multilevel mild and moderate neuroforaminal titus rowing secondary to uncovertebral arthrosis. Multilevel moderate to severe facet arthrosis. The thyroid gland is normal. No cervical lymphadenopathy. Bilateral carotid atherosclerosis. The visu alized aerodigestive tract is normal. The visualized portions of the lungs are clear. IMPRESSION: 1. No acute intracranial process. 2. No acute cervical spine fracture. Electronically signed by: Bruno Hobbs MD (03/17/2021 7:49 AM) [id number]
--- NOTE | 2021-03-17 07:53 | RAD ---
XR SHOULDER_RIGHT 2+ VIEWS DATE: 03/17/2021 6:35 AM INDICATION: fall COMPARISON: None. FINDINGS: Bones: There is no evidence of acute fracture or dislocation. Joints: The joint spaces are normal. The acromiohumeral distance is not narrowed. Miscellaneous: No abnormal soft tissue calcifications in the shoulder. IMPRESSION: No evidence of acute fracture. Electronically signed by: Bruno Hobbs MD (03/17/2021 7:50 AM) [id number]
--- NOTE | 2021-03-17 07:54 | RAD ---
XR KNEE _3 VIEWS_LT DATE: 03/17/2021 6:35 AM INDICATION: fall, pain COMPARISON: None. FINDINGS: Bones: There is no evidence of acute fracture or dislocation. Joints: Mild tricompartmental degenerative changes. Chondrocalcinosis of the menisci, nonspecific bu t can be seen with CPPD arthropathy. There is no joint effusion. Miscellaneous: Atherosclerotic vascular calcifications IMPRESSION: No evidence of acute fracture. Electronically signed by: Bruno Hobbs MD (03/17/2021 7:51 AM) [id number]
[2021-03-17 08:29] VITALS: BP 174/73
--- NOTE | 2021-03-20 03:32 | EKG ---
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
== END 2021-03-17 09:04 | disposition home or self-care (01) ==
LOC: ER 05:53
DX: S01.111A Laceration without foreign body of right eyelid and periocular area, initial encounter (principal); E11.9 Type 2 diabetes mellitus without complications; E03.9 Hypothyroidism, unspecified; G89.29 Other chronic pain; Z87.891 Personal history of nicotine dependence; I11.9 Hypertensive heart disease without heart failure; Z88.1 Allergy status to other antibiotic agents; Z88.2 Allergy status to sulfonamides; Z88.4 Allergy status to anesthetic agent; Z91.041 Radiographic dye allergy status; Z88.8 Allergy status to other drugs, medicaments and biological substances; W01.0XXA Fall on same level from slipping, tripping and stumbling without subsequent striking against object, initial encounter; Y93.89 Activity, other specified; Y92.89 Other specified places as the place of occurrence of the external cause; Y99.8 Other external cause status
CPT/HCPCS: 70450; 72125; 73030; 73562; 90471; 90714; 93005; 99284-25

== ENCOUNTER 2021-07-20 01:01 | Inpatient (IN) | payer MEDICAID ==
[~2021-07-20] VITALS: Ht 167.6 cm; Wt 82.6 kg
[~2021-07-20 01:01] MED LIST changes: -OMEP20TA8 PO; +OMEP20TA91 PO
[2021-07-20] MEDS ORDERED: IV NORMAL SALINE 1000ML BAG 1,000 ML IV ONE (01:30)
--- NOTE | 2021-07-20 01:31 | PHYS DOC ---
Past Medical History Past Medical History: Anxiety, Depression, Diabetes-Type II, Hypertension, Hypothyroid Additional Past Medical Histor: HEART DISEASE, CHRONIC PAIN, pseudoseizure, possible breast cancer Past Surgical History: Cholecystectomy, Hysterectomy, Other Additional Past Surgical Histo: NECK SURGERY; right Mastectomy Smoking Status: Former Smoker Alcohol Use: None Drug Use: None Adult General Chief Complaint Chief Complaint: MECHANICAL FALL HPI HPI Patient is a 76 year old female presenting to the emergency department for evaluation of inability to ambulate with frequent falls and possible new onset slurred speech that all started 2 days ago. Patient says that she walks with a walker but even with her walker she cannot control the movements of her legs and she falls down every time she tries to stand up. She is at an assisted living facility and is supposed to be able to get around on her own but she has been unable to do so they called 911 to have her sent here. Patient denies any pain fevers chills nausea vomiting diarrhea dysuria hematuria black or bloody stools unilateral weakness numbness or tingling or vision changes. Patient is very sleepy and difficult to get information from but she is in no acute distress with normal vital signs. Review of Systems Review of Systems Constitutional: Denies fever or chills [] Eyes: Denies change in visual acuity, redness, or eye pain [] HENT: Denies nasal congestion or sore throat [] Respiratory: Denies cough or shortness of breath [] Cardiovascular: No additional information not addressed in HPI [] GI: Denies abdominal pain, nausea, vomiting, bloody stools or diarrhea [] : Denies dysuria or hematuria [] Musculoskeletal: Denies back pain or joint pain [] Integument: Denies rash or skin lesions [] Neurologic: Denies headache, positive diffuse weakness especially in her bilateral lower legs but no sensory changes All other systems were reviewed and found to be within normal limits, except as documented in this note. Current Medications Current Medications Current Medications Medications (Trade) Dose Ordered Sig/Kike Start Time Stop Time Status Last Admin Dose Admin Sodium Chloride 1,000 ml @ 1,000 mls/hr 1X ONCE 07/20/21 01:30 07/20/21 02:29 DC 07/20/21 02:03 1,000 MLS/HR Allergies Allergies Allergies Coded Allergies Type Severity Reaction Last Updated Verified Iodine and Iodide Containing Produc Allergy Intermediate 09/01/19 Yes Sulfa (Sulfonamide Antibiotics) Allergy Intermediate Rash 09/01/19 Yes bupropion Allergy Intermediate Rash 09/01/19 Yes tetracycline Allergy Intermediate Swelling 09/01/19 Yes warfarin Allergy Intermediate Hives 09/01/19 Yes [id number]-WlX Reductase Inhibitor Adverse Reaction Intermediate 09/06/19 Yes erythromycin base Adverse Reaction Intermediate 09/06/19 Yes niacin Adverse Reaction Intermediate Hives 09/01/19 Yes nitroglycerin Adverse Reaction Intermediate 09/01/19 Yes Physical Exam Physical Exam Constitutional: Chronically ill-appearing female in no acute distress HENT: Normocephalic, atraumatic, bilateral external ears normal, oropharynx moist, no oral exudates, nose normal. [] Eyes: PERRLA, EOMI, conjunctiva normal, no discharge. [] Neck: Normal range of motion, no tenderness, supple, no stridor. [] Cardiovascular:Heart rate regular rhythm, no murmur [] Lungs & Thorax: Bilateral breath sounds clear to auscultation [] Abdomen: Bowel sounds normal, soft, no tenderness, no masses, no pulsatile masses. [] Skin: Warm, dry, no erythema, no rash. [] Back: No tenderness, no CVA tenderness. [] Extremities: No tenderness, no cyanosis, no clubbing, ROM intact, no edema. [] Neurologic: Alert and oriented X 3, patient has diffuse weakness with drift of her lower extremities within 1 second drift of her upper extremities within 3 to 4 seconds. Current Patient Data Vital Signs Vital Signs Date Time Temp Pulse Resp B/P (MAP) Pulse Ox O2 Delivery O2 Flow Rate FiO2 07/20/21 01:05 98.9 72 20 141/63 (89) 94 Room Air 98.9 EKG EKG Sinus rhythm at 73 bpm with normal axis no ST elevation or depression with normal T waves other than an inverted T wave in aVL. Radiology/Procedures Radiology/Procedures [] Course & Med Decision Making Course & Med Decision Making I will check labs and imaging treat symptoms and reassess. Given her inability to ambulate safely at her assisted living facility will plan for admission for further observation and treatment. Her slurred speech may be due to not having her dentures but she is unsure if her speech is more slurred than usual. I will admit patient to Dr. Amaro given her failure to thrive with inability to ambulate. Full work-up is still pending so we will have Dr. Banerjee follow-up on the results and order additional antibiotics or other treatment regimens if indicated. Dragon Disclaimer Dragon Disclaimer This electronic medical record was generated, in whole or in part, using a voice recognition dictation system. Departure Departure Impression: Primary Impression: Unable to walk Additional Impressions: Failure to thrive Slurring of speech Disposition: ADMITTED INPATIENT Admitting Physician: MONICA Butt) Condition: STABLE Referrals: UNKNOWN PCP NAME (PCP) Problem Qualifiers Additional Impressions: Failure to thrive Failure to thrive age range: in adult Qualified Codes: R62.7 - Adult failure to thrive MELISSA GALE DO Jul 20, 2021 01:31
[2021-07-20 02:32] LABS: AMORPHOUS SEDIMENT,UR PRESENT /HPF; BACTERIA,URINE 0 /HPF (0-FEW); BARBITURATES NEG (NEG); BENZODIAZEPINES NEG (NEG); CANNABINOIDS NEG (NEG); COCAINE NEG (NEG); METHADONE NEG (NEG); OPIATES NEG (NEG); PHENCYCLIDINE NEG (NEG); RBC,URINE OCC /HPF (0-2)
[2021-07-20 02:33] LABS: AMPHETAMINE/METHAMPHETAMINE NEG (NEG)
--- NOTE | 2021-07-20 02:37 | EKG ---
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
[2021-07-20 02:59] LABS: BASO % 1 % (0-3); EOS # 0.1 x10^3/uL (0.0-0.7); EOS % 1 % (0-3); HEMATOCRIT 24.2 % (36.0-47.0); HEMOGLOBIN 8.2 g/dL (12.0-15.5); LYMPH % 22 % (24-48); MEAN CORPUSCULAR HEMOGLOBIN 31 pg (25-35); MEAN CORPUSCULAR HGB CONC 34 g/dL (31-37); MEAN CORPUSCULAR VOLUME 91 fL (79-100); MONO # 0.3 x10^3/uL (0.0-1.1); MONO % 7 % (0-9); NEUT # 3.2 x10^3/uL (1.8-7.7); NEUT % 70 % (31-73); PLATELET COUNT 76 x10^3/uL (140-400); RED BLOOD COUNT 2.65 x10^6/uL (3.50-5.40); RED CELL DISTRIBUTION WIDTH 15.4 % (11.5-14.5); WHITE BLOOD COUNT 4.6 x10^3/uL (4.0-11.0)
[2021-07-20] MEDS ORDERED: ONDANSETRON PF 4 MG/2 ML VIAL. IVP PRN (03:00)
--- NOTE | 2021-07-20 03:04 | RAD ---
STUDY: CT head and cervical spine without contrast INDICATION: Altered mental status. Falls. COMPARISON: 03/17/2021 TECHNIQUE: Axial CT imaging through the head and cervical spine without the use of intravenous contra st. Sagittal and coronal reformats were obtained. One or more of the following individualized dose reduction techniques were utilized for this examinat ion: 1. Automated exposure control 2. Adjustment of the mA and/or kV according to patient size 3. Use of iterative reconstruction technique. FINDINGS: CT head: No acute intracranial hemorrhage. [place]-white matter differentiation is maintained. No localized mass effect, midline shift or hydrocephalus. Redemonstration of white matter findings typical of chronic microvascular ischemic change. Intracrani al calcific atherosclerosis. Parenchymal volume loss with ex vacuo ventricular prominence. No large scalp hematoma. No depressed calvarial fracture. CT cervical spine: ACDF construct at C6-C7. Intact and well fixated hardware. No acute fracture. No traumatic malalignment. Unchanged mild listhesis at a few levels. Advanced mult ifactorial degenerative changes without interval progression. Several levels with osseous central can al and neural foraminal stenosis. No paraspinous hematoma. Scattered calcific atherosclerosis. No apical pneumothorax. IMPRESSION: CT head: 1. No acute intracranial abnormality by CT. No significant change from 03/17/2021. CT cervical spine: 1. No acute fracture or traumatic malalignment. 2. Intact and well fixated ACDF construct at C6-C7. 3. Multilevel degenerative changes with associated central canal and neural foraminal stenosis witho ut notable progression from the comparison. Electronically signed by: CIERRA VAUGHN MD (07/20/2021 3:02 AM) [facility]
[2021-07-20 03:05] LABS: PROTHROMBIN TIME PATIENT 14.8 SEC (11.7-14.0)
[2021-07-20 03:16] LABS: ALBUMIN 1.5 g/dL (3.4-5.0); ALBUMIN/GLOBULIN RATIO 0.6 (1.0-1.7); CREATININE 0.5 mg/dL (0.6-1.0); TOTAL BILIRUBIN 0.2 mg/dL (0.2-1.0); TOTAL PROTEIN 4.2 g/dL (6.4-8.2)
[2021-07-20 03:23] LABS: CALCIUM 5.3 mg/dL (8.5-10.1); POTASSIUM 2.2 mmol/L (3.5-5.1)
[2021-07-20 04:00] VITALS: BP 180/66
[2021-07-20] MEDS ORDERED: POTASSIUM CHLORIDE 20 MEQ TABLET.ER. PO ONE ×2 (04:00→17:00)
--- NOTE | 2021-07-20 04:07 | NUR ---
Attempted to contact [facility] for pt's paperwork and medication list; no answer. Will try again shortly.
--- NOTE | 2021-07-20 06:27 | RAD ---
Study: XR CHEST 1V Indication: Altered mental status. Comparison: 04/18/2020 Findings: Unchanged prominence of the cardiomediastinal silhouette. Similar hilar configuration. Rounded infiltrate at the right upper lung projecting over and just below the posterior margin of the third rib is new from the prior. Mildly prominent lung markings throughout. No layering effusion or pneumothorax. ACDF construct. Impression: 1. Rounded opacity at the right upper lung is new from the prior. A similar finding was present at th e right lower lung on the 04/18/2020 comparison and is no longer seen. An infectious etiology is possi ble. Short interval follow-up is needed to confirm stability or resolution. 2. Prominence of the cardiomediastinal silhouette without radiographic manifestations of overt conges tive heart failure/volume overload. Electronically signed by: CIERRA VAUGHN MD (07/20/2021 6:24 AM) [facility]
[2021-07-20 07:00] VITALS: BP 137/51
[2021-07-20] MEDS ORDERED: FLUTICASONE 50MCG/NASAL SPRAY 16GM BOTTLE. NS PRN (09:00)
[2021-07-20] MEDS ORDERED: ACETAMINOPHEN 500 MG TABLET PO PRN (10:30)
[2021-07-20] MEDS ORDERED: CLONAZEPAM 1 MG PO PRN (10:30)
[2021-07-20] MEDS ORDERED: NAPROXEN 375 MG PO PRN (10:30)
[2021-07-20] MEDS ORDERED: MAGNESIUM HYDROXIDE 2,400 MG/30 ML ORAL.SUSP. PO PRN ×2 (10:30→12:15)
[2021-07-20] MEDS ORDERED: CYCLOBENZAPRINE 10 MG TABLET. PO PRN (10:30)
[2021-07-20 10:49] VITALS: BP 178/124
--- NOTE | 2021-07-20 11:29 | HP ---
DATE OF SERVICE: 07/20/2021 ADMIT DATE: 07/20/2021 CHIEF COMPLAINT: Fall. HISTORY OF PRESENT ILLNESS: The patient is a pleasant 76-year-old female who lives in a facility, I believe it is assisted care. She presented with a mechanical fall. She states she has been weaker lately. She has fallen several times. She also has some slight slurred speech. We are concerned she could be having some stroke symptoms. Her CAT scan really did not show anything acute. Her laboratory shows that she has hypokalemia of 2.2, hypernatremia of 146, and hypocalcemia of 5.3. Her albumin level was quite low at 1.5. She is also anemic with a hemoglobin of 8.2. I discussed the case with ER physician. We are going to admit the patient with consultation to Neurology. PAST MEDICAL HISTORY: Anxiety, depression, diabetes, hypertension, hypothyroidism, coronary artery disease, chronic pain, pseudoseizures, possible breast cancer, cholecystectomy, hysterectomy, neck surgery, right mastectomy, previous tobacco abuse. ALLERGIES: IODINE, STATINS, SULFA, BUPROPION, ERYTHROMYCIN, NIACIN, NITROGLYCERIN, TETRACYCLINE, AND COUMADIN. FAMILY HISTORY: Diabetes. SOCIAL HISTORY: She lives at assisted care. She does not drink or take drugs. She used to smoke, but quit. MEDICATIONS: Reviewed, please refer to the MRAD. REVIEW OF SYSTEMS: GENERAL: She complains of weakness. SKIN: No bruising, hair changes or rashes. EYES: No blurred, double or loss of vision. NOSE AND THROAT: No history of nosebleeds, hoarseness or sore throat. HEART: No history of palpitations, chest pain or shortness of breath on exertion. LUNGS: Denies cough, hemoptysis, wheezing or shortness of breath. GASTROINTESTINAL: Denies changes in appetite, nausea, vomiting, diarrhea or constipation. GENITOURINARY: No history of frequency, urgency, hesitancy or nocturia. NEUROLOGIC: She complains of weakness. PSYCHIATRIC: She complains of depression. ENDOCRINE: No history of heat or cold intolerance, polyuria or polydipsia. EXTREMITIES: Denies muscle weakness, joint pain, pain on walking or stiffness. PHYSICAL EXAMINATION: VITALS: Within normal limits and are stable. GENERAL: She is quite weak. HEENT: Normal cephalic atraumatic, external auditory canals are patent EYES: Extraocular muscles are intact, pupils are equally round and reactive to light and accommodation MUSKULOSKELETAL: Well developed, well nourished, good range of motion ENDOCRINE: No thyromegaly was palpated LYMPHATICS: No cervical chain or axillary nodes were noted HEMATOPOIETIC: No bruising NECK: Supple, no JVD, no thyromegaly was noted. LUNGS: Clear to auscultation in all lung [place] without rhonchi or wheezing. HEART: RRR, S1, S2 present. Peripheral pulses intact, no obvious murmurs were noted. ABDOMEN: Soft, nontender. Positive bowel sounds no organomegaly, normal bowel sounds. EXTREMITIES: Without any cyanosis, clubbing, or edema. Pedal pulses intact, Homans sign is negative. NEUROLOGIC: She is quite weak. PSYCHIATRIC: She appears depressed. SKIN: No ulcerations or rashes, good skin turgor, no jaundice. VASCULAR: Good capillary refill, neurovascular bundle appears to be intact. LABORATORY DATA: Drug screen negative. Urinalysis negative. Electrolytes: Sodium 146, potassium 2.2, chloride 117, bicarbonate 23, BUN 12, creatinine 0.5, glucose 190. INR is 1.2. White count is 4, hemoglobin 8.2, platelets 76. IMAGING: Chest x-ray shows a new right upper lobe rounded opacity and cardiomegaly. CT of the head is negative. ASSESSMENT AND PLAN: Weakness, falls, electrolyte derangement, anemia, hypokalemia, hypernatremia, severe protein calorie malnutrition and abnormal chest x-ray. The patient will be admitted. We will replace her potassium. Trend her labs. PT, OT evaluate and treat. social services technician for alf unit evaluation. We will consult Pulmonary Medicine regarding the abnormal chest x-ray. IV normal saline, home meds, DVT prophylaxis and full code. P.r.n. Zofran. PT, OT. SUSAN/HELEN DR: Juliann TID: [id number]
--- NOTE | 2021-07-20 12:17 | PDOC ---
PULMONARY PROGRESS NOTES DATE: 07/20/21 TIME: 12:16 Vitals Vital Signs Date Time Temp Pulse Resp B/P (MAP) Pulse Ox O2 Delivery O2 Flow Rate FiO2 07/20/21 10:49 98.1 76 18 178/124 (142) 92 Room Air 98.1 Labs Laboratory Tests Test 07/20/21 02:15 07/20/21 02:40 07/20/21 07:25 07/20/21 11:33 Urine Collection Type U cath Urine Color (Auto) Yellow Urine Turbidity Clear Urine pH (Auto) 6.0 (<5.0-8.0) Urine Specific [place] 1.031 (1.000-1.030) Urine Protein (Auto) 200 mg/dL (Negative) Urine Glucose (Auto)(UA) Negative mg/dL (Negative) Urine Ketones (Auto) Trace mg/dL (Negative) Urine Blood (Auto) Negative (Negative) Urine Nitrite Negative (Negative) Urine Bilirubin (Auto) Negative (Negative) Urine Urobilinogen (Auto) 3 mg/dL (Normal) Urine Leukocyte Esterase (Auto) Negative (Negative) Urine RBC Occ /HPF (0-2) Urine WBC 1-4 /HPF (0-4) Urine Squamous Epithelial Cells Few /LPF Urine Amorphous Sediment Present /HPF Urine Bacteria 0 /HPF (0-FEW) Urine Mucus Slight /LPF Urine Opiates Screen Neg (NEG) Urine Methadone Screen Neg (NEG) Urine Barbiturates Neg (NEG) Urine Phencyclidine Screen Neg (NEG) Urine Amphetamine/Methamphetamine Neg (NEG) Urine Benzodiazepines Screen Neg (NEG) Urine Cocaine Screen Neg (NEG) Urine Cannabinoids Screen Neg (NEG) Urine Ethyl Alcohol Neg (NEG) White Blood Count 4.6 x10^3/uL (4.0-11.0) Red Blood Count 2.65 x10^6/uL (3.50-5.40) Hemoglobin 8.2 g/dL (12.0-15.5) Hematocrit 24.2 % (36.0-47.0) Mean Corpuscular Volume 91 fL (79-100) Mean Corpuscular Hemoglobin 31 pg (25-35) Mean Corpuscular Hemoglobin Concent 34 g/dL (31-37) Red Cell Distribution Width 15.4 % (11.5-14.5) Platelet Count 76 x10^3/uL (140-400) Neutrophils (%) (Auto) 70 % (31-73) Lymphocytes (%) (Auto) 22 % (24-48) Monocytes (%) (Auto) 7 % (0-9) Eosinophils (%) (Auto) 1 % (0-3) Basophils (%) (Auto) 1 % (0-3) Neutrophils # (Auto) 3.2 x10^3/uL (1.8-7.7) Lymphocytes # (Auto) 1.0 x10^3/uL (1.0-4.8) Monocytes # (Auto) 0.3 x10^3/uL (0.0-1.1) Eosinophils # (Auto) 0.1 x10^3/uL (0.0-0.7) Basophils # (Auto) 0.0 x10^3/uL (0.0-0.2) Prothrombin Time 14.8 SEC (11.7-14.0) Prothromb Time International Ratio 1.2 (0.8-1.1) Activated Partial Thromboplast Time 31 SEC (24-38) Sodium Level 146 mmol/L (136-145) Potassium Level 2.2 mmol/L (3.5-5.1) Chloride Level 117 mmol/L (98-107) Carbon Dioxide Level 23 mmol/L (21-32) Anion Gap 6 (6-14) Blood Urea Nitrogen 12 mg/dL (7-20) Creatinine 0.5 mg/dL (0.6-1.0) Estimated GFR (Cockcroft-Gault) 120.0 BUN/Creatinine Ratio 24 (6-20) Glucose Level 190 mg/dL (70-99) Calcium Level 5.3 mg/dL (8.5-10.1) Total Bilirubin 0.2 mg/dL (0.2-1.0) Aspartate Amino Transf (AST/SGOT) 18 U/L (15-37) Alanine Aminotransferase (ALT/SGPT) 11 U/L (14-59) Alkaline Phosphatase 77 U/L (46-116) Troponin I High Sensitivity 16 ng/L (4-50) XO-Bxq-U-Type Natriuretic Peptide 159 pg/mL (0-449) Total Protein 4.2 g/dL (6.4-8.2) Albumin 1.5 g/dL (3.4-5.0) Albumin/Globulin Ratio 0.6 (1.0-1.7) Lipase 77 U/L (73-393) Thyroid Stimulating Hormone (TSH) 1.460 uIU/mL (0.358-3.74) Ethyl Alcohol Level < 10 mg/dL (0-10) Glucose (Fingerstick) 200 mg/dL (70-99) 207 mg/dL (70-99) Laboratory Tests Test 07/20/21 02:15 07/20/21 02:40 07/20/21 07:25 07/20/21 11:33 Urine Collection Type U cath Urine Color (Auto) Yellow Urine Turbidity Clear Urine pH (Auto) 6.0 (<5.0-8.0) Urine Specific [place] 1.031 (1.000-1.030) Urine Protein (Auto) 200 mg/dL (Negative) Urine Glucose (Auto)(UA) Negative mg/dL (Negative) Urine Ketones (Auto) Trace mg/dL (Negative) Urine Blood (Auto) Negative (Negative) Urine Nitrite Negative (Negative) Urine Bilirubin (Auto) Negative (Negative) Urine Urobilinogen (Auto) 3 mg/dL (Normal) Urine Leukocyte Esterase (Auto) Negative (Negative) Urine RBC Occ /HPF (0-2) Urine WBC 1-4 /HPF (0-4) Urine Squamous Epithelial Cells Few /LPF Urine Amorphous Sediment Present /HPF Urine Bacteria 0 /HPF (0-FEW) Urine Mucus Slight /LPF Urine Opiates Screen Neg (NEG) Urine Methadone Screen Neg (NEG) Urine Barbiturates Neg (NEG) Urine Phencyclidine Screen Neg (NEG) Urine Amphetamine/Methamphetamine Neg (NEG) Urine Benzodiazepines Screen Neg (NEG) Urine Cocaine Screen Neg (NEG) Urine Cannabinoids Screen Neg (NEG) Urine Ethyl Alcohol Neg (NEG) White Blood Count 4.6 x10^3/uL (4.0-11.0) Red Blood Count 2.65 x10^6/uL (3.50-5.40) Hemoglobin 8.2 g/dL (12.0-15.5) Hematocrit 24.2 % (36.0-47.0) Mean Corpuscular Volume 91 fL (79-100) Mean Corpuscular Hemoglobin 31 pg (25-35) Mean Corpuscular Hemoglobin Concent 34 g/dL (31-37) Red Cell Distribution Width 15.4 % (11.5-14.5) Platelet Count 76 x10^3/uL (140-400) Neutrophils (%) (Auto) 70 % (31-73) Lymphocytes (%) (Auto) 22 % (24-48) Monocytes (%) (Auto) 7 % (0-9) Eosinophils (%) (Auto) 1 % (0-3) Basophils (%) (Auto) 1 % (0-3) Neutrophils # (Auto) 3.2 x10^3/uL (1.8-7.7) Lymphocytes # (Auto) 1.0 x10^3/uL (1.0-4.8) Monocytes # (Auto) 0.3 x10^3/uL (0.0-1.1) Eosinophils # (Auto) 0.1 x10^3/uL (0.0-0.7) Basophils # (Auto) 0.0 x10^3/uL (0.0-0.2) Prothrombin Time 14.8 SEC (11.7-14.0) Prothromb Time International Ratio 1.2 (0.8-1.1) Activated Partial Thromboplast Time 31 SEC (24-38) Sodium Level 146 mmol/L (136-145) Potassium Level 2.2 mmol/L (3.5-5.1) Chloride Level 117 mmol/L (98-107) Carbon Dioxide Level 23 mmol/L (21-32) Anion Gap 6 (6-14) Blood Urea Nitrogen 12 mg/dL (7-20) Creatinine 0.5 mg/dL (0.6-1.0) Estimated GFR (Cockcroft-Gault) 120.0 BUN/Creatinine Ratio 24 (6-20) Glucose Level 190 mg/dL (70-99) Calcium Level 5.3 mg/dL (8.5-10.1) Total Bilirubin 0.2 mg/dL (0.2-1.0) Aspartate Amino Transf (AST/SGOT) 18 U/L (15-37) Alanine Aminotransferase (ALT/SGPT) 11 U/L (14-59) Alkaline Phosphatase 77 U/L (46-116) Troponin I High Sensitivity 16 ng/L (4-50) HU-Nwf-V-Type Natriuretic Peptide 159 pg/mL (0-449) Total Protein 4.2 g/dL (6.4-8.2) Albumin 1.5 g/dL (3.4-5.0) Albumin/Globulin Ratio 0.6 (1.0-1.7) Lipase 77 U/L (73-393) Thyroid Stimulating Hormone (TSH) 1.460 uIU/mL (0.358-3.74) Ethyl Alcohol Level < 10 mg/dL (0-10) Glucose (Fingerstick) 200 mg/dL (70-99) 207 mg/dL (70-99) Medications Active Scripts Medications Dose Route/Sig Max Daily Dose Days Date Category Lisinopril 40 Mg Tablet 20 Mg PO DAILY 30 09/06/19 Rx Ezetimibe 10 Mg Tablet 10 Mg PO DAILY 30 09/06/19 Rx Aspirin Ec (Aspirin) 81 Mg Tablet. 81 Mg PO DAILYWBKFT 100 09/06/19 Rx Lantus (Insulin Glargine,Hum.rec.anlog) 100 Unit/1 Ml Vial 50 Unit SQ BID 30 09/06/19 Rx Flonase Allergy Relief (Fluticasone Propionate) 9.9 Ml [place].susp 2 Sprays NS DAILY 09/03/19 Reported Proair Hfa Inhaler (Albuterol Sulfate) 8.5 Gm Hfa.aer.ad 2 Puff INH PRN Q6HRS PRN 09/03/19 Reported Trintellix (Vortioxetine) 20 Mg Tablet 1 Tab PO DAILY 30 09/03/19 Reported Torsemide 10 Mg Tablet 1 Tab PO QODAY 30 09/03/19 Reported Rexulti (Brexpiprazole) 4 Mg Tablet 1 Tab PO DAILY 30 09/03/19 Reported Melatonin 10 Mg Capsule 1 Cap PO QHS 30 09/03/19 Reported Glipizide 5 Mg Tablet 1 Tab PO TID 09/03/19 Reported Doxepin Hcl 10 Mg Capsule 1 Cap PO QHS 09/03/19 Reported Acetaminophen 500 Mg Tablet 500 Mg PO PRN BID PRN 04/18/18 Reported Trazodone Hcl 150 Mg Tablet 150 Mg PO HS 04/18/18 Reported Nicotine Lozenge (Nicotine Polacrilex) 2 Mg Lozenge 2 Mg BC PRN Q30MIN PRN 04/18/18 Reported Milk Of Magnesia (Magnesium Hydroxide) 400 Mg/5 Ml Oral.susp 400 Mg PO PRN DAILY PRN 04/18/18 Reported Naproxen 375 Mg Tablet.dr 375 Mg PO TID PRN 03/28/18 Rx Novolog (Insulin Aspart) 100 Unit/1 Ml Vial 25 Unit SQ TIDAC 03/02/18 Reported Melatonin 3 Mg Tablet 10 Mg PO HS 03/02/18 Reported Januvia (Sitagliptin Phosphate) 50 Mg Tablet 100 Mg PO DAILY 03/02/18 Reported Gemfibrozil 600 Mg Tablet 600 Mg PO BID 03/02/18 Reported Welchol (Colesevelam Hcl) 625 Mg Tablet 1,875 Mg PO TID 03/02/18 Reported Atenolol 25 Mg Tablet 1 Tab PO DAILY 10/17/16 Reported Levothyroxine Sodium 100 Mcg Tablet 1 Tab PO DAILY 10/17/16 Reported Fluticasone Propionate Nasal [place] (Fluticasone Propionate) 16 Gm [place].susp 1 [place] NS DAILY 10/17/16 Reported Clonazepam (Clonazepam) 0.5 Mg Tablet 1 Tab PO BID 06/25/14 Reported Cyclobenzaprine Hcl 10 Mg Tablet 10 Mg PO PRN TID PRN 08/01/13 Reported Plavix (Clopidogrel Bisulfate) 75 Mg Tablet 75 Mg PO DAILY 08/01/13 Reported Clonazepam Odt (Clonazepam) 2 Mg Tab.rapdis 1 Mg PO HS PRN 08/01/13 Reported Impression . Full consult dictated Right upper lobe density CT chest May require FNA Continue current support MENDOZA ALEXANDRA MD Jul 20, 2021 12:17
[2021-07-20] MEDS ORDERED: NICOTINE POLACRILEX 2MG GUM PACKAGE of 12. BC PRN (12:45)
[2021-07-20] MEDS: LEVOTHYROXINE 100 MCG TABLET PO SCH (12:46)
[2021-07-20] MEDS: LISINOPRIL 20 MG TABLET PO SCH (12:47)
[2021-07-20] MEDS: DULoxetine HCL 30 MG CAPSULE.DR PO SCH ×2 (12:47→20:48)
[2021-07-20] MEDS: ATENOLOL 25 MG TABLET. PO SCH (12:47)
[2021-07-20] MEDS: LINAGLIPTIN 5 MG TABLET PO SCH (12:47)
[2021-07-20] MEDS: CLOPIDOGREL BISULFATE 75 MG TABLET PO SCH (12:48)
[2021-07-20] MEDS: ARIPiprazole 5 MG TABLET PO SCH (12:49)
[2021-07-20] MEDS ORDERED: INSU100V13 SQ (13:03)
[2021-07-20] MEDS ORDERED: DULO60CA7 PO (13:04)
[2021-07-20] MEDS ORDERED: DULO30CA2 PO (13:04)
[2021-07-20] MEDS ORDERED: DICL20GE TP (13:06)
[2021-07-20] MEDS ORDERED: MECL-75 PO (13:06)
[2021-07-20] MEDS ORDERED: TRAZ-118 PO (13:08)
[2021-07-20] MEDS ORDERED: glipiZIDE 5 MG TABLET PO SCH (14:00)
[2021-07-20] MEDS ORDERED: COLESEVELAM HCL 625 MG TABLET PO SCH (14:00)
[2021-07-20] MEDS: MECLIZINE HCL 12.5 MG TABLET. PO SCH (14:37)
[2021-07-20] MEDS: MAGNESIUM OXIDE 400 MG TABLET PO SCH (14:37)
[2021-07-20] MEDS: LIDOCAINE (700MG/PATCH) PATCH. TD SCH (14:40)
[2021-07-20 15:00] VITALS: BP 183/70
[2021-07-20] MEDS: INSULIN LISPRO 300 UNITS/3 ML VIAL. SQ SCH (17:17)
[2021-07-20 19:30] VITALS: BP 171/68
--- NOTE | 2021-07-20 19:48 | PDOC2 ---
CONSULT Date of Consult Date of Consult Neurology Consultation DATE: 07/20/21 TIME: 19:34 Reason for Consult Reason for Consult: Falls with concern for stroke. Referring Physician Referring Physician: Dr. Eh Dennis History of Present Illness Reason for Visit: Kayla Molina is a 76-year-old woman who resides in assisted living facility. She reports that she has been falling over the last week. She finds it difficult to come around a corner. In general she has been weaker than normal. There was concerned that she may have suffered a stroke. A CT scan of the head was performed and not revealing for an acute process. She had a number of lab abnormalities including hypokalemia, hypocalcemia and hypernatremia. She has not been drinking as much water lately because the water taste alkaline. She reports she moved to a different facility 2 weeks ago. Its not clear if any medications have recently been adjusted or added. She is not a very good historian. Past Medical History Cardiovascular: CAD, HTN, Hyperlipidemia CENTRAL NERVOUS SYSTEM: CVA GI: GERD Heme/Onc: Cancer Psych: Anxiety, Depression Musculoskeletal: Osteoarthritis, Other Endocrine: Diabetes, Hypothyroidism Past Surgical History Past Surgical History: Cholecystectomy, Hysterectomy, Other Family History Family History: Hypertension Social History ALCOHOL: none Drugs: None Lives: Jail Current Problem List Problem List Problems Medical Problems: (1) Failure to thrive Status: Acute (2) Slurring of speech Status: Acute (3) Unable to walk Status: Acute Current Medications Current Medications Current Medications Sodium Chloride 1,000 ml @ 1,000 mls/hr 1X ONCE IV Last administered on 07/20/21at 02:03; Start 07/20/21 at 01:30; Stop 07/20/21 at 02:29; Status DC Ondansetron HCl (Zofran) 4 mg PRN Q8HRS PRN IVP NAUSEA/VOMITING 1st CHOICE; Start 07/20/21 at 03:00; Stop 07/21/21 at 02:59 Potassium Chloride (Klor-Con) 40 meq 1X ONCE PO Last administered on 07/20/21at 03:57; Start 07/20/21 at 04:00; Stop 07/20/21 at 04:01; Status DC Acetaminophen (Tylenol) 500 mg PRN BID PRN PO PAIN; Start 07/20/21 at 10:30 Aspirin (Ecotrin) 81 mg DAILYWBKFT PO ; Start 07/21/21 at 08:00; Status UNV Atenolol (Tenormin) 75 mg DAILY PO Last administered on 07/20/21at 12:47; Start 07/20/21 at 13:00 Clonazepam (KlonoPIN) 1 mg PRN QHS PRN PO ANXIETY / INSOMNIA; Start 07/20/21 at 21:00 Clopidogrel Bisulfate (Plavix) 75 mg DAILY PO Last administered on 07/20/21at 12:48; Start 07/20/21 at 13:00 Colesevelam HCl (Welchol) 1,875 mg TID PO ; Start 07/20/21 at 14:00; Status UNV Cyclobenzaprine HCl (Flexeril) 10 mg PRN TID PRN PO MUSCLE SPASMS; Start 07/20/21 at 10:30 Doxepin HCl (SINequan) 10 mg QHS PO ; Start 07/20/21 at 21:00 EZETIMIBE (Zetia) 10 mg DAILY PO ; Start 07/21/21 at 09:00; Status UNV Fluticasone Propionate (Flonase) 1 spray PRN DAILY PRN NS ALLERGIES; Start 07/20/21 at 09:00 Gemfibrozil (Lopid) 600 mg BID PO ; Start 07/20/21 at 21:00; Status UNV Glipizide (Glucotrol) 5 mg TID PO ; Start 07/20/21 at 14:00; Status UNV Insulin Glargine (Lantus Syringe) 80 unit BID SQ ; Start 07/20/21 at 21:00 Levothyroxine Sodium (Synthroid) 100 mcg DAILY06 PO Last administered on 07/20/21at 12:46; Start 07/20/21 at 12:30 Lisinopril (Prinivil) 20 mg DAILY PO Last administered on 07/20/21at 12:47; Start 07/20/21 at 13:00 Magnesium Hydroxide (Milk Of Magnesia) 400 mg PRN DAILY PRN PO CONSTIPATION; Start 07/20/21 at 10:30; Stop 07/20/21 at 12:15; Status DC Torsemide (Demadex) 10 mg QODAY PO ; Start 07/21/21 at 09:00 Aripiprazole (Abilify) 10 mg DAILY PO Last administered on 07/20/21at 12:49; Start 07/20/21 at 13:00 Non-Formulary Medication (Clonazepam (Clonazepam Odt)) 1 mg HS PRN PO hs; Start 07/20/21 at 10:30; Status UNV Non-Formulary Medication (Fluticasone Propionate (Flonase Allergy Relief)) 2 sprays DAILY NS ; Start 07/21/21 at 09:00; Status UNV Insulin Human Lispro (HumaLOG) 30 units TIDWMEALS SQ Last administered on 07/20/21at 17:17; Start 07/20/21 at 17:00 Non-Formulary Medication (Melatonin ) 10 mg HS PO ; Start 07/20/21 at 21:00; Status UNV Non-Formulary Medication (Melatonin ) 1 cap QHS PO ; Start 07/20/21 at 21:00; Status UNV Non-Formulary Medication (Naproxen ) 375 mg TID PRN PO PAIN; Start 07/20/21 at 10:30; Status UNV Nicotine Polacrilex (Nicorette Gum) 1 each PRN Q1HR PRN BC SMOKING CESSATION; Start 07/20/21 at 12:45 Linagliptin (Tradjenta) 5 mg DAILY PO Last administered on 07/20/21at 12:47; Start 07/20/21 at 13:00 Trazodone HCl (Desyrel) 50 mg HS PO ; Start 07/20/21 at 21:00 Non-Formulary Medication (Vortioxetine Hydrobromide (Trintellix)) 1 tab DAILY PO ; Start 07/21/21 at 09:00; Status UNV Magnesium Hydroxide (Milk Of Magnesia) 2,400 mg PRN DAILY PRN PO CONSTIPATION; Start 07/20/21 at 12:15 Duloxetine HCl (Cymbalta) 30 mg DAILY PO Last administered on 07/20/21at 12:47; Start 07/20/21 at 13:00 Magnesium Oxide (Magnesium Oxide) 400 mg DAILY PO Last administered on 07/20/21at 14:37; Start 07/20/21 at 14:00 Lidocaine (Lidoderm) 1 patch DAILY TD Last administered on 07/20/21at 14:40; Start 07/20/21 at 13:00 Miscellaneous (Lidoderm Patch Removal) 1 ea QHS MC ; Start 07/20/21 at 21:00 Meclizine HCl (Antivert) 25 mg DAILY PO Last administered on 07/20/21at 14:37; Start 07/20/21 at 14:00 Duloxetine HCl (Cymbalta) 60 mg QHS PO ; Start 07/20/21 at 21:00 Potassium Chloride (Klor-Con) 40 meq 1X ONCE PO Last administered on 07/20/21at 17:13; Start 07/20/21 at 17:00; Stop 07/20/21 at 17:01; Status DC Active Scripts Active Lisinopril 40 Mg Tablet 20 Mg PO DAILY 30 Days Reported Trazodone Hcl 50 Mg Tablet 50 Mg PO HS Voltaren Arthritis Pain (Diclofenac Sodium) 20 Gm Gel..gram. 1 Gm TP TID Meclizine Hcl 25 Mg Tablet 25 Mg PO DAILY Cymbalta (Duloxetine Hcl) 60 Mg Capsule.dr 60 Mg PO QHS Cymbalta (Duloxetine Hcl) 30 Mg Capsule.dr 30 Mg PO DAILY Levemir (Insulin Detemir) 100 Unit/1 Ml Vial 80 Unit SQ BID Flonase Allergy Relief (Fluticasone Propionate) 9.9 Ml [place].susp 2 Sprays NS DAILY PRN Proair Hfa Inhaler (Albuterol Sulfate) 8.5 Gm Hfa.aer.ad 2 Puff INH PRN Q6HRS PRN Torsemide 10 Mg Tablet 1 Tab PO QODAY 30 Days Rexulti (Brexpiprazole) 4 Mg Tablet 1 Tab PO DAILY 30 Days Doxepin Hcl 10 Mg Capsule 1 Cap PO QHS Acetaminophen 500 Mg Tablet 500 Mg PO PRN BID PRN Nicotine Lozenge (Nicotine Polacrilex) 2 Mg Lozenge 2 Mg BC PRN Q30MIN PRN Milk Of Magnesia (Magnesium Hydroxide) 400 Mg/5 Ml Oral.susp 2,400 Mg PO PRN DAILY PRN Novolog (Insulin Aspart) 100 Unit/1 Ml Vial 30 Unit SQ TIDAC Januvia (Sitagliptin Phosphate) 50 Mg Tablet 100 Mg PO DAILY Atenolol 25 Mg Tablet 75 Mg PO DAILY Levothyroxine Sodium 100 Mcg Tablet 1 Tab PO DAILY Cyclobenzaprine Hcl 10 Mg Tablet 10 Mg PO PRN TID PRN Plavix (Clopidogrel Bisulfate) 75 Mg Tablet 75 Mg PO DAILY Clonazepam Odt (Clonazepam) 2 Mg Tab.rapdis 1 Mg PO HS PRN Allergies Allergies: Coded Allergies: Iodine and Iodide Containing Produc (Verified Allergy, Intermediate, 09/01/19) Sulfa (Sulfonamide Antibiotics) (Verified Allergy, Intermediate, Rash, 09/01/19) numbness bupropion (Verified Allergy, Intermediate, Rash, 09/01/19) tetracycline (Verified Allergy, Intermediate, Swelling, 09/01/19) warfarin (Verified Allergy, Intermediate, Hives, 09/01/19) [id number]-PJC-XfI Reductase Inhibitor (Verified Adverse Reaction, Interm ediate, 09/06/19) weakness erythromycin base (Verified Adverse Reaction, Intermediate, 09/06/19) numbness niacin (Verified Adverse Reaction, Intermediate, Hives, 09/01/19) nitroglycerin (Verified Adverse Reaction, Intermediate, 09/01/19) HEADACHES ROS Review of System Constitutional: Negative Eyes: Negative HENT: Negative Respiratory: Negative Cardiovascular: Negative GI: Negative : Negative Musculoskeletal: Negative Neurologic: She has felt generally weak. She normally uses a walker to get around. Hematologic: Negative Lymphatic: Negative Endocrine: She has diabetes. Psychiatric: Negative Physical Exam Physical Exam She was alert, awake and cooperative. She had psychomotor slowing. She was able to respond to questions but often did not have good details and was slow to respond. The speech was fluent and clear. She had a limited fund of recent and remote knowledge. Attention and concentration was intact until she started to wear out near the end of the examination. She was well-groomed and well- nourished. She was fully oriented. Examination of the cranial nerves revealed visual whatley were full to confrontation. Extraocular movements were intact. The eyes were conjugate. Pursuit movements were smooth and saccadic movements were without dysmetria. The pupils were 3 millimeters and reacted to light. There was no afferent pupillary defect. Funduscopic examination did not reveal papilledema, exudate or hemorrhage. Facial sensation was intact. The muscles of mastication and facial expression were powerful symmetrically. At rest she appeared to have some left facial drooping but it activated symmetrically. Hearing was intact to finger rub. The palate arch symmetrically and the tongue was midline with full range of motion. Sternocleidomastoid and trapezius were powerful bilaterally. Muscle bulk and tone was normal. She did not have any rigidity. She did not have any tremor. There was no arm drift or abnormal movement. The power was full and symmetric in the upper and lower extremities except for weakness with knee flexion and dorsi and plantar flexion. Reflexes were 2/4 and symmetric in the upper extremities. Reflexes were absent at the knees and ankles. The toes were downgoing bilaterally. Coordination testing with finger to nose was fair. She was generally slow with fine motor movements. She did poorly with rapid alternating movements that she could not grasp the concept. She did well with [id number]. The sensory examination was intact to pain, light touch, proprioception, graphesthesia, cold thermal and vibration. She started to fall asleep as I was examining her legs so the sensory exam was not as reliable. She appeared to have some sensory shading in her feet. There was no extinction to double simultaneous stimulation. The gait was not testable. Auscultation of the carotid arteries did not reveal a bruit. Heart rhythm was regular without a murmur. Peripheral pulses are 2/4 at the wrists and feet. There was no edema or cyanosis of the extremities. Vitals VITALS Vital Signs Date Time Temp Pulse Resp B/P (MAP) Pulse Ox O2 Delivery O2 Flow Rate FiO2 07/20/21 15:00 98.2 67 18 183/70 (107) 91 Room Air 98.2 Labs Labs Laboratory Tests Test 07/20/21 02:15 07/20/21 02:40 07/20/21 07:25 07/20/21 11:33 Urine Collection Type U cath Urine Color (Auto) Yellow Urine Turbidity Clear Urine pH (Auto) 6.0 (<5.0-8.0) Urine Specific [place] 1.031 (1.000-1.030) Urine Protein (Auto) 200 mg/dL (Negative) Urine Glucose (Auto)(UA) Negative mg/dL (Negative) Urine Ketones (Auto) Trace mg/dL (Negative) Urine Blood (Auto) Negative (Negative) Urine Nitrite Negative (Negative) Urine Bilirubin (Auto) Negative (Negative) Urine Urobilinogen (Auto) 3 mg/dL (Normal) Urine Leukocyte Esterase (Auto) Negative (Negative) Urine RBC Occ /HPF (0-2) Urine WBC 1-4 /HPF (0-4) Urine Squamous Epithelial Cells Few /LPF Urine Amorphous Sediment Present /HPF Urine Bacteria 0 /HPF (0-FEW) Urine Mucus Slight /LPF Urine Opiates Screen Neg (NEG) Urine Methadone Screen Neg (NEG) Urine Barbiturates Neg (NEG) Urine Phencyclidine Screen Neg (NEG) Urine Amphetamine/Methamphetamine Neg (NEG) Urine Benzodiazepines Screen Neg (NEG) Urine Cocaine Screen Neg (NEG) Urine Cannabinoids Screen Neg (NEG) Urine Ethyl Alcohol Neg (NEG) White Blood Count 4.6 x10^3/uL (4.0-11.0) Red Blood Count 2.65 x10^6/uL (3.50-5.40) Hemoglobin 8.2 g/dL (12.0-15.5) Hematocrit 24.2 % (36.0-47.0) Mean Corpuscular Volume 91 fL (79-100) Mean Corpuscular Hemoglobin 31 pg (25-35) Mean Corpuscular Hemoglobin Concent 34 g/dL (31-37) Red Cell Distribution Width 15.4 % (11.5-14.5) Platelet Count 76 x10^3/uL (140-400) Neutrophils (%) (Auto) 70 % (31-73) Lymphocytes (%) (Auto) 22 % (24-48) Monocytes (%) (Auto) 7 % (0-9) Eosinophils (%) (Auto) 1 % (0-3) Basophils (%) (Auto) 1 % (0-3) Neutrophils # (Auto) 3.2 x10^3/uL (1.8-7.7) Lymphocytes # (Auto) 1.0 x10^3/uL (1.0-4.8) Monocytes # (Auto) 0.3 x10^3/uL (0.0-1.1) Eosinophils # (Auto) 0.1 x10^3/uL (0.0-0.7) Basophils # (Auto) 0.0 x10^3/uL (0.0-0.2) Prothrombin Time 14.8 SEC (11.7-14.0) Prothromb Time International Ratio 1.2 (0.8-1.1) Activated Partial Thromboplast Time 31 SEC (24-38) Sodium Level 146 mmol/L (136-145) Potassium Level 2.2 mmol/L (3.5-5.1) Chloride Level 117 mmol/L (98-107) Carbon Dioxide Level 23 mmol/L (21-32) Anion Gap 6 (6-14) Blood Urea Nitrogen 12 mg/dL (7-20) Creatinine 0.5 mg/dL (0.6-1.0) Estimated GFR (Cockcroft-Gault) 120.0 BUN/Creatinine Ratio 24 (6-20) Glucose Level 190 mg/dL (70-99) Calcium Level 5.3 mg/dL (8.5-10.1) Total Bilirubin 0.2 mg/dL (0.2-1.0) Aspartate Amino Transf (AST/SGOT) 18 U/L (15-37) Alanine Aminotransferase (ALT/SGPT) 11 U/L (14-59) Alkaline Phosphatase 77 U/L (46-116) Troponin I High Sensitivity 16 ng/L (4-50) FO-Ofy-I-Type Natriuretic Peptide 159 pg/mL (0-449) Total Protein 4.2 g/dL (6.4-8.2) Albumin 1.5 g/dL (3.4-5.0) Albumin/Globulin Ratio 0.6 (1.0-1.7) Lipase 77 U/L (73-393) Thyroid Stimulating Hormone (TSH) 1.460 uIU/mL (0.358-3.74) Ethyl Alcohol Level < 10 mg/dL (0-10) Glucose (Fingerstick) 200 mg/dL (70-99) 207 mg/dL (70-99) Test 07/20/21 16:39 Glucose (Fingerstick) 284 mg/dL (70-99) Laboratory Tests Test 07/20/21 02:15 07/20/21 02:40 07/20/21 07:25 07/20/21 11:33 Urine Collection Type U cath Urine Color (Auto) Yellow Urine Turbidity Clear Urine pH (Auto) 6.0 (<5.0-8.0) Urine Specific [place] 1.031 (1.000-1.030) Urine Protein (Auto) 200 mg/dL (Negative) Urine Glucose (Auto)(UA) Negative mg/dL (Negative) Urine Ketones (Auto) Trace mg/dL (Negative) Urine Blood (Auto) Negative (Negative) Urine Nitrite Negative (Negative) Urine Bilirubin (Auto) Negative (Negative) Urine Urobilinogen (Auto) 3 mg/dL (Normal) Urine Leukocyte Esterase (Auto) Negative (Negative) Urine RBC Occ /HPF (0-2) Urine WBC 1-4 /HPF (0-4) Urine Squamous Epithelial Cells Few /LPF Urine Amorphous Sediment Present /HPF Urine Bacteria 0 /HPF (0-FEW) Urine Mucus Slight /LPF Urine Opiates Screen Neg (NEG) Urine Methadone Screen Neg (NEG) Urine Barbiturates Neg (NEG) Urine Phencyclidine Screen Neg (NEG) Urine Amphetamine/Methamphetamine Neg (NEG) Urine Benzodiazepines Screen Neg (NEG) Urine Cocaine Screen Neg (NEG) Urine Cannabinoids Screen Neg (NEG) Urine Ethyl Alcohol Neg (NEG) White Blood Count 4.6 x10^3/uL (4.0-11.0) Red Blood Count 2.65 x10^6/uL (3.50-5.40) Hemoglobin 8.2 g/dL (12.0-15.5) Hematocrit 24.2 % (36.0-47.0) Mean Corpuscular Volume 91 fL (79-100) Mean Corpuscular Hemoglobin 31 pg (25-35) Mean Corpuscular Hemoglobin Concent 34 g/dL (31-37) Red Cell Distribution Width 15.4 % (11.5-14.5) Platelet Count 76 x10^3/uL (140-400) Neutrophils (%) (Auto) 70 % (31-73) Lymphocytes (%) (Auto) 22 % (24-48) Monocytes (%) (Auto) 7 % (0-9) Eosinophils (%) (Auto) 1 % (0-3) Basophils (%) (Auto) 1 % (0-3) Neutrophils # (Auto) 3.2 x10^3/uL (1.8-7.7) Lymphocytes # (Auto) 1.0 x10^3/uL (1.0-4.8) Monocytes # (Auto) 0.3 x10^3/uL (0.0-1.1) Eosinophils # (Auto) 0.1 x10^3/uL (0.0-0.7) Basophils # (Auto) 0.0 x10^3/uL (0.0-0.2) Prothrombin Time 14.8 SEC (11.7-14.0) Prothromb Time International Ratio 1.2 (0.8-1.1) Activated Partial Thromboplast Time 31 SEC (24-38) Sodium Level 146 mmol/L (136-145) Potassium Level 2.2 mmol/L (3.5-5.1) Chloride Level 117 mmol/L (98-107) Carbon Dioxide Level 23 mmol/L (21-32) Anion Gap 6 (6-14) Blood Urea Nitrogen 12 mg/dL (7-20) Creatinine 0.5 mg/dL (0.6-1.0) Estimated GFR (Cockcroft-Gault) 120.0 BUN/Creatinine Ratio 24 (6-20) Glucose Level 190 mg/dL (70-99) Calcium Level 5.3 mg/dL (8.5-10.1) Total Bilirubin 0.2 mg/dL (0.2-1.0) Aspartate Amino Transf (AST/SGOT) 18 U/L (15-37) Alanine Aminotransferase (ALT/SGPT) 11 U/L (14-59) Alkaline Phosphatase 77 U/L (46-116) Troponin I High Sensitivity 16 ng/L (4-50) KM-Zfj-P-Type Natriuretic Peptide 159 pg/mL (0-449) Total Protein 4.2 g/dL (6.4-8.2) Albumin 1.5 g/dL (3.4-5.0) Albumin/Globulin Ratio 0.6 (1.0-1.7) Lipase 77 U/L (73-393) Thyroid Stimulating Hormone (TSH) 1.460 uIU/mL (0.358-3.74) Ethyl Alcohol Level < 10 mg/dL (0-10) Glucose (Fingerstick) 200 mg/dL (70-99) 207 mg/dL (70-99) Test 07/20/21 16:39 Glucose (Fingerstick) 284 mg/dL (70-99) Images Images CT head and cervical spine without contrast July 20, 2021 FINDINGS: CT head: No acute intracranial hemorrhage. [place]-white matter differentiation is maintained. No localized mass effect, midline shift or hydrocephalus. Redemonstration of white matter findings typical of chronic microvascular ischemic change. Intracranial calcific atherosclerosis. Parenchymal volume loss with ex vacuo ventricular prominence. No large scalp hematoma. No depressed calvarial fracture. CT cervical spine: ACDF construct at C6-C7. Intact and well fixated hardware. No acute fracture. No traumatic malalignment. Unchanged mild listhesis at a few levels. Advanced multifactorial degenerative changes without interval progression. Several levels with osseous central canal and neural foraminal stenosis. No paraspinous hematoma. Scattered calcific atherosclerosis. No apical pneumothorax. IMPRESSION: CT head: 1. No acute intracranial abnormality by CT. No significant change from 03/17/2021. CT cervical spine: 1. No acute fracture or traumatic malalignment. 2. Intact and well fixated ACDF construct at C6-C7. 3. Multilevel degenerative changes with associated central canal and neural foraminal stenosis without notable progression from the comparison. Chest x-ray July 20, 2021 Findings: Unchanged prominence of the cardiomediastinal silhouette. Similar hilar configuration. Rounded infiltrate at the right upper lung projecting over and just below the posterior margin of the third rib is new from the prior. Mildly prominent lung markings throughout. No layering effusion or pneumothorax. ACDF construct. Impression: 1. Rounded opacity at the right upper lung is new from the prior. A similar finding was present at the right lower lung on the 04/18/2020 comparison and is no longer seen. An infectious etiology is possible. Short interval follow-up is needed to confirm stability or resolution. 2. Prominence of the cardiomediastinal silhouette without radiographic manifestations of overt congestive heart failure/volume overload. Assessment/Plan Assessment/Plan Patient is a 76-year-old woman who has had increasing falls over the last week. She appears to have bilateral weakness at knees and ankles but the hip flexion and extension still remains fairly well-preserved. In general she seems to have some slowing although I do not see evidence of rigidity or tremor to suggest Parkinson's disease. This may be a metabolic issue as she has a number of abnormalities including acute anemia, hypernatremia, hypokalemia and hypocalcemia. Once all of these issues are addressed then we can determine if she is still having difficulty with weakness and cognition. I do not know if her baseline is dementia. It is reasonable to proceed with an MRI brain without contrast to make sure were not dealing with stroke causing cognitive changes and balance difficulty. LUIS MADERA MD Jul 20, 2021 19:48
[2021-07-20] MEDS: clonazePAM 0.5 MG TABLET PO PRN (20:48)
[2021-07-20] MEDS: DOXEPIN HCL 10 MG CAPSULE. PO SCH (20:48)
[2021-07-20] MEDS: PATCH REMOVAL. MC SCH (20:48)
[2021-07-20] MEDS: traZODone 50 MG TABLET. PO SCH (20:48)
[2021-07-20] MEDS: INSULIN GLARGINE SYRINGE. SQ SCH (20:57)
[2021-07-20] MEDS ORDERED: GEMFIBROZIL 600 MG TABLET. PO SCH (21:00)
[2021-07-20] MEDS ORDERED: NON FORMULARY ITEM (Melatonin 1 CAP) PO SCH (21:00)
[2021-07-20] MEDS ORDERED: NON FORMULARY ITEM (Melatonin 10 MG) PO SCH (21:00)
--- NOTE | 2021-07-20 21:10 | CONS ---
DATE OF CONSULTATION: 07/20/2021 ATTENDING PHYSICIAN: Oscar Dennis DO CONSULTING PHYSICIAN: Harshad France MD REASON FOR CONSULTATION: The patient is seen in pulmonary consultation at the request of Dr. Dennis for abnormal chest x-ray revealing a rounded opacity in the right upper lobe. HISTORY OF PRESENT ILLNESS: The patient is a 76-year-old that resides at assisted living, presented with mechanical fall. She has been weak. She states that she has been having some difficulty with weakness and balance. She presented, underwent CT head, cervical spine revealing no acute hemorrhage. There were some chronic microvascular ischemic changes. She also underwent chest x-ray revealing right upper lobe opacity. I was asked to see her in consultation. The patient is currently awake, alert, following commands. She was in the hospital. She states that she quit tobacco 30 years ago. No underlying COPD. She does not wear oxygen. She denies headaches, diplopia or blurred vision. No hemoptysis. PAST MEDICAL HISTORY: Remarkable for diabetes, hypertension, hypothyroidism, depression, anxiety, chronic pain. There is a possible history of pseudoseizure and breast cancer, not clear. I specifically asked the patient if she had breast cancer, she states yes and she had mastectomy, but did not receive any radiation or chemo. PAST SURGICAL HISTORY: She has had previous right mastectomy, cholecystectomy, hysterectomy. ALLERGIES: LISTED TO IODINE, SULFA, BUPROPION, ERYTHROMYCIN, NITROGLYCERIN, TETRACYCLINE. FAMILY HISTORY: Diabetes. SOCIAL HISTORY: She resides at assisted living. She has no family here in town. REVIEW OF SYSTEMS: As indicated above, otherwise other systems were reviewed and negative. CURRENT MEDICATIONS: List was reviewed. She is on multiple medications including insulin. PHYSICAL EXAMINATION: VITAL SIGNS: Stable. O2 saturation currently on room air 92%. HEENT: Eyes: The sclerae were nonicteric. NECK: Jugular venous distention was not elevated. No lymphadenopathy. CHEST: Full expansion. LUNGS: Adequate flow with no wheezes. CARDIOVASCULAR: Regular rate and rhythm with S1, S2, no S3. ABDOMEN: Soft, nontender. EXTREMITIES: No clubbing, cyanosis or edema. LABORATORY DATA: White count was normal. INR was 1.2. Electrolytes were noted. Potassium was low. Calcium was low. Albumin was low. Chest x-ray as indicated above. Toxicology screen was noted. IMPRESSION: 1. Abnormal chest x-ray revealing rounded density in the right upper lobe. 2. Cardiomegaly. 3. Frequent falls, generalized weakness. 4. Diabetes. 5. Hypertension. 6. History of breast cancer, status post mastectomy. 7. Chronic obstructive pulmonary disease, undiagnosed. 8. Depression and anxiety. DISCUSSION: Considering the patient's history of tobacco use and breast cancer, we will proceed with CT chest to better delineate the rounded density, the patient may require FNA for definitive diagnosis. Clinically, I do not think that she has metastatic disease to the central nervous system that would explain her frequent falls. PLAN: 1. Proceed with CT and make further recommendation depending on CT scan findings. 2. Outpatient pulmonary function testing. 3. Replace potassium, which may be causing her recent weakness and falls. 4. Consult dietitian for severe protein malnutrition present upon admission. BELINDA DR: Nabila TID: [id number]
[2021-07-20 23:31] VITALS: BP 188/73
[2021-07-21 03:12] VITALS: BP 183/75
[2021-07-21] MEDS: LEVOTHYROXINE 100 MCG TABLET PO SCH ×2 (05:25→21:18)
[2021-07-21 07:00] VITALS: BP 208/82
[2021-07-21] MEDS ORDERED: ASPIRIN ENTERIC COATED 81 MG TABLET.DR. PO SCH (08:00)
--- NOTE | 2021-07-21 08:58 | PDOC ---
PULMONARY PROGRESS NOTES DATE: 07/21/21 TIME: 08:58 Vitals Vital Signs Date Time Temp Pulse Resp B/P (MAP) Pulse Ox O2 Delivery O2 Flow Rate FiO2 07/21/21 07:00 98.1 75 20 208/82 (124) 91 Room Air 98.1 07/21/21 03:12 2.0 Labs Laboratory Tests Test 07/20/21 02:15 07/20/21 02:40 07/20/21 07:25 07/20/21 11:33 Urine Collection Type U cath Urine Color (Auto) Yellow Urine Turbidity Clear Urine pH (Auto) 6.0 (<5.0-8.0) Urine Specific [place] 1.031 (1.000-1.030) Urine Protein (Auto) 200 mg/dL (Negative) Urine Glucose (Auto)(UA) Negative mg/dL (Negative) Urine Ketones (Auto) Trace mg/dL (Negative) Urine Blood (Auto) Negative (Negative) Urine Nitrite Negative (Negative) Urine Bilirubin (Auto) Negative (Negative) Urine Urobilinogen (Auto) 3 mg/dL (Normal) Urine Leukocyte Esterase (Auto) Negative (Negative) Urine RBC Occ /HPF (0-2) Urine WBC 1-4 /HPF (0-4) Urine Squamous Epithelial Cells Few /LPF Urine Amorphous Sediment Present /HPF Urine Bacteria 0 /HPF (0-FEW) Urine Mucus Slight /LPF Urine Opiates Screen Neg (NEG) Urine Methadone Screen Neg (NEG) Urine Barbiturates Neg (NEG) Urine Phencyclidine Screen Neg (NEG) Urine Amphetamine/Methamphetamine Neg (NEG) Urine Benzodiazepines Screen Neg (NEG) Urine Cocaine Screen Neg (NEG) Urine Cannabinoids Screen Neg (NEG) Urine Ethyl Alcohol Neg (NEG) White Blood Count 4.6 x10^3/uL (4.0-11.0) Red Blood Count 2.65 x10^6/uL (3.50-5.40) Hemoglobin 8.2 g/dL (12.0-15.5) Hematocrit 24.2 % (36.0-47.0) Mean Corpuscular Volume 91 fL (79-100) Mean Corpuscular Hemoglobin 31 pg (25-35) Mean Corpuscular Hemoglobin Concent 34 g/dL (31-37) Red Cell Distribution Width 15.4 % (11.5-14.5) Platelet Count 76 x10^3/uL (140-400) Neutrophils (%) (Auto) 70 % (31-73) Lymphocytes (%) (Auto) 22 % (24-48) Monocytes (%) (Auto) 7 % (0-9) Eosinophils (%) (Auto) 1 % (0-3) Basophils (%) (Auto) 1 % (0-3) Neutrophils # (Auto) 3.2 x10^3/uL (1.8-7.7) Lymphocytes # (Auto) 1.0 x10^3/uL (1.0-4.8) Monocytes # (Auto) 0.3 x10^3/uL (0.0-1.1) Eosinophils # (Auto) 0.1 x10^3/uL (0.0-0.7) Basophils # (Auto) 0.0 x10^3/uL (0.0-0.2) Prothrombin Time 14.8 SEC (11.7-14.0) Prothromb Time International Ratio 1.2 (0.8-1.1) Activated Partial Thromboplast Time 31 SEC (24-38) Sodium Level 146 mmol/L (136-145) Potassium Level 2.2 mmol/L (3.5-5.1) Chloride Level 117 mmol/L (98-107) Carbon Dioxide Level 23 mmol/L (21-32) Anion Gap 6 (6-14) Blood Urea Nitrogen 12 mg/dL (7-20) Creatinine 0.5 mg/dL (0.6-1.0) Estimated GFR (Cockcroft-Gault) 120.0 BUN/Creatinine Ratio 24 (6-20) Glucose Level 190 mg/dL (70-99) Calcium Level 5.3 mg/dL (8.5-10.1) Total Bilirubin 0.2 mg/dL (0.2-1.0) Aspartate Amino Transf (AST/SGOT) 18 U/L (15-37) Alanine Aminotransferase (ALT/SGPT) 11 U/L (14-59) Alkaline Phosphatase 77 U/L (46-116) Troponin I High Sensitivity 16 ng/L (4-50) QV-Jcu-D-Type Natriuretic Peptide 159 pg/mL (0-449) Total Protein 4.2 g/dL (6.4-8.2) Albumin 1.5 g/dL (3.4-5.0) Albumin/Globulin Ratio 0.6 (1.0-1.7) Lipase 77 U/L (73-393) Thyroid Stimulating Hormone (TSH) 1.460 uIU/mL (0.358-3.74) Ethyl Alcohol Level < 10 mg/dL (0-10) Glucose (Fingerstick) 200 mg/dL (70-99) 207 mg/dL (70-99) Test 07/20/21 16:39 07/20/21 20:54 07/21/21 07:43 Glucose (Fingerstick) 284 mg/dL (70-99) 241 mg/dL (70-99) 286 mg/dL (70-99) Laboratory Tests Test 07/20/21 11:33 07/20/21 16:39 07/20/21 20:54 07/21/21 07:43 Glucose (Fingerstick) 207 mg/dL (70-99) 284 mg/dL (70-99) 241 mg/dL (70-99) 286 mg/dL (70-99) Medications Active Scripts Medications Dose Route/Sig Max Daily Dose Days Date Category Lisinopril 40 Mg Tablet 20 Mg PO DAILY 30 09/06/19 Rx Ezetimibe 10 Mg Tablet 10 Mg PO DAILY 30 09/06/19 Rx Aspirin Ec (Aspirin) 81 Mg Tablet.dr 81 Mg PO DAILYWBKFT 100 09/06/19 Rx Lantus (Insulin Glargine,Hum.rec.anlog) 100 Unit/1 Ml Vial 50 Unit SQ BID 30 09/06/19 Rx Flonase Allergy Relief (Fluticasone Propionate) 9.9 Ml [place].susp 2 Sprays NS DAILY 09/03/19 Reported Proair Hfa Inhaler (Albuterol Sulfate) 8.5 Gm Hfa.aer.ad 2 Puff INH PRN Q6HRS PRN 09/03/19 Reported Trintellix (Vortioxetine) 20 Mg Tablet 1 Tab PO DAILY 30 09/03/19 Reported Torsemide 10 Mg Tablet 1 Tab PO QODAY 30 09/03/19 Reported Rexulti (Brexpiprazole) 4 Mg Tablet 1 Tab PO DAILY 30 09/03/19 Reported Melatonin 10 Mg Capsule 1 Cap PO QHS 30 09/03/19 Reported Glipizide 5 Mg Tablet 1 Tab PO TID 09/03/19 Reported Doxepin Hcl 10 Mg Capsule 1 Cap PO QHS 09/03/19 Reported Acetaminophen 500 Mg Tablet 500 Mg PO PRN BID PRN 04/18/18 Reported Trazodone Hcl 150 Mg Tablet 150 Mg PO HS 04/18/18 Reported Nicotine Lozenge (Nicotine Polacrilex) 2 Mg Lozenge 2 Mg BC PRN Q30MIN PRN 04/18/18 Reported Milk Of Magnesia (Magnesium Hydroxide) 400 Mg/5 Ml Oral.susp 400 Mg PO PRN DAILY PRN 04/18/18 Reported Naproxen 375 Mg Tablet.dr 375 Mg PO TID PRN 03/28/18 Rx Novolog (Insulin Aspart) 100 Unit/1 Ml Vial 25 Unit SQ TIDAC 03/02/18 Reported Melatonin 3 Mg Tablet 10 Mg PO HS 03/02/18 Reported Januvia (Sitagliptin Phosphate) 50 Mg Tablet 100 Mg PO DAILY 03/02/18 Reported Gemfibrozil 600 Mg Tablet 600 Mg PO BID 03/02/18 Reported Welchol (Colesevelam Hcl) 625 Mg Tablet 1,875 Mg PO TID 03/02/18 Reported Atenolol 25 Mg Tablet 1 Tab PO DAILY 10/17/16 Reported Levothyroxine Sodium 100 Mcg Tablet 1 Tab PO DAILY 10/17/16 Reported Fluticasone Propionate Nasal [place] (Fluticasone Propionate) 16 Gm [place].susp 1 [place] NS DAILY 10/17/16 Reported Clonazepam (Clonazepam) 0.5 Mg Tablet 1 Tab PO BID 06/25/14 Reported Cyclobenzaprine Hcl 10 Mg Tablet 10 Mg PO PRN TID PRN 08/01/13 Reported Plavix (Clopidogrel Bisulfate) 75 Mg Tablet 75 Mg PO DAILY 08/01/13 Reported Clonazepam Odt (Clonazepam) 2 Mg Tab.rapdis 1 Mg PO HS PRN 08/01/13 Reported Impression . Full consult dictated Right upper lobe density CT chest May require FNA Continue current support MENDOZA ALEXANDRA MD Jul 21, 2021 08:58
[2021-07-21] MEDS ORDERED: NON FORMULARY ITEM (Fluticasone Propionate (Flonase Allergy Relief) 2 SPRAYS) NS SCH (09:00)
[2021-07-21] MEDS ORDERED: EZETIMIBE 10 MG TABLET. PO SCH (09:00)
[2021-07-21] MEDS ORDERED: NON FORMULARY ITEM (Vortioxetine Hydrobromide (Trintellix) 1 TAB) PO SCH (09:00)
[2021-07-21] MEDS: LIDOCAINE (700MG/PATCH) PATCH. TD SCH (09:06)
[2021-07-21] MEDS: CLOPIDOGREL BISULFATE 75 MG TABLET PO SCH (09:08)
[2021-07-21] MEDS: LINAGLIPTIN 5 MG TABLET PO SCH (09:08)
[2021-07-21] MEDS: LISINOPRIL 20 MG TABLET PO SCH (09:08)
[2021-07-21] MEDS: ATENOLOL 25 MG TABLET. PO SCH (09:08)
[2021-07-21] MEDS: ARIPiprazole 5 MG TABLET PO SCH (09:08)
[2021-07-21] MEDS: DULoxetine HCL 30 MG CAPSULE.DR PO SCH ×2 (09:09→21:13)
[2021-07-21] MEDS: MAGNESIUM OXIDE 400 MG TABLET PO SCH (09:09)
[2021-07-21] MEDS: MECLIZINE HCL 12.5 MG TABLET. PO SCH (09:09)
[2021-07-21] MEDS: INSULIN LISPRO 300 UNITS/3 ML VIAL. SQ SCH ×3 (09:20→17:41)
[2021-07-21] MEDS: TORSEMIDE 10 MG PO SCH (09:24)
[2021-07-21] MEDS: INSULIN GLARGINE SYRINGE. SQ SCH ×2 (09:28→21:16)
--- NOTE | 2021-07-21 09:51 | PDOC ---
PROGRESS NOTES Date of Service DATE: 07/21/21 TIME: 09:43 Assessment Problems Medical Problems: (1) Failure to thrive Status: Acute (2) Slurring of speech Status: Acute (3) Unable to walk Status: Acute Falls, picture of peripheral neuropathy, without evidence of stroke, extrapyramidal syndrome, myelopathy, or polyradiculopathy. She appears to have some dementia Dr. Sherman saw her in 2017 for facial twitching in the setting of hyperglycemia, EEG was negative. 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 Plan Await brain MRI Additional laboratory studies for causes of dementia and neuropathy Rehabilitation modalities Subjective No complaint Objective Vital Signs Date Time Temp Pulse Resp B/P (MAP) Pulse Ox O2 Delivery O2 Flow Rate FiO2 07/21/21 09:08 75 208/82 07/21/21 07:00 98.1 20 91 Room Air 98.1 07/21/21 03:12 2.0 Intake and Output 07/21/21 07:00 Intake Total 560 ml Balance 560 ml Intake Oral 560 ml # Voids 2 PHYSICAL EXAM Alert. Oriented to person, thinks that she is in [place]. PERRL. EOMI. CN: no focal findings. Muscle tone: normal. Muscle strength: 4/5 DTR: 1+ Plantar reflex: Flexor Gait: not examined in bed. Sensory exam: Stocking loss No cerebellar signs elicited. Review of Relevant I have reviewed the following items chano (where applicable) has been applied. Labs Laboratory Tests Test 07/20/21 02:15 07/20/21 02:40 07/20/21 07:25 07/20/21 11:33 Urine Collection Type U cath Urine Color (Auto) Yellow Urine Turbidity Clear Urine pH (Auto) 6.0 (<5.0-8.0) Urine Specific [place] 1.031 (1.000-1.030) Urine Protein (Auto) 200 mg/dL (Negative) Urine Glucose (Auto)(UA) Negative mg/dL (Negative) Urine Ketones (Auto) Trace mg/dL (Negative) Urine Blood (Auto) Negative (Negative) Urine Nitrite Negative (Negative) Urine Bilirubin (Auto) Negative (Negative) Urine Urobilinogen (Auto) 3 mg/dL (Normal) Urine Leukocyte Esterase (Auto) Negative (Negative) Urine RBC Occ /HPF (0-2) Urine WBC 1-4 /HPF (0-4) Urine Squamous Epithelial Cells Few /LPF Urine Amorphous Sediment Present /HPF Urine Bacteria 0 /HPF (0-FEW) Urine Mucus Slight /LPF Urine Opiates Screen Neg (NEG) Urine Methadone Screen Neg (NEG) Urine Barbiturates Neg (NEG) Urine Phencyclidine Screen Neg (NEG) Urine Amphetamine/Methamphetamine Neg (NEG) Urine Benzodiazepines Screen Neg (NEG) Urine Cocaine Screen Neg (NEG) Urine Cannabinoids Screen Neg (NEG) Urine Ethyl Alcohol Neg (NEG) White Blood Count 4.6 x10^3/uL (4.0-11.0) Red Blood Count 2.65 x10^6/uL (3.50-5.40) Hemoglobin 8.2 g/dL (12.0-15.5) Hematocrit 24.2 % (36.0-47.0) Mean Corpuscular Volume 91 fL (79-100) Mean Corpuscular Hemoglobin 31 pg (25-35) Mean Corpuscular Hemoglobin Concent 34 g/dL (31-37) Red Cell Distribution Width 15.4 % (11.5-14.5) Platelet Count 76 x10^3/uL (140-400) Neutrophils (%) (Auto) 70 % (31-73) Lymphocytes (%) (Auto) 22 % (24-48) Monocytes (%) (Auto) 7 % (0-9) Eosinophils (%) (Auto) 1 % (0-3) Basophils (%) (Auto) 1 % (0-3) Neutrophils # (Auto) 3.2 x10^3/uL (1.8-7.7) Lymphocytes # (Auto) 1.0 x10^3/uL (1.0-4.8) Monocytes # (Auto) 0.3 x10^3/uL (0.0-1.1) Eosinophils # (Auto) 0.1 x10^3/uL (0.0-0.7) Basophils # (Auto) 0.0 x10^3/uL (0.0-0.2) Prothrombin Time 14.8 SEC (11.7-14.0) Prothromb Time International Ratio 1.2 (0.8-1.1) Activated Partial Thromboplast Time 31 SEC (24-38) Sodium Level 146 mmol/L (136-145) Potassium Level 2.2 mmol/L (3.5-5.1) Chloride Level 117 mmol/L (98-107) Carbon Dioxide Level 23 mmol/L (21-32) Anion Gap 6 (6-14) Blood Urea Nitrogen 12 mg/dL (7-20) Creatinine 0.5 mg/dL (0.6-1.0) Estimated GFR (Cockcroft-Gault) 120.0 BUN/Creatinine Ratio 24 (6-20) Glucose Level 190 mg/dL (70-99) Calcium Level 5.3 mg/dL (8.5-10.1) Total Bilirubin 0.2 mg/dL (0.2-1.0) Aspartate Amino Transf (AST/SGOT) 18 U/L (15-37) Alanine Aminotransferase (ALT/SGPT) 11 U/L (14-59) Alkaline Phosphatase 77 U/L (46-116) Troponin I High Sensitivity 16 ng/L (4-50) LH-Sam-Y-Type Natriuretic Peptide 159 pg/mL (0-449) Total Protein 4.2 g/dL (6.4-8.2) Albumin 1.5 g/dL (3.4-5.0) Albumin/Globulin Ratio 0.6 (1.0-1.7) Lipase 77 U/L (73-393) Thyroid Stimulating Hormone (TSH) 1.460 uIU/mL (0.358-3.74) Ethyl Alcohol Level < 10 mg/dL (0-10) Glucose (Fingerstick) 200 mg/dL (70-99) 207 mg/dL (70-99) Test 07/20/21 16:39 07/20/21 20:54 07/21/21 07:43 Glucose (Fingerstick) 284 mg/dL (70-99) 241 mg/dL (70-99) 286 mg/dL (70-99) Laboratory Tests Test 07/20/21 11:33 07/20/21 16:39 07/20/21 20:54 07/21/21 07:43 Glucose (Fingerstick) 207 mg/dL (70-99) 284 mg/dL (70-99) 241 mg/dL (70-99) 286 mg/dL (70-99) Microbiology 07/20/21 Blood Culture - Preliminary, Resulted NO GROWTH AFTER 1 DAY Medications Current Medications Sodium Chloride 1,000 ml @ 1,000 mls/hr 1X ONCE IV Last administered on 07/20/21at 02:03; Start 07/20/21 at 01:30; Stop 07/20/21 at 02:29; Status DC Ondansetron HCl (Zofran) 4 mg PRN Q8HRS PRN IVP NAUSEA/VOMITING 1st CHOICE; Start 07/20/21 at 03:00; Stop 07/21/21 at 02:59; Status DC Potassium Chloride (Klor-Con) 40 meq 1X ONCE PO Last administered on 07/20/21at 03:57; Start 07/20/21 at 04:00; Stop 07/20/21 at 04:01; Status DC Acetaminophen (Tylenol) 500 mg PRN BID PRN PO PAIN; Start 07/20/21 at 10:30 Aspirin (Ecotrin) 81 mg DAILYWBKFT PO ; Start 07/21/21 at 08:00; Status UNV Atenolol (Tenormin) 75 mg DAILY PO Last administered on 07/21/21at 09:08; Start 07/20/21 at 13:00 Clonazepam (KlonoPIN) 1 mg PRN QHS PRN PO ANXIETY / INSOMNIA Last administered on 07/20/21at 20:48; Start 07/20/21 at 21:00 Clopidogrel Bisulfate (Plavix) 75 mg DAILY PO Last administered on 07/21/21at 09:08; Start 07/20/21 at 13:00 Colesevelam HCl (Welchol) 1,875 mg TID PO ; Start 07/20/21 at 14:00; Status UNV Cyclobenzaprine HCl (Flexeril) 10 mg PRN TID PRN PO MUSCLE SPASMS; Start 07/20/21 at 10:30 Doxepin HCl (SINequan) 10 mg QHS PO Last administered on 07/20/21at 20:48; Start 07/20/21 at 21:00 EZETIMIBE (Zetia) 10 mg DAILY PO ; Start 07/21/21 at 09:00; Status UNV Fluticasone Propionate (Flonase) 1 spray PRN DAILY PRN NS ALLERGIES; Start 07/20/21 at 09:00 Gemfibrozil (Lopid) 600 mg BID PO ; Start 07/20/21 at 21:00; Status UNV Glipizide (Glucotrol) 5 mg TID PO ; Start 07/20/21 at 14:00; Status UNV Insulin Glargine (Lantus Syringe) 80 unit BID SQ Last administered on 07/21/21at 09:28; Start 07/20/21 at 21:00 Levothyroxine Sodium (Synthroid) 100 mcg DAILY06 PO Last administered on 07/21/21at 05:25; Start 07/20/21 at 12:30 Lisinopril (Prinivil) 20 mg DAILY PO Last administered on 07/21/21at 09:08; Start 07/20/21 at 13:00 Magnesium Hydroxide (Milk Of Magnesia) 400 mg PRN DAILY PRN PO CONSTIPATION; Start 07/20/21 at 10:30; Stop 07/20/21 at 12:15; Status DC Torsemide (Demadex) 10 mg QODAY PO Last administered on 07/21/21at 09:24; Start 07/21/21 at 09:00 Aripiprazole (Abilify) 10 mg DAILY PO Last administered on 07/21/21at 09:08; Start 07/20/21 at 13:00 Non-Formulary Medication (Clonazepam (Clonazepam Odt)) 1 mg HS PRN PO hs; Start 07/20/21 at 10:30; Status UNV Non-Formulary Medication (Fluticasone Propionate (Flonase Allergy Relief)) 2 sprays DAILY NS ; Start 07/21/21 at 09:00; Status UNV Insulin Human Lispro (HumaLOG) 30 units TIDWMEALS SQ Last administered on 07/21/21at 09:20; Start 07/20/21 at 17:00 Non-Formulary Medication (Melatonin ) 10 mg HS PO ; Start 07/20/21 at 21:00; Status UNV Non-Formulary Medication (Melatonin ) 1 cap QHS PO ; Start 07/20/21 at 21:00; Status UNV Non-Formulary Medication (Naproxen ) 375 mg TID PRN PO PAIN; Start 07/20/21 at 10:30; Status UNV Nicotine Polacrilex (Nicorette Gum) 1 each PRN Q1HR PRN BC SMOKING CESSATION; Start 07/20/21 at 12:45 Linagliptin (Tradjenta) 5 mg DAILY PO Last administered on 07/21/21 09:08; Start 07/20/21 at 13:00 Trazodone HCl (Desyrel) 50 mg HS PO Last administered on 07/20/21at 20:48; Start 07/20/21 at 21:00 Non-Formulary Medication (Vortioxetine Hydrobromide (Trintellix)) 1 tab DAILY PO ; Start 07/21/21 at 09:00; Status UNV Magnesium Hydroxide (Milk Of Magnesia) 2,400 mg PRN DAILY PRN PO CONSTIPATION; Start 07/20/21 at 12:15 Duloxetine HCl (Cymbalta) 30 mg DAILY PO Last administered on 07/21/21 09:09; Start 07/20/21 at 13:00 Magnesium Oxide (Magnesium Oxide) 400 mg DAILY PO Last administered on 07/21/21 09:09; Start 07/20/21 at 14:00 Lidocaine (Lidoderm) 1 patch DAILY TD Last administered on 07/21/21 09:06; Start 07/20/21 at 13:00 Miscellaneous (Lidoderm Patch Removal) 1 ea QHS MC Last administered on 07/20/21 20:48; Start 07/20/21 at 21:00 Meclizine HCl (Antivert) 25 mg DAILY PO Last administered on 07/21/21 09:09; Start 07/20/21 at 14:00 Duloxetine HCl (Cymbalta) 60 mg QHS PO Last administered on 07/20/21 20:48; Start 07/20/21 at 21:00 Potassium Chloride (Klor-Con) 40 meq 1X ONCE PO Last administered on 07/20/21 17:13; Start 07/20/21 at 17:00; Stop 07/20/21 at 17:01; Status DC Active Scripts Active Lisinopril 40 Mg Tablet 20 Mg PO DAILY 30 Days Reported Trazodone Hcl 50 Mg Tablet 50 Mg PO HS Voltaren Arthritis Pain (Diclofenac Sodium) 20 Gm Gel..gram. 1 Gm TP TID Meclizine Hcl 25 Mg Tablet 25 Mg PO DAILY Cymbalta (Duloxetine Hcl) 60 Mg Capsule.dr 60 Mg PO QHS Cymbalta (Duloxetine Hcl) 30 Mg Capsule.dr 30 Mg PO DAILY Levemir (Insulin Detemir) 100 Unit/1 Ml Vial 80 Unit SQ BID Flonase Allergy Relief (Fluticasone Propionate) 9.9 Ml [place].susp 2 Sprays NS DAILY PRN Proair Hfa Inhaler (Albuterol Sulfate) 8.5 Gm Hfa.aer.ad 2 Puff INH PRN Q6HRS PRN Torsemide 10 Mg Tablet 1 Tab PO QODAY 30 Days Rexulti (Brexpiprazole) 4 Mg Tablet 1 Tab PO DAILY 30 Days Doxepin Hcl 10 Mg Capsule 1 Cap PO QHS Acetaminophen 500 Mg Tablet 500 Mg PO PRN BID PRN Nicotine Lozenge (Nicotine Polacrilex) 2 Mg Lozenge 2 Mg BC PRN Q30MIN PRN Milk Of Magnesia (Magnesium Hydroxide) 400 Mg/5 Ml Oral.susp 2,400 Mg PO PRN ARLENE LY PRN Novolog (Insulin Aspart) 100 Unit/1 Ml Vial 30 Unit SQ TIDAC Januvia (Sitagliptin Phosphate) 50 Mg Tablet 100 Mg PO DAILY Atenolol 25 Mg Tablet 75 Mg PO DAILY Levothyroxine Sodium 100 Mcg Tablet 1 Tab PO DAILY Cyclobenzaprine Hcl 10 Mg Tablet 10 Mg PO PRN TID PRN Plavix (Clopidogrel Bisulfate) 75 Mg Tablet 75 Mg PO DAILY Clonazepam Odt (Clonazepam) 2 Mg Tab.rapdis 1 Mg PO HS PRN Vitals/I & O Vital Sign - Last 24 Hours 07/20/21 07/20/21 07/20/21 07/20/21 10:49 12:47 12:47 15:00 Temp 98.1 98.2 98.1 98.2 Pulse 76 76 76 67 Resp 18 18 B/P (MAP) 178/124 (142) 178/124 178/124 183/70 (107) Pulse Ox 92 91 O2 Delivery Room Air Room Air 07/20/21 07/20/21 07/20/21 07/21/21 19:30 20:04 23:31 03:12 Temp 98.9 98.5 98.3 98.9 98.5 98.3 Pulse 72 71 65 Resp 20 20 16 B/P (MAP) 171/68 (102) 188/73 (111) 183/75 (111) Pulse Ox 92 93 90 O2 Delivery Room Air Room Air Nasal Cannula Nasal Cannula O2 Flow Rate 2.0 2.0 07/21/21 07/21/21 07/21/21 07:00 09:08 09:08 Temp 98.1 98.1 Pulse 75 75 75 Resp 20 B/P (MAP) 208/82 (124) 208/82 208/82 Pulse Ox 91 O2 Delivery Room Air Intake and Output 07/20/21 07/20/21 07/21/21 15:00 23:00 07:00 Intake Total 200 ml 240 ml 120 ml Balance 200 ml 240 ml 120 ml Justicifation of Admission Dx: Justifications for Admission: Justification of Admission Dx: Yes Angina: New-Onset SUSAN NICHOLAS MD Jul 21, 2021 09:51
--- NOTE | 2021-07-21 10:42 | PDOC ---
PULMONARY PROGRESS NOTES DATE: 07/21/21 TIME: 10:40 Subjective Patient feels about the same, not more short of breath, does not feel great, short of breath when she moves around, weak, gets tachycardic Vitals Vital Signs Date Time Temp Pulse Resp B/P (MAP) Pulse Ox O2 Delivery O2 Flow Rate FiO2 07/21/21 09:08 75 208/82 07/21/21 07:00 98.1 20 91 Room Air 98.1 07/21/21 03:12 2.0 ROS: No Nausea, No Chest Pain, No Abdominal Pain, No Increase Cough General: Alert Lungs: Clear Cardiovascular: S1, S2 Abdomen: Soft Neuro Exam: Alert Extremities: No Edema Skin: Warm Labs Laboratory Tests Test 07/20/21 02:15 07/20/21 02:40 07/20/21 07:25 07/20/21 11:33 Urine Collection Type U cath Urine Color (Auto) Yellow Urine Turbidity Clear Urine pH (Auto) 6.0 (<5.0-8.0) Urine Specific [place] 1.031 (1.000-1.030) Urine Protein (Auto) 200 mg/dL (Negative) Urine Glucose (Auto)(UA) Negative mg/dL (Negative) Urine Ketones (Auto) Trace mg/dL (Negative) Urine Blood (Auto) Negative (Negative) Urine Nitrite Negative (Negative) Urine Bilirubin (Auto) Negative (Negative) Urine Urobilinogen (Auto) 3 mg/dL (Normal) Urine Leukocyte Esterase (Auto) Negative (Negative) Urine RBC Occ /HPF (0-2) Urine WBC 1-4 /HPF (0-4) Urine Squamous Epithelial Cells Few /LPF Urine Amorphous Sediment Present /HPF Urine Bacteria 0 /HPF (0-FEW) Urine Mucus Slight /LPF Urine Opiates Screen Neg (NEG) Urine Methadone Screen Neg (NEG) Urine Barbiturates Neg (NEG) Urine Phencyclidine Screen Neg (NEG) Urine Amphetamine/Methamphetamine Neg (NEG) Urine Benzodiazepines Screen Neg (NEG) Urine Cocaine Screen Neg (NEG) Urine Cannabinoids Screen Neg (NEG) Urine Ethyl Alcohol Neg (NEG) White Blood Count 4.6 x10^3/uL (4.0-11.0) Red Blood Count 2.65 x10^6/uL (3.50-5.40) Hemoglobin 8.2 g/dL (12.0-15.5) Hematocrit 24.2 % (36.0-47.0) Mean Corpuscular Volume 91 fL (79-100) Mean Corpuscular Hemoglobin 31 pg (25-35) Mean Corpuscular Hemoglobin Concent 34 g/dL (31-37) Red Cell Distribution Width 15.4 % (11.5-14.5) Platelet Count 76 x10^3/uL (140-400) Neutrophils (%) (Auto) 70 % (31-73) Lymphocytes (%) (Auto) 22 % (24-48) Monocytes (%) (Auto) 7 % (0-9) Eosinophils (%) (Auto) 1 % (0-3) Basophils (%) (Auto) 1 % (0-3) Neutrophils # (Auto) 3.2 x10^3/uL (1.8-7.7) Lymphocytes # (Auto) 1.0 x10^3/uL (1.0-4.8) Monocytes # (Auto) 0.3 x10^3/uL (0.0-1.1) Eosinophils # (Auto) 0.1 x10^3/uL (0.0-0.7) Basophils # (Auto) 0.0 x10^3/uL (0.0-0.2) Prothrombin Time 14.8 SEC (11.7-14.0) Prothromb Time International Ratio 1.2 (0.8-1.1) Activated Partial Thromboplast Time 31 SEC (24-38) Sodium Level 146 mmol/L (136-145) Potassium Level 2.2 mmol/L (3.5-5.1) Chloride Level 117 mmol/L (98-107) Carbon Dioxide Level 23 mmol/L (21-32) Anion Gap 6 (6-14) Blood Urea Nitrogen 12 mg/dL (7-20) Creatinine 0.5 mg/dL (0.6-1.0) Estimated GFR (Cockcroft-Gault) 120.0 BUN/Creatinine Ratio 24 (6-20) Glucose Level 190 mg/dL (70-99) Calcium Level 5.3 mg/dL (8.5-10.1) Total Bilirubin 0.2 mg/dL (0.2-1.0) Aspartate Amino Transf (AST/SGOT) 18 U/L (15-37) Alanine Aminotransferase (ALT/SGPT) 11 U/L (14-59) Alkaline Phosphatase 77 U/L (46-116) Troponin I High Sensitivity 16 ng/L (4-50) PD-Rnn-O-Type Natriuretic Peptide 159 pg/mL (0-449) Total Protein 4.2 g/dL (6.4-8.2) Albumin 1.5 g/dL (3.4-5.0) Albumin/Globulin Ratio 0.6 (1.0-1.7) Lipase 77 U/L (73-393) Thyroid Stimulating Hormone (TSH) 1.460 uIU/mL (0.358-3.74) Ethyl Alcohol Level < 10 mg/dL (0-10) Glucose (Fingerstick) 200 mg/dL (70-99) 207 mg/dL (70-99) Test 07/20/21 16:39 07/20/21 20:54 07/21/21 07:43 Glucose (Fingerstick) 284 mg/dL (70-99) 241 mg/dL (70-99) 286 mg/dL (70-99) Laboratory Tests Test 07/20/21 11:33 07/20/21 16:39 07/20/21 20:54 07/21/21 07:43 Glucose (Fingerstick) 207 mg/dL (70-99) 284 mg/dL (70-99) 241 mg/dL (70-99) 286 mg/dL (70-99) Medications Active Scripts Medications Dose Route/Sig Max Daily Dose Days Date Category Lisinopril 40 Mg Tablet 20 Mg PO DAILY 30 09/06/19 Rx Ezetimibe 10 Mg Tablet 10 Mg PO DAILY 30 09/06/19 Rx Aspirin Ec (Aspirin) 81 Mg Tablet.dr 81 Mg PO DAILYWBKFT 100 09/06/19 Rx Lantus (Insulin Glargine,Hum.rec.anlog) 100 Unit/1 Ml Vial 50 Unit SQ BID 30 09/06/19 Rx Flonase Allergy Relief (Fluticasone Propionate) 9.9 Ml [place].susp 2 Sprays NS DAILY 09/03/19 Reported Proair Hfa Inhaler (Albuterol Sulfate) 8.5 Gm Hfa.aer.ad 2 Puff INH PRN Q6HRS PRN 09/03/19 Reported Trintellix (Vortioxetine) 20 Mg Tablet 1 Tab PO DAILY 30 09/03/19 Reported Torsemide 10 Mg Tablet 1 Tab PO QODAY 30 09/03/19 Reported Rexulti (Brexpiprazole) 4 Mg Tablet 1 Tab PO DAILY 30 09/03/19 Reported Melatonin 10 Mg Capsule 1 Cap PO QHS 30 09/03/19 Reported Glipizide 5 Mg Tablet 1 Tab PO TID 09/03/19 Reported Doxepin Hcl 10 Mg Capsule 1 Cap PO QHS 09/03/19 Reported Acetaminophen 500 Mg Tablet 500 Mg PO PRN BID PRN 04/18/18 Reported Trazodone Hcl 150 Mg Tablet 150 Mg PO HS 04/18/18 Reported Nicotine Lozenge (Nicotine Polacrilex) 2 Mg Lozenge 2 Mg BC PRN Q30MIN PRN 04/18/18 Reported Milk Of Magnesia (Magnesium Hydroxide) 400 Mg/5 Ml [place].susp 400 Mg PO PRN DAILY PRN 04/18/18 Reported Naproxen 375 Mg Tablet.dr 375 Mg PO TID PRN 03/28/18 Rx Novolog (Insulin Aspart) 100 Unit/1 Ml Vial 25 Unit SQ TIDAC 03/02/18 Reported Melatonin 3 Mg Tablet 10 Mg PO HS 03/02/18 Reported Januvia (Sitagliptin Phosphate) 50 Mg Tablet 100 Mg PO DAILY 03/02/18 Reported Gemfibrozil 600 Mg Tablet 600 Mg PO BID 03/02/18 Reported Welchol (Colesevelam Hcl) 625 Mg Tablet 1,875 Mg PO TID 03/02/18 Reported Atenolol 25 Mg Tablet 1 Tab PO DAILY 10/17/16 Reported Levothyroxine Sodium 100 Mcg Tablet 1 Tab PO DAILY 10/17/16 Reported Fluticasone Propionate Nasal [place] (Fluticasone Propionate) 16 Gm [place].susp 1 [place] NS DAILY 10/17/16 Reported Clonazepam (Clonazepam) 0.5 Mg Tablet 1 Tab PO BID 06/25/14 Reported Cyclobenzaprine Hcl 10 Mg Tablet 10 Mg PO PRN TID PRN 08/01/13 Reported Plavix (Clopidogrel Bisulfate) 75 Mg Tablet 75 Mg PO DAILY 08/01/13 Reported Clonazepam Odt (Clonazepam) 2 Mg Tab.rapdis 1 Mg PO HS PRN 08/01/13 Reported Impression . IMPRESSION: 1. Abnormal chest x-ray revealing rounded density in the right upper lobe. 2. Cardiomegaly. 3. Frequent falls, generalized weakness. 4. Diabetes. 5. Hypertension. 6. History of breast cancer, status post mastectomy. 7. Chronic obstructive pulmonary disease, undiagnosed. 8. Depression and anxiety. Plan . Updated 07/21 CT chest pending Neurology has seen the patient, MRI of brain is pending Continue current support DISCUSSION: Considering the patient's history of tobacco use and breast cancer, we will proceed with CT chest to better delineate the rounded density, the patient may require FNA for definitive diagnosis. Clinically, I do not think that she has metastatic disease to the central nervous system that would explain her frequent falls. PLAN: 1. Proceed with CT and make further recommendation depending on CT scan findings. 2. Outpatient pulmonary function testing. 3. Replace potassium, which may be causing her recent weakness and falls. 4. Consult dietitian for severe protein malnutrition present upon admission. MNEDOZA ALEXANDRA MD Jul 21, 2021 10:42
[2021-07-21 11:00] VITALS: BP 159/67
--- NOTE | 2021-07-21 12:58 | RAD ---
CT chest without contrast PQRS statement: CT scans at this facility use dose reduction including either automated exposure cont rol, iterative reconstructions, and /or weight based radiation dosing via mA and kV modification when appropriate to reduce radiation dose to as low as reasonably achievable. HISTORY: Right upper lobe mass. COMPARISON: Chest x-ray July 20, 2021, CT chest April 07, 2018 FINDINGS: ACDF C6-C7. Thoracic degenerative disc disease. Coronary calcified plaque. There is tortuos ity and calcified plaque of the thoracic aorta. Ascending aorta diameter of 3.2 cm. Mediastinal adeno bridget with increased size of the lymph nodes since the prior exam with the largest lymph nodes on the AP window and paratracheal stations measuring up to 1.5 x 1.0 cm, whereas previously the largest lym ph nodes measure 1.0 x 0.8 cm. Moderate cardiomegaly stable. Enlarged main pulmonary artery diameter 3.5 cm stable may indicate pulmonary artery hypertension. 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 Esophagus unrem arkable. Subtle surface irregularity of the liver may indicate liver cirrhosis. Small subcentimeter d ependent pleural effusions. Right mastectomy. At the right upper lobe are 2 new solid nodules the sma ller of which on axial image 21 measures 1.5 cm, the largest of which more laterally on image 20 k[place]on ures 2.0 cm with irregular margins concerning for malignancy. There are some small nodules in the rig ht lower lobe superior segment measuring up to 3 mm on image 29 is stable. There are heterogeneous gr oundglass densities within both lungs diffusely. IMPRESSION: 1. 2 solid irregular pulmonary nodules of the right upper lobe measuring 2.0 cm and 1.5 cm. There is also mediastinal adenopathy. Findings are concerning for lung malignancy with metastatic disease. 2. Heterogeneous groundglass pulmonary opacities, given the presence of small pleural effusions, most likely represents pulmonary edema. An infectious/inflammatory process would be a secondary considera tion. 3. Other incidental findings as described above. Electronically signed by: Florian Friedman MD (07/21/2021 12:55 PM) [facility]
--- NOTE | 2021-07-21 14:46 | RAD ---
INDICATION: Recent fall with altered mental status and stroke like symptoms. COMPARISON: One day prior TECHNIQUE: Multiplanar, multisequence MRI images obtained through the brain. Some of the imaging seq uences are highly degraded secondary to motion. FINDINGS: No midline shift. Basilar cistern patent. There is a couple of small foci of restricted diffusion within the right cerebral hemisphere includin g at the posterior limb of the internal capsule. This is located just anterior to the right thalamus. Ventricles and sulci are globally prominent which can be seen with volume loss. No intracranial hemor rhage or gross mass seen. IMPRESSION: * Small focus of restricted diffusion is identified within the right cerebral hemisphere which could be from acute small vessel ischemic changes. Report was called to the patient's floor at 2:33 PM on date of exam. * Scattered regions of high T2 signal within the white matter. Nonspecific but can be from chronic s mall vessel ischemic changes. Electronically signed by: Sedrick Crowe MD (07/21/2021 2:43 PM) [id number]
[2021-07-21 15:00] VITALS: BP 172/55
[2021-07-21 15:11] LABS: BASO # 0.1 x10^3/uL (0.0-0.2); BASO % 1 % (0-3); EOS # 0.1 x10^3/uL (0.0-0.7); EOS % 1 % (0-3); HEMATOCRIT 37.8 % (36.0-47.0); LYMPH # 1.6 x10^3/uL (1.0-4.8); LYMPH % 26 % (24-48); MEAN CORPUSCULAR HEMOGLOBIN 30 pg (25-35); MEAN CORPUSCULAR HGB CONC 34 g/dL (31-37); MEAN CORPUSCULAR VOLUME 89 fL (79-100); MONO # 0.4 x10^3/uL (0.0-1.1); MONO % 7 % (0-9); NEUT # 3.9 x10^3/uL (1.8-7.7); NEUT % 65 % (31-73); PLATELET COUNT 118 x10^3/uL (140-400); RED BLOOD COUNT 4.26 x10^6/uL (3.50-5.40); RED CELL DISTRIBUTION WIDTH 15.6 % (11.5-14.5); WHITE BLOOD COUNT 5.9 x10^3/uL (4.0-11.0)
[2021-07-21 15:36] LABS: CALCIUM 9.2 mg/dL (8.5-10.1); CREATININE 0.9 mg/dL (0.6-1.0); GFR 60.9; POTASSIUM 3.9 mmol/L (3.5-5.1)
--- NOTE | 2021-07-21 16:09 | RAD ---
EXAM: Carotid Doppler sonogram. HISTORY: Stroke. Slurred speech. Atherosclerosis. TECHNIQUE: [place] scale and color Doppler sonographic evaluation of the neck with spectral waveform amelia lysis was performed and static images are submitted for review. FINDINGS: There is moderate atherosclerotic plaque involving the carotid bifurcations. The peak systolic velocity within the right common carotid artery is 1 and 60 cm/sec. The peak systol ic velocity within the right internal carotid artery is 88 cm/sec and the end diastolic velocity with in the right internal carotid artery is 14 cm/sec. The right ICA/CCA ratio is 1.27. The peak systolic velocity within the left common carotid artery is 96 cm/sec. The peak systolic [place] within the left internal carotid artery is 133 cm/sec and the end diastolic velocity within the left internal carotid artery is 23 cm/sec. The left ICA/CCA ratio is 1.5 to. There is normal antegrade flow within both vertebral arteries. IMPRESSION: 1. Doppler findings consistent with 50-69 percent stenosis involving the left ICA and less than 50 pe rcent stenosis involving the right ICA. 2. Moderate atherosclerotic plaque involving the carotid bifurcations. PQRS Compliance Statement - Stenosis calculations for CT, MR and conventional angiography are based u [place] measurement of the distal ICA diameter in accordance with the NASCET methodology. Stenosis calcu lations for carotid ultrasound studies are derived from validated velocity criteria which are known t o correlate with the NASCET methodology. Electronically signed by: Mago Menjivar MD (07/21/2021 4:07 PM) [id number]
[2021-07-21 16:26] LABS: HEMOGLOBIN 12.7 g/dL (12.0-15.5)
[2021-07-21 19:00] VITALS: BP 173/67
--- NOTE | 2021-07-21 19:15 | NUR ---
Patient assessed for NIH and scored a 3.
[2021-07-21] MEDS: DOXEPIN HCL 10 MG CAPSULE. PO SCH (21:13)
[2021-07-21] MEDS: traZODone 50 MG TABLET. PO SCH (21:13)
[2021-07-21] MEDS: PATCH REMOVAL. MC SCH (21:17)
[2021-07-21 23:00] VITALS: BP 212/79
[2021-07-21] MEDS ORDERED: hydrALAZINE 20 MG/ML VIAL. IVP PRN (23:45)
[2021-07-22 03:16] VITALS: BP 203/68
[2021-07-22 07:00] VITALS: BP 177/67
[2021-07-22 07:50] LABS: BASO % 1 % (0-3); EOS # 0.1 x10^3/uL (0.0-0.7); EOS % 1 % (0-3); HEMATOCRIT 38.7 % (36.0-47.0); HEMOGLOBIN 12.9 g/dL (12.0-15.5); LYMPH # 1.9 x10^3/uL (1.0-4.8); LYMPH % 30 % (24-48); MEAN CORPUSCULAR HEMOGLOBIN 30 pg (25-35); MEAN CORPUSCULAR HGB CONC 33 g/dL (31-37); MEAN CORPUSCULAR VOLUME 88 fL (79-100); MONO # 0.4 x10^3/uL (0.0-1.1); MONO % 6 % (0-9); NEUT # 3.9 x10^3/uL (1.8-7.7); NEUT % 62 % (31-73); PLATELET COUNT 120 x10^3/uL (140-400); RED BLOOD COUNT 4.38 x10^6/uL (3.50-5.40); RED CELL DISTRIBUTION WIDTH 15.7 % (11.5-14.5); WHITE BLOOD COUNT 6.2 x10^3/uL (4.0-11.0)
[2021-07-22] MEDS ORDERED: ASPIRIN ENTERIC COATED 81 MG TABLET.DR. PO SCH (08:00)
[2021-07-22] MEDS: INSULIN LISPRO 300 UNITS/3 ML VIAL. SQ SCH ×3 (08:00→17:43)
[2021-07-22 08:16] LABS: CALCIUM 9.4 mg/dL (8.5-10.1); CHOLESTEROL/HDL RATIO 6.2; CREATININE 0.7 mg/dL (0.6-1.0); GFR 81.4; POTASSIUM 3.6 mmol/L (3.5-5.1)
[2021-07-22] MEDS: ARIPiprazole 5 MG TABLET PO SCH ×2 (08:49→12:09)
[2021-07-22] MEDS: MECLIZINE HCL 12.5 MG TABLET. PO SCH ×2 (08:49→12:08)
[2021-07-22] MEDS: DULoxetine HCL 30 MG CAPSULE.DR PO SCH ×3 (08:50→21:09)
[2021-07-22] MEDS: LINAGLIPTIN 5 MG TABLET PO SCH ×2 (08:51→12:08)
[2021-07-22] MEDS: ATENOLOL 25 MG TABLET. PO SCH ×2 (08:51→12:09)
[2021-07-22] MEDS: LISINOPRIL 20 MG TABLET PO SCH ×2 (08:51→12:09)
[2021-07-22] MEDS: CLOPIDOGREL BISULFATE 75 MG TABLET PO SCH (08:51)
[2021-07-22] MEDS: MAGNESIUM OXIDE 400 MG TABLET PO SCH ×2 (08:51→12:08)
[2021-07-22] MEDS: INSULIN GLARGINE SYRINGE. SQ SCH ×3 (09:00→21:07)
[2021-07-22] MEDS: LIDOCAINE (700MG/PATCH) PATCH. TD SCH (09:00)
--- NOTE | 2021-07-22 09:23 | PDOC ---
PULMONARY PROGRESS NOTES DATE: 07/22/21 TIME: 09:19 Subjective Patient denies any shortness of breath. Vitals Vital Signs Date Time Temp Pulse Resp B/P (MAP) Pulse Ox O2 Delivery O2 Flow Rate FiO2 07/22/21 07:00 97.9 65 18 177/67 (103) 93 Room Air 97.9 07/21/21 11:00 2.0 ROS: No Nausea, No Chest Pain, No Abdominal Pain, No Increase Cough General: Alert, No acute distress Lungs: Clear Cardiovascular: S1, S2 Abdomen: Soft Neuro Exam: Alert Extremities: No Edema Skin: Warm Labs Laboratory Tests Test 07/20/21 11:33 07/20/21 16:39 07/20/21 20:54 07/21/21 07:43 Glucose (Fingerstick) 207 mg/dL (70-99) 284 mg/dL (70-99) 241 mg/dL (70-99) 286 mg/dL (70-99) Test 07/21/21 12:00 07/21/21 14:44 07/21/21 16:54 07/21/21 20:19 Glucose (Fingerstick) 230 mg/dL (70-99) 141 mg/dL (70-99) 219 mg/dL (70-99) White Blood Count 5.9 x10^3/uL (4.0-11.0) Red Blood Count 4.26 x10^6/uL (3.50-5.40) Hemoglobin 12.7 g/dL (12.0-15.5) Hematocrit 37.8 % (36.0-47.0) Mean Corpuscular Volume 89 fL (79-100) Mean Corpuscular Hemoglobin 30 pg (25-35) Mean Corpuscular Hemoglobin Concent 34 g/dL (31-37) Red Cell Distribution Width 15.6 % (11.5-14.5) Platelet Count 118 x10^3/uL (140-400) Neutrophils (%) (Auto) 65 % (31-73) Lymphocytes (%) (Auto) 26 % (24-48) Monocytes (%) (Auto) 7 % (0-9) Eosinophils (%) (Auto) 1 % (0-3) Basophils (%) (Auto) 1 % (0-3) Neutrophils # (Auto) 3.9 x10^3/uL (1.8-7.7) Lymphocytes # (Auto) 1.6 x10^3/uL (1.0-4.8) Monocytes # (Auto) 0.4 x10^3/uL (0.0-1.1) Eosinophils # (Auto) 0.1 x10^3/uL (0.0-0.7) Basophils # (Auto) 0.1 x10^3/uL (0.0-0.2) Erythrocyte Sedimentation Rate 81 (0-25) Sodium Level 139 mmol/L (136-145) Potassium Level 3.9 mmol/L (3.5-5.1) Chloride Level 102 mmol/L (98-107) Carbon Dioxide Level 29 mmol/L (21-32) Anion Gap 8 (6-14) Blood Urea Nitrogen 11 mg/dL (7-20) Creatinine 0.9 mg/dL (0.6-1.0) Estimated GFR (Cockcroft-Gault) 60.9 Glucose Level 198 mg/dL (70-99) Calcium Level 9.2 mg/dL (8.5-10.1) Vitamin B12 Level 672 pg/mL (247-911) Test 07/22/21 06:25 White Blood Count 6.2 x10^3/uL (4.0-11.0) Red Blood Count 4.38 x10^6/uL (3.50-5.40) Hemoglobin 12.9 g/dL (12.0-15.5) Hematocrit 38.7 % (36.0-47.0) Mean Corpuscular Volume 88 fL (79-100) Mean Corpuscular Hemoglobin 30 pg (25-35) Mean Corpuscular Hemoglobin Concent 33 g/dL (31-37) Red Cell Distribution Width 15.7 % (11.5-14.5) Platelet Count 120 x10^3/uL (140-400) Neutrophils (%) (Auto) 62 % (31-73) Lymphocytes (%) (Auto) 30 % (24-48) Monocytes (%) (Auto) 6 % (0-9) Eosinophils (%) (Auto) 1 % (0-3) Basophils (%) (Auto) 1 % (0-3) Neutrophils # (Auto) 3.9 x10^3/uL (1.8-7.7) Lymphocytes # (Auto) 1.9 x10^3/uL (1.0-4.8) Monocytes # (Auto) 0.4 x10^3/uL (0.0-1.1) Eosinophils # (Auto) 0.1 x10^3/uL (0.0-0.7) Basophils # (Auto) 0.0 x10^3/uL (0.0-0.2) Sodium Level 140 mmol/L (136-145) Potassium Level 3.6 mmol/L (3.5-5.1) Chloride Level 102 mmol/L (98-107) Carbon Dioxide Level 30 mmol/L (21-32) Anion Gap 8 (6-14) Blood Urea Nitrogen 13 mg/dL (7-20) Creatinine 0.7 mg/dL (0.6-1.0) Estimated GFR (Cockcroft-Gault) 81.4 Glucose Level 248 mg/dL (70-99) Calcium Level 9.4 mg/dL (8.5-10.1) Triglycerides Level 174 mg/dL (0-150) Cholesterol Level 234 mg/dL (0-200) LDL Cholesterol, Calculated 161 mg/dL (0-100) VLDL Cholesterol, Calculated 35 mg/dL (0-40) Non-HDL Cholesterol Calculated 196 mg/dL (0-129) HDL Cholesterol 38 mg/dL (40-60) Cholesterol/HDL Ratio 6.2 Laboratory Tests Test 07/21/21 12:00 07/21/21 14:44 07/21/21 16:54 07/21/21 20:19 Glucose (Fingerstick) 230 mg/dL (70-99) 141 mg/dL (70-99) 219 mg/dL (70-99) White Blood Count 5.9 x10^3/uL (4.0-11.0) Red Blood Count 4.26 x10^6/uL (3.50-5.40) Hemoglobin 12.7 g/dL (12.0-15.5) Hematocrit 37.8 % (36.0-47.0) Mean Corpuscular Volume 89 fL (79-100) Mean Corpuscular Hemoglobin 30 pg (25-35) Mean Corpuscular Hemoglobin Concent 34 g/dL (31-37) Red Cell Distribution Width 15.6 % (11.5-14.5) Platelet Count 118 x10^3/uL (140-400) Neutrophils (%) (Auto) 65 % (31-73) Lymphocytes (%) (Auto) 26 % (24-48) Monocytes (%) (Auto) 7 % (0-9) Eosinophils (%) (Auto) 1 % (0-3) Basophils (%) (Auto) 1 % (0-3) Neutrophils # (Auto) 3.9 x10^3/uL (1.8-7.7) Lymphocytes # (Auto) 1.6 x10^3/uL (1.0-4.8) Monocytes # (Auto) 0.4 x10^3/uL (0.0-1.1) Eosinophils # (Auto) 0.1 x10^3/uL (0.0-0.7) Basophils # (Auto) 0.1 x10^3/uL (0.0-0.2) Erythrocyte Sedimentation Rate 81 (0-25) Sodium Level 139 mmol/L (136-145) Potassium Level 3.9 mmol/L (3.5-5.1) Chloride Level 102 mmol/L (98-107) Carbon Dioxide Level 29 mmol/L (21-32) Anion Gap 8 (6-14) Blood Urea Nitrogen 11 mg/dL (7-20) Creatinine 0.9 mg/dL (0.6-1.0) Estimated GFR (Cockcroft-Gault) 60.9 Glucose Level 198 mg/dL (70-99) Calcium Level 9.2 mg/dL (8.5-10.1) Vitamin B12 Level 672 pg/mL (247-911) Test 07/22/21 06:25 White Blood Count 6.2 x10^3/uL (4.0-11.0) Red Blood Count 4.38 x10^6/uL (3.50-5.40) Hemoglobin 12.9 g/dL (12.0-15.5) Hematocrit 38.7 % (36.0-47.0) Mean Corpuscular Volume 88 fL (79-100) Mean Corpuscular Hemoglobin 30 pg (25-35) Mean Corpuscular Hemoglobin Concent 33 g/dL (31-37) Red Cell Distribution Width 15.7 % (11.5-14.5) Platelet Count 120 x10^3/uL (140-400) Neutrophils (%) (Auto) 62 % (31-73) Lymphocytes (%) (Auto) 30 % (24-48) Monocytes (%) (Auto) 6 % (0-9) Eosinophils (%) (Auto) 1 % (0-3) Basophils (%) (Auto) 1 % (0-3) Neutrophils # (Auto) 3.9 x10^3/uL (1.8-7.7) Lymphocytes # (Auto) 1.9 x10^3/uL (1.0-4.8) Monocytes # (Auto) 0.4 x10^3/uL (0.0-1.1) Eosinophils # (Auto) 0.1 x10^3/uL (0.0-0.7) Basophils # (Auto) 0.0 x10^3/uL (0.0-0.2) Sodium Level 140 mmol/L (136-145) Potassium Level 3.6 mmol/L (3.5-5.1) Chloride Level 102 mmol/L (98-107) Carbon Dioxide Level 30 mmol/L (21-32) Anion Gap 8 (6-14) Blood Urea Nitrogen 13 mg/dL (7-20) Creatinine 0.7 mg/dL (0.6-1.0) Estimated GFR (Cockcroft-Gault) 81.4 Glucose Level 248 mg/dL (70-99) Calcium Level 9.4 mg/dL (8.5-10.1) Triglycerides Level 174 mg/dL (0-150) Cholesterol Level 234 mg/dL (0-200) LDL Cholesterol, Calculated 161 mg/dL (0-100) VLDL Cholesterol, Calculated 35 mg/dL (0-40) Non-HDL Cholesterol Calculated 196 mg/dL (0-129) HDL Cholesterol 38 mg/dL (40-60) Cholesterol/HDL Ratio 6.2 Medications Active Scripts Medications Dose Route/Sig Max Daily Dose Days Date Category Lisinopril 40 Mg Tablet 20 Mg PO DAILY 30 09/06/19 Rx Ezetimibe 10 Mg Tablet 10 Mg PO DAILY 30 09/06/19 Rx Aspirin Ec (Aspirin) 81 Mg Tablet.dr 81 Mg PO DAILYWBKFT 100 09/06/19 Rx Lantus (Insulin Glargine,Hum.rec.anlog) 100 Unit/1 Ml Vial 50 Unit SQ BID 30 09/06/19 Rx Flonase Allergy Relief (Fluticasone Propionate) 9.9 Ml [place].susp 2 Sprays NS DAILY 09/03/19 Reported Proair Hfa Inhaler (Albuterol Sulfate) 8.5 Gm Hfa.aer.ad 2 Puff INH PRN Q6HRS PRN 09/03/19 Reported Trintellix (Vortioxetine) 20 Mg Tablet 1 Tab PO DAILY 30 09/03/19 Reported Torsemide 10 Mg Tablet 1 Tab PO QODAY 30 09/03/19 Reported Rexulti (Brexpiprazole) 4 Mg Tablet 1 Tab PO DAILY 30 09/03/19 Reported Melatonin 10 Mg Capsule 1 Cap PO QHS 30 09/03/19 Reported Glipizide 5 Mg Tablet 1 Tab PO TID 09/03/19 Reported Doxepin Hcl 10 Mg Capsule 1 Cap PO QHS 09/03/19 Reported Acetaminophen 500 Mg Tablet 500 Mg PO PRN BID PRN 04/18/18 Reported Trazodone Hcl 150 Mg Tablet 150 Mg PO HS 04/18/18 Reported Nicotine Lozenge (Nicotine Polacrilex) 2 Mg Lozenge 2 Mg BC PRN Q30MIN PRN 04/18/18 Reported Milk Of Magnesia (Magnesium Hydroxide) 400 Mg/5 Ml [place].susp 400 Mg PO PRN DAILY PRN 04/18/18 Reported Naproxen 375 Mg Tablet.dr 375 Mg PO TID PRN 03/28/18 Rx Novolog (Insulin Aspart) 100 Unit/1 Ml Vial 25 Unit SQ TIDAC 03/02/18 Reported Melatonin 3 Mg Tablet 10 Mg PO HS 03/02/18 Reported Januvia (Sitagliptin Phosphate) 50 Mg Tablet 100 Mg PO DAILY 03/02/18 Reported Gemfibrozil 600 Mg Tablet 600 Mg PO BID 03/02/18 Reported Welchol (Colesevelam Hcl) 625 Mg Tablet 1,875 Mg PO TID 03/02/18 Reported Atenolol 25 Mg Tablet 1 Tab PO DAILY 10/17/16 Reported Levothyroxine Sodium 100 Mcg Tablet 1 Tab PO DAILY 10/17/16 Reported Fluticasone Propionate Nasal [place] (Fluticasone Propionate) 16 Gm [place].susp 1 [place] NS DAILY 10/17/16 Reported Clonazepam (Clonazepam) 0.5 Mg Tablet 1 Tab PO BID 06/25/14 Reported Cyclobenzaprine Hcl 10 Mg Tablet 10 Mg PO PRN TID PRN 08/01/13 Reported Plavix (Clopidogrel Bisulfate) 75 Mg Tablet 75 Mg PO DAILY 08/01/13 Reported Clonazepam Odt (Clonazepam) 2 Mg Tab.rapdis 1 Mg PO HS PRN 08/01/[address] chest reviewed. IMPRESSION: 1. 2 solid irregular pulmonary nodules of the right upper lobe measuring 2.0 cm and 1.5 cm. There is also mediastinal adenopathy. Findings are concerning for lung malignancy with metastatic disease. 2. Heterogeneous groundglass pulmonary opacities, given the presence of small pleural effusions, most likely represents pulmonary edema. An infectious/ inflammatory process would be a secondary consideration. 3. Other incidental findings as described above. Electronically signed by: Florian Friedman MD (07/21/2021 12:55 PM) [facility] Impression . IMPRESSION: 1. Abnormal chest x-ray and CT chest. Patient has 2 rounded masslike densities in the right upper lobe. Largest being 2 cm in size. There is associated mediastinal adenopathy and some groundglass opacities bilaterally. Findings are suspicious for metastatic disease. She has a history of breast cancer status post mastectomy. Primary lung malignancy cannot be ruled out 2. Cardiomegaly. 3. Frequent falls, generalized weakness. Neurology following. MRI done. 4. Diabetes. 5. Hypertension. 6. History of breast cancer, status post mastectomy on the right side. 7. Chronic obstructive pulmonary disease, undiagnosed. 8. Depression and anxiety. Plan . 1. I discussed with the patient regarding CT chest findings. I have discussed with interventional radiologist as well. She is agreeable to proceed with CT- guided biopsy of the lung lesion for definite diagnosis. Patient is currently on Plavix. That needs to be kept on hold. Likely biopsy on Wednesday if she is still in the hospital. 2. Outpatient pulmonary function testing. 3. Replace potassium as needed. 4. Consult dietitian for severe protein malnutrition present upon admission. 5. Follow oncology recommendations regarding history of breast cancer and staging at the time of diagnosis. RODRIGO NAJERA MD Jul 22, 2021 09:23
--- NOTE | 2021-07-22 09:28 | PDOC ---
PROGRESS NOTES Date of Service DATE: 07/22/21 TIME: 09:23 Assessment Problems Medical Problems: (1) Failure to thrive Status: Acute (2) Slurring of speech Status: Acute (3) Unable to walk Status: Acute Small right cerebral hemisphere acute infarct Falls, picture of peripheral neuropathy, without evidence of stroke, e xtrapyramidal syndrome, myelopathy, or polyradiculopathy. She appears to have some dementia Sedimentation rate 81, additional laboratory studies for causes of dementia and neuropathy negative or pending Dr. Sherman saw her in 2017 for facial twitching in the setting of hyperglycemia, EEG was negative. There is a listed diagnosis of pseudoseizure but I have no further details Lung nodule, biopsy today. Anxiety, depression, diabetes, hypertension, hypothyroidism, coronary artery disease, chronic pain, possible breast cancer, cholecystectomy, hysterectomy, neck surgery, right mastectomy, previous tobacco abuse. Hyperlipidemia Subcritical bilateral carotid artery disease Plan Rehabilitation modalities Await echocardiogram Await lung biopsy She is allergic to statins Left message with power of assistant prosecuting attorney Subjective No complaints Objective Vital Signs Date Time Temp Pulse Resp B/P (MAP) Pulse Ox O2 Delivery O2 Flow Rate FiO2 07/22/21 07:00 97.9 65 18 177/67 (103) 93 Room Air 97.9 07/21/21 11:00 2.0 Intake and Output 07/22/21 07:00 Output Total 375 ml Balance -375 ml Output Urine Total 375 ml # Voids 5 PHYSICAL EXAM Alert. Oriented to person, place, date PERRL. EOMI. CN: no focal findings. Muscle tone: normal. Muscle strength: 4/5 DTR: 1+ Plantar reflex: Flexor Gait: not examined in bed. Sensory exam: Stocking loss No cerebellar signs elicited. Review of Relevant I have reviewed the following items chano (where applicable) has been applied. Labs Laboratory Tests Test 07/20/21 11:33 07/20/21 16:39 07/20/21 20:54 07/21/21 07:43 Glucose (Fingerstick) 207 mg/dL (70-99) 284 mg/dL (70-99) 241 mg/dL (70-99) 286 mg/dL (70-99) Test 07/21/21 12:00 07/21/21 14:44 07/21/21 16:54 07/21/21 20:19 Glucose (Fingerstick) 230 mg/dL (70-99) 141 mg/dL (70-99) 219 mg/dL (70-99) White Blood Count 5.9 x10^3/uL (4.0-11.0) Red Blood Count 4.26 x10^6/uL (3.50-5.40) Hemoglobin 12.7 g/dL (12.0-15.5) Hematocrit 37.8 % (36.0-47.0) Mean Corpuscular Volume 89 fL (79-100) Mean Corpuscular Hemoglobin 30 pg (25-35) Mean Corpuscular Hemoglobin Concent 34 g/dL (31-37) Red Cell Distribution Width 15.6 % (11.5-14.5) Platelet Count 118 x10^3/uL (140-400) Neutrophils (%) (Auto) 65 % (31-73) Lymphocytes (%) (Auto) 26 % (24-48) Monocytes (%) (Auto) 7 % (0-9) Eosinophils (%) (Auto) 1 % (0-3) Basophils (%) (Auto) 1 % (0-3) Neutrophils # (Auto) 3.9 x10^3/uL (1.8-7.7) Lymphocytes # (Auto) 1.6 x10^3/uL (1.0-4.8) Monocytes # (Auto) 0.4 x10^3/uL (0.0-1.1) Eosinophils # (Auto) 0.1 x10^3/uL (0.0-0.7) Basophils # (Auto) 0.1 x10^3/uL (0.0-0.2) Erythrocyte Sedimentation Rate 81 (0-25) Sodium Level 139 mmol/L (136-145) Potassium Level 3.9 mmol/L (3.5-5.1) Chloride Level 102 mmol/L (98-107) Carbon Dioxide Level 29 mmol/L (21-32) Anion Gap 8 (6-14) Blood Urea Nitrogen 11 mg/dL (7-20) Creatinine 0.9 mg/dL (0.6-1.0) Estimated GFR (Cockcroft-Gault) 60.9 Glucose Level 198 mg/dL (70-99) Calcium Level 9.2 mg/dL (8.5-10.1) Vitamin B12 Level 672 pg/mL (247-911) Test 07/22/21 06:25 White Blood Count 6.2 x10^3/uL (4.0-11.0) Red Blood Count 4.38 x10^6/uL (3.50-5.40) Hemoglobin 12.9 g/dL (12.0-15.5) Hematocrit 38.7 % (36.0-47.0) Mean Corpuscular Volume 88 fL (79-100) Mean Corpuscular Hemoglobin 30 pg (25-35) Mean Corpuscular Hemoglobin Concent 33 g/dL (31-37) Red Cell Distribution Width 15.7 % (11.5-14.5) Platelet Count 120 x10^3/uL (140-400) Neutrophils (%) (Auto) 62 % (31-73) Lymphocytes (%) (Auto) 30 % (24-48) Monocytes (%) (Auto) 6 % (0-9) Eosinophils (%) (Auto) 1 % (0-3) Basophils (%) (Auto) 1 % (0-3) Neutrophils # (Auto) 3.9 x10^3/uL (1.8-7.7) Lymphocytes # (Auto) 1.9 x10^3/uL (1.0-4.8) Monocytes # (Auto) 0.4 x10^3/uL (0.0-1.1) Eosinophils # (Auto) 0.1 x10^3/uL (0.0-0.7) Basophils # (Auto) 0.0 x10^3/uL (0.0-0.2) Sodium Level 140 mmol/L (136-145) Potassium Level 3.6 mmol/L (3.5-5.1) Chloride Level 102 mmol/L (98-107) Carbon Dioxide Level 30 mmol/L (21-32) Anion Gap 8 (6-14) Blood Urea Nitrogen 13 mg/dL (7-20) Creatinine 0.7 mg/dL (0.6-1.0) Estimated GFR (Cockcroft-Gault) 81.4 Glucose Level 248 mg/dL (70-99) Calcium Level 9.4 mg/dL (8.5-10.1) Triglycerides Level 174 mg/dL (0-150) Cholesterol Level 234 mg/dL (0-200) LDL Cholesterol, Calculated 161 mg/dL (0-100) VLDL Cholesterol, Calculated 35 mg/dL (0-40) Non-HDL Cholesterol Calculated 196 mg/dL (0-129) HDL Cholesterol 38 mg/dL (40-60) Cholesterol/HDL Ratio 6.2 Laboratory Tests Test 07/21/21 12:00 07/21/21 14:44 07/21/21 16:54 07/21/21 20:19 Glucose (Fingerstick) 230 mg/dL (70-99) 141 mg/dL (70-99) 219 mg/dL (70-99) White Blood Count 5.9 x10^3/uL (4.0-11.0) Red Blood Count 4.26 x10^6/uL (3.50-5.40) Hemoglobin 12.7 g/dL (12.0-15.5) Hematocrit 37.8 % (36.0-47.0) Mean Corpuscular Volume 89 fL (79-100) Mean Corpuscular Hemoglobin 30 pg (25-35) Mean Corpuscular Hemoglobin Concent 34 g/dL (31-37) Red Cell Distribution Width 15.6 % (11.5-14.5) Platelet Count 118 x10^3/uL (140-400) Neutrophils (%) (Auto) 65 % (31-73) Lymphocytes (%) (Auto) 26 % (24-48) Monocytes (%) (Auto) 7 % (0-9) Eosinophils (%) (Auto) 1 % (0-3) Basophils (%) (Auto) 1 % (0-3) Neutrophils # (Auto) 3.9 x10^3/uL (1.8-7.7) Lymphocytes # (Auto) 1.6 x10^3/uL (1.0-4.8) Monocytes # (Auto) 0.4 x10^3/uL (0.0-1.1) Eosinophils # (Auto) 0.1 x10^3/uL (0.0-0.7) Basophils # (Auto) 0.1 x10^3/uL (0.0-0.2) Erythrocyte Sedimentation Rate 81 (0-25) Sodium Level 139 mmol/L (136-145) Potassium Level 3.9 mmol/L (3.5-5.1) Chloride Level 102 mmol/L (98-107) Carbon Dioxide Level 29 mmol/L (21-32) Anion Gap 8 (6-14) Blood Urea Nitrogen 11 mg/dL (7-20) Creatinine 0.9 mg/dL (0.6-1.0) Estimated GFR (Cockcroft-Gault) 60.9 Glucose Level 198 mg/dL (70-99) Calcium Level 9.2 mg/dL (8.5-10.1) Vitamin B12 Level 672 pg/mL (247-911) Test 07/22/21 06:25 White Blood Count 6.2 x10^3/uL (4.0-11.0) Red Blood Count 4.38 x10^6/uL (3.50-5.40) Hemoglobin 12.9 g/dL (12.0-15.5) Hematocrit 38.7 % (36.0-47.0) Mean Corpuscular Volume 88 fL (79-100) Mean Corpuscular Hemoglobin 30 pg (25-35) Mean Corpuscular Hemoglobin Concent 33 g/dL (31-37) Red Cell Distribution Width 15.7 % (11.5-14.5) Platelet Count 120 x10^3/uL (140-400) Neutrophils (%) (Auto) 62 % (31-73) Lymphocytes (%) (Auto) 30 % (24-48) Monocytes (%) (Auto) 6 % (0-9) Eosinophils (%) (Auto) 1 % (0-3) Basophils (%) (Auto) 1 % (0-3) Neutrophils # (Auto) 3.9 x10^3/uL (1.8-7.7) Lymphocytes # (Auto) 1.9 x10^3/uL (1.0-4.8) Monocytes # (Auto) 0.4 x10^3/uL (0.0-1.1) Eosinophils # (Auto) 0.1 x10^3/uL (0.0-0.7) Basophils # (Auto) 0.0 x10^3/uL (0.0-0.2) Sodium Level 140 mmol/L (136-145) Potassium Level 3.6 mmol/L (3.5-5.1) Chloride Level 102 mmol/L (98-107) Carbon Dioxide Level 30 mmol/L (21-32) Anion Gap 8 (6-14) Blood Urea Nitrogen 13 mg/dL (7-20) Creatinine 0.7 mg/dL (0.6-1.0) Estimated GFR (Cockcroft-Gault) 81.4 Glucose Level 248 mg/dL (70-99) Calcium Level 9.4 mg/dL (8.5-10.1) Triglycerides Level 174 mg/dL (0-150) Cholesterol Level 234 mg/dL (0-200) LDL Cholesterol, Calculated 161 mg/dL (0-100) VLDL Cholesterol, Calculated 35 mg/dL (0-40) Non-HDL Cholesterol Calculated 196 mg/dL (0-129) HDL Cholesterol 38 mg/dL (40-60) Cholesterol/HDL Ratio 6.2 Microbiology 07/20/21 Blood Culture - Preliminary, Resulted NO GROWTH AFTER 2 DAYS Medications Current Medications Sodium Chloride 1,000 ml @ 1,000 mls/hr 1X ONCE IV Last administered on 07/20/21at 02:03; Start 07/20/21 at 01:30; Stop 07/20/21 at 02:29; Status DC Ondansetron HCl (Zofran) 4 mg PRN Q8HRS PRN IVP NAUSEA/VOMITING 1st CHOICE; Start 07/20/21 at 03:00; Stop 07/21/21 at 02:59; Status DC Potassium Chloride (Klor-Con) 40 meq 1X ONCE PO Last administered on 07/20/21at 03:57; Start 07/20/21 at 04:00; Stop 07/20/21 at 04:01; Status DC Acetaminophen (Tylenol) 500 mg PRN BID PRN PO PAIN; Start 07/20/21 at 10:30 Aspirin (Ecotrin) 81 mg DAILYWBKFT PO ; Start 07/21/21 at 08:00; Status UNV Atenolol (Tenormin) 75 mg DAILY PO Last administered on 07/21/21at 09:08; Start 07/20/21 at 13:00 Clonazepam (KlonoPIN) 1 mg PRN QHS PRN PO ANXIETY / INSOMNIA Last administered on 07/20/21at 20:48; Start 07/20/21 at 21:00 Clopidogrel Bisulfate (Plavix) 75 mg DAILY PO Last administered on 07/21/21at 09:08; Start 07/20/21 at 13:00 Colesevelam HCl (Welchol) 1,875 mg TID PO ; Start 07/20/21 at 14:00; Status UNV Cyclobenzaprine HCl (Flexeril) 10 mg PRN TID PRN PO MUSCLE SPASMS; Start 07/20/21 at 10:30 Doxepin HCl (SINequan) 10 mg QHS PO Last administered on 07/20/21at 20:48; Start 07/20/21 at 21:00 EZETIMIBE (Zetia) 10 mg DAILY PO ; Start 07/21/21 at 09:00; Status UNV Fluticasone Propionate (Flonase) 1 spray PRN DAILY PRN NS ALLERGIES; Start 07/20/21 at 09:00 Gemfibrozil (Lopid) 600 mg BID PO ; Start 07/20/21 at 21:00; Status UNV Glipizide (Glucotrol) 5 mg TID PO ; Start 07/20/21 at 14:00; Status UNV Insulin Glargine (Lantus Syringe) 80 unit BID SQ Last administered on 07/21/21at 09:28; Start 07/20/21 at 21:00 Levothyroxine Sodium (Synthroid) 100 mcg DAILY06 PO Last administered on 07/21/21at 05:25; Start 07/20/21 at 12:30 Lisinopril (Prinivil) 20 mg DAILY PO Last administered on 07/21/21at 09:08; Start 07/20/21 at 13:00 Magnesium Hydroxide (Milk Of Magnesia) 400 mg PRN DAILY PRN PO CONSTIPATION; Start 07/20/21 at 10:30; Stop 07/20/21 at 12:15; Status DC Torsemide (Demadex) 10 mg QODAY PO Last administered on 07/21/21at 09:24; Start 07/21/21 at 09:00 Aripiprazole (Abilify) 10 mg DAILY PO Last administered on 07/21/21at 09:08; Start 07/20/21 at 13:00 Non-Formulary Medication (Clonazepam (Clonazepam Odt)) 1 mg HS PRN PO hs; Start 07/20/21 at 10:30; Status UNV Non-Formulary Medication (Fluticasone Propionate (Flonase Allergy Relief)) 2 sprays DAILY NS ; Start 07/21/21 at 09:00; Status UNV Insulin Human Lispro (HumaLOG) 30 units TIDWMEALS SQ Last administered on 07/21/21at 17:41; Start 07/20/21 at 17:00 Non-Formulary Medication (Melatonin ) 10 mg HS PO ; Start 07/20/21 at 21:00; Status UNV Non-Formulary Medication (Melatonin ) 1 cap QHS PO ; Start 07/20/21 at 21:00; Status UNV Non-Formulary Medication (Naproxen ) 375 mg TID PRN PO PAIN; Start 07/20/21 at 10:30; Status UNV Nicotine Polacrilex (Nicorette Gum) 1 each PRN Q1HR PRN BC SMOKING CESSATION; Start 07/20/21 at 12:45 Linagliptin (Tradjenta) 5 mg DAILY PO Last administered on 07/21/21 09:08; Start 07/20/21 at 13:00 Trazodone HCl (Desyrel) 50 mg HS PO Last administered on 07/20/21at 20:48; Start 07/20/21 at 21:00 Non-Formulary Medication (Vortioxetine Hydrobromide (Trintellix)) 1 tab DAILY PO ; Start 07/21/21 at 09:00; Status UNV Magnesium Hydroxide (Milk Of Magnesia) 2,400 mg PRN DAILY PRN PO CONSTIPATION; Start 07/20/21 at 12:15 Duloxetine HCl (Cymbalta) 30 mg DAILY PO Last administered on 07/21/21at 09:09; Start 07/20/21 at 13:00 Magnesium Oxide (Magnesium Oxide) 400 mg DAILY PO Last administered on 07/21/21 09:09; Start 07/20/21 at 14:00 Lidocaine (Lidoderm) 1 patch DAILY TD Last administered on 07/21/21 09:06; Start 07/20/21 at 13:00 Miscellaneous (Lidoderm Patch Removal) 1 ea QHS MC Last administered on 07/21/21at 21:17; Start 07/20/21 at 21:00 Meclizine HCl (Antivert) 25 mg DAILY PO Last administered on 07/21/21 09:09; Start 07/20/21 at 14:00 Duloxetine HCl (Cymbalta) 60 mg QHS PO Last administered on 07/20/21at 20:48; Start 07/20/21 at 21:00 Potassium Chloride (Klor-Con) 40 meq 1X ONCE PO Last administered on 07/20/21at 17:13; Start 07/20/21 at 17:00; Stop 07/20/21 at 17:01; Status DC Aspirin (Ecotrin) 81 mg DAILYWBKFT PO ; Start 07/22/21 at 08:00 Olanzapine (ZyPREXA ZYDIS) 5 mg PRN BID PRN PO ANXIETY / AGITATION Last admini stered on 07/22/21at 00:08; Start 07/21/21 at 21:45 Hydralazine HCl (Apresoline Inj) 10 mg PRN Q4HRS PRN IVP ELEVATED BP, SEE CO MMENTS Last administered on 07/22/21at 00:08; Start 07/21/21 at 23:45 Active Scripts Active Lisinopril 40 Mg Tablet 20 Mg PO DAILY 30 Days Reported Trazodone Hcl 50 Mg Tablet 50 Mg PO HS Voltaren Arthritis Pain (Diclofenac Sodium) 20 Gm Gel..gram. 1 Gm TP TID Meclizine Hcl 25 Mg Tablet 25 Mg PO DAILY Cymbalta (Duloxetine Hcl) 60 Mg Capsule.dr 60 Mg PO QHS Cymbalta (Duloxetine Hcl) 30 Mg Capsule.dr 30 Mg PO DAILY Levemir (Insulin Detemir) 100 Unit/1 Ml Vial 80 Unit SQ BID Flonase Allergy Relief (Fluticasone Propionate) 9.9 Ml [place].susp 2 Sprays NS DAILY PRN Proair Hfa Inhaler (Albuterol Sulfate) 8.5 Gm Hfa.aer.ad 2 Puff INH PRN Q6HRS PRN Torsemide 10 Mg Tablet 1 Tab PO QODAY 30 Days Rexulti (Brexpiprazole) 4 Mg Tablet 1 Tab PO DAILY 30 Days Doxepin Hcl 10 Mg Capsule 1 Cap PO QHS Acetaminophen 500 Mg Tablet 500 Mg PO PRN BID PRN Nicotine Lozenge (Nicotine Polacrilex) 2 Mg Lozenge 2 Mg BC PRN Q30MIN PRN Milk Of Magnesia (Magnesium Hydroxide) 400 Mg/5 Ml Oral.susp 2,400 Mg PO PRN DAILY PRN Novolog (Insulin Aspart) 100 Unit/1 Ml Vial 30 Unit SQ TIDAC Januvia (Sitagliptin Phosphate) 50 Mg Tablet 100 Mg PO DAILY Atenolol 25 Mg Tablet 75 Mg PO DAILY Levothyroxine Sodium 100 Mcg Tablet 1 Tab PO DAILY Cyclobenzaprine Hcl 10 Mg Tablet 10 Mg PO PRN TID PRN Plavix (Clopidogrel Bisulfate) 75 Mg Tablet 75 Mg PO DAILY Clonazepam Odt (Clonazepam) 2 Mg Tab.rapdis 1 Mg PO HS PRN Vitals/I & O Vital Sign - Last 24 Hours 07/21/21 07/21/21 07/21/21 07/21/21 11:00 15:00 19:00 20:05 Temp 98.4 98.3 98.1 98.4 98.3 98.1 Pulse 64 62 71 Resp 18 18 20 B/P (MAP) 159/67 (97) 172/55 (94) 173/67 (102) Pulse Ox 97 93 93 O2 Delivery Nasal Cannula Room Air Room Air Room Air O2 Flow Rate 2.0 07/21/21 07/22/21 07/22/21 07/22/21 23:00 00:08 03:16 07:00 Temp 98.7 98.4 97.9 98.7 98.4 97.9 Pulse 73 73 75 65 Resp 18 20 18 B/P (MAP) 212/79 (123) 212/79 203/68 (113) 177/67 (103) Pulse Ox 91 94 93 O2 Delivery Room Air Room Air Room Air Intake and Output 07/21/21 07/21/21 07/22/21 15:00 23:00 07:00 Output Total 250 ml 125 ml Balance -250 ml -125 ml Images MRI BRAIN W/O CONTRAST, 07/21 No midline shift. Basilar cistern patent. There is a couple of small foci of restricted diffusion within the right cerebral hemisphere including at the posterior limb of the internal capsule. This is located just anterior to the right thalamus. Ventricles and sulci are globally prominent which can be seen with volume loss. No intracranial hemorrhage or gross mass seen. IMPRESSION: * Small focus of restricted diffusion is identified within the right cerebral hemisphere which could be from acute small vessel ischemic changes. Report was called to the patient's floor at 2:33 PM on date of exam. * Scattered regions of high T2 signal within the white matter. Nonspecific but can be from chronic small vessel ischemic changes. Carotid Doppler sonogram, 07/21/21 HISTORY: Stroke. Slurred speech. Atherosclerosis. TECHNIQUE: [place] scale and color Doppler sonographic evaluation of the neck with spectral waveform analysis was performed and static images are submitted for review. FINDINGS: There is moderate atherosclerotic plaque involving the carotid bifurcations. The peak systolic velocity within the right common carotid artery is 1 and 60 cm/sec. The peak systolic velocity within the right internal carotid artery is 88 cm/sec and the end diastolic velocity within the right internal carotid artery is 14 cm/sec. The right ICA/CCA ratio is 1.27. The peak systolic velocity within the left common carotid artery is 96 cm/sec. The peak systolic velocity within the left internal carotid artery is 133 cm/sec and the end diastolic velocity within the left internal carotid artery is 23 cm/sec. The left ICA/CCA ratio is 1.5 to. There is normal antegrade flow within both vertebral arteries. IMPRESSION: 1. Doppler findings consistent with 50-69 percent stenosis involving the left ICA and less than 50 percent stenosis involving the right ICA. 2. Moderate atherosclerotic plaque involving the carotid bifurcations. Justicifation of Admission Dx: Justifications for Admission: Justification of Admission Dx: Yes Angina: New-Onset SUSAN NICHOLAS MD Jul 22, 2021 09:28
[2021-07-22 11:00] VITALS: BP 170/67
--- NOTE | 2021-07-22 11:02 | PDOC ---
[facility] PROGRESS NOTE Date of Service DOS: DATE: 07/22/21 TIME: 11:02 Chief Complaint Chief Complaint Weakness, falls, electrolyte derangement, anemia, hypokalemia, hypernatremia, severe protein calorie malnutrition and abnormal chest x-ray. History of the following; Anxiety, depression, diabetes, hypertension, hypothyroidism, coronary artery disease, chronic pain, pseudoseizures, possible breast cancer, cholecystectomy, hysterectomy, neck surgery, right mastectomy, previous tobacco abuse. History of Present Illness History of Present Illness 07/22/2021 Patient seen and examined She seems a little confused and weak but very pleasant I spoke with Dr. Dinero he would like to get a CT-guided lung biopsy as she has a history of breast cancer now with a new lung nodule Discussed with Dr. Robles as well she did have a small stroke on the MRI Discussed with RN Discussed with case management Chart reviewed Vitals/I&O Vitals/I&O: Vital Signs Date Time Temp Pulse Resp B/P (MAP) Pulse Ox O2 Delivery O2 Flow Rate FiO2 07/22/21 07:00 97.9 65 18 177/67 (103) 93 Room Air 97.9 07/21/21 11:00 2.0 I & O 07/21/21 07/21/21 07/22/21 15:00 23:00 07:00 Output Total 250 ml 125 ml Balance -250 ml -125 ml Physical Exam General: Other (Pleasantly confused) Heart: Regular rate Lungs: Clear Abdomen: Normal bowel sounds Extremities: No clubbing Skin: No rashes Labs Labs: Laboratory Tests Test 07/21/21 12:00 07/21/21 14:44 07/21/21 16:54 07/21/21 20:19 Glucose (Fingerstick) 230 mg/dL (70-99) 141 mg/dL (70-99) 219 mg/dL (70-99) White Blood Count 5.9 x10^3/uL (4.0-11.0) Red Blood Count 4.26 x10^6/uL (3.50-5.40) Hemoglobin 12.7 g/dL (12.0-15.5) Hematocrit 37.8 % (36.0-47.0) Mean Corpuscular Volume 89 fL (79-100) Mean Corpuscular Hemoglobin 30 pg (25-35) Mean Corpuscular Hemoglobin Concent 34 g/dL (31-37) Red Cell Distribution Width 15.6 % (11.5-14.5) Platelet Count 118 x10^3/uL (140-400) Neutrophils (%) (Auto) 65 % (31-73) Lymphocytes (%) (Auto) 26 % (24-48) Monocytes (%) (Auto) 7 % (0-9) Eosinophils (%) (Auto) 1 % (0-3) Basophils (%) (Auto) 1 % (0-3) Neutrophils # (Auto) 3.9 x10^3/uL (1.8-7.7) Lymphocytes # (Auto) 1.6 x10^3/uL (1.0-4.8) Monocytes # (Auto) 0.4 x10^3/uL (0.0-1.1) Eosinophils # (Auto) 0.1 x10^3/uL (0.0-0.7) Basophils # (Auto) 0.1 x10^3/uL (0.0-0.2) Erythrocyte Sedimentation Rate 81 (0-25) Sodium Level 139 mmol/L (136-145) Potassium Level 3.9 mmol/L (3.5-5.1) Chloride Level 102 mmol/L (98-107) Carbon Dioxide Level 29 mmol/L (21-32) Anion Gap 8 (6-14) Blood Urea Nitrogen 11 mg/dL (7-20) Creatinine 0.9 mg/dL (0.6-1.0) Estimated GFR (Cockcroft-Gault) 60.9 Glucose Level 198 mg/dL (70-99) Calcium Level 9.2 mg/dL (8.5-10.1) Vitamin B12 Level 672 pg/mL (247-911) Test 07/22/21 06:25 White Blood Count 6.2 x10^3/uL (4.0-11.0) Red Blood Count 4.38 x10^6/uL (3.50-5.40) Hemoglobin 12.9 g/dL (12.0-15.5) Hematocrit 38.7 % (36.0-47.0) Mean Corpuscular Volume 88 fL (79-100) Mean Corpuscular Hemoglobin 30 pg (25-35) Mean Corpuscular Hemoglobin Concent 33 g/dL (31-37) Red Cell Distribution Width 15.7 % (11.5-14.5) Platelet Count 120 x10^3/uL (140-400) Neutrophils (%) (Auto) 62 % (31-73) Lymphocytes (%) (Auto) 30 % (24-48) Monocytes (%) (Auto) 6 % (0-9) Eosinophils (%) (Auto) 1 % (0-3) Basophils (%) (Auto) 1 % (0-3) Neutrophils # (Auto) 3.9 x10^3/uL (1.8-7.7) Lymphocytes # (Auto) 1.9 x10^3/uL (1.0-4.8) Monocytes # (Auto) 0.4 x10^3/uL (0.0-1.1) Eosinophils # (Auto) 0.1 x10^3/uL (0.0-0.7) Basophils # (Auto) 0.0 x10^3/uL (0.0-0.2) Sodium Level 140 mmol/L (136-145) Potassium Level 3.6 mmol/L (3.5-5.1) Chloride Level 102 mmol/L (98-107) Carbon Dioxide Level 30 mmol/L (21-32) Anion Gap 8 (6-14) Blood Urea Nitrogen 13 mg/dL (7-20) Creatinine 0.7 mg/dL (0.6-1.0) Estimated GFR (Cockcroft-Gault) 81.4 Glucose Level 248 mg/dL (70-99) Calcium Level 9.4 mg/dL (8.5-10.1) Triglycerides Level 174 mg/dL (0-150) Cholesterol Level 234 mg/dL (0-200) LDL Cholesterol, Calculated 161 mg/dL (0-100) VLDL Cholesterol, Calculated 35 mg/dL (0-40) Non-HDL Cholesterol Calculated 196 mg/dL (0-129) HDL Cholesterol 38 mg/dL (40-60) Cholesterol/HDL Ratio 6.2 Assessment and Plan Assessmemt and Plan Problems Medical Problems: (1) Failure to thrive Status: Acute (2) Slurring of speech Status: Acute (3) Unable to walk Status: Acute Weakness, falls, electrolyte derangement, anemia, hypokalemia, hypernatremia, severe protein calorie malnutrition and abnormal chest x-ray with suspicious mass (History of breast cancer) History of the following; Anxiety, depression, diabetes, hypertension, hypothyroidism, coronary artery disease, chronic pain, pseudoseizures, possible breast cancer, cholecystectomy, hysterectomy, neck surgery, right mastectomy, previous tobacco abuse. Plan Dr. Marshall would like her to go for CT-guided biopsy of the lung mass as she has a history of breast cancer (agree) Appreciate Dr. Robles's input For now continue supportive care PT OT Home meds DVT prophylaxis Full code Trend labs Encourage p.o. intake Discharge disposition pending once the biopsy is done Appreciate subspecialist input Long-term prognosis guarded Comment Review of Relevant I have reviewed the following items chano (where applicable) has been applied. Medications: Current Medications Medications (Trade) Dose Ordered Sig/Kike Route PRN Reason Start Time Stop Time Status Last Admin Dose Admin Olanzapine (ZyPREXA ZYDIS) 5 mg PRN BID PRN PO ANXIETY / AGITATION 07/21/21 21:45 07/22/21 00:08 Hydralazine HCl (Apresoline Inj) 10 mg PRN Q4HRS PRN IVP ELEVATED BP, SEE COMMENTS 07/21/21 23:45 07/22/21 00:08 Justifications for Admission Other Justification CATRACHITA SANDOVAL III DO Jul 22, 2021 11:02
--- NOTE | 2021-07-22 12:19 | NUR ---
Patient stated she does not take 80 units of Lantus BID, patient stated she only takes 80 units of Lantus at night time. Therefore, patient refused the AM dose of Lantus.
--- NOTE | 2021-07-22 14:41 | NUR ---
SS following for discharge planning. SS reviewed pt chart and discussed with pt RN. Pt is from [facility], ; fax [phone]. Pt is currently on room air. PO diet. PT/OT ordered. ECHO ordered. IR consulted. SS will continue to follow for discharge planning.
[2021-07-22 15:00] VITALS: BP 168/53
--- NOTE | 2021-07-22 16:57 | CARD ---
MR#: [id number] Date of Study: 07/22/2021 Ordering Physician: SUSAN NICHOLAS, Referring Physician: SUSAN NICHOLAS, Tech: Ambre Gandhi [facility] APPROVED REPORT EXAM: Two-dimensional and M-mode echocardiogram with Doppler and color Doppler. Other Information Quality : AverageHR: 64bpm Rhythm : NSR INDICATION CVA/TIA RISK FACTORS Hypertension Obesity Diabetes 2D DIMENSIONS RVDd2.9 (2.9-3.5cm)Left Atrium(2D)3.3 (1.6-4.0cm) IVSd1.4 (0.7-1.1cm)Aortic Root(2D)3.1 (2.0-3.7cm) LVDd4.1 (3.9-5.9cm)LVOT Diameter2.1 (1.8-2.4cm) PWd1.3 (0.7-1.1cm)LVDs2.1 (2.5-4.0cm) FS (%) 49.1 %SV60.9 ml LVEF(%)80.8 (>50%) Aortic Valve AoV Peak Jesse.164.6cm/sAoV VTI31.1cm AO Peak GR.10.8mmHgLVOT Peak Jesse.124.3cm/s AO Mean GR.4mmHgAVA (VMAX)2.51cm2 Mitral Valve MV E Kdcfkjow627.6cm/sMV DECEL [id number] MV A Pfzieruf210.3cm/sE/A Ratio0.8 Pulmonary Valve PV Peak Pkyoogcq153.2cm/s LEFT VENTRICLE The left ventricle is normal size. There is mild concentric left ventricular hypertrophy. The left ve ntricular systolic function is normal. Estimated ejection fraction 60%. There is normal LV segmental wall motion. Transmitral Doppler flow pattern is Grade I-abnormal relaxation pattern. RIGHT VENTRICLE The right ventricle is normal size. There is normal right ventricular wall thickness. The right ventr icular systolic function is normal. ATRIA The left atrium size is normal. The right atrium size is normal. The interatrial septum is intact wit h no evidence for an atrial septal defect or patent foramen ovale as noted on 2-D or Doppler imaging. AORTIC VALVE The aortic valve is normal in structure and function. Doppler and Color Flow revealed no significant aortic regurgitation. There is no significant aortic valvular stenosis. MITRAL VALVE Mitral annular calcification is mild. There is no evidence of mitral valve prolapse. There is no mitr al valve stenosis. Doppler and Color-flow revealed mild mitral regurgitation. TRICUSPID VALVE The tricuspid valve is normal in structure and function. Doppler and Color Flow revealed no tricuspid valve regurgitation noted. There is no tricuspid valve stenosis. PULMONIC VALVE The pulmonary valve is normal in structure and function. Doppler and Color Flow revealed no pulmonic valvular regurgitation. GREAT VESSELS The aortic root is normal in size. The ascending aorta is normal in size. The IVC is normal in size a nd collapses >50% with inspiration. PERICARDIAL EFFUSION There is no evidence of significant pericardial effusion. Critical Notification Critical Value: No <Conclusion> The left ventricular systolic function is normal. Estimated ejection fraction 60%. There is normal LV segmental wall motion. Transmitral Doppler flow pattern is Grade I-abnormal relaxation pattern. Mild mitral regurgitation. There is no evidence of significant pericardial effusion. Signed by : Patel Ogden, Electronically Approved : 07/22/2021 16:56:39
[2021-07-22 19:00] VITALS: BP 159/57
[2021-07-22] MEDS: DOXEPIN HCL 10 MG CAPSULE. PO SCH (21:08)
[2021-07-22] MEDS: traZODone 50 MG TABLET. PO SCH (21:09)
[2021-07-22] MEDS: clonazePAM 0.5 MG TABLET PO PRN (22:34)
[2021-07-22] MEDS: PATCH REMOVAL. MC SCH (22:37)
[2021-07-22 23:02] VITALS: BP 172/66
[2021-07-23 01:09] LABS: HEMOGLOBIN A1C 10.9 % (4.8-5.6)
[2021-07-23 03:06] VITALS: BP 174/88
[2021-07-23] MEDS: LEVOTHYROXINE 100 MCG TABLET PO SCH (06:49)
[2021-07-23 07:00] VITALS: BP 161/57
[2021-07-23 07:56] LABS: BASO # 0.1 x10^3/uL (0.0-0.2); BASO % 1 % (0-3); EOS # 0.1 x10^3/uL (0.0-0.7); EOS % 1 % (0-3); HEMATOCRIT 39.4 % (36.0-47.0); LYMPH # 2.1 x10^3/uL (1.0-4.8); LYMPH % 27 % (24-48); MEAN CORPUSCULAR HEMOGLOBIN 30 pg (25-35); MEAN CORPUSCULAR HGB CONC 33 g/dL (31-37); MEAN CORPUSCULAR VOLUME 90 fL (79-100); MONO # 0.5 x10^3/uL (0.0-1.1); MONO % 7 % (0-9); NEUT % 64 % (31-73); PLATELET COUNT 125 x10^3/uL (140-400); RED BLOOD COUNT 4.38 x10^6/uL (3.50-5.40); RED CELL DISTRIBUTION WIDTH 15.5 % (11.5-14.5); WHITE BLOOD COUNT 7.7 x10^3/uL (4.0-11.0)
[2021-07-23 08:14] LABS: CALCIUM 9.3 mg/dL (8.5-10.1); CREATININE 0.8 mg/dL (0.6-1.0); GFR 69.7; POTASSIUM 3.6 mmol/L (3.5-5.1)
--- NOTE | 2021-07-23 09:47 | PDOC ---
PROGRESS NOTES Date of Service DATE: 07/23/21 TIME: 09:44 Assessment Problems Medical Problems: (1) Failure to thrive Status: Acute (2) Slurring of speech Status: Acute (3) Unable to walk Status: Acute Small right cerebral hemisphere acute infarct Falls, picture of peripheral neuropathy, without evidence of stroke, e xtrapyramidal syndrome, myelopathy, or polyradiculopathy. Dementia, psychiatric versus Alzheimer's Sedimentation rate 81, additional laboratory studies for causes of dementia and neuropathy negative or pending Dr. Sherman saw her in 2017 for facial twitching in the setting of hyperglycemia, EEG was negative. 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 Hyperlipidemia Subcritical bilateral carotid artery disease Plan Rehabilitation modalities Await lung biopsy She is allergic to statins Left message with power of ip attorney 07/22, no reply Subjective No complaints Objective Vital Signs Date Time Temp Pulse Resp B/P (MAP) Pulse Ox O2 Delivery O2 Flow Rate FiO2 07/23/21 07:00 98.0 63 18 161/57 (91) 93 98.0 07/23/21 03:06 Room Air Intake and Output 07/23/21 07:00 Intake Total 240 ml Output Total 500 ml Balance -260 ml Intake Oral 240 ml Output Urine Total 500 ml PHYSICAL EXAM Alert. Says that she is in [facility] PERRL. EOMI. CN: no focal findings. Muscle tone: normal. Muscle strength: 4/5 DTR: 1+ Plantar reflex: Flexor Bilateral grasp reflexes Gait: not examined in bed. Sensory exam: Stocking loss No cerebellar signs elicited. Review of Relevant I have reviewed the following items chano (where applicable) has been applied. Labs Laboratory Tests Test 07/21/21 12:00 07/21/21 14:44 07/21/21 16:54 07/21/21 20:19 Glucose (Fingerstick) 230 mg/dL (70-99) 141 mg/dL (70-99) 219 mg/dL (70-99) White Blood Count 5.9 x10^3/uL (4.0-11.0) Red Blood Count 4.26 x10^6/uL (3.50-5.40) Hemoglobin 12.7 g/dL (12.0-15.5) Hematocrit 37.8 % (36.0-47.0) Mean Corpuscular Volume 89 fL (79-100) Mean Corpuscular Hemoglobin 30 pg (25-35) Mean Corpuscular Hemoglobin Concent 34 g/dL (31-37) Red Cell Distribution Width 15.6 % (11.5-14.5) Platelet Count 118 x10^3/uL (140-400) Neutrophils (%) (Auto) 65 % (31-73) Lymphocytes (%) (Auto) 26 % (24-48) Monocytes (%) (Auto) 7 % (0-9) Eosinophils (%) (Auto) 1 % (0-3) Basophils (%) (Auto) 1 % (0-3) Neutrophils # (Auto) 3.9 x10^3/uL (1.8-7.7) Lymphocytes # (Auto) 1.6 x10^3/uL (1.0-4.8) Monocytes # (Auto) 0.4 x10^3/uL (0.0-1.1) Eosinophils # (Auto) 0.1 x10^3/uL (0.0-0.7) Basophils # (Auto) 0.1 x10^3/uL (0.0-0.2) Erythrocyte Sedimentation Rate 81 (0-25) Sodium Level 139 mmol/L (136-145) Potassium Level 3.9 mmol/L (3.5-5.1) Chloride Level 102 mmol/L (98-107) Carbon Dioxide Level 29 mmol/L (21-32) Anion Gap 8 (6-14) Blood Urea Nitrogen 11 mg/dL (7-20) Creatinine 0.9 mg/dL (0.6-1.0) Estimated GFR (Cockcroft-Gault) 60.9 Glucose Level 198 mg/dL (70-99) Calcium Level 9.2 mg/dL (8.5-10.1) Vitamin B12 Level 672 pg/mL (247-911) Test 07/22/21 06:25 07/22/21 11:04 07/22/21 16:48 07/22/21 20:19 White Blood Count 6.2 x10^3/uL (4.0-11.0) Red Blood Count 4.38 x10^6/uL (3.50-5.40) Hemoglobin 12.9 g/dL (12.0-15.5) Hematocrit 38.7 % (36.0-47.0) Mean Corpuscular Volume 88 fL (79-100) Mean Corpuscular Hemoglobin 30 pg (25-35) Mean Corpuscular Hemoglobin Concent 33 g/dL (31-37) Red Cell Distribution Width 15.7 % (11.5-14.5) Platelet Count 120 x10^3/uL (140-400) Neutrophils (%) (Auto) 62 % (31-73) Lymphocytes (%) (Auto) 30 % (24-48) Monocytes (%) (Auto) 6 % (0-9) Eosinophils (%) (Auto) 1 % (0-3) Basophils (%) (Auto) 1 % (0-3) Neutrophils # (Auto) 3.9 x10^3/uL (1.8-7.7) Lymphocytes # (Auto) 1.9 x10^3/uL (1.0-4.8) Monocytes # (Auto) 0.4 x10^3/uL (0.0-1.1) Eosinophils # (Auto) 0.1 x10^3/uL (0.0-0.7) Basophils # (Auto) 0.0 x10^3/uL (0.0-0.2) Sodium Level 140 mmol/L (136-145) Potassium Level 3.6 mmol/L (3.5-5.1) Chloride Level 102 mmol/L (98-107) Carbon Dioxide Level 30 mmol/L (21-32) Anion Gap 8 (6-14) Blood Urea Nitrogen 13 mg/dL (7-20) Creatinine 0.7 mg/dL (0.6-1.0) Estimated GFR (Cockcroft-Gault) 81.4 Glucose Level 248 mg/dL (70-99) Hemoglobin A1c 10.9 % (4.8-5.6) Calcium Level 9.4 mg/dL (8.5-10.1) Triglycerides Level 174 mg/dL (0-150) Cholesterol Level 234 mg/dL (0-200) LDL Cholesterol, Calculated 161 mg/dL (0-100) VLDL Cholesterol, Calculated 35 mg/dL (0-40) Non-HDL Cholesterol Calculated 196 mg/dL (0-129) HDL Cholesterol 38 mg/dL (40-60) Cholesterol/HDL Ratio 6.2 Glucose (Fingerstick) 278 mg/dL (70-99) 261 mg/dL (70-99) 266 mg/dL (70-99) Test 07/23/21 06:20 07/23/21 07:11 White Blood Count 7.7 x10^3/uL (4.0-11.0) Red Blood Count 4.38 x10^6/uL (3.50-5.40) Hemoglobin 13.0 g/dL (12.0-15.5) Hematocrit 39.4 % (36.0-47.0) Mean Corpuscular Volume 90 fL (79-100) Mean Corpuscular Hemoglobin 30 pg (25-35) Mean Corpuscular Hemoglobin Concent 33 g/dL (31-37) Red Cell Distribution Width 15.5 % (11.5-14.5) Platelet Count 125 x10^3/uL (140-400) Neutrophils (%) (Auto) 64 % (31-73) Lymphocytes (%) (Auto) 27 % (24-48) Monocytes (%) (Auto) 7 % (0-9) Eosinophils (%) (Auto) 1 % (0-3) Basophils (%) (Auto) 1 % (0-3) Neutrophils # (Auto) 5.0 x10^3/uL (1.8-7.7) Lymphocytes # (Auto) 2.1 x10^3/uL (1.0-4.8) Monocytes # (Auto) 0.5 x10^3/uL (0.0-1.1) Eosinophils # (Auto) 0.1 x10^3/uL (0.0-0.7) Basophils # (Auto) 0.1 x10^3/uL (0.0-0.2) Sodium Level 137 mmol/L (136-145) Potassium Level 3.6 mmol/L (3.5-5.1) Chloride Level 101 mmol/L (98-107) Carbon Dioxide Level 30 mmol/L (21-32) Anion Gap 6 (6-14) Blood Urea Nitrogen 16 mg/dL (7-20) Creatinine 0.8 mg/dL (0.6-1.0) Estimated GFR (Cockcroft-Gault) 69.7 Glucose Level 221 mg/dL (70-99) Calcium Level 9.3 mg/dL (8.5-10.1) Glucose (Fingerstick) 214 mg/dL (70-99) Laboratory Tests Test 07/22/21 11:04 07/22/21 16:48 07/22/21 20:19 07/23/21 06:20 Glucose (Fingerstick) 278 mg/dL (70-99) 261 mg/dL (70-99) 266 mg/dL (70-99) White Blood Count 7.7 x10^3/uL (4.0-11.0) Red Blood Count 4.38 x10^6/uL (3.50-5.40) Hemoglobin 13.0 g/dL (12.0-15.5) Hematocrit 39.4 % (36.0-47.0) Mean Corpuscular Volume 90 fL (79-100) Mean Corpuscular Hemoglobin 30 pg (25-35) Mean Corpuscular Hemoglobin Concent 33 g/dL (31-37) Red Cell Distribution Width 15.5 % (11.5-14.5) Platelet Count 125 x10^3/uL (140-400) Neutrophils (%) (Auto) 64 % (31-73) Lymphocytes (%) (Auto) 27 % (24-48) Monocytes (%) (Auto) 7 % (0-9) Eosinophils (%) (Auto) 1 % (0-3) Basophils (%) (Auto) 1 % (0-3) Neutrophils # (Auto) 5.0 x10^3/uL (1.8-7.7) Lymphocytes # (Auto) 2.1 x10^3/uL (1.0-4.8) Monocytes # (Auto) 0.5 x10^3/uL (0.0-1.1) Eosinophils # (Auto) 0.1 x10^3/uL (0.0-0.7) Basophils # (Auto) 0.1 x10^3/uL (0.0-0.2) Sodium Level 137 mmol/L (136-145) Potassium Level 3.6 mmol/L (3.5-5.1) Chloride Level 101 mmol/L (98-107) Carbon Dioxide Level 30 mmol/L (21-32) Anion Gap 6 (6-14) Blood Urea Nitrogen 16 mg/dL (7-20) Creatinine 0.8 mg/dL (0.6-1.0) Estimated GFR (Cockcroft-Gault) 69.7 Glucose Level 221 mg/dL (70-99) Calcium Level 9.3 mg/dL (8.5-10.1) Test 07/23/21 07:11 Glucose (Fingerstick) 214 mg/dL (70-99) Microbiology 07/20/21 Blood Culture - Preliminary, Resulted NO GROWTH AFTER 3 DAYS Medications Current Medications Sodium Chloride 1,000 ml @ 1,000 mls/hr 1X ONCE IV Last administered on 07/20/21at 02:03; Start 07/20/21 at 01:30; Stop 07/20/21 at 02:29; Status DC Ondansetron HCl (Zofran) 4 mg PRN Q8HRS PRN IVP NAUSEA/VOMITING 1st CHOICE; Start 07/20/21 at 03:00; Stop 07/21/21 at 02:59; Status DC Potassium Chloride (Klor-Con) 40 meq 1X ONCE PO Last administered on 07/20/21at 03:57; Start 07/20/21 at 04:00; Stop 07/20/21 at 04:01; Status DC Acetaminophen (Tylenol) 500 mg PRN BID PRN PO PAIN; Start 07/20/21 at 10:30 Aspirin (Ecotrin) 81 mg DAILYWBKFT PO ; Start 07/21/21 at 08:00; Status UNV Atenolol (Tenormin) 75 mg DAILY PO Last administered on 07/22/21at 12:09; Start 07/20/21 at 13:00 Clonazepam (KlonoPIN) 1 mg PRN QHS PRN PO ANXIETY / INSOMNIA Last administered on 07/22/21at 22:34; Start 07/20/21 at 21:00 Clopidogrel Bisulfate (Plavix) 75 mg DAILY PO Last administered on 07/21/21at 09:08; Start 07/20/21 at 13:00; Stop 07/22/21 at 10:04; Status DC Colesevelam HCl (Welchol) 1,875 mg TID PO ; Start 07/20/21 at 14:00; Status UNV Cyclobenzaprine HCl (Flexeril) 10 mg PRN TID PRN PO MUSCLE SPASMS; Start 07/20/21 at 10:30 Doxepin HCl (SINequan) 10 mg QHS PO Last administered on 07/22/21at 21:08; Start 07/20/21 at 21:00 EZETIMIBE (Zetia) 10 mg DAILY PO ; Start 07/21/21 at 09:00; Status UNV Fluticasone Propionate (Flonase) 1 spray PRN DAILY PRN NS ALLERGIES; Start 07/20/21 at 09:00 Gemfibrozil (Lopid) 600 mg BID PO ; Start 07/20/21 at 21:00; Status UNV Glipizide (Glucotrol) 5 mg TID PO ; Start 07/20/21 at 14:00; Status UNV Insulin Glargine (Lantus Syringe) 80 unit BID SQ Last administered on 07/22/21at 21:07; Start 07/20/21 at 21:00 Levothyroxine Sodium (Synthroid) 100 mcg DAILY06 PO Last administered on 07/23/21at 06:49; Start 07/20/21 at 12:30 Lisinopril (Prinivil) 20 mg DAILY PO Last administered on 07/22/21at 12:09; Start 07/20/21 at 13:00 Magnesium Hydroxide (Milk Of Magnesia) 400 mg PRN DAILY PRN PO CONSTIPATION; Start 07/20/21 at 10:30; Stop 07/20/21 at 12:15; Status DC Torsemide (Demadex) 10 mg QODAY PO Last administered on 07/21/21at 09:24; Start 07/21/21 at 09:00 Aripiprazole (Abilify) 10 mg DAILY PO Last administered on 07/22/21at 12:09; Start 07/20/21 at 13:00 Non-Formulary Medication (Clonazepam (Clonazepam Odt)) 1 mg HS PRN PO hs; Start 07/20/21 at 10:30; Status UNV Non-Formulary Medication (Fluticasone Propionate (Flonase Allergy Relief)) 2 sprays DAILY NS ; Start 07/21/21 at 09:00; Status UNV Insulin Human Lispro (HumaLOG) 30 units TIDWMEALS SQ Last administered on 07/22at 17:43; Start 07/20/21 at 17:00 Non-Formulary Medication (Melatonin ) 10 mg HS PO ; Start 07/20/21 at 21:00; Status UNV Non-Formulary Medication (Melatonin ) 1 cap QHS PO ; Start 07/20/21 at 21:00; Status UNV Non-Formulary Medication (Naproxen ) 375 mg TID PRN PO PAIN; Start 07/20/21 at 10:30; Status UNV Nicotine Polacrilex (Nicorette Gum) 1 each PRN Q1HR PRN BC SMOKING CESSATION; Start 07/20/21 at 12:45 Linagliptin (Tradjenta) 5 mg DAILY PO Last administered on 07/22/21at 12:08; Start 07/20/21 at 13:00 Trazodone HCl (Desyrel) 50 mg HS PO Last administered on 07/22/21at 21:09; Start 07/20/21 at 21:00 Non-Formulary Medication (Vortioxetine Hydrobromide (Trintellix)) 1 tab DAILY PO ; Start 07/21/21 at 09:00; Status UNV Magnesium Hydroxide (Milk Of Magnesia) 2,400 mg PRN DAILY PRN PO CONSTIPATION; Start 07/20/21 at 12:15 Duloxetine HCl (Cymbalta) 30 mg DAILY PO Last administered on 07/22/21at 12:08; Start 07/20/21 at 13:00 Magnesium Oxide (Magnesium Oxide) 400 mg DAILY PO Last administered on 2at 12:08; Start 07/20/21 at 14:00 Lidocaine (Lidoderm) 1 patch DAILY TD Last administered on 07/21/21 09:06; Start 07/20/21 at 13:00 Miscellaneous (Lidoderm Patch Removal) 1 ea QHS MC Last administered on 07/21/21 21:17; Start 07/20/21 at 21:00 Meclizine HCl (Antivert) 25 mg DAILY PO Last administered on 07/22/21at 12:08; Start 07/20/21 at 14:00 Duloxetine HCl (Cymbalta) 60 mg QHS PO Last administered on 07/22/21at 21:09; Start 07/20/21 at 21:00 Potassium Chloride (Klor-Con) 40 meq 1X ONCE PO Last administered on 07/20/21at 17:13; Start 07/20/21 at 17:00; Stop 07/20/21 at 17:01; Status DC Aspirin (Ecotrin) 81 mg DAILYWBKFT PO ; Start 07/22/21 at 08:00; Stop 07/22/21 at 10:04; Status DC Olanzapine (ZyPREXA ZYDIS) 5 mg PRN BID PRN PO ANXIETY / AGITATION Last administered on 07/22/21at 00:08; Start 07/21/21 at 21:45 Hydralazine HCl (Apresoline Inj) 10 mg PRN Q4HRS PRN IVP ELEVATED BP, SEE COMMENTS Last administered on 07/22/21at 00:08; Start 07/21/21 at 23:45 Insulin Human Lispro (HumaLOG) 0-7 UNITS TIDWMEALS SQ ; Start 07/23/21 at 12:00 Active Scripts Active Lisinopril 40 Mg Tablet 20 Mg PO DAILY 30 Days Reported Trazodone Hcl 50 Mg Tablet 50 Mg PO HS Voltaren Arthritis Pain (Diclofenac Sodium) 20 Gm Gel..gram. 1 Gm TP TID Meclizine Hcl 25 Mg Tablet 25 Mg PO DAILY Cymbalta (Duloxetine Hcl) 60 Mg Capsule.dr 60 Mg PO QHS Cymbalta (Duloxetine Hcl) 30 Mg Capsule.dr 30 Mg PO DAILY Levemir (Insulin Detemir) 100 Unit/1 Ml Vial 80 Unit SQ BID Flonase Allergy Relief (Fluticasone Propionate) 9.9 Ml [place].susp 2 Sprays NS DAILY PRN Proair Hfa Inhaler (Albuterol Sulfate) 8.5 Gm Hfa.aer.ad 2 Puff INH PRN Q6HRS PRN Torsemide 10 Mg Tablet 1 Tab PO QODAY 30 Days Rexulti (Brexpiprazole) 4 Mg Tablet 1 Tab PO DAILY 30 Days Doxepin Hcl 10 Mg Capsule 1 Cap PO QHS Acetaminophen 500 Mg Tablet 500 Mg PO PRN BID PRN Nicotine Lozenge (Nicotine Polacrilex) 2 Mg Lozenge 2 Mg BC PRN Q30MIN PRN Milk Of Magnesia (Magnesium Hydroxide) 400 Mg/5 Ml Oral.susp 2,400 Mg PO PRN DAILY PRN Novolog (Insulin Aspart) 100 Unit/1 Ml Vial 30 Unit SQ TIDAC Januvia (Sitagliptin Phosphate) 50 Mg Tablet 100 Mg PO DAILY Atenolol 25 Mg Tablet 75 Mg PO DAILY Levothyroxine Sodium 100 Mcg Tablet 1 Tab PO DAILY Cyclobenzaprine Hcl 10 Mg Tablet 10 Mg PO PRN TID PRN Plavix (Clopidogrel Bisulfate) 75 Mg Tablet 75 Mg PO DAILY Clonazepam Odt (Clonazepam) 2 Mg Tab.rapdis 1 Mg PO HS PRN Vitals/I & O Vital Sign - Last 24 Hours 07/22/21 07/22/21 07/22/21 07/22/21 11:00 12:09 12:09 15:00 Temp 98.1 97.8 98.1 97.8 Pulse 66 66 66 63 Resp 18 18 B/P (MAP) 170/67 (101) 170/67 170/67 168/53 (91) Pulse Ox 93 94 O2 Delivery Room Air Room Air 07/22/21 07/22/21 07/22/21 07/23/21 19:00 20:00 23:02 03:06 Temp 98.3 98.5 97.0 98.3 98.5 97.0 Pulse 66 66 69 Resp 20 18 20 B/P (MAP) 159/57 (91) 172/66 (101) 174/88 (116) Pulse Ox 95 92 97 O2 Delivery Room Air Room Air Room Air Room Air 07/23/21 07:00 Temp 98.0 98.0 Pulse 63 Resp 18 B/P (MAP) 161/57 (91) Pulse Ox 93 Intake and Output 07/22/21 07/22/21 07/23/21 15:00 23:00 07:00 Intake Total 240 ml Output Total 200 ml 300 ml Balance -200 ml 240 ml -300 ml Images Echocardiogram, 07/21: LEFT VENTRICLE The left ventricle is normal size. There is mild concentric left ventricular hypertrophy. The left ventricular systolic function is normal. Estimated ejection fraction 60%. There is normal LV segmental wall motion. Transmitral Doppler flow pattern is Grade I-abnormal relaxation pattern. RIGHT VENTRICLE The right ventricle is normal size. There is normal right ventricular wall thickness. The right ventricular systolic function is normal. ATRIA The left atrium size is normal. The right atrium size is normal. The interatrial septum is intact with no evidence for an atrial septal defect or patent foramen ovale as noted on 2-D or Doppler imaging. AORTIC VALVE The aortic valve is normal in structure and function. Doppler and Color Flow revealed no significant aortic regurgitation. There is no significant aortic valvular stenosis. MITRAL VALVE Mitral annular calcification is mild. There is no evidence of mitral valve prolapse. There is no mitral valve stenosis. Doppler and Color-flow revealed mild mitral regurgitation. TRICUSPID VALVE The tricuspid valve is normal in structure and function. Doppler and Color Flow revealed no tricuspid valve regurgitation noted. There is no tricuspid valve stenosis. PULMONIC VALVE The pulmonary valve is normal in structure and function. Doppler and Color Flow revealed no pulmonic valvular regurgitation. GREAT VESSELS The aortic root is normal in size. The ascending aorta is normal in size. The IVC is normal in size and collapses >50% with inspiration. PERICARDIAL EFFUSION There is no evidence of significant pericardial effusion. Critical Notification Critical Value: No <Conclusion> The left ventricular systolic function is normal. Estimated ejection fraction 60%. There is normal LV segmental wall motion. Transmitral Doppler flow pattern is Grade I-abnormal relaxation pattern. Mild mitral regurgitation. There is no evidence of significant pericardial effusion. Justicifation of Admission Dx: Justifications for Admission: Justification of Admission Dx: Yes Angina: New-Onset SUSAN NICHOLAS MD Jul 23, 2021 09:47
[2021-07-23] MEDS: LIDOCAINE (700MG/PATCH) PATCH. TD SCH (10:07)
[2021-07-23] MEDS: MECLIZINE HCL 12.5 MG TABLET. PO SCH (10:07)
[2021-07-23] MEDS: ARIPiprazole 5 MG TABLET PO SCH (10:07)
[2021-07-23] MEDS: MAGNESIUM OXIDE 400 MG TABLET PO SCH (10:07)
[2021-07-23] MEDS: DULoxetine HCL 30 MG CAPSULE.DR PO SCH (10:08)
[2021-07-23] MEDS: LISINOPRIL 20 MG TABLET PO SCH (10:08)
[2021-07-23] MEDS: TORSEMIDE 10 MG PO SCH (10:08)
[2021-07-23] MEDS: LINAGLIPTIN 5 MG TABLET PO SCH (10:08)
[2021-07-23] MEDS: ATENOLOL 25 MG TABLET. PO SCH (10:08)
[2021-07-23] MEDS: INSULIN LISPRO 300 UNITS/3 ML VIAL. SQ SCH ×2 (10:20→12:24)
[2021-07-23] MEDS: INSULIN GLARGINE SYRINGE. SQ SCH (10:20)
[2021-07-23 11:00] VITALS: BP 146/65
--- NOTE | 2021-07-23 11:15 | SNU/HH DC ---
DISCHARGE ORDERS DISCHARGE INFORMATION: DISCHARGE DATE: Jul 23, 2021 FINAL DIAGNOSIS Problems Medical Problems: (1) Failure to thrive Status: Acute (2) Slurring of speech Status: Acute (3) Unable to walk Status: Acute CONDITION ON DISCHARGE: Stable CODE STATUS: Code Status: Full POST DISCHARGE ORDERS: ACTIVITY ORDERS: Activity as tolerated WEIGHT BEARING STATUS: As tolerated DIET AFTER DISCHARGE: ADA OTHER ORDERS: CT-guided lung biopsy when available. CHECKS AFTER DISCHARGE: CHECKS AFTER DISCHARGE: Check blood press - daily, Check blood sugar, ac/hs FOLLOW-UP: PHYSICIAN FOLLOW-UP: PCP within 2 weeks of discharge ADDITIONAL FOLLOW-UP: Pulmonology as scheduled or as needed LAB ORDERS FOR FOLLOW-UP: CBC, CMP in 1 week Additional Instructions: Will need to schedule CT-guided lung biopsy for pulmonary nodule ROSALIND with interventional radiology TREATMENT/EQUIPMENT ORDERS: ADAPTIVE EQUIPMENT NEEDED: None DISCHARGE MEDICATIONS: Home Meds Active Scripts Lisinopril (LISINOPRIL) 40 Mg Tablet, 20 MG PO DAILY for htn for 30 Days, #15 TAB Prov:VLAD SHAHID MD 09/06/19 Reported Medications Trazodone Hcl (TRAZODONE HCL) 50 Mg Tablet, 50 MG PO HS, TAB 07/20/21 Diclofenac Sodium (Voltaren Arthritis Pain) 20 Gm Gel..gram., 1 GM TP TID, EACH 07/20/21 Meclizine Hcl (MECLIZINE HCL) 25 Mg Tablet, 25 MG PO DAILY, TAB 07/20/21 Duloxetine Hcl (CYMBALTA) 60 Mg Capsule.dr, 60 MG PO QHS, CAP 07/20/21 Duloxetine Hcl (CYMBALTA) 30 Mg Capsule.dr, 30 MG PO DAILY, CAP 07/20/21 Insulin Detemir (LEVEMIR) 100 Unit/1 Ml Vial, 80 UNIT SQ BID, EACH 07/20/21 Fluticasone Propionate (Flonase Allergy Relief) 9.9 Ml [place].susp, 2 SPRAYS NS DAILY PRN for ALLERGIES, BOTTLE 09/03/19 Albuterol Sulfate (PROAIR HFA INHALER) 8.5 Gm Hfa.aer.ad, 2 PUFF INH PRN Q6HRS PRN for SHORTNESS OF BREATH, INHALER 0 Refills 09/03/19 Torsemide (TORSEMIDE) 10 Mg Tablet, 1 TAB PO QODAY for htn for 30 Days, #30 TAB 0 Refills 09/03/19 Brexpiprazole (Rexulti) 4 Mg Tablet, 1 TAB PO DAILY for depression for 30 Days, #30 TAB 0 Refills 09/03/19 Doxepin Hcl (DOXEPIN HCL) 10 Mg Capsule, 1 CAP PO QHS for inomnia , #30 CAP 09/03/19 Acetaminophen (ACETAMINOPHEN) 500 Mg Tablet, 500 MG PO PRN BID PRN for PAIN, TAB 04/18/18 Nicotine Polacrilex (NICOTINE LOZENGE) 2 Mg Lozenge, 2 MG BC PRN Q30MIN PRN for SEE COMMENTS, LOZENGE 04/18/18 Magnesium Hydroxide (MILK OF MAGNESIA) 400 Mg/5 Ml Oral.susp, 2400 MG PO PRN DAILY PRN for CONSTIPATION, MISC 04/18/18 Insulin Aspart (NOVOLOG) 100 Unit/1 Ml Vial, 30 UNIT SQ TIDAC for DIABETES , VIAL 03/02/18 Sitagliptin Phosphate (JANUVIA) 50 Mg Tablet, 100 MG PO DAILY for DIABETES , TAB 03/02/18 Atenolol (ATENOLOL) 25 Mg Tablet, 75 MG PO DAILY for TO CONTROL BP, #90 TAB 1 Refill 10/17/16 Levothyroxine Sodium (LEVOTHYROXINE SODIUM) 100 Mcg Tablet, 1 TAB PO DAILY, #30 TAB 5 Refills 10/17/16 Cyclobenzaprine Hcl (CYCLOBENZAPRINE HCL) 10 Mg Tablet, 10 MG PO PRN TID PRN for MUSCLE SPASMS 08/01/13 Clopidogrel Bisulfate (PLAVIX) 75 Mg Tablet, 75 MG PO DAILY 08/01/13 Clonazepam (CLONAZEPAM ODT) 2 Mg Tab.rapdis, 1 MG PO HS PRN for hs 08/01/13 Discontinued Reported Medications Vortioxetine Hydrobromide (TRINTELLIX) 20 Mg Tablet, 1 TAB PO DAILY for depression for 30 Days, #30 TAB 0 Refills 09/03/19 Melatonin (MELATONIN) 10 Mg Capsule, 1 CAP PO QHS for sleep for 30 Days, #30 CAP 0 Refills 09/03/19 Glipizide (GLIPIZIDE) 5 Mg Tablet, 1 TAB PO TID for bs, #60 TAB 3 Refills 09/03/19 Trazodone Hcl (TRAZODONE HCL) 150 Mg Tablet, 150 MG PO HS for FOR SLEEP, TAB 04/18/18 Melatonin (MELATONIN) 3 Mg Tablet, 10 MG PO HS for SLEEPING , TAB 03/02/18 Gemfibrozil (GEMFIBROZIL) 600 Mg Tablet, 600 MG PO BID for CHOLESTEROL , TAB 03/02/18 Colesevelam Hcl (WELCHOL) 625 Mg Tablet, 1875 MG PO TID for CHOLESTEROL, TAB 03/02/18 Fluticasone Propionate (FLUTICASONE PROPIONATE NASAL SPRAY) 16 Gm [place].susp, 1 SPRAY NS DAILY, #1 INHALER 11 Refills 10/17/16 Clonazepam (CLONAZEPAM ) 0.5 Mg Tablet, 1 TAB PO BID for ANXIETY, #90 TAB 06/25/14 Discontinued Scripts Ezetimibe (Ezetimibe) 10 Mg Tablet, 10 MG PO DAILY for chol for 30 Days, #30 TAB Prov:VLAD SHAHID MD 09/06/19 Aspirin (ASPIRIN EC) 81 Mg Tablet., 81 MG PO DAILYWBKFT for cad for 100 Days, #100 TAB.SR Prov:VLAD SHAHID MD 09/06/19 Insulin Glargine,Hum.rec.anlog (LANTUS) 100 Unit/1 Ml Vial, 50 UNIT SQ BID for diabetes for 30 Days, EACH Prov:VLAD SHAHID MD 09/06/19 Naproxen (NAPROXEN) 375 Mg Tablet., 375 MG PO TID PRN for PAIN, #20 TAB.SR Prov:SARA DESAI DO 03/28/18 STEVE TAO MD Jul 23, 2021 11:14
--- NOTE | 2021-07-23 11:39 | PDOC ---
PULMONARY PROGRESS NOTES DATE: 07/23/21 TIME: 11:37 Subjective Patient denies any shortness of breath. Vitals Vital Signs Date Time Temp Pulse Resp B/P (MAP) Pulse Ox O2 Delivery O2 Flow Rate FiO2 07/23/21 10:08 63 161/57 07/23/21 07:00 98.0 18 93 98.0 07/23/21 03:06 Room Air ROS: No Nausea, No Chest Pain, No Abdominal Pain, No Increase Cough General: Alert, No acute distress Lungs: Clear Cardiovascular: S1, S2 Abdomen: Soft Neuro Exam: Alert Extremities: No Edema Skin: Warm Labs Laboratory Tests Test 07/21/21 12:00 07/21/21 14:44 07/21/21 16:54 07/21/21 20:19 Glucose (Fingerstick) 230 mg/dL (70-99) 141 mg/dL (70-99) 219 mg/dL (70-99) White Blood Count 5.9 x10^3/uL (4.0-11.0) Red Blood Count 4.26 x10^6/uL (3.50-5.40) Hemoglobin 12.7 g/dL (12.0-15.5) Hematocrit 37.8 % (36.0-47.0) Mean Corpuscular Volume 89 fL (79-100) Mean Corpuscular Hemoglobin 30 pg (25-35) Mean Corpuscular Hemoglobin Concent 34 g/dL (31-37) Red Cell Distribution Width 15.6 % (11.5-14.5) Platelet Count 118 x10^3/uL (140-400) Neutrophils (%) (Auto) 65 % (31-73) Lymphocytes (%) (Auto) 26 % (24-48) Monocytes (%) (Auto) 7 % (0-9) Eosinophils (%) (Auto) 1 % (0-3) Basophils (%) (Auto) 1 % (0-3) Neutrophils # (Auto) 3.9 x10^3/uL (1.8-7.7) Lymphocytes # (Auto) 1.6 x10^3/uL (1.0-4.8) Monocytes # (Auto) 0.4 x10^3/uL (0.0-1.1) Eosinophils # (Auto) 0.1 x10^3/uL (0.0-0.7) Basophils # (Auto) 0.1 x10^3/uL (0.0-0.2) Erythrocyte Sedimentation Rate 81 (0-25) Sodium Level 139 mmol/L (136-145) Potassium Level 3.9 mmol/L (3.5-5.1) Chloride Level 102 mmol/L (98-107) Carbon Dioxide Level 29 mmol/L (21-32) Anion Gap 8 (6-14) Blood Urea Nitrogen 11 mg/dL (7-20) Creatinine 0.9 mg/dL (0.6-1.0) Estimated GFR (Cockcroft-Gault) 60.9 Glucose Level 198 mg/dL (70-99) Calcium Level 9.2 mg/dL (8.5-10.1) Vitamin B12 Level 672 pg/mL (247-911) Test 07/22/21 06:25 07/22/21 11:04 07/22/21 16:48 07/22/21 20:19 White Blood Count 6.2 x10^3/uL (4.0-11.0) Red Blood Count 4.38 x10^6/uL (3.50-5.40) Hemoglobin 12.9 g/dL (12.0-15.5) Hematocrit 38.7 % (36.0-47.0) Mean Corpuscular Volume 88 fL (79-100) Mean Corpuscular Hemoglobin 30 pg (25-35) Mean Corpuscular Hemoglobin Concent 33 g/dL (31-37) Red Cell Distribution Width 15.7 % (11.5-14.5) Platelet Count 120 x10^3/uL (140-400) Neutrophils (%) (Auto) 62 % (31-73) Lymphocytes (%) (Auto) 30 % (24-48) Monocytes (%) (Auto) 6 % (0-9) Eosinophils (%) (Auto) 1 % (0-3) Basophils (%) (Auto) 1 % (0-3) Neutrophils # (Auto) 3.9 x10^3/uL (1.8-7.7) Lymphocytes # (Auto) 1.9 x10^3/uL (1.0-4.8) Monocytes # (Auto) 0.4 x10^3/uL (0.0-1.1) Eosinophils # (Auto) 0.1 x10^3/uL (0.0-0.7) Basophils # (Auto) 0.0 x10^3/uL (0.0-0.2) Sodium Level 140 mmol/L (136-145) Potassium Level 3.6 mmol/L (3.5-5.1) Chloride Level 102 mmol/L (98-107) Carbon Dioxide Level 30 mmol/L (21-32) Anion Gap 8 (6-14) Blood Urea Nitrogen 13 mg/dL (7-20) Creatinine 0.7 mg/dL (0.6-1.0) Estimated GFR (Cockcroft-Gault) 81.4 Glucose Level 248 mg/dL (70-99) Hemoglobin A1c 10.9 % (4.8-5.6) Calcium Level 9.4 mg/dL (8.5-10.1) Triglycerides Level 174 mg/dL (0-150) Cholesterol Level 234 mg/dL (0-200) LDL Cholesterol, Calculated 161 mg/dL (0-100) VLDL Cholesterol, Calculated 35 mg/dL (0-40) Non-HDL Cholesterol Calculated 196 mg/dL (0-129) HDL Cholesterol 38 mg/dL (40-60) Cholesterol/HDL Ratio 6.2 Glucose (Fingerstick) 278 mg/dL (70-99) 261 mg/dL (70-99) 266 mg/dL (70-99) Test 07/23/21 06:20 07/23/21 07:11 White Blood Count 7.7 x10^3/uL (4.0-11.0) Red Blood Count 4.38 x10^6/uL (3.50-5.40) Hemoglobin 13.0 g/dL (12.0-15.5) Hematocrit 39.4 % (36.0-47.0) Mean Corpuscular Volume 90 fL (79-100) Mean Corpuscular Hemoglobin 30 pg (25-35) Mean Corpuscular Hemoglobin Concent 33 g/dL (31-37) Red Cell Distribution Width 15.5 % (11.5-14.5) Platelet Count 125 x10^3/uL (140-400) Neutrophils (%) (Auto) 64 % (31-73) Lymphocytes (%) (Auto) 27 % (24-48) Monocytes (%) (Auto) 7 % (0-9) Eosinophils (%) (Auto) 1 % (0-3) Basophils (%) (Auto) 1 % (0-3) Neutrophils # (Auto) 5.0 x10^3/uL (1.8-7.7) Lymphocytes # (Auto) 2.1 x10^3/uL (1.0-4.8) Monocytes # (Auto) 0.5 x10^3/uL (0.0-1.1) Eosinophils # (Auto) 0.1 x10^3/uL (0.0-0.7) Basophils # (Auto) 0.1 x10^3/uL (0.0-0.2) Sodium Level 137 mmol/L (136-145) Potassium Level 3.6 mmol/L (3.5-5.1) Chloride Level 101 mmol/L (98-107) Carbon Dioxide Level 30 mmol/L (21-32) Anion Gap 6 (6-14) Blood Urea Nitrogen 16 mg/dL (7-20) Creatinine 0.8 mg/dL (0.6-1.0) Estimated GFR (Cockcroft-Gault) 69.7 Glucose Level 221 mg/dL (70-99) Calcium Level 9.3 mg/dL (8.5-10.1) Glucose (Fingerstick) 214 mg/dL (70-99) Laboratory Tests Test 07/22/21 16:48 07/22/21 20:19 07/23/21 06:20 07/23/21 07:11 Glucose (Fingerstick) 261 mg/dL (70-99) 266 mg/dL (70-99) 214 mg/dL (70-99) White Blood Count 7.7 x10^3/uL (4.0-11.0) Red Blood Count 4.38 x10^6/uL (3.50-5.40) Hemoglobin 13.0 g/dL (12.0-15.5) Hematocrit 39.4 % (36.0-47.0) Mean Corpuscular Volume 90 fL (79-100) Mean Corpuscular Hemoglobin 30 pg (25-35) Mean Corpuscular Hemoglobin Concent 33 g/dL (31-37) Red Cell Distribution Width 15.5 % (11.5-14.5) Platelet Count 125 x10^3/uL (140-400) Neutrophils (%) (Auto) 64 % (31-73) Lymphocytes (%) (Auto) 27 % (24-48) Monocytes (%) (Auto) 7 % (0-9) Eosinophils (%) (Auto) 1 % (0-3) Basophils (%) (Auto) 1 % (0-3) Neutrophils # (Auto) 5.0 x10^3/uL (1.8-7.7) Lymphocytes # (Auto) 2.1 x10^3/uL (1.0-4.8) Monocytes # (Auto) 0.5 x10^3/uL (0.0-1.1) Eosinophils # (Auto) 0.1 x10^3/uL (0.0-0.7) Basophils # (Auto) 0.1 x10^3/uL (0.0-0.2) Sodium Level 137 mmol/L (136-145) Potassium Level 3.6 mmol/L (3.5-5.1) Chloride Level 101 mmol/L (98-107) Carbon Dioxide Level 30 mmol/L (21-32) Anion Gap 6 (6-14) Blood Urea Nitrogen 16 mg/dL (7-20) Creatinine 0.8 mg/dL (0.6-1.0) Estimated GFR (Cockcroft-Gault) 69.7 Glucose Level 221 mg/dL (70-99) Calcium Level 9.3 mg/dL (8.5-10.1) Medications Active Scripts Medications Dose Route/Sig Max Daily Dose Days Date Category Lisinopril 40 Mg Tablet 20 Mg PO DAILY 30 09/06/19 Rx Ezetimibe 10 Mg Tablet 10 Mg PO DAILY 30 09/06/19 Rx Aspirin Ec (Aspirin) 81 Mg Tablet.dr 81 Mg PO DAILYWBKFT 100 09/06/19 Rx Lantus (Insulin Glargine,Hum.rec.anlog) 100 Unit/1 Ml Vial 50 Unit SQ BID 30 09/06/19 Rx Flonase Allergy Relief (Fluticasone Propionate) 9.9 Ml [place].susp 2 Sprays NS DAILY 09/03/19 Reported Proair Hfa Inhaler (Albuterol Sulfate) 8.5 Gm Hfa.aer.ad 2 Puff INH PRN Q6HRS PRN 09/03/19 Reported Trintellix (Vortioxetine) 20 Mg Tablet 1 Tab PO DAILY 30 09/03/19 Reported Torsemide 10 Mg Tablet 1 Tab PO QODAY 30 09/03/19 Reported Rexulti (Brexpiprazole) 4 Mg Tablet 1 Tab PO DAILY 30 09/03/19 Reported Melatonin 10 Mg Capsule 1 Cap PO QHS 30 09/03/19 Reported Glipizide 5 Mg Tablet 1 Tab PO TID 09/03/19 Reported Doxepin Hcl 10 Mg Capsule 1 Cap PO QHS 09/03/19 Reported Acetaminophen 500 Mg Tablet 500 Mg PO PRN BID PRN 04/18/18 Reported Trazodone Hcl 150 Mg Tablet 150 Mg PO HS 04/18/18 Reported Nicotine Lozenge (Nicotine Polacrilex) 2 Mg Lozenge 2 Mg BC PRN Q30MIN PRN 04/18/18 Reported Milk Of Magnesia (Magnesium Hydroxide) 400 Mg/5 Ml Oral.susp 400 Mg PO PRN DAILY PRN 04/18/18 Reported Naproxen 375 Mg Tablet.dr 375 Mg PO TID PRN 03/28/18 Rx Novolog (Insulin Aspart) 100 Unit/1 Ml Vial 25 Unit SQ TIDAC 03/02/18 Reported Melatonin 3 Mg Tablet 10 Mg PO HS 03/02/18 Reported Januvia (Sitagliptin Phosphate) 50 Mg Tablet 100 Mg PO DAILY 03/02/18 Reported Gemfibrozil 600 Mg Tablet 600 Mg PO BID 03/02/18 Reported Welchol (Colesevelam Hcl) 625 Mg Tablet 1,875 Mg PO TID 03/02/18 Reported Atenolol 25 Mg Tablet 1 Tab PO DAILY 10/17/16 Reported Levothyroxine Sodium 100 Mcg Tablet 1 Tab PO DAILY 10/17/16 Reported Fluticasone Propionate Nasal [place] (Fluticasone Propionate) 16 Gm [place].susp 1 [place] NS DAILY 10/17/16 Reported Clonazepam (Clonazepam) 0.5 Mg Tablet 1 Tab PO BID 06/25/14 Reported Cyclobenzaprine Hcl 10 Mg Tablet 10 Mg PO PRN TID PRN 08/01/13 Reported Plavix (Clopidogrel Bisulfate) 75 Mg Tablet 75 Mg PO DAILY 08/01/13 Reported Clonazepam Odt (Clonazepam) 2 Mg Tab.rapdis 1 Mg PO HS PRN 08/01/[address] chest reviewed. IMPRESSION: 1. 2 solid irregular pulmonary nodules of the right upper lobe measuring 2.0 cm and 1.5 cm. There is also mediastinal adenopathy. Findings are concerning for lung malignancy with metastatic disease. 2. Heterogeneous groundglass pulmonary opacities, given the presence of small pleural effusions, most likely represents pulmonary edema. An infectious/inflammatory process would be a secondary consideration. 3. Other incidental findings as described above. Electronically signed by: Florian Friedman MD (07/21/2021 12:55 PM) [facility] . IMPRESSION: 1. Abnormal chest x-ray and CT chest. Patient has 2 rounded masslike densities in the right upper lobe. Largest being 2 cm in size. There is associated mediastinal adenopathy and some groundglass opacities bilaterally. Findings are suspicious for metastatic disease. She has a history of breast cancer status post mastectomy. Primary lung malignancy cannot be ruled out 2. Cardiomegaly. 3. Frequent falls, generalized weakness. Neurology following. MRI done. 4. Diabetes. 5. Hypertension. 6. History of breast cancer, status post mastectomy on the right side. 7. Chronic obstructive pulmonary disease, undiagnosed. 8. Depression and anxiety. Plan . 1. CT-guided biopsy of the lung lesion for definite diagnosis. Patient is currently on Plavix. That needs to be kept on hold. Likely biopsy on Wednesday 2. Outpatient pulmonary function testing. 3. Replace potassium as needed. 4. Consult dietitian for severe protein malnutrition present upon admission. 5. Follow oncology recommendations regarding history of breast cancer and staging at the time of diagnosis. 6. Tumor marker for breast cancer RODRIGO NAJERA MD Jul 23, 2021 11:39
[2021-07-23] MEDS ORDERED: INSULIN LISPRO 300 UNITS/3 ML VIAL. SQ SCH (12:00)
--- NOTE | 2021-07-23 13:33 | NUR ---
SS following up with discharge planning. SS reviewed pt chart and discussed with pt RN. Pt is currently on room air. PO diet. PT/OT reported no needs. Discharge orders received for return to [facility], ; fax [phone]. Discharge orders and clinical sent to [facility]. Pt will discharge today and return to [facility] between 1730 and 1800 via [employer] transportation, . Pt, pt's RN, and pt's family notified.
--- NOTE | 2021-07-23 17:30 | NUR ---
Discharge Note: Patient was discharged back to her Assisted Living. Patients IV was pulled by patient on accident. Patient and POA agreeable with discharge plans. Patient was taken via wheelchair van transportation, with all personal belongings. Patient was given all discharge paperwork for facility. Report was called to JAROCHO Childress at [facility].
--- NOTE | 2021-07-24 12:57 | PDOC3 ---
[facility]-Discharge Summary Date of Admission: Date of Admission: Jul 20, 2021 Date of Discharge: Date of Discharge: Jul 23, 2021 Discharge Diagnosis: Discharge Diagnosis: 1. Abnormal chest x-ray and CT chest. Patient has 2 rounded masslike densities in the right upper lobe. Largest being 2 cm in size. There is associated mediastinal adenopathy and some groundglass opacities bilaterally. Findings are suspicious for metastatic disease. She has a history of breast cancer status post mastectomy. Primary lung malignancy cannot be ruled out 2. Cardiomegaly. 3. Frequent falls, generalized weakness. Neurology following. MRI done showing Small right cerebral hemisphere acute infarct 4. Diabetes. 5. Hypertension. 6. History of breast cancer, status post mastectomy on the right side. 7. Chronic obstructive pulmonary disease, undiagnosed. 8. Depression and anxiety. Consults: Consults: Per Neurology: Plan Rehabilitation modalities Await lung biopsy She is allergic to statins Left message with power of trial attorney 07/22, no reply Hospital Course: Hospital Course: 76-year-old female who lives in a facility, I believe it is assisted care. She presented with a mechanical fall. She states she has been weaker lately. She has fallen several times. She also has some slight slurred speech. We are concerned she could be having some stroke symptoms. Her CAT scan really did not show anything acute. Her laboratory shows that she has hypokalemia of 2.2, hypernatremia of 146, and hypocalcemia of 5.3. Her albumin level was quite low at 1.5. She is also anemic with a hemoglobin of 8.2. We are going to admit the patient with consultation to Neurology. Evaluated by neurology and recommended rehab modalities. Please see recommendations above. Also was found to have incidental pulmonary nodule. She will need to have a CT-guided lung biopsy arranged with interventional radiology urology on outpatient basis. Interventional radiology was contacted. No appointment made at this time. Patient will continue her rehab at [facility]. By day of discharge, patient was clinically stable. Somewhat confused and weak but participating well with physical therapy. Rest of hospital course was uneventful. Disposition: Disposition/Orders: D/C to Another Facility Activity: Activity: Resume previous activity Diet: Diet: Cardiac Medications: Home Meds Active Scripts Lisinopril (LISINOPRIL) 40 Mg Tablet, 20 MG PO DAILY for htn for 30 Days, #15 TAB Prov:VLAD SHAHID MD 09/06/19 Reported Medications Trazodone Hcl (TRAZODONE HCL) 50 Mg Tablet, 50 MG PO HS, TAB 07/20/21 Diclofenac Sodium (Voltaren Arthritis Pain) 20 Gm Gel..gram., 1 GM TP TID, EACH 07/20/21 Meclizine Hcl (MECLIZINE HCL) 25 Mg Tablet, 25 MG PO DAILY, TAB 07/20/21 Duloxetine Hcl (CYMBALTA) 60 Mg Capsule.dr, 60 MG PO QHS, CAP 07/20/21 Duloxetine Hcl (CYMBALTA) 30 Mg Capsule.dr, 30 MG PO DAILY, CAP 07/20/21 Insulin Detemir (LEVEMIR) 100 Unit/1 Ml Vial, 80 UNIT SQ BID, EACH 07/20/21 Fluticasone Propionate (Flonase Allergy Relief) 9.9 Ml [place].susp, 2 SPRAYS NS DAILY PRN for ALLERGIES, BOTTLE 09/03/19 Albuterol Sulfate (PROAIR HFA INHALER) 8.5 Gm Hfa.aer.ad, 2 PUFF INH PRN Q6HRS PRN for SHORTNESS OF BREATH, INHALER 0 Refills 09/03/19 Torsemide (TORSEMIDE) 10 Mg Tablet, 1 TAB PO QODAY for htn for 30 Days, #30 TAB 0 Refills 09/03/19 Brexpiprazole (Rexulti) 4 Mg Tablet, 1 TAB PO DAILY for depression for 30 Days, #30 TAB 0 Refills 09/03/19 Doxepin Hcl (DOXEPIN HCL) 10 Mg Capsule, 1 CAP PO QHS for inomnia , #30 CAP 09/03/19 Acetaminophen (ACETAMINOPHEN) 500 Mg Tablet, 500 MG PO PRN BID PRN for PAIN, TAB 04/18/18 Nicotine Polacrilex (NICOTINE LOZENGE) 2 Mg Lozenge, 2 MG BC PRN Q30MIN PRN for SEE COMMENTS, LOZENGE 04/18/18 Magnesium Hydroxide (MILK OF MAGNESIA) 400 Mg/5 Ml Oral.susp, 2400 MG PO PRN DAILY PRN for CONSTIPATION, MISC 04/18/18 Insulin Aspart (NOVOLOG) 100 Unit/1 Ml Vial, 30 UNIT SQ TIDAC for DIABETES , VIAL 03/02/18 Sitagliptin Phosphate (JANUVIA) 50 Mg Tablet, 100 MG PO DAILY for DIABETES , TAB 03/02/18 Atenolol (ATENOLOL) 25 Mg Tablet, 75 MG PO DAILY for TO CONTROL BP, #90 TAB 1 Refill 10/17/16 Levothyroxine Sodium (LEVOTHYROXINE SODIUM) 100 Mcg Tablet, 1 TAB PO DAILY, #30 TAB 5 Refills 10/17/16 Cyclobenzaprine Hcl (CYCLOBENZAPRINE HCL) 10 Mg Tablet, 10 MG PO PRN TID PRN for MUSCLE SPASMS 08/01/13 Clopidogrel Bisulfate (PLAVIX) 75 Mg Tablet, 75 MG PO DAILY 08/01/13 Clonazepam (CLONAZEPAM ODT) 2 Mg Tab.rapdis, 1 MG PO HS PRN for hs 08/01/13 Discontinued Reported Medications Vortioxetine Hydrobromide (TRINTELLIX) 20 Mg Tablet, 1 TAB PO DAILY for depression for 30 Days, #30 TAB 0 Refills 09/03/19 Melatonin (MELATONIN) 10 Mg Capsule, 1 CAP PO QHS for sleep for 30 Days, #30 CAP 0 Refills 09/03/19 Glipizide (GLIPIZIDE) 5 Mg Tablet, 1 TAB PO TID for bs, #60 TAB 3 Refills 09/03/19 Trazodone Hcl (TRAZODONE HCL) 150 Mg Tablet, 150 MG PO HS for FOR SLEEP, TAB 04/18/18 Melatonin (MELATONIN) 3 Mg Tablet, 10 MG PO HS for SLEEPING , TAB 03/02/18 Gemfibrozil (GEMFIBROZIL) 600 Mg Tablet, 600 MG PO BID for CHOLESTEROL , TAB 03/02/18 Colesevelam Hcl (WELCHOL) 625 Mg Tablet, 1875 MG PO TID for CHOLESTEROL, TAB 03/02/18 Fluticasone Propionate (FLUTICASONE PROPIONATE NASAL SPRAY) 16 Gm [place].susp, 1 SPRAY NS DAILY, #1 INHALER 11 Refills 10/17/16 Clonazepam (CLONAZEPAM ) 0.5 Mg Tablet, 1 TAB PO BID for ANXIETY, #90 TAB 06/25/14 Discontinued Scripts Ezetimibe (Ezetimibe) 10 Mg Tablet, 10 MG PO DAILY for chol for 30 Days, #30 TAB Prov:VLAD SHAHID MD 6/10/20 Aspirin (ASPIRIN EC) 81 Mg Tablet., 81 MG PO DAILYWBKFT for cad for 100 Days, #100 TAB.SR Prov:VLAD SHAHID MD 09/06/19 Insulin Glargine,Hum.rec.anlog (LANTUS) 100 Unit/1 Ml Vial, 50 UNIT SQ BID for diabetes for 30 Days, EACH Prov:VLAD SHAHID MD 09/06/19 Naproxen (NAPROXEN) 375 Mg Tablet., 375 MG PO TID PRN for PAIN, #20 TAB.SR Prov:SARA DESAI DO 03/28/18 Scheduled Atenolol (Atenolol), 75 MG PO DAILY, (Reported) Brexpiprazole (Rexulti), 1 TAB PO DAILY, (Reported) Clopidogrel Bisulfate (Plavix), 75 MG PO DAILY, (Reported) Diclofenac Sodium (Voltaren Arthritis Pain), 1 GM TP TID, (Reported) Doxepin Hcl (Doxepin Hcl), 1 CAP PO QHS, (Reported) Duloxetine Hcl (Cymbalta), 30 MG PO DAILY, (Reported) Duloxetine Hcl (Cymbalta), 60 MG PO QHS, (Reported) Insulin Aspart (Novolog), 30 UNIT SQ TIDAC, (Reported) Insulin Detemir (Levemir), 80 UNIT SQ BID, (Reported) Levothyroxine Sodium (Levothyroxine Sodium), 1 TAB PO DAILY, (Reported) Lisinopril (Lisinopril), 20 MG PO DAILY Meclizine Hcl (Meclizine Hcl), 25 MG PO DAILY, (Reported) Sitagliptin Phosphate (Januvia), 100 MG PO DAILY, (Reported) Torsemide (Torsemide), 1 TAB PO QODAY, (Reported) Trazodone Hcl (Trazodone Hcl), 50 MG PO HS, (Reported) Scheduled PRN Acetaminophen (Acetaminophen), 500 MG PO PRN BID PRN for PAIN, (Reported) Albuterol Sulfate (Proair Hfa Inhaler), 2 PUFF INH PRN Q6HRS PRN for SHORTNESS OF BREATH, (Reported) Clonazepam (Clonazepam Odt), 1 MG PO HS PRN for hs, (Reported) Cyclobenzaprine Hcl (Cyclobenzaprine Hcl), 10 MG PO PRN TID PRN for MUSCLE SPASMS, (Reported) Fluticasone Propionate (Flonase Allergy Relief), 2 SPRAYS NS DAILY PRN for ALLERGIES, (Reported) Magnesium Hydroxide (Milk Of Magnesia), 2,400 MG PO PRN DAILY PRN for CONSTIPATION, (Reported) Nicotine Polacrilex (Nicotine Lozenge), 2 MG BC PRN Q30MIN PRN for SEE COMMENTS, (Reported) Discontinued Medications Aspirin (Aspirin Ec), 81 MG PO DAILYWBKFT Discontinued Reason: DC Clonazepam (Clonazepam ), 1 TAB PO BID, (Reported) Discontinued Reason: D/C Colesevelam Hcl (Welchol), 1,875 MG PO TID, (Reported) Discontinued Reason: D/C Ezetimibe (Ezetimibe), 10 MG PO DAILY Discontinued Reason: D/C Fluticasone Propionate (Fluticasone Propionate Nasal [place]), 1 SPRAY NS DAILY, (Reported) Discontinued Reason: D/C Gemfibrozil (Gemfibrozil), 600 MG PO BID, (Reported) Discontinued Reason: D/C Glipizide (Glipizide), 1 TAB PO TID, (Reported) Discontinued Reason: D/C Insulin Glargine,Hum.rec.anlog (Lantus), 50 UNIT SQ BID Discontinued Reason: D/C Melatonin (Melatonin), 10 MG PO HS, (Reported) Discontinued Reason: D/C Melatonin (Melatonin), 1 CAP PO QHS, (Reported) Discontinued Reason: D/C Naproxen (Naproxen), 375 MG PO TID PRN for PAIN Discontinued Reason: D/C Trazodone Hcl (Trazodone Hcl), 150 MG PO HS, (Reported) Discontinued Reason: CHANGE Vortioxetine Hydrobromide (Trintellix), 1 TAB PO DAILY, (Reported) Discontinued Reason: D/C Total Time: Total Time: Total time spent was 30 minutes in preparing scripts, discharge planning with SWI and RN and preparing this discharge summary Patient seen and examined on day of discharge. No acute abnormal findings. Justicifation of Admission Dx: Justifications for Admission: Justification of Admission Dx: Yes Angina: New-Onset STEVE TAO MD Jul 24, 2021 12:57
== END 2021-07-23 17:38 | disposition short-term general hospital (02) | DRG 640 ==
LOC: ER 01:01 → 5 NORTH 01:34
PROVIDERS: ADMIT Internal Medicine; ATTEND Internal Medicine
DX: E87.6 Hypokalemia (principal); I63.9 Cerebral infarction, unspecified; E43 Unspecified severe protein-calorie malnutrition; C34.90 Malignant neoplasm of unspecified part of unspecified bronchus or lung; E87.0 Hyperosmolality and hypernatremia; M62.81 Muscle weakness (generalized); D64.9 Anemia, unspecified; R62.7 Adult failure to thrive; C50.919 Malignant neoplasm of unspecified site of unspecified female breast; E03.9 Hypothyroidism, unspecified; E11.9 Type 2 diabetes mellitus without complications; E78.5 Hyperlipidemia, unspecified; E83.51 Hypocalcemia; F32.A Depression, unspecified; F41.9 Anxiety disorder, unspecified; G62.9 Polyneuropathy, unspecified; G89.29 Other chronic pain; I11.9 Hypertensive heart disease without heart failure; I65.29 Occlusion and stenosis of unspecified carotid artery; M48.00 Spinal stenosis, site unspecified; R29.6 Repeated falls; R56.9 Unspecified convulsions; Z82.49 Family history of ischemic heart disease and other diseases of the circulatory system; Z83.3 Family history of diabetes mellitus; Z85.3 Personal history of malignant neoplasm of breast; Z86.73 Personal history of transient ischemic attack (TIA), and cerebral infarction without residual deficits; Z87.891 Personal history of nicotine dependence; Z90.11 Acquired absence of right breast and nipple; Z90.710 Acquired absence of both cervix and uterus; K21.9 Gastro-esophageal reflux disease without esophagitis; M19.90 Unspecified osteoarthritis, unspecified site; Z88.2 Allergy status to sulfonamides; Z88.8 Allergy status to other drugs, medicaments and biological substances; I25.10 Atherosclerotic heart disease of native coronary artery without angina pectoris
CPT/HCPCS: 36415; 70450; 70551; 71045; 71250; 72125; 80048; 80053; 80061; 80307; 81001; 82607; 82962; 83036; 83690; 83880; 84443; 84484; 85025; 85610; 85651; 85730; 86300; 87040; 93005; 93306; 93880; 96360; G0480; J0360; J1815; J7030; 92610-GN; 97110-GP; 97116-GP; 97535-GO; 99285-25; C8929; G0378; J8597